=== PATIENT | female | born 1970 | race Caucasian/White ===

== ENCOUNTER 2020-12-18 07:30 | Outpatient (RCR) | payer BC, SELFPAY ==
[2020-12-14] MEDS: Normal Saline Flush 10 ML SYR IVP (07:46)
[2020-12-14 07:58] LABS: Abs Immature Grans 0.03 10^3/uL (0.0-0.06); Absolute Basophil Count 0.04 10^3/uL (0.0-0.2); Absolute Eosinophil Count 0.17 10^3/uL (0.0-0.7); Absolute Lymphocyte Count 1.49 10^3/uL (1.2-3.4); Absolute Monocyte Count 0.38 10^3/uL (0.1-0.8); Absolute Neutrophil Count 4.17 10^3/uL (1.2-6.7); Basophils % 0.6; Eosinophils % 2.7; HCT 38.1 % (36.0-46.0); HGB 12.5 g/dL (11.2-15.7); Immature Grans % 0.5; Lymphocytes % 23.7; MCH 30.3 pg (27.0-33.0); MCHC 32.8 % (32.0-36.0); MCV 92.5 fL (80-95); Monocytes % 6.1; Neutrophils % 66.4; Nucleated RBC 0 %; Platelet Count 346 10^3/uL (130-400); RBC 4.12 10^6/uL (3.93-5.22); RDW 14.2 % (11.7-14.6); RDW-SD 48.1 fL; WBC 6.28 10^3/uL (4.4-10.8)
[2020-12-14 08:07] LABS: ALT 26 U/L (14-59); AST 16 U/L (15-37); Albumin 3.3 g/dL (3.4-5.0); Alkaline Phosphatase 95 U/L (46-116); Anion Gap 10.9 mmol/L (3-11); BUN 8 mg/dL (7-18); Bilirubin, Total 0.3 mg/dL (0.2-1.0); CO2 24.1 mmol/L (21.0-32.0); CREATININE 0.7 mg/dL (0.55-1.02); Chloride 108 mmol/L (98-107); Glucose 121 mg/dL (74-106); Magnesium 1.1 mg/dL (1.8-2.4); Potassium 3.9 mmol/L (3.5-5.1); Sodium 143 mmol/L (136-145); Total Protein 7.4 g/dL (6.4-8.2)
[2020-12-14 17:51] LABS: CEA <2.0 ng/mL (See Note)
[2020-12-18] MEDS: Normal Saline Flush 10 ML SYR IVP (10:39)
[2020-12-18 10:55] LABS: Magnesium 1.1 mg/dL (1.8-2.4)
== END 2020-12-19 23:59 | disposition home or self-care (01) ==
LOC: INF 07:30
PROVIDERS: Visit Provider Internal Medicine Hematology & Oncology
DX: E83.42 Hypomagnesemia (principal); Z45.2 Encounter for adjustment and management of vascular access device; C18.9 Malignant neoplasm of colon, unspecified; C79.89 Secondary malignant neoplasm of other specified sites
CPT/HCPCS: 36591; 80053; 82378; 83735; 85025

== ENCOUNTER 2021-01-18 05:48 | Outpatient (RCR) | payer BC, SELFPAY ==
[2020-12-21] MEDS: Normal Saline Flush 10 ML SYR IVP (12:15)
[2020-12-25] MEDS: Normal Saline Flush 10 ML SYR IVP (14:19)
[2020-12-25 14:25] LABS: Abs Immature Grans 0.01 10^3/uL (0.0-0.06); Absolute Basophil Count 0.03 10^3/uL (0.0-0.2); Absolute Eosinophil Count 0.12 10^3/uL (0.0-0.7); Absolute Lymphocyte Count 2.08 10^3/uL (1.2-3.4); Absolute Monocyte Count 0.42 10^3/uL (0.1-0.8); Absolute Neutrophil Count 4.16 10^3/uL (1.2-6.7); Basophils % 0.4; Eosinophils % 1.8; HCT 37.1 % (36.0-46.0); HGB 12.2 g/dL (11.2-15.7); Immature Grans % 0.1; Lymphocytes % 30.5; MCH 30.6 pg (27.0-33.0); MCHC 32.9 % (32.0-36.0); MPV 9.6 fL (8.0-11.0); Monocytes % 6.2; Nucleated RBC 0 %; Platelet Count 258 10^3/uL (130-400); RBC 3.99 10^6/uL (3.93-5.22); RDW 14.2 % (11.7-14.6); RDW-SD 49.1 fL; WBC 6.82 10^3/uL (4.4-10.8)
[2020-12-25 14:38] LABS: ALT 30 U/L (14-59); AST 15 U/L (15-37); Albumin 3.5 g/dL (3.4-5.0); Alkaline Phosphatase 103 U/L (46-116); Anion Gap 12.6 mmol/L (3-11); BUN 12 mg/dL (7-18); Bilirubin, Total 0.3 mg/dL (0.2-1.0); CO2 23.4 mmol/L (21.0-32.0); CREATININE 0.8 mg/dL (0.55-1.02); Calcium 8.8 mg/dL (8.5-10.1); Chloride 107 mmol/L (98-107); Glucose 100 mg/dL (74-106); Potassium 4.5 mmol/L (3.5-5.1); Sodium 143 mmol/L (136-145); Total Protein 7.3 g/dL (6.4-8.2)
[2020-12-25 14:50] LABS: Magnesium 1.3 mg/dL (1.8-2.4)
[2020-12-28] MEDS: Normal Saline Flush 10 ML SYR IVP (11:11)
[2020-12-28 11:17] LABS: Abs Immature Grans 0.01 10^3/uL (0.0-0.06); Absolute Basophil Count 0.03 10^3/uL (0.0-0.2); Absolute Eosinophil Count 0.12 10^3/uL (0.0-0.7); Absolute Lymphocyte Count 1.82 10^3/uL (1.2-3.4); Absolute Monocyte Count 0.37 10^3/uL (0.1-0.8); Absolute Neutrophil Count 3.45 10^3/uL (1.2-6.7); Basophils % 0.5; Eosinophils % 2.1; HCT 37.5 % (36.0-46.0); HGB 12.2 g/dL (11.2-15.7); Immature Grans % 0.2; Lymphocytes % 31.4; MCH 30.3 pg (27.0-33.0); MCHC 32.5 % (32.0-36.0); MCV 93.3 fL (80-95); Monocytes % 6.4; Neutrophils % 59.4; Nucleated RBC 0 %; Platelet Count 259 10^3/uL (130-400); RBC 4.02 10^6/uL (3.93-5.22); RDW 14.1 % (11.7-14.6); RDW-SD 48.9 fL
[2020-12-28 11:32] LABS: ALT 29 U/L (14-59); AST 17 U/L (15-37); Albumin 3.3 g/dL (3.4-5.0); Alkaline Phosphatase 102 U/L (46-116); BUN 10 mg/dL (7-18); Bilirubin, Total 0.3 mg/dL (0.2-1.0); CREATININE 0.8 mg/dL (0.55-1.02); Calcium 8.6 mg/dL (8.5-10.1); Chloride 109 mmol/L (98-107); Glucose 103 mg/dL (74-106); Magnesium 1.1 mg/dL (1.8-2.4); Potassium 4.7 mmol/L (3.5-5.1); Sodium 143 mmol/L (136-145); Total Protein 7.2 g/dL (6.4-8.2)
[2020-12-28 22:36] LABS: CEA <2.0 ng/mL (See Note)
[2021-01-01] MEDS: Normal Saline Flush 10 ML SYR IVP (13:27)
[2021-01-01 13:41] LABS: Abs Immature Grans 0.02 10^3/uL (0.0-0.06); Absolute Basophil Count 0.04 10^3/uL (0.0-0.2); Absolute Eosinophil Count 0.11 10^3/uL (0.0-0.7); Absolute Lymphocyte Count 1.83 10^3/uL (1.2-3.4); Absolute Monocyte Count 0.37 10^3/uL (0.1-0.8); Absolute Neutrophil Count 3.53 10^3/uL (1.2-6.7); Basophils % 0.7; Eosinophils % 1.9; HGB 12.2 g/dL (11.2-15.7); Immature Grans % 0.3; MCH 30.8 pg (27.0-33.0); MCV 93.4 fL (80-95); MPV 10.6 fL (8.0-11.0); Monocytes % 6.3; Neutrophils % 59.8; Nucleated RBC 0 %; Platelet Count 270 10^3/uL (130-400); RBC 3.96 10^6/uL (3.93-5.22); RDW 14.2 % (11.7-14.6); RDW-SD 48.9 fL
[2021-01-01 13:58] LABS: ALT 28 U/L (14-59); AST 18 U/L (15-37); Albumin 3.2 g/dL (3.4-5.0); Alkaline Phosphatase 98 U/L (46-116); Anion Gap 10.2 mmol/L (3-11); BUN 9 mg/dL (7-18); Bilirubin, Total 0.4 mg/dL (0.2-1.0); CO2 23.8 mmol/L (21.0-32.0); CREATININE 0.8 mg/dL (0.55-1.02); Calcium 7.8 mg/dL (8.5-10.1); Chloride 109 mmol/L (98-107); Glucose 118 mg/dL (74-106); Potassium 4.4 mmol/L (3.5-5.1); Sodium 143 mmol/L (136-145); Total Protein 7.2 g/dL (6.4-8.2)
[2021-01-01 22:07] LABS: CEA <2.0 ng/mL (See Note)
[2021-01-04] MEDS: Normal Saline Flush 10 ML SYR IVP (13:28)
[2021-01-08] MEDS: Normal Saline Flush 10 ML SYR IVP (12:37)
[2021-01-08 12:46] LABS: Magnesium 0.9 mg/dL (1.8-2.4)
[2021-01-11] MEDS: Normal Saline Flush 10 ML SYR IVP (09:59)
[2021-01-11 10:11] LABS: Abs Immature Grans 0.02 10^3/uL (0.0-0.06); Absolute Basophil Count 0.05 10^3/uL (0.0-0.2); Absolute Eosinophil Count 0.16 10^3/uL (0.0-0.7); Absolute Lymphocyte Count 1.53 10^3/uL (1.2-3.4); Absolute Monocyte Count 0.37 10^3/uL (0.1-0.8); Absolute Neutrophil Count 3.82 10^3/uL (1.2-6.7); Basophils % 0.8; Eosinophils % 2.7; HCT 38.5 % (36.0-46.0); HGB 12.6 g/dL (11.2-15.7); Immature Grans % 0.3; Lymphocytes % 25.7; MCH 30.5 pg (27.0-33.0); MCHC 32.7 % (32.0-36.0); MCV 93.2 fL (80-95); MPV 10.2 fL (8.0-11.0); Monocytes % 6.2; Neutrophils % 64.3; Nucleated RBC 0 %; Platelet Count 298 10^3/uL (130-400); RBC 4.13 10^6/uL (3.93-5.22); RDW 14.3 % (11.7-14.6); RDW-SD 49.3 fL; WBC 5.95 10^3/uL (4.4-10.8)
[2021-01-11 10:33] LABS: ALT 28 U/L (14-59); AST 19 U/L (15-37); Albumin 3.6 g/dL (3.4-5.0); Alkaline Phosphatase 109 U/L (46-116); Anion Gap 8.3 mmol/L (3-11); BUN 10 mg/dL (7-18); Bilirubin, Total 0.4 mg/dL (0.2-1.0); CO2 25.7 mmol/L (21.0-32.0); CREATININE 0.8 mg/dL (0.55-1.02); Calcium 8.5 mg/dL (8.5-10.1); Chloride 108 mmol/L (98-107); Glucose 110 mg/dL (74-106); Magnesium 1.2 mg/dL (1.8-2.4); Potassium 4.8 mmol/L (3.5-5.1); Sodium 142 mmol/L (136-145); Total Protein 7.4 g/dL (6.4-8.2)
[2021-01-14 09:20] LABS: CEA <2.0 ng/mL (See Note)
[2021-01-15] MEDS: Normal Saline Flush 10 ML SYR IVP (12:59)
[2021-01-15 13:19] LABS: Magnesium 0.9 mg/dL (1.8-2.4)
[2021-01-18] MEDS: Normal Saline Flush 10 ML SYR IVP (13:40)
== END 2021-01-19 23:59 | disposition home or self-care (01) ==
LOC: INF 05:48
PROVIDERS: Visit Provider Internal Medicine Hematology & Oncology
DX: E83.42 Hypomagnesemia (principal); C18.9 Malignant neoplasm of colon, unspecified; Z45.2 Encounter for adjustment and management of vascular access device; C79.89 Secondary malignant neoplasm of other specified sites
CPT/HCPCS: 36591; 80053; 82378; 83735; 85025

== ENCOUNTER 2021-02-19 02:03 | Outpatient (RCR) | payer BC, SELFPAY ==
[2021-01-22] MEDS: Normal Saline Flush 10 ML SYR IVP (13:24)
[2021-01-22 13:48] LABS: Magnesium 1.5 mg/dL (1.8-2.4)
[2021-01-25] MEDS: Normal Saline Flush 10 ML SYR IVP (12:48)
[2021-01-25 12:59] LABS: Abs Immature Grans 0.01 10^3/uL (0.0-0.06); Absolute Basophil Count 0.03 10^3/uL (0.0-0.2); Absolute Eosinophil Count 0.12 10^3/uL (0.0-0.7); Absolute Lymphocyte Count 1.92 10^3/uL (1.2-3.4); Absolute Monocyte Count 0.34 10^3/uL (0.1-0.8); Absolute Neutrophil Count 4.14 10^3/uL (1.2-6.7); Basophils % 0.5; Eosinophils % 1.8; HCT 35.5 % (36.0-46.0); HGB 11.7 g/dL (11.2-15.7); Immature Grans % 0.2; Lymphocytes % 29.3; MCH 30.2 pg (27.0-33.0); MCV 91.7 fL (80-95); MPV 10.3 fL (8.0-11.0); Monocytes % 5.2; Nucleated RBC 0 %; Platelet Count 270 10^3/uL (130-400); RBC 3.87 10^6/uL (3.93-5.22); RDW 14.2 % (11.7-14.6); RDW-SD 48.1 fL; WBC 6.56 10^3/uL (4.4-10.8)
[2021-01-25 13:11] LABS: ALT 19 U/L (14-59); AST 20 U/L (15-37); Albumin 3.4 g/dL (3.4-5.0); Alkaline Phosphatase 99 U/L (46-116); Anion Gap 8.2 mmol/L (3-11); BUN 12 mg/dL (7-18); Bilirubin, Total 0.2 mg/dL (0.2-1.0); CO2 25.8 mmol/L (21.0-32.0); CREATININE 0.8 mg/dL (0.55-1.02); Calcium 8.5 mg/dL (8.5-10.1); Chloride 108 mmol/L (98-107); Glucose 117 mg/dL (74-106); Magnesium 1.1 mg/dL (1.8-2.4); Potassium 4.4 mmol/L (3.5-5.1); Sodium 142 mmol/L (136-145); Total Protein 7.3 g/dL (6.4-8.2)
[2021-01-29] MEDS: Normal Saline Flush 10 ML SYR IVP (13:41)
[2021-01-29 14:00] LABS: Abs Immature Grans 0.01 10^3/uL (0.0-0.06); Absolute Basophil Count 0.03 10^3/uL (0.0-0.2); Absolute Eosinophil Count 0.15 10^3/uL (0.0-0.7); Absolute Lymphocyte Count 2.15 10^3/uL (1.2-3.4); Absolute Monocyte Count 0.35 10^3/uL (0.1-0.8); Absolute Neutrophil Count 4.47 10^3/uL (1.2-6.7); Basophils % 0.4; Eosinophils % 2.1; HCT 36.3 % (36.0-46.0); HGB 11.9 g/dL (11.2-15.7); Immature Grans % 0.1; MCHC 32.8 % (32.0-36.0); MCV 91.4 fL (80-95); MPV 10.3 fL (8.0-11.0); Monocytes % 4.9; Neutrophils % 62.5; Nucleated RBC 0 %; Platelet Count 285 10^3/uL (130-400); RBC 3.97 10^6/uL (3.93-5.22); RDW 13.9 % (11.7-14.6); RDW-SD 47.1 fL; WBC 7.16 10^3/uL (4.4-10.8)
[2021-01-29 14:15] LABS: ALT 24 U/L (14-59); AST 15 U/L (15-37); Albumin 3.4 g/dL (3.4-5.0); Alkaline Phosphatase 99 U/L (46-116); Anion Gap 8.4 mmol/L (3-11); BUN 14 mg/dL (7-18); Bilirubin, Total 0.2 mg/dL (0.2-1.0); CO2 23.6 mmol/L (21.0-32.0); CREATININE 0.7 mg/dL (0.55-1.02); Calcium 8.1 mg/dL (8.5-10.1); Chloride 109 mmol/L (98-107); Glucose 108 mg/dL (74-106); Magnesium 1.1 mg/dL (1.8-2.4); Potassium 4.3 mmol/L (3.5-5.1); Sodium 141 mmol/L (136-145); Total Protein 7.3 g/dL (6.4-8.2)
[2021-01-29 22:01] LABS: CEA <2.0 ng/mL (See Note)
[2021-02-01] MEDS: Normal Saline Flush 10 ML SYR IVP (13:36)
[2021-02-01 14:00] LABS: Magnesium 1.3 mg/dL (1.8-2.4)
[2021-02-05] MEDS: Normal Saline Flush 10 ML SYR IVP (13:31)
[2021-02-05 13:59] LABS: Magnesium 1.4 mg/dL (1.8-2.4)
[2021-02-08] MEDS: Normal Saline Flush 10 ML SYR IVP (13:39)
[2021-02-08 14:09] LABS: Magnesium 1.4 mg/dL (1.8-2.4)
[2021-02-12] MEDS: Normal Saline Flush 10 ML SYR IVP (14:00)
[2021-02-12 14:16] LABS: Magnesium 1.3 mg/dL (1.8-2.4)
[2021-02-15] MEDS: Normal Saline Flush 10 ML SYR IVP (14:37)
[2021-02-15 14:56] LABS: Abs Immature Grans 0.01 10^3/uL (0.0-0.06); Absolute Basophil Count 0.03 10^3/uL (0.0-0.2); Absolute Eosinophil Count 0.15 10^3/uL (0.0-0.7); Absolute Lymphocyte Count 2.03 10^3/uL (1.2-3.4); Absolute Monocyte Count 0.43 10^3/uL (0.1-0.8); Absolute Neutrophil Count 2.82 10^3/uL (1.2-6.7); Basophils % 0.5; Eosinophils % 2.7; HCT 33.1 % (36.0-46.0); Immature Grans % 0.2; Lymphocytes % 37.1; MCH 30.8 pg (27.0-33.0); MCHC 33.2 % (32.0-36.0); MCV 92.7 fL (80-95); Monocytes % 7.9; Neutrophils % 51.6; Nucleated RBC 0 %; Platelet Count 248 10^3/uL (130-400); RBC 3.57 10^6/uL (3.93-5.22); RDW 15.7 % (11.7-14.6); RDW-SD 51.1 fL; WBC 5.47 10^3/uL (4.4-10.8)
[2021-02-15 15:05] LABS: Magnesium 1.4 mg/dL (1.8-2.4)
[2021-02-15 15:09] LABS: ALT 19 U/L (14-59); AST 15 U/L (15-37); Albumin 3.3 g/dL (3.4-5.0); Alkaline Phosphatase 107 U/L (46-116); Anion Gap 8.2 mmol/L (3-11); BUN 13 mg/dL (7-18); Bilirubin, Total 0.3 mg/dL (0.2-1.0); CO2 25.8 mmol/L (21.0-32.0); CREATININE 0.9 mg/dL (0.55-1.02); Calcium 8.3 mg/dL (8.5-10.1); Chloride 108 mmol/L (98-107); Glucose 104 mg/dL (74-106); Potassium 4.1 mmol/L (3.5-5.1); Sodium 142 mmol/L (136-145)
[2021-02-15 22:26] LABS: CEA 2.5 ng/mL (See Note)
[2021-02-19] MEDS: Normal Saline Flush 10 ML SYR IVP (13:36)
[2021-02-19 14:10] LABS: Magnesium 1.7 mg/dL (1.8-2.4)
== END 2021-02-19 23:59 | disposition home or self-care (01) ==
LOC: INF 02:03
PROVIDERS: Visit Provider Internal Medicine Hematology & Oncology
DX: C18.9 Malignant neoplasm of colon, unspecified (principal); Z45.2 Encounter for adjustment and management of vascular access device; E83.42 Hypomagnesemia
CPT/HCPCS: 36415; 36591; 80053; 96523; 82378; 83735; 85025

== ENCOUNTER 2021-03-19 02:45 | Outpatient (RCR) | payer BC, SELFPAY ==
[2021-02-22] MEDS: Normal Saline Flush 10 ML SYR IVP (13:36)
[2021-02-22 13:52] LABS: Magnesium 1.6 mg/dL (1.8-2.4)
[2021-03-01 14:36] LABS: Magnesium 1.8 mg/dL (1.8-2.4)
[2021-03-01] MEDS: Normal Saline Flush 10 ML SYR IVP (15:04)
[2021-03-08] MEDS: Normal Saline Flush 10 ML SYR IVP (13:32)
[2021-03-08 13:51] LABS: Abs Immature Grans 0.01 10^3/uL (0.0-0.06); Absolute Basophil Count 0.03 10^3/uL (0.0-0.2); Absolute Eosinophil Count 0.15 10^3/uL (0.0-0.7); Absolute Monocyte Count 0.54 10^3/uL (0.1-0.8); Absolute Neutrophil Count 3.27 10^3/uL (1.2-6.7); Basophils % 0.5; Eosinophils % 2.5; HCT 34.1 % (36.0-46.0); HGB 11.3 g/dL (11.2-15.7); Immature Grans % 0.2; Lymphocytes % 33.3; MCH 31.7 pg (27.0-33.0); MCHC 33.1 % (32.0-36.0); MCV 95.8 fL (80-95); MPV 9.9 fL (8.0-11.0); Neutrophils % 54.5; Nucleated RBC 0 %; Platelet Count 250 10^3/uL (130-400); RBC 3.56 10^6/uL (3.93-5.22); RDW 18.2 % (11.7-14.6); RDW-SD 62.7 fL
[2021-03-08 14:07] LABS: ALT 27 U/L (14-59); AST 23 U/L (15-37); Albumin 3.7 g/dL (3.4-5.0); Alkaline Phosphatase 123 U/L (46-116); Anion Gap 7.1 mmol/L (3-11); BUN 12 mg/dL (7-18); Bilirubin, Total 0.4 mg/dL (0.2-1.0); CO2 25.9 mmol/L (21.0-32.0); CREATININE 0.8 mg/dL (0.55-1.02); Calcium 8.4 mg/dL (8.5-10.1); Chloride 109 mmol/L (98-107); Glucose 92 mg/dL (74-106); Sodium 142 mmol/L (136-145); Total Protein 7.3 g/dL (6.4-8.2)
[2021-03-08 14:12] LABS: Magnesium 1.8 mg/dL (1.8-2.4)
[2021-03-08 22:46] LABS: CEA <2.0 ng/mL (See Note)
== END 2021-03-21 23:59 | disposition home or self-care (01) ==
LOC: INF 02:45
PROVIDERS: PCP Student in an Organized Health Care Education/Training Program; Visit Provider Internal Medicine Hematology & Oncology
DX: C18.9 Malignant neoplasm of colon, unspecified (principal); Z45.2 Encounter for adjustment and management of vascular access device; E83.42 Hypomagnesemia
CPT/HCPCS: 36591; 80053; 82378; 83735; 85025

== ENCOUNTER 2021-04-19 00:54 | Outpatient (RCR) | payer BC, SELFPAY ==
[2021-03-29] MEDS: Normal Saline Flush 10 ML SYR IVP (14:35)
[2021-03-29 14:48] LABS: Abs Immature Grans 0.02 10^3/uL (0.0-0.06); Absolute Basophil Count 0.03 10^3/uL (0.0-0.2); Absolute Monocyte Count 0.46 10^3/uL (0.1-0.8); Absolute Neutrophil Count 3.83 10^3/uL (1.2-6.7); Basophils % 0.5; Eosinophils % 3.2; HCT 32.8 % (36.0-46.0); HGB 10.8 g/dL (11.2-15.7); Immature Grans % 0.3; Lymphocytes % 27.2; MCH 32.6 pg (27.0-33.0); MCHC 32.9 % (32.0-36.0); MCV 99.1 fL (80-95); Monocytes % 7.4; Neutrophils % 61.4; Nucleated RBC 0 %; Platelet Count 262 10^3/uL (130-400); RBC 3.31 10^6/uL (3.93-5.22); RDW 20.3 % (11.7-14.6); RDW-SD 72.3 fL; WBC 6.24 10^3/uL (4.4-10.8)
[2021-03-29 15:02] LABS: ALT 19 U/L (14-59); AST 15 U/L (15-37); Albumin 3.5 g/dL (3.4-5.0); Alkaline Phosphatase 104 U/L (46-116); Anion Gap 4.8 mmol/L (3-11); BUN 13 mg/dL (7-18); Bilirubin, Total 0.5 mg/dL (0.2-1.0); CO2 30.2 mmol/L (21.0-32.0); CREATININE 0.9 mg/dL (0.55-1.02); Calcium 8.3 mg/dL (8.5-10.1); Chloride 109 mmol/L (98-107); Glucose 109 mg/dL (74-106); Magnesium 1.8 mg/dL (1.8-2.4); Potassium 3.6 mmol/L (3.5-5.1); Sodium 144 mmol/L (136-145)
[2021-03-29 15:29] LABS: Anisocytosis 1+; Diff Comment RBC Morph Reviewed; Polychromasia Present
[2021-03-29 22:23] LABS: CEA <2.0 ng/mL (See Note)
[2021-04-19 10:42] LABS: Abs Immature Grans 0.02 10^3/uL (0.0-0.06); Absolute Basophil Count 0.05 10^3/uL (0.0-0.2); Absolute Lymphocyte Count 2.02 10^3/uL (1.2-3.4); Absolute Monocyte Count 0.38 10^3/uL (0.1-0.8); Absolute Neutrophil Count 5.33 10^3/uL (1.2-6.7); Basophils % 0.6; Eosinophils % 1.3; HCT 36.8 % (36.0-46.0); HGB 12.2 g/dL (11.2-15.7); Immature Grans % 0.3; Lymphocytes % 25.6; MCH 33.8 pg (27.0-33.0); MCHC 33.2 % (32.0-36.0); MCV 101.9 fL (80-95); MPV 9.9 fL (8.0-11.0); Monocytes % 4.8; Neutrophils % 67.4; Nucleated RBC 0 %; Platelet Count 253 10^3/uL (130-400); RBC 3.61 10^6/uL (3.93-5.22); RDW 20.5 % (11.7-14.6)
[2021-04-19] MEDS: Normal Saline Flush 10 ML SYR IVP (10:47)
[2021-04-19 10:54] LABS: ALT 18 U/L (14-59); AST 15 U/L (15-37); Albumin 3.6 g/dL (3.4-5.0); Alkaline Phosphatase 110 U/L (46-116); Anion Gap 7.6 mmol/L (3-11); BUN 18 mg/dL (7-18); Bilirubin, Total 0.4 mg/dL (0.2-1.0); CO2 28.4 mmol/L (21.0-32.0); CREATININE 0.9 mg/dL (0.55-1.02); Chloride 107 mmol/L (98-107); Glucose 110 mg/dL (74-106); Magnesium 1.9 mg/dL (1.8-2.4); Potassium 3.9 mmol/L (3.5-5.1); Sodium 143 mmol/L (136-145); Total Protein 7.8 g/dL (6.4-8.2)
[2021-04-19 10:55] LABS: Anisocytosis 2+; Diff Comment RBC Morph Reviewed
[2021-04-19 22:20] LABS: CEA <0.5 ng/mL (See Note)
== END 2021-04-21 23:59 | disposition home or self-care (01) ==
LOC: INF 00:54
PROVIDERS: PCP Student in an Organized Health Care Education/Training Program; Visit Provider Internal Medicine Hematology & Oncology
DX: C18.9 Malignant neoplasm of colon, unspecified (principal); Z45.2 Encounter for adjustment and management of vascular access device; E83.42 Hypomagnesemia
CPT/HCPCS: 36415; 36591; 80053; 96523; 82378; 83735; 85025

== ENCOUNTER 2021-05-17 00:25 | Outpatient (CLI) | payer BC, SELFPAY ==
--- NOTE | 2021-05-17 | DI.CT_ITS ---
Exam(s) CT CHEST/ABD/PEL W EXAM: CT CHEST/ABD/PEL W CLINICAL HISTORY: COLON CA,LIVER,LUNG METS, ON CHEMO, RESTAGING EXAM. TECHNIQUE: Imaging Protocol: Axial computed tomography images with coronal and sagittal reformatted images were created and reviewed CONTRAST MATERIAL: Intravenous: Omnipaque 350 Contrast volume:100 ml Oral: yes / no COMPARISON: CT CT CHEST/ABD/PEL W from 01/03/2021 FINDINGS: CHEST: Tracheobronchial tree: Patent where visualized. Mediastinum and Seema: No dominant adenopathy or fluid collection. Pulmonary parenchyma: Slight interval increase in left upper lobe nodule measuring 7 x 8 millimeters. Interval decrease in left perihilar densities in the area of surgical clips. Interval decrease in size of lingular nodular infiltrate. Interval decrease in size of right middle lobe nodule. Stable area of apparent scarring near surgical clip in the right middle lobe. Stable size and appearance o f right lower lobe nodule. Pleura: No effusion or pneumothorax. Lymph nodes: Within normal limits. Aorta: Thoracic portion non-dilated. Heart: Not enlarged.. Bones: Unremarkable for age. No lytic or blastic lesions. Soft tissues: Port over left upper chest with tip in junction SVC right atrium. ABDOMEN: Liver: Normal density. Metallic densities. Stable liver lesions. No measurable mass. Gallbladder and biliary tract: A stable mild thickening of the wall of the gallbladder at the fundus. No radiodense calculus or dilation. Pancreas: Normal density, no abnormal calcifications or inflammatory process. Spleen: Normal. Kidneys: Normal size, contour and axis. No radiodense stones or obstructive uropathy. No masses seen. Adrenal glands: No masses seen. Aorta: Abdominal portion non-dilated. Lymph nodes: Within normal limits. Soft tissues: Unremarkable. PELVIS: Bladder: Symmetric distention, no gross wall thickening. Bowel: Arm rectosigmoid anastomosis appears unremarkable. No obstruction or bowel wall thickening. Peritoneal cavity: No ascites, collection or mesenteric inflammatory response. Bones: Stable area of amorphous sclerosis in the arm left ilium. No new abnormalities. Reproductive organs: Fallopian tube contraceptive implants. IMPRESSION: Overall interval improvement in pulmonary nodules at with the exception of left upper lobe nodule whi ch has increased in size.. No new abnormalities. Stable low-density liver lesions. Stable area of sclerosis in the left ilium. No new abnormalities. RADIATION DOSE DELIVERED: 2,214.51mGy.cm Total DLP DATA REPOSITORY: All CT scans at this facility are submitted to the National Radiology Data Registry (NRDR) Dose Index Registry (DIR) with the [employer] (ACR). RADIATION OPTIMIZATION: All CT scans at this facility use at least one of these dose optimization te chniques: automated exposure control; mA and/or kV adjustment per patient size (includes targeted exa ms where dose is matched to clinical indication); or iterative reconstruction.
[2021-05-17] MEDS: Omnipaque 350 MG/ML 50 ML BTL PO (13:02)
[2021-05-17] MEDS: Breeza Beverage 473 ML BTL PO (13:02)
[2021-05-17] MEDS: Omnipaque 350 MG/ML 100 ML BTL IJ (14:27)
[2021-05-17] MEDS: Normal Saline - Diluent 50 ML VIAL IV (14:28)
[2021-05-17] MEDS: Normal Saline Flush 10 ML SYR IVP (14:29)
== END 2021-05-17 00:45 ==
PROVIDERS: PCP Student in an Organized Health Care Education/Training Program; Visit Provider Internal Medicine Hematology & Oncology
DX: C18.9 Malignant neoplasm of colon, unspecified (principal); C78.7 Secondary malignant neoplasm of liver and intrahepatic bile duct
CPT/HCPCS: 74177; 71260; J3490; Q9967

== ENCOUNTER 2021-05-17 00:52 | Outpatient (RCR) | payer BC, SELFPAY ==
[2021-05-17 13:22] LABS: Abs Immature Grans 0.01 10^3/uL (0.0-0.06); Absolute Basophil Count 0.03 10^3/uL (0.0-0.2); Absolute Eosinophil Count 0.16 10^3/uL (0.0-0.7); Absolute Lymphocyte Count 1.72 10^3/uL (1.2-3.4); Absolute Monocyte Count 0.36 10^3/uL (0.1-0.8); Absolute Neutrophil Count 4.05 10^3/uL (1.2-6.7); Basophils % 0.5; Eosinophils % 2.5; HGB 12.5 g/dL (11.2-15.7); Immature Grans % 0.2; Lymphocytes % 27.2; MCH 34.1 pg (27.0-33.0); MCHC 32.9 % (32.0-36.0); MCV 103.5 fL (80-95); MPV 10.6 fL (8.0-11.0); Monocytes % 5.7; Neutrophils % 63.9; Nucleated RBC 0 %; Platelet Count 262 10^3/uL (130-400); RBC 3.67 10^6/uL (3.93-5.22); RDW 19.5 % (11.7-14.6); RDW-SD 74.3 fL; WBC 6.33 10^3/uL (4.4-10.8)
[2021-05-17 13:36] LABS: ALT 30 U/L (14-59); AST 22 U/L (15-37); Albumin 3.7 g/dL (3.4-5.0); Alkaline Phosphatase 110 U/L (46-116); Anion Gap 9.6 mmol/L (3-11); BUN 14 mg/dL (7-18); Bilirubin, Total 0.5 mg/dL (0.2-1.0); CO2 27.4 mmol/L (21.0-32.0); CREATININE 0.8 mg/dL (0.55-1.02); Calcium 9.1 mg/dL (8.5-10.1); Chloride 105 mmol/L (98-107); Glucose 105 mg/dL (74-106); Potassium 3.9 mmol/L (3.5-5.1); Sodium 142 mmol/L (136-145); Total Protein 8.1 g/dL (6.4-8.2)
[2021-05-17] MEDS: Normal Saline Flush 10 ML SYR IVP (13:50)
[2021-05-17 22:56] LABS: CEA 0.8 ng/mL (See Note)
== END 2021-05-21 23:59 | disposition home or self-care (01) ==
LOC: INF 00:52
PROVIDERS: PCP Student in an Organized Health Care Education/Training Program; Visit Provider Internal Medicine Hematology & Oncology
DX: C18.9 Malignant neoplasm of colon, unspecified (principal); Z45.2 Encounter for adjustment and management of vascular access device
CPT/HCPCS: 36415; 36591; 80053; 82378; 85025

== ENCOUNTER 2021-06-07 02:34 | Outpatient (RCR) | payer BC, SELFPAY ==
[2021-06-07] MEDS: Normal Saline Flush 10 ML SYR IVP (13:36)
[2021-06-07 13:48] LABS: Abs Immature Grans 0.02 10^3/uL (0.0-0.06); Absolute Basophil Count 0.06 10^3/uL (0.0-0.2); Absolute Eosinophil Count 0.14 10^3/uL (0.0-0.7); Absolute Lymphocyte Count 2.32 10^3/uL (1.2-3.4); Absolute Neutrophil Count 4.22 10^3/uL (1.2-6.7); Basophils % 0.8; Eosinophils % 1.9; HCT 37.4 % (36.0-46.0); HGB 12.3 g/dL (11.2-15.7); Immature Grans % 0.3; MCHC 32.9 % (32.0-36.0); MCV 103.3 fL (80-95); MPV 10.3 fL (8.0-11.0); Monocytes % 6.9; Neutrophils % 58.1; Nucleated RBC 0 %; Platelet Count 268 10^3/uL (130-400); RBC 3.62 10^6/uL (3.93-5.22); RDW 16.3 % (11.7-14.6); RDW-SD 63.1 fL; WBC 7.26 10^3/uL (4.4-10.8)
[2021-06-07 14:01] LABS: ALT 22 U/L (14-59); AST 16 U/L (15-37); Albumin 3.5 g/dL (3.4-5.0); Alkaline Phosphatase 104 U/L (46-116); Anion Gap 7.8 mmol/L (3-11); BUN 14 mg/dL (7-18); Bilirubin, Total 0.3 mg/dL (0.2-1.0); CO2 27.2 mmol/L (21.0-32.0); CREATININE 0.8 mg/dL (0.55-1.02); Calcium 8.7 mg/dL (8.5-10.1); Chloride 106 mmol/L (98-107); Glucose 89 mg/dL (74-106); Potassium 3.5 mmol/L (3.5-5.1); Sodium 141 mmol/L (136-145); Total Protein 7.8 g/dL (6.4-8.2)
== END 2021-06-21 23:59 | disposition home or self-care (01) ==
LOC: INF 02:34
PROVIDERS: PCP Student in an Organized Health Care Education/Training Program; Visit Provider Internal Medicine Hematology & Oncology
DX: C18.9 Malignant neoplasm of colon, unspecified (principal); Z45.2 Encounter for adjustment and management of vascular access device
CPT/HCPCS: 36591; 80053; 85025

== ENCOUNTER 2021-07-17 17:06 | Outpatient (REF) | payer BC, SELFPAY ==
[2021-07-17 18:30] LABS: Bilirubin Negative (Negative); Blood Moderate (Negative); Clarity Clear (Clear); Glucose Negative (Negative); Ketones Negative (Negative); Leukocyte Esterase Large (Negative); Nitrite Negative (Negative); Urobilinogen 0.2 EU/dL (Up TO 0.2); pH 6.5 (5-8)
[2021-07-17 18:40] LABS: Bacteria Moderate HPF (Negative); C & S Indicated? Yes; Casts Negative LPF (Negative); Crystals Negative HPF (Negative); Epithelial Cells Few HPF (Negative); Mucus Negative (Negative); WBC >50 HPF (0-5)
== END 2021-07-17 17:07 | disposition home or self-care (01) ==
LOC: LBN 17:06
PROVIDERS: PCP Student in an Organized Health Care Education/Training Program; Visit Provider Internal Medicine Hematology & Oncology
DX: C18.9 Malignant neoplasm of colon, unspecified (principal)
CPT/HCPCS: 87077; 81003; 81015; 87086; 87186

== ENCOUNTER 2021-07-19 03:42 | Outpatient (RCR) | payer BC, SELFPAY ==
[2021-06-28] MEDS: Normal Saline Flush 10 ML SYR IVP (13:47)
[2021-06-28 13:53] LABS: Abs Immature Grans 0.02 10^3/uL (0.0-0.06); Absolute Basophil Count 0.05 10^3/uL (0.0-0.2); Absolute Eosinophil Count 0.15 10^3/uL (0.0-0.7); Absolute Lymphocyte Count 2.07 10^3/uL (1.2-3.4); Absolute Monocyte Count 0.58 10^3/uL (0.1-0.8); Absolute Neutrophil Count 4.71 10^3/uL (1.2-6.7); Basophils % 0.7; HCT 35.9 % (36.0-46.0); Immature Grans % 0.3; Lymphocytes % 27.3; MCH 33.9 pg (27.0-33.0); MCHC 33.4 % (32.0-36.0); MCV 101.4 fL (80-95); MPV 10.2 fL (8.0-11.0); Monocytes % 7.7; Nucleated RBC 0 %; Platelet Count 234 10^3/uL (130-400); RBC 3.54 10^6/uL (3.93-5.22); RDW 16.4 % (11.7-14.6); WBC 7.58 10^3/uL (4.4-10.8)
[2021-06-28 14:10] LABS: ALT 19 U/L (14-59); AST 15 U/L (15-37); Albumin 3.5 g/dL (3.4-5.0); Alkaline Phosphatase 93 U/L (46-116); Anion Gap 9.3 mmol/L (3-11); BUN 13 mg/dL (7-18); Bilirubin, Total 0.4 mg/dL (0.2-1.0); CO2 26.7 mmol/L (21.0-32.0); CREATININE 0.8 mg/dL (0.55-1.02); Calcium 8.5 mg/dL (8.5-10.1); Chloride 103 mmol/L (98-107); Glucose 99 mg/dL (74-106); Potassium 3.5 mmol/L (3.5-5.1); Sodium 139 mmol/L (136-145); Total Protein 7.6 g/dL (6.4-8.2)
[2021-06-28 22:00] LABS: CEA 0.5 ng/mL (See Note)
[2021-07-19] MEDS: Normal Saline Flush 10 ML SYR IVP (12:44)
[2021-07-19 13:01] LABS: Abs Immature Grans 0.01 10^3/uL (0.0-0.06); Absolute Basophil Count 0.03 10^3/uL (0.0-0.2); Absolute Eosinophil Count 0.12 10^3/uL (0.0-0.7); Absolute Lymphocyte Count 1.83 10^3/uL (1.2-3.4); Absolute Monocyte Count 0.51 10^3/uL (0.1-0.8); Absolute Neutrophil Count 4.17 10^3/uL (1.2-6.7); Basophils % 0.4; Eosinophils % 1.8; HCT 36.1 % (36.0-46.0); HGB 11.9 g/dL (11.2-15.7); Immature Grans % 0.1; Lymphocytes % 27.4; MCH 33.3 pg (27.0-33.0); MCV 101.1 fL (80-95); MPV 10.4 fL (8.0-11.0); Monocytes % 7.6; Neutrophils % 62.7; Nucleated RBC 0 %; Platelet Count 242 10^3/uL (130-400); RBC 3.57 10^6/uL (3.93-5.22); RDW-SD 63.8 fL; WBC 6.67 10^3/uL (4.4-10.8)
[2021-07-19 13:18] LABS: ALT 32 U/L (14-59); AST 25 U/L (15-37); Albumin 3.3 g/dL (3.4-5.0); Alkaline Phosphatase 98 U/L (46-116); BUN 7 mg/dL (7-18); Bilirubin, Total 0.4 mg/dL (0.2-1.0); CREATININE 0.7 mg/dL (0.55-1.02); Calcium 8.7 mg/dL (8.5-10.1); Chloride 105 mmol/L (98-107); Glucose 99 mg/dL (74-106); Potassium 3.7 mmol/L (3.5-5.1); Sodium 141 mmol/L (136-145); Total Protein 7.6 g/dL (6.4-8.2)
[2021-07-19 23:04] LABS: CEA 0.5 ng/mL (See Note)
== END 2021-07-22 23:59 | disposition home or self-care (01) ==
LOC: INF 03:42
PROVIDERS: PCP Student in an Organized Health Care Education/Training Program; Visit Provider Internal Medicine Hematology & Oncology
DX: C18.9 Malignant neoplasm of colon, unspecified (principal); Z45.2 Encounter for adjustment and management of vascular access device
CPT/HCPCS: 36591; 80053; 82378; 85025

== ENCOUNTER 2021-08-09 00:52 | Outpatient (RCR) | payer BC, SELFPAY ==
[2021-08-09] MEDS: Normal Saline Flush 10 ML SYR IVP (14:51)
[2021-08-09 15:16] LABS: Abs Immature Grans 0.02 10^3/uL (0.0-0.06); Absolute Basophil Count 0.03 10^3/uL (0.0-0.2); Absolute Lymphocyte Count 1.58 10^3/uL (1.2-3.4); Absolute Monocyte Count 0.41 10^3/uL (0.1-0.8); Absolute Neutrophil Count 2.85 10^3/uL (1.2-6.7); Basophils % 0.6; HCT 38.4 % (36.0-46.0); HGB 12.5 g/dL (11.2-15.7); Immature Grans % 0.4; Lymphocytes % 31.7; MCH 33.2 pg (27.0-33.0); MCHC 32.6 % (32.0-36.0); MCV 101.9 fL (80-95); MPV 10.7 fL (8.0-11.0); Monocytes % 8.2; Neutrophils % 57.1; Nucleated RBC 0 %; Platelet Count 237 10^3/uL (130-400); RBC 3.77 10^6/uL (3.93-5.22); RDW 17.2 % (11.7-14.6); RDW-SD 64.1 fL; WBC 4.99 10^3/uL (4.4-10.8)
[2021-08-09 15:27] LABS: ALT 22 U/L (14-59); AST 22 U/L (15-37); Albumin 3.5 g/dL (3.4-5.0); Alkaline Phosphatase 90 U/L (46-116); Anion Gap 8.2 mmol/L (3-11); BUN 8 mg/dL (7-18); Bilirubin, Total 0.3 mg/dL (0.2-1.0); CO2 26.8 mmol/L (21.0-32.0); CREATININE 0.9 mg/dL (0.55-1.02); Calcium 8.4 mg/dL (8.5-10.1); Chloride 105 mmol/L (98-107); Glucose 100 mg/dL (74-106); Potassium 3.6 mmol/L (3.5-5.1); Sodium 140 mmol/L (136-145); Total Protein 7.6 g/dL (6.4-8.2)
[2021-08-09 23:06] LABS: CEA <0.5 ng/mL (See Note)
== END 2021-08-19 23:59 | disposition home or self-care (01) ==
LOC: INF 00:52
PROVIDERS: PCP Student in an Organized Health Care Education/Training Program; Visit Provider Internal Medicine Hematology & Oncology
DX: C18.9 Malignant neoplasm of colon, unspecified (principal); Z45.2 Encounter for adjustment and management of vascular access device
CPT/HCPCS: 36415; 36591; 80053; 82378; 85025

== ENCOUNTER 2021-08-30 03:21 | Outpatient (RCR) | payer BC, SELFPAY ==
[2021-08-30] MEDS: Normal Saline Flush 10 ML SYR IVP (14:45)
[2021-08-30 14:53] LABS: Abs Immature Grans 0.02 10^3/uL (0.0-0.06); Absolute Basophil Count 0.03 10^3/uL (0.0-0.2); Absolute Eosinophil Count 0.08 10^3/uL (0.0-0.7); Absolute Monocyte Count 0.51 10^3/uL (0.1-0.8); Absolute Neutrophil Count 4.11 10^3/uL (1.2-6.7); Basophils % 0.5; Eosinophils % 1.2; HCT 36.5 % (36.0-46.0); HGB 12.2 g/dL (11.2-15.7); Immature Grans % 0.3; Lymphocytes % 27.5; MCH 33.5 pg (27.0-33.0); MCHC 33.4 % (32.0-36.0); MCV 100.3 fL (80-95); MPV 10.4 fL (8.0-11.0); Monocytes % 7.8; Neutrophils % 62.7; Nucleated RBC 0 %; Platelet Count 244 10^3/uL (130-400); RBC 3.64 10^6/uL (3.93-5.22); RDW-SD 66.4 fL; WBC 6.55 10^3/uL (4.4-10.8)
[2021-08-30 15:06] LABS: ALT 25 U/L (14-59); AST 15 U/L (15-37); Albumin 3.9 g/dL (3.4-5.0); Alkaline Phosphatase 102 U/L (46-116); Anion Gap 8.9 mmol/L (3-11); BUN 6 mg/dL (7-18); Bilirubin, Total 0.5 mg/dL (0.2-1.0); CO2 27.1 mmol/L (21.0-32.0); CREATININE 0.8 mg/dL (0.55-1.02); Calcium 8.9 mg/dL (8.5-10.1); Chloride 105 mmol/L (98-107); Glucose 92 mg/dL (74-106); Potassium 3.4 mmol/L (3.5-5.1); Sodium 141 mmol/L (136-145); Total Protein 7.9 g/dL (6.4-8.2)
[2021-09-02 10:45] LABS: CEA 0.6 ng/mL (See Note)
== END 2021-09-19 23:59 | disposition home or self-care (01) ==
LOC: INF 03:21
PROVIDERS: PCP Student in an Organized Health Care Education/Training Program; Visit Provider Internal Medicine Hematology & Oncology
DX: C18.9 Malignant neoplasm of colon, unspecified (principal); Z45.2 Encounter for adjustment and management of vascular access device
CPT/HCPCS: 36591; 80053; 82378; 85025

== ENCOUNTER 2021-09-06 00:46 | Outpatient (CLI) | payer BC, SELFPAY ==
--- NOTE | 2021-09-06 | DI.CT_ITS ---
Exam(s) CT CHEST/ABD/PEL W EXAM: CT CHEST/ABD/PEL W CLINICAL HISTORY: COLON CA METASTASIZED,C18.9,C18.9,C78.7,ON TREATMENT TECHNIQUE: CT examination of the chest, abdomen, and pelvis was performed utilizing intravenous inf usion of 100 cc of Omnipaque 350 with biphasic hepatic imaging. Oral contrast was also administered. COMPARISON: CT CT CHEST/ABD/PEL W from 05/17/2021 FINDINGS: Note is made of a left Port-A-Cath the tip of which appears to lie in superior vena cava. Note is again made of multiple pulmonary nodules, as seen on prior CT of May 17, 2021. The nodu les all appear to have increased in size, the largest nodules are now a 13 millimeter in diameter rig ht lower lobe nodule and a 12 millimeter in diameter left upper lobe nodule. No pleural effusion. No pleural based mass. No mediastinal or hilar adenopathy. No axillary or supraclavicular adenopathy. Tracheobronchial antonio e appears intact. No evidence of pulmonary embolic disease. Unremarkable appearance of thoracic aorta and major branch vessels. The liver appears normal with no focal hepatic lesion identified. Incidental metallic radiodensity a gain noted in right hepatic lobe. Spleen is unremarkable in appearance. Pancreas appears intact. Adrenals appear normal. Kidneys are unremarkable in appearance with no renal mass, hydronephrosis, or nephrolithiasis. Abdominal aorta and major visceral branches appear intact. No focal bowel pathology. Prior sigmoid anastomosis noted. Appendix is normal. No evidence of dive rticulitis. No abdominal or pelvic adenopathy. No significant abdominal wall hernia. No focal bony lesion identified on scanning of the chest, abdomen, and pelvis. IMPRESSION: Interval increase in size of multiple bilateral intrapulmonary metastases. No other significant change. RADIATION DOSE DELIVERED: 2,079.14mGy.cm Total DLP 2,079.14mGy.cm Total DLP !Error CTDIvol RADIATION OPTIMIZATION: All CT scans at this facility use at least one of these dose optimization te chniques: automated exposure control; mA and/or kV adjustment per patient size (includes targeted exa ms where dose is matched to clinical indication); or iterative reconstruction.
[2021-09-06] MEDS: Omnipaque 350 MG/ML 100 ML BTL IJ (09:09)
== END 2021-09-06 01:06 ==
PROVIDERS: PCP Student in an Organized Health Care Education/Training Program; Visit Provider Nurse Practitioner Family
DX: C18.9 Malignant neoplasm of colon, unspecified (principal); C78.7 Secondary malignant neoplasm of liver and intrahepatic bile duct
CPT/HCPCS: 74177; 71260; J3490

== ENCOUNTER 2021-10-07 01:39 | Outpatient (CLI) | payer BC, SELFPAY ==
--- NOTE | 2021-10-07 08:30 | DI.MAMMO_ITS ---
Exam(s) MAMMO SCREENING EXAM: MAMMO SCREENING CLINICAL HISTORY: screening,Z12.39 TECHNIQUE: Bilateral full field digital CC and MLO mammographic images were obtained with 3D tomosyn thesis and utilizing computer aided detection (CAD). COMPARISON: Available for comparison. FINDINGS: Masses/Architectural Distortion: None seen. Microcalcifications: No suspicious pleomorphic-type are seen. Skin Thickening/Nipple Retraction: None. There is again seen an Psfyny-Q-Bkva catheter overlying the left chest wall. IMPRESSION: 1. No significant interval change with no specific features of malignancy noted. 2. Unless there is more urgent need, screening mammography is recommended, as per [employer] guidelines. BI-RADS Category 1 - Negative Breast Density - Category B - Scattered areas of fibroglandular density Breast density category C or D implies that the patient has dense breast tissue. Dense breast tissue is very common and is not abnormal but dense breast tissue can make it harder to find cancer on a ma mmogram. Also, dense breast tissue may increase their breast cancer risk. This information about the result of the mammogram report was provided to the patient to raise their awareness. Use this report when you speak with the patient about their risks for breast cancer, which includes their family hist ory. At that time, you may recommend for more screening tests (Ultrasound or MRI) as they might be us eful based on their risk. A negative radiographic report should not delay biopsy if a dominant or clinically suspicious mass is present. Up to ten percent of cancers are not identified on mammography. A negative report may reinforce clinical impression. Adenosis and dense breasts may obscure an underlying neoplasm. False positive reports average 6 to 10%. Patient will receive a letter notifying them of these results.
== END 2021-10-07 01:59 ==
PROVIDERS: PCP Student in an Organized Health Care Education/Training Program; Visit Provider Student in an Organized Health Care Education/Training Program
DX: Z12.31 Encounter for screening mammogram for malignant neoplasm of breast (principal); Z95.828 Presence of other vascular implants and grafts
CPT/HCPCS: 77063; 77067

== ENCOUNTER 2021-10-11 00:49 | Outpatient (RCR) | payer BC, SELFPAY ==
[2021-09-20 14:47] LABS: Abs Immature Grans 0.01 10^3/uL (0.0-0.06); Absolute Basophil Count 0.04 10^3/uL (0.0-0.2); Absolute Eosinophil Count 0.11 10^3/uL (0.0-0.7); Absolute Lymphocyte Count 1.85 10^3/uL (1.2-3.4); Absolute Monocyte Count 0.43 10^3/uL (0.1-0.8); Absolute Neutrophil Count 3.71 10^3/uL (1.2-6.7); Basophils % 0.7; Eosinophils % 1.8; HCT 37.3 % (36.0-46.0); HGB 12.5 g/dL (11.2-15.7); Immature Grans % 0.2; Lymphocytes % 30.1; MCH 34.3 pg (27.0-33.0); MCHC 33.5 % (32.0-36.0); MCV 102.5 fL (80-95); MPV 10.7 fL (8.0-11.0); Neutrophils % 60.2; Nucleated RBC 0 %; Platelet Count 242 10^3/uL (130-400); RBC 3.64 10^6/uL (3.93-5.22); RDW 18.7 % (11.7-14.6); RDW-SD 70.7 fL; WBC 6.15 10^3/uL (4.4-10.8)
[2021-09-20] MEDS: Normal Saline Flush 10 ML SYR IVP (14:47)
[2021-09-20 15:28] LABS: ALT 17 U/L (14-59); AST 17 U/L (15-37); Albumin 3.5 g/dL (3.4-5.0); Alkaline Phosphatase 80 U/L (46-116); Anion Gap 9.7 mmol/L (3-11); BUN 10 mg/dL (7-18); Bilirubin, Total 0.4 mg/dL (0.2-1.0); CO2 25.3 mmol/L (21.0-32.0); CREATININE 0.8 mg/dL (0.55-1.02); Calcium 8.5 mg/dL (8.5-10.1); Chloride 106 mmol/L (98-107); Glucose 95 mg/dL (74-106); Potassium 3.8 mmol/L (3.5-5.1); Sodium 141 mmol/L (136-145); Total Protein 7.6 g/dL (6.4-8.2)
[2021-09-20 22:32] LABS: CEA <0.5 ng/mL (See Note)
[2021-10-11] MEDS: Heparin 500 UNITS/5 ML SYRINGE IV (14:33)
[2021-10-11] MEDS: Normal Saline Flush 10 ML SYR IVP (14:33)
[2021-10-11 14:39] LABS: Abs Immature Grans 0.02 10^3/uL (0.0-0.06); Absolute Basophil Count 0.03 10^3/uL (0.0-0.2); Absolute Lymphocyte Count 1.47 10^3/uL (1.2-3.4); Absolute Monocyte Count 0.32 10^3/uL (0.1-0.8); Absolute Neutrophil Count 2.99 10^3/uL (1.2-6.7); Basophils % 0.6; HCT 39.2 % (36.0-46.0); HGB 13.3 g/dL (11.2-15.7); Immature Grans % 0.4; Lymphocytes % 29.8; MCH 34.7 pg (27.0-33.0); MCHC 33.9 % (32.0-36.0); MCV 102.3 fL (80-95); MPV 10.8 fL (8.0-11.0); Monocytes % 6.5; Neutrophils % 60.7; Platelet Count 248 10^3/uL (130-400); RBC 3.83 10^6/uL (3.93-5.22); RDW 18.6 % (11.7-14.6); RDW-SD 70.2 fL; WBC 4.93 10^3/uL (4.4-10.8)
[2021-10-11 14:59] LABS: ALT 26 U/L (14-59); AST 23 U/L (15-37); Albumin 3.7 g/dL (3.4-5.0); Alkaline Phosphatase 91 U/L (46-116); Anion Gap 7.6 mmol/L (3-11); BUN 11 mg/dL (7-18); Bilirubin, Total 0.5 mg/dL (0.2-1.0); CO2 24.4 mmol/L (21.0-32.0); CREATININE 0.8 mg/dL (0.55-1.02); Calcium 8.6 mg/dL (8.5-10.1); Chloride 106 mmol/L (98-107); Glucose 102 mg/dL (74-106); Potassium 3.4 mmol/L (3.5-5.1); Sodium 138 mmol/L (136-145); TSH (W/Ref FT4) 0.91 uIU/mL (0.36-3.74); Total Protein 7.8 g/dL (6.4-8.2)
[2021-10-11 21:41] LABS: CEA 0.6 ng/mL (See Note)
== END 2021-10-19 23:59 | disposition home or self-care (01) ==
LOC: INF 00:49
PROVIDERS: PCP Student in an Organized Health Care Education/Training Program; Visit Provider Internal Medicine Hematology & Oncology
DX: C18.9 Malignant neoplasm of colon, unspecified (principal); Z45.2 Encounter for adjustment and management of vascular access device
CPT/HCPCS: 36415; 80053; 96523; 82378; 84443; 85025

== ENCOUNTER 2021-10-25 01:47 | Outpatient (CLI) | payer BC, SELFPAY ==
--- NOTE | 2021-10-25 06:45 | DI.DEXA_ITS ---
Exam(s) XR DEXA BONE DENSITY W/WO DOLORES EXAM: XR DEXA BONE DENSITY W/WO DOLORES CLINICAL HISTORY: screening for osteoporososi,bone mets,anemia,mcfp drug therapy,z79.899 TECHNIQUE: Routine DEXA evaluation of the lumbar spine, hip, or forearm. COMPARISON: No exams were available for comparison FINDINGS: Performed on a Hologic unit. Lateral image: No compression fracture evident. Lumbar Spine total T-score: -0.3 Hip total T-score:0.6 Independent reading at the level of the femoral neck yields at T-score of 1.4. Forearm total T-score: 0.7 IMPRESSION: Bone mineral density measures in the normal range. Fracture risk is low. Note: Any spine fracture indicates 5x risk for subsequent spine fracture and 2x risk for subsequent h ip fracture. World Health Organization criteria for BMD interpretation classify patients: Normal...... T- Score at or above -1.0 Osteopenic... T- Score between -1.0 and -2.5 Osteoporosis... T-Score at or below -2.5
== END 2021-10-25 02:07 ==
PROVIDERS: PCP Student in an Organized Health Care Education/Training Program; Visit Provider Student in an Organized Health Care Education/Training Program
DX: C79.51 Secondary malignant neoplasm of bone (principal); D64.9 Anemia, unspecified; Z79.899 Other long term (current) drug therapy; Z13.820 Encounter for screening for osteoporosis; E83.51 Hypocalcemia
CPT/HCPCS: 77080

== ENCOUNTER 2021-11-01 01:20 | Outpatient (RCR) | payer BC, SELFPAY ==
[2021-11-01 15:00] LABS: Abs Immature Grans 0.02 10^3/uL (0.0-0.06); Absolute Basophil Count 0.04 10^3/uL (0.0-0.2); Absolute Eosinophil Count 0.13 10^3/uL (0.0-0.7); Absolute Lymphocyte Count 1.67 10^3/uL (1.2-3.4); Absolute Monocyte Count 0.43 10^3/uL (0.1-0.8); Basophils % 0.6; HCT 37.9 % (36.0-46.0); HGB 12.5 g/dL (11.2-15.7); Immature Grans % 0.3; Lymphocytes % 25.7; MCH 34.9 pg (27.0-33.0); MCV 106 fL (80-95); MPV 9.9 fL (8.0-11.0); Monocytes % 6.6; Neutrophils % 64.8; Platelet Count 249 10^3/uL (130-400); RBC 3.58 10^6/uL (3.93-5.22); RDW 18.9 % (11.7-14.6); RDW-SD 74.3 fL; WBC 6.49 10^3/uL (4.4-10.8)
[2021-11-01 15:18] LABS: ALT 21 U/L (14-59); AST 21 U/L (15-37); Albumin 3.5 g/dL (3.4-5.0); Alkaline Phosphatase 86 U/L (46-116); Anion Gap 9.4 mmol/L (3-11); BUN 13 mg/dL (7-18); Bilirubin, Total 0.3 mg/dL (0.2-1.0); CO2 25.6 mmol/L (21.0-32.0); CREATININE 0.7 mg/dL (0.55-1.02); Calcium 8.4 mg/dL (8.5-10.1); Chloride 106 mmol/L (98-107); Glucose 114 mg/dL (74-106); Potassium 3.7 mmol/L (3.5-5.1); Sodium 141 mmol/L (136-145); Total Protein 7.5 g/dL (6.4-8.2)
[2021-11-01] MEDS: Normal Saline Flush 10 ML SYR IVP (15:21)
[2021-11-01 22:17] LABS: CEA <0.5 ng/mL (See Note)
== END 2021-11-19 23:59 | disposition home or self-care (01) ==
LOC: INF 01:20
PROVIDERS: PCP Student in an Organized Health Care Education/Training Program; Visit Provider Internal Medicine Hematology & Oncology
DX: Z45.2 Encounter for adjustment and management of vascular access device (principal); C18.9 Malignant neoplasm of colon, unspecified
CPT/HCPCS: 36415; 36591; 80053; 82378; 85025

== ENCOUNTER 2021-12-13 01:04 | Outpatient (RCR) | payer BC, SELFPAY ==
[2021-11-22] MEDS: Normal Saline Flush 10 ML SYR IVP (14:40)
[2021-11-22 14:49] LABS: Abs Immature Grans 0.02 10^3/uL (0.0-0.06); Absolute Basophil Count 0.03 10^3/uL (0.0-0.2); Absolute Lymphocyte Count 1.66 10^3/uL (1.2-3.4); Absolute Monocyte Count 0.31 10^3/uL (0.1-0.8); Absolute Neutrophil Count 4.04 10^3/uL (1.2-6.7); Basophils % 0.5; Eosinophils % 1.6; HCT 37.2 % (36.0-46.0); HGB 12.6 g/dL (11.2-15.7); Immature Grans % 0.3; Lymphocytes % 26.9; MCH 34.8 pg (27.0-33.0); MCHC 33.9 % (32.0-36.0); MCV 103 fL (80-95); MPV 10.5 fL (8.0-11.0); Neutrophils % 65.7; Platelet Count 248 10^3/uL (130-400); RBC 3.62 10^6/uL (3.93-5.22); RDW 18.4 % (11.7-14.6); RDW-SD 70.1 fL; WBC 6.16 10^3/uL (4.4-10.8)
[2021-11-22 15:01] LABS: ALT 32 U/L (14-59); AST 29 U/L (15-37); Albumin 3.4 g/dL (3.4-5.0); Alkaline Phosphatase 97 U/L (46-116); Anion Gap 6.5 mmol/L (3-11); BUN 14 mg/dL (7-18); Bilirubin, Total 0.4 mg/dL (0.2-1.0); CO2 27.5 mmol/L (21.0-32.0); CREATININE 0.9 mg/dL (0.55-1.02); Chloride 104 mmol/L (98-107); Glucose 104 mg/dL (74-106); Potassium 4.2 mmol/L (3.5-5.1); Sodium 138 mmol/L (136-145); Total Protein 7.7 g/dL (6.4-8.2)
[2021-12-13 14:30] LABS: Abs Immature Grans 0.02 10^3/uL (0.0-0.06); Absolute Basophil Count 0.04 10^3/uL (0.0-0.2); Absolute Eosinophil Count 0.12 10^3/uL (0.0-0.7); Absolute Lymphocyte Count 2.09 10^3/uL (1.2-3.4); Absolute Monocyte Count 0.47 10^3/uL (0.1-0.8); Absolute Neutrophil Count 4.28 10^3/uL (1.2-6.7); Basophils % 0.6; Eosinophils % 1.7; HCT 36.2 % (36.0-46.0); HGB 12.3 g/dL (11.2-15.7); Immature Grans % 0.3; Lymphocytes % 29.8; MCH 34.7 pg (27.0-33.0); MCV 102 fL (80-95); MPV 10.4 fL (8.0-11.0); Monocytes % 6.7; Neutrophils % 60.9; Platelet Count 239 10^3/uL (130-400); RBC 3.54 10^6/uL (3.93-5.22); RDW 17.3 % (11.7-14.6); RDW-SD 66.1 fL; WBC 7.02 10^3/uL (4.4-10.8)
[2021-12-13 14:45] LABS: ALT 19 U/L (14-59); AST 18 U/L (15-37); Albumin 3.5 g/dL (3.4-5.0); Alkaline Phosphatase 86 U/L (46-116); Anion Gap 8.8 mmol/L (3-11); BUN 13 mg/dL (7-18); Bilirubin, Total 0.4 mg/dL (0.2-1.0); CO2 25.2 mmol/L (21.0-32.0); CREATININE 0.9 mg/dL (0.55-1.02); Calcium 8.5 mg/dL (8.5-10.1); Chloride 106 mmol/L (98-107); Glucose 104 mg/dL (74-106); Potassium 3.8 mmol/L (3.5-5.1); Sodium 140 mmol/L (136-145); Total Protein 7.7 g/dL (6.4-8.2)
[2021-12-13 22:12] LABS: CEA 0.7 ng/mL (See Note)
== END 2021-12-19 23:59 | disposition home or self-care (01) ==
LOC: INF 01:04
PROVIDERS: PCP Student in an Organized Health Care Education/Training Program; Visit Provider Internal Medicine Hematology & Oncology
DX: Z45.2 Encounter for adjustment and management of vascular access device (principal); C18.9 Malignant neoplasm of colon, unspecified
CPT/HCPCS: 36415; 36591; 80053; 82378; 85025

== ENCOUNTER 2021-12-20 12:06 | Outpatient (REF) | payer BC, SELFPAY ==
[2021-12-21 12:17] LABS: COVID-19 RT-PCR UVMMC Result Negative (Negative)
== END 2021-12-20 12:07 | disposition home or self-care (01) ==
LOC: LBN 12:06
PROVIDERS: PCP Student in an Organized Health Care Education/Training Program; Visit Provider Student in an Organized Health Care Education/Training Program
DX: Z20.822 Contact with and (suspected) exposure to COVID-19 (principal); Z01.812 Encounter for preprocedural laboratory examination; Z01.818 Encounter for other preprocedural examination
CPT/HCPCS: U0003

== ENCOUNTER 2022-01-03 01:03 | Outpatient (RCR) | payer BC, SELFPAY ==
[2022-01-03] MEDS: Normal Saline Flush 10 ML SYR IVP (14:43)
[2022-01-03 14:45] LABS: Abs Immature Grans 0.01 10^3/uL (0.0-0.06); Absolute Basophil Count 0.05 10^3/uL (0.0-0.2); Absolute Eosinophil Count 0.15 10^3/uL (0.0-0.7); Absolute Lymphocyte Count 2.07 10^3/uL (1.2-3.4); Absolute Monocyte Count 0.37 10^3/uL (0.1-0.8); Absolute Neutrophil Count 4.18 10^3/uL (1.2-6.7); Basophils % 0.7; Eosinophils % 2.2; HCT 36.2 % (36.0-46.0); HGB 12.1 g/dL (11.2-15.7); Immature Grans % 0.1; Lymphocytes % 30.3; MCH 34.5 pg (27.0-33.0); MCHC 33.4 % (32.0-36.0); MCV 103 fL (80-95); MPV 9.8 fL (8.0-11.0); Monocytes % 5.4; Neutrophils % 61.3; Platelet Count 246 10^3/uL (130-400); RBC 3.51 10^6/uL (3.93-5.22); RDW 16.9 % (11.7-14.6); WBC 6.83 10^3/uL (4.4-10.8)
[2022-01-03 14:59] LABS: ALT 22 U/L (14-59); AST 15 U/L (15-37); Albumin 3.3 g/dL (3.4-5.0); Alkaline Phosphatase 84 U/L (46-116); Anion Gap 9.3 mmol/L (3-11); BUN 15 mg/dL (7-18); Bilirubin, Total 0.3 mg/dL (0.2-1.0); CO2 25.7 mmol/L (21.0-32.0); CREATININE 0.8 mg/dL (0.55-1.02); Calcium 8.5 mg/dL (8.5-10.1); Chloride 106 mmol/L (98-107); Glucose 107 mg/dL (74-106); Potassium 3.5 mmol/L (3.5-5.1); Sodium 141 mmol/L (136-145); Total Protein 7.4 g/dL (6.4-8.2)
[2022-01-06 12:09] LABS: CEA 0.6 ng/mL (See Note)
== END 2022-01-19 23:59 | disposition home or self-care (01) ==
LOC: INF 01:03
PROVIDERS: PCP Student in an Organized Health Care Education/Training Program; Visit Provider Internal Medicine Hematology & Oncology
DX: Z45.2 Encounter for adjustment and management of vascular access device (principal); C18.9 Malignant neoplasm of colon, unspecified; C78.00 Secondary malignant neoplasm of unspecified lung
CPT/HCPCS: 36415; 80053; 96523; 82378; 85025

== ENCOUNTER → 2022-01-23 02:25 | Outpatient (CLI) | payer BC, SELFPAY ==
[2022-01-23] MEDS: Barium Sulfate 2% W/V-Creamy Vanilla Smoothie 450 ML BTL 900 ML PO (07:49)
[2022-01-23] MEDS: Omnipaque 350 MG/ML 100 ML BTL IJ (08:34)
--- NOTE | 2022-01-23 09:00 | DI.CT_ITS ---
Exam(s) CT CHEST/ABD/PEL W EXAM: CT CHEST/ABD/PEL W CLINICAL HISTORY: STAGE IV COLON CA, METS TO LUNG, RESTAGING, C18.9, C78.00. TECHNIQUE: Imaging Protocol: Axial computed tomography images with coronal and sagittal reformatted images were created and reviewed CONTRAST MATERIAL: Intravenous: Omnipaque 350 Contrast volume:100 ml Oral: yes / no COMPARISON: CT CT CHEST/ABD/PEL W from 09/06/2021 FINDINGS: CHEST: Tracheobronchial tree: Patent where visualized. Mediastinum and Seema: Metallic clips are noted near the left hilum as well as in the left lower lobe and right middle lobe. Stable adjacent areas of scarring. No dominant adenopathy or fluid collectio n. Pulmonary parenchyma: Marked interval increase in left upper lobe nodule now measuring 16 by 16 jay meters. Slight interval increase in size of right lower lobe nodule. Stable size of smaller right l ower lobe nodule. Stable size right middle lobe nodule. No consolidation. Pleura: No effusion or pneumothorax. Lymph nodes: Within normal limits. Aorta: Thoracic portion non-dilated. Heart: Within normal limits in size. Bones: Unremarkable for age. No lytic or blastic lesions. Port overlying left chest. ABDOMEN: Liver: Metallic densities again noted. Normal density. No measurable mass. Gallbladder and biliary tract: No radiodense calculus or dilation. Pancreas: Normal density, no abnormal calcifications or inflammatory process. Spleen: Normal. Kidneys: Normal size, contour and axis. No radiodense stones or obstructive uropathy. No masses seen. Adrenal glands: No masses seen. Aorta: Abdominal portion non-dilated. Lymph nodes: Within normal limits. Soft tissues: Unremarkable. PELVIS: Bladder: Symmetric distention, no gross wall thickening. Bowel: Rectal anastomosis is unremarkable. No new masses. No obstruction or bowel wall thickening. Peritoneal cavity: No ascites, collection or mesenteric inflammatory response. Bones: Stable appearance vague area of sclerosis in the left ilium. Reproductive organs: Contraceptive implants are again noted in the fallopian tubes. Uterus and ovari es unremarkable. IMPRESSION: Interval increase in size of left upper lobe nodule, 16 millimeters versus 13 mm on prior. Stable appearance of the liver. Unremarkable rectal anastomosis. RADIATION DOSE DELIVERED: 2,265.3mGy.cm Total DLP DATA REPOSITORY: All CT scans at this facility are submitted to the National Radiology Data Registry (NRDR) Dose Index Registry (DIR) with the [employer] (ACR). RADIATION OPTIMIZATION: All CT scans at this facility use at least one of these dose optimization te chniques: automated exposure control; mA and/or kV adjustment per patient size (includes targeted exa ms where dose is matched to clinical indication); or iterative reconstruction.
== END ==
PROVIDERS: PCP Student in an Organized Health Care Education/Training Program; Visit Provider Internal Medicine Hematology & Oncology
DX: C18.7 Malignant neoplasm of sigmoid colon (principal); C78.00 Secondary malignant neoplasm of unspecified lung
CPT/HCPCS: 74177; 71260; J3490

== ENCOUNTER 2022-02-14 00:48 | Outpatient (RCR) | payer BC, SELFPAY ==
[2022-01-24] MEDS: Normal Saline Flush 10 ML SYR IVP (11:52)
[2022-01-24 12:07] LABS: Abs Immature Grans 0.01 10^3/uL (0.0-0.06); Absolute Basophil Count 0.04 10^3/uL (0.0-0.2); Absolute Eosinophil Count 0.11 10^3/uL (0.0-0.7); Absolute Lymphocyte Count 1.81 10^3/uL (1.2-3.4); Absolute Monocyte Count 0.41 10^3/uL (0.1-0.8); Absolute Neutrophil Count 4.18 10^3/uL (1.2-6.7); Basophils % 0.6; Eosinophils % 1.7; HGB 12.6 g/dL (11.2-15.7); Immature Grans % 0.2; Lymphocytes % 27.6; MCH 35.1 pg (27.0-33.0); MCHC 34.1 % (32.0-36.0); MCV 103 fL (80-95); MPV 10.8 fL (8.0-11.0); Monocytes % 6.3; Neutrophils % 63.6; Platelet Count 202 10^3/uL (130-400); RBC 3.59 10^6/uL (3.93-5.22); RDW 16.8 % (11.7-14.6); RDW-SD 64.8 fL; WBC 6.56 10^3/uL (4.4-10.8)
[2022-01-24 12:22] LABS: ALT 24 U/L (14-59); AST 18 U/L (15-37); Albumin 3.4 g/dL (3.4-5.0); Alkaline Phosphatase 84 U/L (46-116); Anion Gap 5.8 mmol/L (3-11); BUN 12 mg/dL (7-18); Bilirubin, Total 0.3 mg/dL (0.2-1.0); CO2 28.2 mmol/L (21.0-32.0); CREATININE 0.8 mg/dL (0.55-1.02); Calcium 8.4 mg/dL (8.5-10.1); Chloride 103 mmol/L (98-107); Glucose 110 mg/dL (74-106); Potassium 3.8 mmol/L (3.5-5.1); Sodium 137 mmol/L (136-145); Total Protein 7.6 g/dL (6.4-8.2)
[2022-01-27 09:30] LABS: CEA 0.7 ng/mL (See Note)
[2022-02-14] MEDS: Normal Saline Flush 10 ML SYR IVP (11:13)
[2022-02-14 11:26] LABS: Abs Immature Grans 0.01 10^3/uL (0.0-0.06); Absolute Basophil Count 0.05 10^3/uL (0.0-0.2); Absolute Eosinophil Count 0.09 10^3/uL (0.0-0.7); Absolute Lymphocyte Count 1.89 10^3/uL (1.2-3.4); Absolute Monocyte Count 0.53 10^3/uL (0.1-0.8); Absolute Neutrophil Count 3.23 10^3/uL (1.2-6.7); Basophils % 0.9; Eosinophils % 1.6; HCT 35.6 % (36.0-46.0); HGB 12.2 g/dL (11.2-15.7); Immature Grans % 0.2; Lymphocytes % 32.6; MCH 34.8 pg (27.0-33.0); MCHC 34.3 % (32.0-36.0); MCV 101 fL (80-95); MPV 10.2 fL (8.0-11.0); Monocytes % 9.1; Neutrophils % 55.6; Platelet Count 232 10^3/uL (130-400); RBC 3.51 10^6/uL (3.93-5.22); RDW 16.8 % (11.7-14.6); RDW-SD 62.5 fL
[2022-02-14 11:44] LABS: ALT 37 U/L (14-59); AST 25 U/L (15-37); Albumin 3.3 g/dL (3.4-5.0); Alkaline Phosphatase 86 U/L (46-116); Anion Gap 9.8 mmol/L (3-11); BUN 12 mg/dL (7-18); Bilirubin, Total 0.4 mg/dL (0.2-1.0); CO2 26.2 mmol/L (21.0-32.0); CREATININE 0.8 mg/dL (0.55-1.02); Calcium 8.5 mg/dL (8.5-10.1); Chloride 108 mmol/L (98-107); Glucose 108 mg/dL (74-106); Potassium 3.9 mmol/L (3.5-5.1); Sodium 144 mmol/L (136-145); Total Protein 7.4 g/dL (6.4-8.2)
[2022-02-14 22:31] LABS: CEA 0.8 ng/mL (See Note)
== END 2022-02-19 23:59 | disposition home or self-care (01) ==
LOC: INF 00:48
PROVIDERS: PCP Student in an Organized Health Care Education/Training Program; Visit Provider Internal Medicine Hematology & Oncology
DX: Z45.2 Encounter for adjustment and management of vascular access device (principal); C18.9 Malignant neoplasm of colon, unspecified
CPT/HCPCS: 36415; 36591; 80053; 82378; 85025

== ENCOUNTER 2022-03-06 03:23 | Outpatient (RCR) | payer BC, SELFPAY ==
[2022-03-06] MEDS: Normal Saline Flush 10 ML SYR IVP (12:22)
[2022-03-06 12:35] LABS: Abs Immature Grans 0.02 10^3/uL (0.0-0.06); Absolute Basophil Count 0.03 10^3/uL (0.0-0.2); Absolute Eosinophil Count 0.09 10^3/uL (0.0-0.7); Absolute Lymphocyte Count 1.92 10^3/uL (1.2-3.4); Absolute Monocyte Count 0.48 10^3/uL (0.1-0.8); Absolute Neutrophil Count 2.69 10^3/uL (1.2-6.7); Basophils % 0.6; Eosinophils % 1.7; HCT 35.3 % (36.0-46.0); HGB 11.9 g/dL (11.2-15.7); Immature Grans % 0.4; Lymphocytes % 36.7; MCH 34.2 pg (27.0-33.0); MCHC 33.7 % (32.0-36.0); MCV 101 fL (80-95); MPV 10.2 fL (8.0-11.0); Monocytes % 9.2; Neutrophils % 51.4; Platelet Count 245 10^3/uL (130-400); RBC 3.48 10^6/uL (3.93-5.22); RDW 17.8 % (11.7-14.6); RDW-SD 66.4 fL; WBC 5.23 10^3/uL (4.4-10.8)
[2022-03-06 12:58] LABS: ALT 28 U/L (14-59); AST 25 U/L (15-37); Albumin 3.1 g/dL (3.4-5.0); Alkaline Phosphatase 102 U/L (46-116); Anion Gap 5.7 mmol/L (3-11); BUN 13 mg/dL (7-18); Bilirubin, Total 0.3 mg/dL (0.2-1.0); CO2 29.3 mmol/L (21.0-32.0); CREATININE 0.9 mg/dL (0.55-1.02); Calcium 8.7 mg/dL (8.5-10.1); Chloride 105 mmol/L (98-107); Estimated GFR 76.44 (mL/min/1.73m2); Glucose 105 mg/dL (74-106); Potassium 3.7 mmol/L (3.5-5.1); Sodium 140 mmol/L (136-145); Total Protein 7.6 g/dL (6.4-8.2)
[2022-03-07 09:34] LABS: CEA 0.8 ng/mL (See Note)
== END 2022-03-21 23:59 | disposition home or self-care (01) ==
LOC: INF 03:23
PROVIDERS: PCP Student in an Organized Health Care Education/Training Program; Visit Provider Internal Medicine Hematology & Oncology
DX: Z45.2 Encounter for adjustment and management of vascular access device (principal); C18.9 Malignant neoplasm of colon, unspecified
CPT/HCPCS: 36415; 80053; 96523; 82378; 85025

== ENCOUNTER 2022-03-07 18:39 | Emergency (ER) | payer BC, SELFPAY ==
--- NOTE | 2022-03-07 19:00 | RT.EKG_ITS ---
APPROVED REPORT Exam: Resting ECG Reason for Exam: vomiting Patient Location: E HR:97 bpm ECG Measurements Heart Rate 97 AXIS MD 157 P 52 QRSd 92 QRS 4 QT 355 T 55 QTc 451 Conclusion Sinus rhythm...normal P axis, V-rate 60- 99 Physician: intervals stable, no stemi
[2022-03-07 19:02] VITALS: BP 119/78; PULSE 97; RESP 18; TEMP 36.8; O2SAT 95
--- NOTE | 2022-03-07 19:13 | W.ED.GENAD ---
Discharge Plan Disposition Patient Disposition: HOME Condition: Good Discharge Details Clinical Impression: Adverse effect of chemotherapy, Vomiting, Acute hypokalemia, Transaminitis Primary Care Provider: Nanci Benoit ED Provider: Richard Rodgers Home Meds and New Rx's Prescriptions: New potassium chloride 20 mEq tablet extended release 20 meq PO DAILY Qty: 7 0RF No Action loratadine [Claritin] 10 mg tablet 10 mg PO DAILY omega-3 fatty acids [Fish Oil Concentrate] 1,000 mg capsule 1,000 mg PO DAILY spironolactone [Aldactone] 25 mg tablet 25 mg PO DAILY Hold Instructions: Changed by Provider Label Comments: unsure of dosing - used to increase low magnesium levels r/t chemo. sertraline 25 mg tablet 25 mg PO DAILY Qty: 90 3RF esomeprazole magnesium [Nexium] 40 mg capsule,delayed release(DR/EC) 40 mg PO DAILY Qty: 90 3RF Rx Instructions: as per Onc, continue until GERD/Gastritis re-eval capecitabine 150 mg tablet See Rx Instructions PO .COMPLEX Rx Instructions: 1500 mg in AM and 1000 mg in PM for 14 days, then 7 days off. Cycles repeated every 3 weeks PO; Take within 30 minutes after eating. Avastin 25 mg/mL solution 23 mg IV ONCE Qty: 4 0RF Rx Instructions: GIVEN BY [facility] prochlorperazine maleate [Compazine] 10 mg tablet 10 mg PO Q6H PRN naproxen sodium 220 mg tablet 220 mg PO BID PRN Label Comments: 11/22/[address] Iqbal's progress noted cetirizine [Zyrtec] 10 mg tablet 10 mg PO DAILY PRN Label Comments: 11/22/[address] Iqbal's progress note Discharge Instructions Instructions: Hypokalemia (ED), Chemo Induced Nausea and Vomiting (ED) Additional Instructions: At this time your symptoms do demonstrate a low potassium. Because of this we have sent a prescription of potassium to your pharmacy. Please take this as directed to help replete your potassium. Additionally your liver function tests are elevated which is likely secondary to the chemotherapy you took. However as a precaution, please return in the next 48 to 72 hours to have your liver function retested to make sure it is returning to normal. If you notice any worsening of your symptoms, or any new symptoms such as vomiting, diarrhea, fever, chills, shortness of breath, chest pain, numbness, weakness, or fainting , please return immediately to the emergency department for reevaluation. Please follow up with your primary care provider as soon as possible for reassessment and reevaluation. As always, it was a pleasure participating in your medical care today. Referrals: Nanci Benoit DO [Primary Care Provider] - Medical Decision Making This is a 51-year-old female with a past medical history of stage IV colon cancer, currently receiving chemotherapy specifically oxaliplatin, she had chemotherapy today, and was pretreated with famotidine, dexamethasone, Benadryl, and long-acting Zofran. After she received the medication she immediately had persistent and unremitting nausea and vomiting. She had occasional chills. She denies any abdominal pain. She denies any blood in her vomit. She denies any headache. She has not had this reaction yet with this chemotherapy agent. She was rehydrated, and monitored at the cancer center but her symptoms persisted and so she was brought to the ER for further treatment. Patient has no other complaints at this time except for the persistent nausea. No other modifying factors. Physical exam demonstrates a notably nauseous female, no guarding or rebound or abdominal process whatsoever. Notably dry mucous membranes. Symptoms are concerning for a chemotherapy reaction. We will get an EKG to check her QT, we will give Reglan, and rehydrate. If her QT is unremarkable we can add Zofran. Will monitor closely and reassess. 9:27 PM On reassessment patient is feeling much better. She is able to tolerate fluids p.o. She has had no more vomiting. Laboratory work-up demonstrates no white count, bandemia. Transaminases are elevated compared to normal, which is likely secondary to the oxaliplatin. She is not in fulminant hepatitis, but I do feel that these values should be closely followed. We will put in for an outpatient lab slip for recheck in the next 48 hours. Lipase is normal. Patient otherwise feels better and she states that she is at her baseline and would like to go home. Potassium is low at 3.1, magnesium normal. I do feel she would benefit from a few days of outpatient oral potassium. We will send this to her pharmacy. Otherwise patient is stable for discharge. Patient otherwise feels well and comfortable with the plan. I have extensively reviewed the treatment plan and discharge instructions with the patient and their family. I have addressed all patient concerns at this time. The patient and family was made aware of what symptoms to monitor for that would warrant a return to the emergency department. Discussed the plan with the patient and family, they demonstrate verbal understanding and agreement with our assessment and plan at this time. The documentation in this chart was dictated using [employer] dictation software. Please excuse any dictation errors. HPI General Date/Time Provider Initiated Documentation: 03/07/22 18:51. HPI Narrative: This is a 51-year-old female with a past medical history of stage IV colon cancer, currently receiving chemotherapy specifically oxaliplatin, she had chemotherapy today, and was pretreated with famotidine, dexamethasone, Benadryl, and long-acting Zofran. After she received the medication she immediately had persistent and unremitting nausea and vomiting. She had occasional chills. She denies any abdominal pain. She denies any blood in her vomit. She denies any headache. She has not had this reaction yet with this chemotherapy agent. She was rehydrated, and monitored at the cancer center but her symptoms persisted and so she was brought to the ER for further treatment. Patient has no other complaints at this time except for the persistent nausea. No other modifying factors. Related Data Home Medications Medication Instructions Recorded Confirmed loratadine 10 mg tablet (Claritin) 10 mg PO DAILY 02/28/21 09/08/21 omega-3 fatty acids 1,000 mg 1,000 mg PO DAILY 02/28/21 09/08/21 capsule (Fish Oil Concentrate) spironolactone 25 mg tablet 25 mg PO DAILY 02/28/21 02/28/21 (Aldactone) sertraline 25 mg tablet 25 mg PO DAILY anxiety #90 tabs 03/24/21 09/08/21 esomeprazole magnesium 40 mg 40 mg PO DAILY GERD #90 caps 09/03/21 capsule,delayed release (Nexium) capecitabine 150 mg tablet See Rx Instructions PO .COMPLEX 10/14/21 bevacizumab 25 mg/mL intravenous 23 mg (0.92 mL) IV ONCE #4 mL 10/19/21 solution (Avastin) cetirizine 10 mg tablet (Zyrtec) 10 mg PO DAILY PRN 11/28/21 naproxen sodium 220 mg tablet 220 mg PO BID PRN 11/28/21 prochlorperazine maleate 10 mg 10 mg PO Q6H PRN 11/28/21 tablet (Compazine) potassium chloride 20 mEq 20 meq PO DAILY #7 tabs 03/07/22 tablet,extended release Previous Rx's Medication Instructions Recorded sertraline 25 mg tablet 25 mg PO DAILY anxiety #90 tabs 03/24/21 esomeprazole magnesium 40 mg 40 mg PO DAILY GERD #90 caps 09/03/21 capsule,delayed release (Nexium) bevacizumab 25 mg/mL intravenous 23 mg (0.92 mL) IV ONCE #4 mL 10/19/21 solution (Avastin) potassium chloride 20 mEq 20 meq PO DAILY #7 tabs 03/07/22 tablet,extended release Allergies Allergy/AdvReac Type Severity Reaction Status Date / Time environmental Allergy Intermediate Uncoded 03/07/22 19:32 General Stated Complaint: Allergic PAIGE: 2 Review of Systems All systems reviewed & are unremarkable except as noted in HPI and below PFSH All Active Problems (Updated 03/07/22 @ 21:37 by Richard Rodgers DO) Adverse effect of chemotherapy (Acute) Vomiting (Acute) Acute hypokalemia (Acute) Transaminitis (Acute) Weight loss (Acute) Long-term current use of proton pump inhibitor therapy (Acute) Risk factor for osteopenia, DEXA [ ] Anemia (Chronic) Low RBC, low-normal HGB. 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 Mo in [employer], 02/28/21, D/C? Support system deficit (Acute) Newly moved from [place] (2019) Skin sensitivity (Acute) Hands/feet are sensitive and peel easily (2' cap swelling due to chemo) .. Using work-balm, udder cream. May need Rx, Derm. Malignant neoplasm of sigmoid colon (Chronic) [place] resection, 2011 ([place]), s/p Chemo x 2.5 yrs .... with Met (2014)(+Chemo) and again (2016)(+Rad/Chemo) .. Now with [facility] Onc, Dr. Iqbal. Cancer, metastatic to liver (Acute) s/p Rad, Chemo (2017) .. Original colon cancer, s/p resection (2012) Cancer, metastatic to lung (Chronic) Colon Cancer, s/p resection/chemo (2011) . Mets to LUNG (2014), s/p more chemo. 11/22/21 F/u Dr Iqbal - pt due for next cycle of capecitabine. Depression (Chronic) Hx Sertraline Other fatigue (Acute) Bone metastasis (Acute) Hypocalcemia (Acute) Hypomagnesemia (Acute) Hypokalemia (Acute) Medical History Bone spur 1993 - surgery [place], [place] Surgical History History of breast biopsy History of colon resection (07/2011) History of surgery of liver Family History Mother Colon cancer metastatic colorectal Diabetes Heart disease Brother Heart disease Father Stroke Cancer skin Heart disease Social History Smoking/Tobacco Use Status: Never Smoking risk assessment performed?: Yes Alcohol Intake: never Substance use type: does not use Adopted: No Caregiver/Support person: No Foster care: No Household members: family Housing: apartment Number of Children: 2 number of grandchildren: 1 Communication Needs: None Education Level: college Details: Bachelor's Degree Do you need help understanding health information?: Rarely 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 [employer] Pets and animals: No Sexually active: No Current gender identity: female What is your relationship status?: How often do you talk on the phone with friends or family?: three or more times per week How often do you get together with friends or relatives?: once per week Do you belong to any clubs or organized social groups?: yes Panel score (0-1 are the most socially isolated patients): 2 Farida/Muslim: Mormon Special farida needs: No Seatbelt use: always Drive intox or ride w/intox special client bus driver: No Do you feel safe at home: Yes Do you feel safe in your relationship?: Yes Exam Narrative Exam Narrative: 1.Const: Well-nourished, Well-developed, appearing stated age 2.Eyes: PERRL, no conjunctival injection, and symmetrical lids. 3.ENT: Atraumatic external nose and ears. Notably dry MM. Neck: Symmetric, trachea midline, No thyromegaly. 4.CVS: +S1/S2, No murmurs or gallops. Peripheral pulses 2+ and equal in all extremities. Brisk capillary refill in all extremities. 5.RESP: Unlabored respiratory effort. Clear to auscultation bilaterally. No wheezes rales or rhonchi 6.GI: Soft, Nontender/Nondistended, No hepatosplenomegaly. No guarding or rebound. 7.MSK: Normocephalic/Atraumatic, Extremities w/o deformity or ttp No cyanosis or clubbing, Normal movement of all extremities 8.Skin: Warm, Dry. No rashes or lesions. 9.Neuro: driver trainer II-XII grossly intact. Sensation grossly intact, no focal neurologic deficits. 10.Psych: (AAO) x3. Appropriate mood and affect Course Vital Signs Vital signs: Vital Signs Temperature 36.8 C 03/07/22 19:02 Pulse 97 H 03/07/22 19:02 Respiratory Rate 18 03/07/22 19:02 Blood Pressure 119/78 03/07/22 19:02 Pulse Oximetry 95 03/07/22 19:02 Temperature 36.8 C 03/07/22 19:02 Temperature Source Skin 03/07/22 19:02 Pulse 97 H 03/07/22 19:02 Respiratory Rate 18 03/07/22 19:02 Blood Pressure 119/78 03/07/22 19:02 Pulse Oximetry 95 03/07/22 19:02
[2022-03-07 19:46] LABS: Abs Immature Grans 0.03 10^3/uL (0.0-0.06); Absolute Basophil Count 0.02 10^3/uL (0.0-0.2); Absolute Lymphocyte Count 0.08 10^3/uL (1.2-3.4); Absolute Monocyte Count 0.04 10^3/uL (0.1-0.8); Basophils % 0.3; HCT 36.3 % (36.0-46.0); HGB 12.4 g/dL (11.2-15.7); Immature Grans % 0.4; Lymphocytes % 1.1; MCH 34.1 pg (27.0-33.0); MCHC 34.2 % (32.0-36.0); MCV 100 fL (80-95); MPV 10.2 fL (8.0-11.0); Monocytes % 0.6; Neutrophils % 97.6; Platelet Count 142 10^3/uL (130-400); RBC 3.64 10^6/uL (3.93-5.22); RDW 17.9 % (11.7-14.6); RDW-SD 65.4 fL; WBC 7.07 10^3/uL (4.4-10.8)
[2022-03-07 20:28] LABS: ALT 105 U/L (14-59); AST 183 U/L (15-37); Albumin 3.2 g/dL (3.4-5.0); Alkaline Phosphatase 183 U/L (46-116); Anion Gap 11.1 mmol/L (3-11); BUN 10 mg/dL (7-18); Bilirubin, Total 1.1 mg/dL (0.2-1.0); CO2 23.9 mmol/L (21.0-32.0); CREATININE 0.8 mg/dL (0.55-1.02); Calcium 8.4 mg/dL (8.5-10.1); Chloride 104 mmol/L (98-107); Estimated GFR 88.05 (mL/min/1.73m2); Glucose 135 mg/dL (74-106); Lipase 143 U/L (73-393); Potassium 3.1 mmol/L (3.5-5.1); Sodium 139 mmol/L (136-145); Total Protein 7.8 g/dL (6.4-8.2)
[2022-03-07] MEDS: Normal Saline 1,000 ML 1000 ML IV (21:00)
[2022-03-07] MEDS: Metoclopramide 10 MG/2 ML VIAL 20 MG IVP (21:20)
[2022-03-07] MEDS: Heparin 500 UNITS/5 ML SYRINGE (22:45)
[2022-03-07 22:46] VITALS: BP 124/81; PULSE 111; RESP 16; O2SAT 91
== END 2022-03-07 22:57 | disposition home or self-care (01) ==
PROVIDERS: Emergency Provider Student in an Organized Health Care Education/Training Program; PCP Student in an Organized Health Care Education/Training Program
DX: E87.6 Hypokalemia (principal); R74.01 Elevation of levels of liver transaminase levels; R11.2 Nausea with vomiting, unspecified; T45.1X5A Adverse effect of antineoplastic and immunosuppressive drugs, initial encounter; C18.9 Malignant neoplasm of colon, unspecified; F17.210 Nicotine dependence, cigarettes, uncomplicated; Z20.822 Contact with and (suspected) exposure to COVID-19
CPT/HCPCS: 80053; 83690; 93005; 96361; 96374; 99284; 85025; 93010; J2765

== ENCOUNTER 2022-03-10 16:31 | Outpatient (CLI) | payer BC, SELFPAY ==
[2022-03-10 17:13] LABS: Anion Gap 7.4 mmol/L (3-11); BUN 13 mg/dL (7-18); CO2 27.6 mmol/L (21.0-32.0); CREATININE 0.8 mg/dL (0.55-1.02); Calcium 9.3 mg/dL (8.5-10.1); Chloride 102 mmol/L (98-107); Estimated GFR 88.05 (mL/min/1.73m2); Glucose 98 mg/dL (74-106); Potassium 3.8 mmol/L (3.5-5.1); Sodium 137 mmol/L (136-145)
== END 2022-03-10 16:32 | disposition home or self-care (01) ==
LOC: LBO 16:34
PROVIDERS: PCP Student in an Organized Health Care Education/Training Program; Visit Provider Student in an Organized Health Care Education/Training Program
DX: E87.6 Hypokalemia (principal)
CPT/HCPCS: 36415; 80048

== ENCOUNTER 2022-03-27 02:14 | Outpatient (RCR) | payer BC, SELFPAY ==
[2022-03-27] MEDS: Normal Saline Flush 10 ML SYR IVP (10:38)
[2022-03-27 10:46] LABS: Abs Immature Grans 0.01 10^3/uL (0.0-0.06); Absolute Basophil Count 0.04 10^3/uL (0.0-0.2); Absolute Eosinophil Count 0.09 10^3/uL (0.0-0.7); Absolute Lymphocyte Count 2.24 10^3/uL (1.2-3.4); Absolute Monocyte Count 0.65 10^3/uL (0.1-0.8); Absolute Neutrophil Count 2.87 10^3/uL (1.2-6.7); Basophils % 0.7; Eosinophils % 1.5; HCT 35.7 % (36.0-46.0); HGB 12.1 g/dL (11.2-15.7); Immature Grans % 0.2; MCH 34.1 pg (27.0-33.0); MCHC 33.9 % (32.0-36.0); MCV 101 fL (80-95); Neutrophils % 48.6; Platelet Count 274 10^3/uL (130-400); RBC 3.55 10^6/uL (3.93-5.22); RDW 18.6 % (11.7-14.6)
[2022-03-27 11:00] LABS: ALT 26 U/L (14-59); AST 23 U/L (15-37); Albumin 3.3 g/dL (3.4-5.0); Alkaline Phosphatase 95 U/L (46-116); BUN 10 mg/dL (7-18); Bilirubin, Total 0.4 mg/dL (0.2-1.0); CREATININE 0.7 mg/dL (0.55-1.02); Calcium 9.4 mg/dL (8.5-10.1); Chloride 104 mmol/L (98-107); Estimated GFR 103.35 (mL/min/1.73m2); Glucose 97 mg/dL (74-106); Potassium 3.8 mmol/L (3.5-5.1); Sodium 140 mmol/L (136-145); Total Protein 7.8 g/dL (6.4-8.2)
[2022-03-27 22:33] LABS: CEA 1.1 ng/mL (See Note)
== END 2022-04-21 23:59 | disposition home or self-care (01) ==
LOC: INF 02:14
PROVIDERS: PCP Student in an Organized Health Care Education/Training Program; Visit Provider Internal Medicine Hematology & Oncology
DX: Z45.2 Encounter for adjustment and management of vascular access device (principal); C18.9 Malignant neoplasm of colon, unspecified
CPT/HCPCS: 36591; 80053; 82378; 85025

== ENCOUNTER 2022-05-16 00:55 | Outpatient (RCR) | payer BC, SELFPAY ==
[2022-04-24] MEDS: Normal Saline Flush 10 ML SYR IVP (12:16)
[2022-04-24 12:50] LABS: ALT 21 U/L (14-59); AST 26 U/L (15-37); Albumin 3.3 g/dL (3.4-5.0); Alkaline Phosphatase 102 U/L (46-116); Anion Gap 8.9 mmol/L (3-11); BUN 11 mg/dL (7-18); Bilirubin, Total 0.3 mg/dL (0.2-1.0); CO2 25.1 mmol/L (21.0-32.0); CREATININE 0.8 mg/dL (0.55-1.02); Calcium 8.3 mg/dL (8.5-10.1); Chloride 107 mmol/L (98-107); Estimated GFR 88.05 (mL/min/1.73m2); Glucose 116 mg/dL (74-106); Potassium 3.4 mmol/L (3.5-5.1); Sodium 141 mmol/L (136-145); Total Protein 7.5 g/dL (6.4-8.2)
[2022-04-24 12:56] LABS: HCT 34.5 % (36.0-46.0); HGB 11.4 g/dL (11.2-15.7); MCH 33.5 pg (27.0-33.0); MCV 102 fL (80-95); RDW 18.5 % (11.7-14.6); RDW-SD 69.6 fL; WBC 5.56 10^3/uL (4.4-10.8)
[2022-04-24 13:15] LABS: Absolute Eosinophil Count 0.28 10^3/uL (0.0-0.7); Absolute Lymphocyte Count 2.22 10^3/uL (1.2-3.4); Absolute Monocyte Count 0.44 10^3/uL (0.1-0.8); Absolute Neutrophil Count 2.61 10^3/uL (1.2-6.7); Atypical Lymphocytes % 5; Diff Comment Manual Differential; RBC Morphology Normal
[2022-04-25 22:09] LABS: CEA 1.2 ng/mL (See Note)
[2022-05-16] MEDS: Normal Saline Flush 10 ML SYR IVP (11:06)
[2022-05-16 11:18] LABS: Abs Immature Grans 0.02 10^3/uL (0.0-0.06); Absolute Basophil Count 0.02 10^3/uL (0.0-0.2); Absolute Eosinophil Count 0.11 10^3/uL (0.0-0.7); Absolute Lymphocyte Count 1.89 10^3/uL (1.2-3.4); Absolute Monocyte Count 0.52 10^3/uL (0.1-0.8); Absolute Neutrophil Count 3.37 10^3/uL (1.2-6.7); Basophils % 0.3; Eosinophils % 1.9; HCT 36.7 % (36.0-46.0); HGB 12.4 g/dL (11.2-15.7); Immature Grans % 0.3; Lymphocytes % 31.9; MCHC 33.8 % (32.0-36.0); MCV 101 fL (80-95); MPV 10.6 fL (8.0-11.0); Monocytes % 8.8; Neutrophils % 56.8; Platelet Count 234 10^3/uL (130-400); RBC 3.65 10^6/uL (3.93-5.22); RDW 19.1 % (11.7-14.6); RDW-SD 70.9 fL; WBC 5.93 10^3/uL (4.4-10.8)
[2022-05-16 11:46] LABS: ALT 46 U/L (14-59); AST 32 U/L (15-37); Albumin 3.3 g/dL (3.4-5.0); Alkaline Phosphatase 123 U/L (46-116); Anion Gap 7.3 mmol/L (3-11); BUN 13 mg/dL (7-18); Bilirubin, Total 0.4 mg/dL (0.2-1.0); CO2 27.7 mmol/L (21.0-32.0); CREATININE 0.8 mg/dL (0.55-1.02); Calcium 8.6 mg/dL (8.5-10.1); Chloride 104 mmol/L (98-107); Estimated GFR 88.05 (mL/min/1.73m2); Glucose 103 mg/dL (74-106); Potassium 3.6 mmol/L (3.5-5.1); Sodium 139 mmol/L (136-145); Total Protein 7.8 g/dL (6.4-8.2)
[2022-05-19 09:24] LABS: CEA 1.1 ng/mL (See Note)
== END 2022-05-21 23:59 | disposition home or self-care (01) ==
LOC: INF 00:55
PROVIDERS: PCP Student in an Organized Health Care Education/Training Program; Visit Provider Internal Medicine Hematology & Oncology
DX: C18.9 Malignant neoplasm of colon, unspecified (principal); Z45.2 Encounter for adjustment and management of vascular access device
CPT/HCPCS: 36591; 80053; 82378; 85025

== ENCOUNTER 2022-06-05 11:24 | Outpatient (RCR) | payer BC, SELFPAY ==
[2022-06-05] MEDS: Normal Saline Flush 10 ML SYR IVP (13:56)
[2022-06-05 14:05] LABS: Abs Immature Grans 0.01 10^3/uL (0.0-0.06); Absolute Basophil Count 0.03 10^3/uL (0.0-0.2); Absolute Lymphocyte Count 1.97 10^3/uL (1.2-3.4); Absolute Neutrophil Count 2.07 10^3/uL (1.2-6.7); Basophils % 0.6; Eosinophils % 2.1; HCT 34.7 % (36.0-46.0); HGB 11.6 g/dL (11.2-15.7); Immature Grans % 0.2; Lymphocytes % 42.1; MCH 33.8 pg (27.0-33.0); MCHC 33.4 % (32.0-36.0); MCV 101 fL (80-95); MPV 10.2 fL (8.0-11.0); Monocytes % 10.7; Neutrophils % 44.3; Platelet Count 214 10^3/uL (130-400); RBC 3.43 10^6/uL (3.93-5.22); RDW 19.7 % (11.7-14.6); RDW-SD 74.2 fL; WBC 4.68 10^3/uL (4.4-10.8)
[2022-06-05 14:19] LABS: ALT 63 U/L (14-59); AST 50 U/L (15-37); Albumin 3.3 g/dL (3.4-5.0); Alkaline Phosphatase 122 U/L (46-116); Anion Gap 6.9 mmol/L (3-11); BUN 10 mg/dL (7-18); Bilirubin, Total 0.4 mg/dL (0.2-1.0); CO2 26.1 mmol/L (21.0-32.0); CREATININE 0.7 mg/dL (0.55-1.02); Calcium 8.3 mg/dL (8.5-10.1); Chloride 105 mmol/L (98-107); Estimated GFR 103.35 (mL/min/1.73m2); Glucose 118 mg/dL (74-106); Sodium 138 mmol/L (136-145); Total Protein 7.3 g/dL (6.4-8.2)
[2022-06-05 22:49] LABS: CEA 0.9 ng/mL (See Note)
== END 2022-06-21 23:59 | disposition home or self-care (01) ==
LOC: INF 11:24
PROVIDERS: PCP Student in an Organized Health Care Education/Training Program; Visit Provider Internal Medicine Hematology & Oncology
DX: C18.9 Malignant neoplasm of colon, unspecified (principal); Z45.2 Encounter for adjustment and management of vascular access device
CPT/HCPCS: 36591; 80053; 82378; 85025

== ENCOUNTER 2022-07-11 00:32 | Outpatient (CLI) | payer BC, SELFPAY ==
--- NOTE | 2022-07-11 | DI.CT_ITS ---
Exam(s) CT CHEST/ABD/PEL W EXAM: CT CHEST/ABD/PEL W CLINICAL HISTORY: STAGE IV COLON CA, LIVER/LUNG METS, CHEMO, RESTAGING TECHNIQUE: Imaging Protocol: Axial computed tomography images with coronal and sagittal reformatted images were created and reviewed CONTRAST MATERIAL: Intravenous: Omnipaque 350 contrast volume:100 mL Oral: Yes COMPARISON: CT CT CHEST/ABD/PEL W from 03/26/2022 FINDINGS: CHEST: Tracheobronchial tree: Patent. Pulmonary parenchyma: The left upper lobe pulmonary nodule measures 1.9 x 1.2 cm compared with 1.7 x 0.9 cm. There are several other pulmonary nodules present. No focal consolidating infiltrates are se en. There is scarring in the lung bases. There is again seen scarring and surgical clips in the lef t hilum. Scarring and surgical clips are also seen in the right middle lobe. Visualized thyroid gland: Unremarkable. Mediastinum and Seema: No dominant adenopathy or fluid collection. The esophagus is unremarkable. Sma ll hiatal hernia. Pleura: No effusion or pneumothorax. Heart: The heart is not dilated. No coronary artery calcifications are seen. No pericardial effusion. Pulmonary arteries: Due to bolus timing the pulmonary arteries are not opacified well enough for eval uation of pulmonary emboli. Aorta: Thoracic aorta non-dilated. Lymph nodes: Within normal limits. Tubes, Catheters, and Lines: There is an Oekvye-Q-Uoxh catheter in place. Soft tissues: Unremarkable. Bones:Within normal limits for the patient's age. No aggressive osseous lesions are seen. ABDOMEN: Liver: There has been interval increase in size of the right hepatic right lobe hepatic mass which no w measures 2.4 x 2.2 cm. This compares to 1.4 x 1 cm. The lesion in the right lobe adjacent to the IVC measures 1.9 x 1.9 cm. This is also increased in size previously measuring 1 x 1 cm. Portal, Superior Mesenteric, and Splenic Veins: Unremarkable. Gallbladder and Biliary Tract: No radiodense calculus or dilation. Pancreas: Normal density, no abnormal calcifications or inflammatory process. Spleen: Normal. Adrenals: No masses seen. Kidneys: Normal size, contour and axis. No radiodense stones or obstructive uropathy. No masses seen. Abdominal Aorta: Abdominal portion non-dilated. Bowel: No obstruction or bowel wall thickening. Appendix is unremarkable. Peritoneal Cavity: No ascites, collection or mesenteric inflammatory response. No free air. Lymph Nodes: Within normal limits. Bones: Within normal limits for the patient's age. There are unchanged areas of sclerosis in both th e iliac bones. Soft Tissues: Unremarkable. PELVIS: Bladder: Symmetric distention, no gross wall thickening. Reproductive Organs: Unremarkable as visualized. Lymph Nodes: Within normal limits. Bones: Within normal limits. IMPRESSION: 1. Interval increase in size of the left upper lobe pulmonary metastasis. 2. Interval increase in size of hepatic metastases. RADIATION DOSE DELIVERED: 2,348.31mGy.cm Total DLP DATA REPOSITORY: All CT scans at this facility are submitted to the National Radiology Data Registry (NRDR) Dose Index Registry (DIR) with the [employer] (ACR). RADIATION OPTIMIZATION: All CT scans at this facility use at least one of these dose optimization te chniques: automated exposure control; mA and/or kV adjustment per patient size (includes targeted exa ms where dose is matched to clinical indication); or iterative reconstruction.
[2022-07-11] MEDS: Barium Sulfate 2% W/V-Berry Smoothie 450 ML BTL PO (13:49)
[2022-07-11] MEDS: Normal Saline - Diluent 50 ML VIAL IJ (15:52)
[2022-07-11] MEDS: Normal Saline Flush 10 ML SYR IVP (15:54)
== END 2022-07-11 00:52 ==
LOC: DI 00:32
PROVIDERS: PCP Student in an Organized Health Care Education/Training Program; Visit Provider Internal Medicine Hematology & Oncology
DX: C78.02 Secondary malignant neoplasm of left lung (principal); C78.7 Secondary malignant neoplasm of liver and intrahepatic bile duct; C18.9 Malignant neoplasm of colon, unspecified
CPT/HCPCS: 74177; 71260

== ENCOUNTER 2022-07-17 12:00 | Outpatient (RCR) | payer BC, SELFPAY ==
[2022-06-26] MEDS: Normal Saline Flush 10 ML SYR IVP (12:26)
[2022-06-26 12:35] LABS: Absolute Basophil Count 0.04 10^3/uL (0.0-0.2); Absolute Eosinophil Count 0.18 10^3/uL (0.0-0.7); Absolute Lymphocyte Count 1.67 10^3/uL (1.2-3.4); Absolute Monocyte Count 0.65 10^3/uL (0.1-0.8); Absolute Neutrophil Count 2.54 10^3/uL (1.2-6.7); Basophils % 0.8; Eosinophils % 3.5; HCT 36.7 % (36.0-46.0); HGB 12.2 g/dL (11.2-15.7); Lymphocytes % 32.9; MCH 33.4 pg (27.0-33.0); MCHC 33.2 % (32.0-36.0); MCV 101 fL (80-95); MPV 10.2 fL (8.0-11.0); Monocytes % 12.8; Platelet Count 209 10^3/uL (130-400); RBC 3.65 10^6/uL (3.93-5.22); RDW 19.9 % (11.7-14.6); WBC 5.08 10^3/uL (4.4-10.8)
[2022-06-26 12:48] LABS: ALT 76 U/L (14-59); AST 63 U/L (15-37); Albumin 3.4 g/dL (3.4-5.0); Alkaline Phosphatase 137 U/L (46-116); Anion Gap 7.5 mmol/L (3-11); BUN 10 mg/dL (7-18); Bilirubin, Total 0.4 mg/dL (0.2-1.0); CO2 27.5 mmol/L (21.0-32.0); CREATININE 0.8 mg/dL (0.55-1.02); Calcium 8.8 mg/dL (8.5-10.1); Chloride 105 mmol/L (98-107); Estimated GFR 88.05 (mL/min/1.73m2); Glucose 105 mg/dL (74-106); Potassium 3.8 mmol/L (3.5-5.1); Sodium 140 mmol/L (136-145); Total Protein 7.8 g/dL (6.4-8.2)
[2022-06-26 22:42] LABS: CEA 1.2 ng/mL (See Note)
[2022-07-17] MEDS: Normal Saline Flush 10 ML SYR IVP (12:17)
[2022-07-17 12:27] LABS: Absolute Basophil Count 0.03 10^3/uL (0.0-0.2); Absolute Eosinophil Count 0.08 10^3/uL (0.0-0.7); Absolute Lymphocyte Count 2.05 10^3/uL (1.2-3.4); Absolute Monocyte Count 0.49 10^3/uL (0.1-0.8); Absolute Neutrophil Count 2.51 10^3/uL (1.2-6.7); Basophils % 0.6; Eosinophils % 1.6; Lymphocytes % 39.7; MCH 33.2 pg (27.0-33.0); MCHC 33.3 % (32.0-36.0); MCV 100 fL (80-95); MPV 10.5 fL (8.0-11.0); Monocytes % 9.5; Neutrophils % 48.6; Platelet Count 214 10^3/uL (130-400); RBC 3.61 10^6/uL (3.93-5.22); RDW 20.3 % (11.7-14.6); RDW-SD 74.5 fL; WBC 5.16 10^3/uL (4.4-10.8)
[2022-07-17 12:51] LABS: ALT 35 U/L (14-59); AST 31 U/L (15-37); Albumin 3.4 g/dL (3.4-5.0); Alkaline Phosphatase 117 U/L (46-116); Anion Gap 8.6 mmol/L (3-11); BUN 11 mg/dL (7-18); Bilirubin, Total 0.4 mg/dL (0.2-1.0); CO2 26.4 mmol/L (21.0-32.0); CREATININE 0.8 mg/dL (0.55-1.02); Calcium 8.7 mg/dL (8.5-10.1); Chloride 107 mmol/L (98-107); Estimated GFR 88.05 (mL/min/1.73m2); Glucose 99 mg/dL (74-106); Potassium 3.6 mmol/L (3.5-5.1); Sodium 142 mmol/L (136-145); Total Protein 7.5 g/dL (6.4-8.2)
[2022-07-17 13:00] LABS: Anisocytosis 2+; Diff Comment RBC Morph Reviewed
[2022-07-17 22:31] LABS: CEA 1.6 ng/mL (See Note)
== END 2022-07-22 23:59 | disposition home or self-care (01) ==
LOC: INF 12:00
PROVIDERS: PCP Student in an Organized Health Care Education/Training Program; Visit Provider Internal Medicine Hematology & Oncology
DX: Z45.2 Encounter for adjustment and management of vascular access device (principal); C18.9 Malignant neoplasm of colon, unspecified
CPT/HCPCS: 36591; 80053; 82378; 85025

== ENCOUNTER 2022-08-15 09:30 | Outpatient (RCR) | payer BC, SELFPAY ==
[2022-07-31 13:08] LABS: Abs Immature Grans 0.02 10^3/uL (0.0-0.06); Absolute Basophil Count 0.05 10^3/uL (0.0-0.2); Absolute Eosinophil Count 0.16 10^3/uL (0.0-0.7); Absolute Monocyte Count 0.62 10^3/uL (0.1-0.8); Absolute Neutrophil Count 3.87 10^3/uL (1.2-6.7); Basophils % 0.8; Eosinophils % 2.4; HCT 38.6 % (36.0-46.0); HGB 12.8 g/dL (11.2-15.7); Immature Grans % 0.3; Lymphocytes % 28.7; MCH 32.7 pg (27.0-33.0); MCHC 33.2 % (32.0-36.0); MCV 99 fL (80-95); MPV 10.5 fL (8.0-11.0); Monocytes % 9.4; Neutrophils % 58.4; Platelet Count 200 10^3/uL (130-400); RBC 3.92 10^6/uL (3.93-5.22); RDW 19.2 % (11.7-14.6); RDW-SD 70.4 fL; WBC 6.62 10^3/uL (4.4-10.8)
[2022-07-31 13:40] LABS: ALT 35 U/L (14-59); AST 24 U/L (15-37); Albumin 3.6 g/dL (3.4-5.0); Alkaline Phosphatase 157 U/L (46-116); Anion Gap 7.4 mmol/L (3-11); BUN 11 mg/dL (7-18); Bilirubin, Total 0.5 mg/dL (0.2-1.0); CO2 29.6 mmol/L (21.0-32.0); CREATININE 0.8 mg/dL (0.55-1.02); Calcium 9.5 mg/dL (8.5-10.1); Chloride 104 mmol/L (98-107); Estimated GFR 88.05 (mL/min/1.73m2); Glucose 104 mg/dL (74-106); Potassium 3.6 mmol/L (3.5-5.1); Sodium 141 mmol/L (136-145); Total Protein 8.2 g/dL (6.4-8.2)
[2022-07-31 23:31] LABS: CEA 2.2 ng/mL (See Note)
[2022-08-15] MEDS: Normal Saline Flush 10 ML SYR IVP (13:19)
[2022-08-15 13:21] LABS: Abs Immature Grans 0.01 10^3/uL (0.0-0.06); Absolute Basophil Count 0.03 10^3/uL (0.0-0.2); Absolute Eosinophil Count 0.22 10^3/uL (0.0-0.7); Absolute Lymphocyte Count 1.51 10^3/uL (1.2-3.4); Absolute Monocyte Count 0.32 10^3/uL (0.1-0.8); Absolute Neutrophil Count 2.39 10^3/uL (1.2-6.7); Basophils % 0.7; Eosinophils % 4.9; HCT 35.7 % (36.0-46.0); HGB 11.8 g/dL (11.2-15.7); Immature Grans % 0.2; Lymphocytes % 33.7; MCH 32.2 pg (27.0-33.0); MCHC 33.1 % (32.0-36.0); MCV 97 fL (80-95); MPV 10.4 fL (8.0-11.0); Monocytes % 7.1; Neutrophils % 53.4; Platelet Count 178 10^3/uL (130-400); RBC 3.67 10^6/uL (3.93-5.22); RDW 18.9 % (11.7-14.6); WBC 4.48 10^3/uL (4.4-10.8)
[2022-08-15 13:33] LABS: ALT 29 U/L (14-59); AST 25 U/L (15-37); Albumin 3.4 g/dL (3.4-5.0); Alkaline Phosphatase 120 U/L (46-116); BUN 14 mg/dL (7-18); Bilirubin, Total 0.4 mg/dL (0.2-1.0); CREATININE 0.9 mg/dL (0.55-1.02); Calcium 8.8 mg/dL (8.5-10.1); Chloride 107 mmol/L (98-107); Estimated GFR 76.44 (mL/min/1.73m2); Glucose 110 mg/dL (74-106); Potassium 3.7 mmol/L (3.5-5.1); Sodium 141 mmol/L (136-145); Total Protein 7.6 g/dL (6.4-8.2)
[2022-08-18 10:36] LABS: CEA 1.5 ng/mL (See Note)
== END 2022-08-19 23:59 | disposition home or self-care (01) ==
LOC: INF 09:30
PROVIDERS: PCP Student in an Organized Health Care Education/Training Program; Visit Provider Internal Medicine Hematology & Oncology
DX: Z45.2 Encounter for adjustment and management of vascular access device (principal); C18.9 Malignant neoplasm of colon, unspecified
CPT/HCPCS: 36415; 80053; 96523; 82378; 85025

== ENCOUNTER 2022-09-12 13:30 | Outpatient (RCR) | payer BC, SELFPAY ==
[2022-08-29] MEDS: Normal Saline Flush 10 ML SYR IVP (13:55)
[2022-08-29 14:16] LABS: Abs Immature Grans 0.01 10^3/uL (0.0-0.06); Absolute Basophil Count 0.02 10^3/uL (0.0-0.2); Absolute Lymphocyte Count 1.52 10^3/uL (1.2-3.4); Absolute Monocyte Count 0.37 10^3/uL (0.1-0.8); Basophils % 0.4; Eosinophils % 2.1; HCT 34.3 % (36.0-46.0); HGB 11.3 g/dL (11.2-15.7); Immature Grans % 0.2; Lymphocytes % 32.2; MCHC 32.9 % (32.0-36.0); MCV 97 fL (80-95); MPV 9.9 fL (8.0-11.0); Monocytes % 7.8; Neutrophils % 57.3; Platelet Count 189 10^3/uL (130-400); RBC 3.53 10^6/uL (3.93-5.22); RDW 18.7 % (11.7-14.6); RDW-SD 66.8 fL; WBC 4.72 10^3/uL (4.4-10.8)
[2022-08-29 14:29] LABS: ALT 25 U/L (14-59); AST 20 U/L (15-37); Albumin 3.4 g/dL (3.4-5.0); Alkaline Phosphatase 126 U/L (46-116); Anion Gap 9.1 mmol/L (3-11); BUN 13 mg/dL (7-18); Bilirubin, Total 0.4 mg/dL (0.2-1.0); CO2 26.9 mmol/L (21.0-32.0); CREATININE 0.7 mg/dL (0.55-1.02); Calcium 8.6 mg/dL (8.5-10.1); Chloride 105 mmol/L (98-107); Estimated GFR 103.35 (mL/min/1.73m2); Glucose 98 mg/dL (74-106); Potassium 3.9 mmol/L (3.5-5.1); Sodium 141 mmol/L (136-145); Total Protein 7.7 g/dL (6.4-8.2)
[2022-08-29 22:42] LABS: CEA 1.4 ng/mL (See Note)
[2022-09-12] MEDS: Normal Saline Flush 10 ML SYR IVP (14:00)
[2022-09-12 14:18] LABS: Abs Immature Grans 0.02 10^3/uL (0.0-0.06); Absolute Basophil Count 0.02 10^3/uL (0.0-0.2); Absolute Eosinophil Count 0.05 10^3/uL (0.0-0.7); Absolute Lymphocyte Count 1.55 10^3/uL (1.2-3.4); Absolute Monocyte Count 0.27 10^3/uL (0.1-0.8); Absolute Neutrophil Count 2.25 10^3/uL (1.2-6.7); Basophils % 0.5; Eosinophils % 1.2; HCT 32.6 % (36.0-46.0); HGB 10.6 g/dL (11.2-15.7); Immature Grans % 0.5; Lymphocytes % 37.3; MCH 31.9 pg (27.0-33.0); MCHC 32.5 % (32.0-36.0); MCV 98 fL (80-95); MPV 10.3 fL (8.0-11.0); Monocytes % 6.5; Platelet Count 153 10^3/uL (130-400); RBC 3.32 10^6/uL (3.93-5.22); RDW 18.5 % (11.7-14.6); WBC 4.16 10^3/uL (4.4-10.8)
[2022-09-12 14:34] LABS: ALT 27 U/L (14-59); AST 21 U/L (15-37); Albumin 3.1 g/dL (3.4-5.0); Alkaline Phosphatase 106 U/L (46-116); Anion Gap 7.3 mmol/L (3-11); BUN 11 mg/dL (7-18); Bilirubin, Total 0.3 mg/dL (0.2-1.0); CO2 26.7 mmol/L (21.0-32.0); CREATININE 0.8 mg/dL (0.55-1.02); Calcium 8.1 mg/dL (8.5-10.1); Chloride 110 mmol/L (98-107); Estimated GFR 88.05 (mL/min/1.73m2); Glucose 110 mg/dL (74-106); Potassium 3.8 mmol/L (3.5-5.1); Sodium 144 mmol/L (136-145); Total Protein 7.1 g/dL (6.4-8.2)
[2022-09-12 23:08] LABS: CEA 4.6 ng/mL (See Note)
== END 2022-09-19 23:59 | disposition home or self-care (01) ==
LOC: INF 13:30
PROVIDERS: PCP Student in an Organized Health Care Education/Training Program; Visit Provider Internal Medicine Hematology & Oncology
DX: C18.9 Malignant neoplasm of colon, unspecified (principal); Z45.2 Encounter for adjustment and management of vascular access device
CPT/HCPCS: 36591; 80053; 82378; 85025

== ENCOUNTER 2022-10-10 01:07 | Outpatient (RCR) | payer BC, SELFPAY ==
[2022-09-26] MEDS: Normal Saline Flush 10 ML SYR IVP (13:58)
[2022-09-26 14:08] LABS: Abs Immature Grans 0.03 10^3/uL (0.0-0.06); Absolute Basophil Count 0.02 10^3/uL (0.0-0.2); Absolute Eosinophil Count 0.04 10^3/uL (0.0-0.7); Absolute Lymphocyte Count 1.53 10^3/uL (1.2-3.4); Absolute Monocyte Count 0.21 10^3/uL (0.1-0.8); Absolute Neutrophil Count 1.48 10^3/uL (1.2-6.7); Basophils % 0.6; Eosinophils % 1.2; HCT 33.6 % (36.0-46.0); HGB 11.1 g/dL (11.2-15.7); Immature Grans % 0.9; Lymphocytes % 46.2; MCV 97 fL (80-95); MPV 9.6 fL (8.0-11.0); Monocytes % 6.3; Neutrophils % 44.8; Platelet Count 160 10^3/uL (130-400); RBC 3.47 10^6/uL (3.93-5.22); RDW 18.4 % (11.7-14.6); RDW-SD 64.2 fL; WBC 3.31 10^3/uL (4.4-10.8)
[2022-09-26 14:23] LABS: ALT 26 U/L (14-59); AST 19 U/L (15-37); Albumin 3.4 g/dL (3.4-5.0); Alkaline Phosphatase 117 U/L (46-116); Anion Gap 8.2 mmol/L (3-11); BUN 10 mg/dL (7-18); Bilirubin, Total 0.3 mg/dL (0.2-1.0); CO2 26.8 mmol/L (21.0-32.0); CREATININE 0.9 mg/dL (0.55-1.02); Calcium 8.6 mg/dL (8.5-10.1); Chloride 106 mmol/L (98-107); Estimated GFR 76.44 (mL/min/1.73m2); Glucose 106 mg/dL (74-106); Potassium 3.7 mmol/L (3.5-5.1); Sodium 141 mmol/L (136-145); Total Protein 7.5 g/dL (6.4-8.2)
[2022-09-29 14:00] LABS: CEA 2.3 ng/mL (See Note)
== END 2022-10-19 23:59 | disposition home or self-care (01) ==
LOC: INF 01:07
PROVIDERS: PCP Student in an Organized Health Care Education/Training Program; Visit Provider Internal Medicine Hematology & Oncology
DX: C18.9 Malignant neoplasm of colon, unspecified (principal); Z45.2 Encounter for adjustment and management of vascular access device
CPT/HCPCS: 36415; 80053; 96523; 82378; 85025

== ENCOUNTER 2022-10-17 00:40 | Outpatient (CLI) | payer BC, SELFPAY ==
--- NOTE | 2022-10-17 | DI.CT_ITS ---
Exam(s) CT CHEST/ABD/PEL W EXAM: CT CHEST/ABD/PEL W CLINICAL HISTORY: COLON CA METASTASIZED TO LUNG,C18.9,C78.00,ON CHEMO, RESTAGING EXAM. TECHNIQUE: Imaging Protocol: Axial computed tomography images with coronal and sagittal reformatted images were created and reviewed CONTRAST MATERIAL: Intravenous: Omnipaque 350 Contrast volume:100 ml Oral: yes COMPARISON: CT CT CHEST/ABD/PEL W from 07/11/2022 FINDINGS: CHEST: Tracheobronchial tree: Patent where visualized. Pulmonary parenchyma: Mild interval increase in size of previously noted mass in the left upper lobe, now measuring 20 x 15 millimeters compared with 19 x 12 mm on the prior exam. Surgical clips at the left hilum. Stable adjacent density. Surgical clips right middle lobe. Stable areas of scarring. Stable nodular densities. Stable 15 millimeter area nodularity in the right lower lobe. Stable sma ller density periphery right lung base. Pleura: No effusion or pneumothorax. Lymph nodes: Within normal limits. Aorta: Thoracic portion non-dilated. Heart: Normal size. Effusion. Bones: Unremarkable for age. No lytic or blastic lesions.No compression fractures. Soft tissues: Port over left upper chest. ABDOMEN: Liver: Normal density. Stable size versus slight decrease in size of low-density lesion with metallic marker in the anterior left lobe. Interval increase in size of lesion seen inferomedially in the ri ght lobe measuring 2.1 cm in diameter compared to 1.9cm. Other smaller lesions are noted which are s lightly more conspicuous. Gallbladder and biliary tract: No radiodense calculus or dilation. Pancreas: Normal density, no abnormal calcifications or inflammatory process. Spleen: Normal. Kidneys: Normal size, contour and axis. No radiodense stones or obstructive uropathy. No suspicious m asses seen. Adrenal glands: No masses seen. Aorta: Abdominal portion non-dilated. Lymph nodes: Within normal limits. Soft tissues: Unremarkable. PELVIS: Bladder: Symmetric distention, no gross wall thickening. Bowel: Rectosigmoid anastomosis, unremarkable. No visible colonic mass or wall thickening. No obstr uction or bowel wall thickening. Peritoneal cavity: No ascites, collection or mesenteric inflammatory response. Bones: Unremarkable for age.. Reproductive organs: Within normal limits. IMPRESSION: Mild interval increase in size of left upper lobe mass. Additional nodules are stable. Mild interval increase in size of hepatic metastases. RADIATION DOSE DELIVERED: 2,187.39mGy.cm Total DLP DATA REPOSITORY: All CT scans at this facility are submitted to the National Radiology Data Registry (NRDR) Dose Index Registry (DIR) with the [employer] (ACR). RADIATION OPTIMIZATION: All CT scans at this facility use at least one of these dose optimization te chniques: automated exposure control; mA and/or kV adjustment per patient size (includes targeted exa ms where dose is matched to clinical indication); or iterative reconstruction.
[2022-10-17] MEDS: Barium Sulfate 2% W/V-Berry Smoothie 450 ML BTL PO ×2 (09:07→09:08)
[2022-10-17] MEDS: Barium Sulfate 2% W/V-Creamy Vanilla Smoothie 450 ML BTL PO (09:39)
[2022-10-17] MEDS: Omnipaque 350 MG/ML 500 ML BTL-Imaging package IJ (11:38)
[2022-10-17] MEDS: Normal Saline - Diluent 50 ML VIAL IJ (11:38)
[2022-10-17] MEDS: Normal Saline Flush 10 ML SYR IVP (11:39)
== END 2022-10-17 01:00 ==
LOC: DI 00:41
PROVIDERS: PCP Student in an Organized Health Care Education/Training Program; Visit Provider Internal Medicine Hematology & Oncology
DX: C18.9 Malignant neoplasm of colon, unspecified (principal); C78.00 Secondary malignant neoplasm of unspecified lung
CPT/HCPCS: 74177; 71260

== ENCOUNTER 2022-11-07 14:00 | Outpatient (RCR) | payer BC, SELFPAY ==
[2022-10-24] MEDS: Normal Saline Flush 10 ML SYR IVP (14:01)
[2022-10-24 14:19] LABS: Abs Immature Grans 0.01 10^3/uL (0.0-0.06); Absolute Basophil Count 0.05 10^3/uL (0.0-0.2); Absolute Eosinophil Count 0.11 10^3/uL (0.0-0.7); Absolute Lymphocyte Count 1.81 10^3/uL (1.2-3.4); Absolute Neutrophil Count 2.35 10^3/uL (1.2-6.7); Eosinophils % 2.3; HCT 34.2 % (36.0-46.0); Immature Grans % 0.2; Lymphocytes % 37.5; MCH 31.3 pg (27.0-33.0); MCHC 32.2 % (32.0-36.0); MCV 97 fL (80-95); Monocytes % 10.4; Neutrophils % 48.6; Platelet Count 198 10^3/uL (130-400); RBC 3.51 10^6/uL (3.93-5.22); RDW 19.6 % (11.7-14.6); RDW-SD 70.5 fL; WBC 4.83 10^3/uL (4.4-10.8)
[2022-10-24 14:34] LABS: ALT 29 U/L (14-59); AST 22 U/L (15-37); Albumin 3.2 g/dL (3.4-5.0); Alkaline Phosphatase 124 U/L (46-116); Anion Gap 6.1 mmol/L (3-11); BUN 14 mg/dL (7-18); Bilirubin, Total 0.2 mg/dL (0.2-1.0); CO2 28.9 mmol/L (21.0-32.0); CREATININE 0.8 mg/dL (0.55-1.02); Calcium 8.6 mg/dL (8.5-10.1); Chloride 106 mmol/L (98-107); Glucose 106 mg/dL (74-106); Potassium 4.2 mmol/L (3.5-5.1); Sodium 141 mmol/L (136-145); Total Protein 7.7 g/dL (6.4-8.2)
[2022-10-27 09:17] LABS: CEA 2.7 ng/mL (See Note)
[2022-11-07] MEDS: Normal Saline Flush 10 ML SYR IVP (14:06)
[2022-11-07 14:33] LABS: Abs Immature Grans 0.01 10^3/uL (0.0-0.06); Absolute Basophil Count 0.02 10^3/uL (0.0-0.2); Absolute Neutrophil Count 1.93 10^3/uL (1.2-6.7); Basophils % 0.5; Eosinophils % 2.7; HCT 33.8 % (36.0-46.0); Immature Grans % 0.3; Lymphocytes % 37.2; MCHC 32.5 % (32.0-36.0); MCV 95 fL (80-95); MPV 10.8 fL (8.0-11.0); Neutrophils % 51.3; Platelet Count 177 10^3/uL (130-400); RBC 3.55 10^6/uL (3.93-5.22); RDW 18.5 % (11.7-14.6); RDW-SD 64.3 fL; WBC 3.76 10^3/uL (4.4-10.8)
[2022-11-07 14:49] LABS: ALT 24 U/L (14-59); AST 24 U/L (15-37); Albumin 3.2 g/dL (3.4-5.0); Alkaline Phosphatase 103 U/L (46-116); Anion Gap 7.8 mmol/L (3-11); BUN 11 mg/dL (7-18); Bilirubin, Total 0.2 mg/dL (0.2-1.0); CO2 27.2 mmol/L (21.0-32.0); CREATININE 0.9 mg/dL (0.55-1.02); Calcium 8.5 mg/dL (8.5-10.1); Chloride 106 mmol/L (98-107); Estimated GFR 75.97 (mL/min/1.73m2); Glucose 100 mg/dL (74-106); Sodium 141 mmol/L (136-145); Total Protein 7.4 g/dL (6.4-8.2)
[2022-11-07 22:40] LABS: CEA 2.6 ng/mL (See Note)
== END 2022-11-19 23:59 | disposition home or self-care (01) ==
LOC: INF 14:00
PROVIDERS: PCP Student in an Organized Health Care Education/Training Program; Visit Provider Internal Medicine Hematology & Oncology
DX: C18.9 Malignant neoplasm of colon, unspecified (principal); Z45.2 Encounter for adjustment and management of vascular access device
CPT/HCPCS: 36415; 36591; 80053; 96523; 82378; 85025

== ENCOUNTER 2022-12-19 00:39 | Outpatient (RCR) | payer BC, SELFPAY ==
[2022-11-21] MEDS: Normal Saline Flush 10 ML SYR IVP (13:53)
[2022-11-21 14:17] LABS: Abs Immature Grans 0.02 10^3/uL (0.0-0.06); Absolute Basophil Count 0.02 10^3/uL (0.0-0.2); Absolute Eosinophil Count 0.08 10^3/uL (0.0-0.7); Absolute Lymphocyte Count 1.44 10^3/uL (1.2-3.4); Absolute Neutrophil Count 1.93 10^3/uL (1.2-6.7); Basophils % 0.5; Eosinophils % 2.1; HCT 35.3 % (36.0-46.0); HGB 11.8 g/dL (11.2-15.7); Immature Grans % 0.5; MCH 31.9 pg (27.0-33.0); MCHC 33.4 % (32.0-36.0); MCV 95 fL (80-95); MPV 10.4 fL (8.0-11.0); Monocytes % 7.9; Platelet Count 160 10^3/uL (130-400); RDW 18.3 % (11.7-14.6); RDW-SD 62.4 fL; WBC 3.79 10^3/uL (4.4-10.8)
[2022-11-21 14:33] LABS: ALT 25 U/L (14-59); AST 22 U/L (15-37); Albumin 3.5 g/dL (3.4-5.0); Alkaline Phosphatase 110 U/L (46-116); Anion Gap 7.8 mmol/L (3-11); BUN 11 mg/dL (7-18); Bilirubin, Total 0.4 mg/dL (0.2-1.0); CO2 27.2 mmol/L (21.0-32.0); Calcium 8.8 mg/dL (8.5-10.1); Chloride 105 mmol/L (98-107); Estimated GFR 66.95 (mL/min/1.73m2); Glucose 117 mg/dL (74-106); Potassium 3.7 mmol/L (3.5-5.1); Sodium 140 mmol/L (136-145); Total Protein 7.9 g/dL (6.4-8.2)
[2022-11-21 22:32] LABS: CEA 2.1 ng/mL (See Note)
[2022-12-05] MEDS: Normal Saline Flush 10 ML SYR IVP (13:52)
[2022-12-05 14:08] LABS: Abs Immature Grans 0.02 10^3/uL (0.0-0.06); Absolute Basophil Count 0.01 10^3/uL (0.0-0.2); Absolute Eosinophil Count 0.06 10^3/uL (0.0-0.7); Absolute Lymphocyte Count 1.18 10^3/uL (1.2-3.4); Absolute Monocyte Count 0.25 10^3/uL (0.1-0.8); Absolute Neutrophil Count 1.49 10^3/uL (1.2-6.7); Basophils % 0.3; HCT 32.4 % (36.0-46.0); HGB 10.6 g/dL (11.2-15.7); Immature Grans % 0.7; Lymphocytes % 39.2; MCH 31.3 pg (27.0-33.0); MCHC 32.7 % (32.0-36.0); MCV 96 fL (80-95); MPV 10.5 fL (8.0-11.0); Monocytes % 8.3; Neutrophils % 49.5; Platelet Count 147 10^3/uL (130-400); RBC 3.39 10^6/uL (3.93-5.22); RDW-SD 62.9 fL; WBC 3.01 10^3/uL (4.4-10.8)
[2022-12-05 14:13] LABS: Bilirubin Negative (Negative); Blood Negative (Negative); Clarity Clear (Clear); Glucose Negative (Negative); Ketones Negative (Negative); Leukocyte Esterase Negative (Negative); Nitrite Negative (Negative); Specific Gravity 1.015 (1.005-1.025); Urobilinogen 0.2 mg/dL (Up to 0.2); pH 6.5 (5-8)
[2022-12-05 14:19] LABS: Potassium 3.1 mmol/L (3.5-5.1)
[2022-12-05 14:28] LABS: ALT 33 U/L (14-59); AST 25 U/L (15-37); Albumin 3.2 g/dL (3.4-5.0); Alkaline Phosphatase 103 U/L (46-116); BUN 11 mg/dL (7-18); Bilirubin, Total 0.4 mg/dL (0.2-1.0); CREATININE 0.7 mg/dL (0.55-1.02); Calcium 8.2 mg/dL (8.5-10.1); Chloride 106 mmol/L (98-107); Estimated GFR 102.71 (mL/min/1.73m2); Glucose 105 mg/dL (74-106); Sodium 140 mmol/L (136-145); Total Protein 7.3 g/dL (6.4-8.2)
[2022-12-05 22:54] LABS: CEA 2.2 ng/mL (See Note)
[2022-12-19] MEDS: Normal Saline Flush 10 ML SYR IVP (13:46)
[2022-12-19 14:01] LABS: Abs Immature Grans 0.01 10^3/uL (0.0-0.06); Absolute Basophil Count 0.01 10^3/uL (0.0-0.2); Absolute Eosinophil Count 0.04 10^3/uL (0.0-0.7); Absolute Lymphocyte Count 1.21 10^3/uL (1.2-3.4); Absolute Monocyte Count 0.31 10^3/uL (0.1-0.8); Absolute Neutrophil Count 1.76 10^3/uL (1.2-6.7); Basophils % 0.3; Eosinophils % 1.2; HCT 34.9 % (36.0-46.0); HGB 11.4 g/dL (11.2-15.7); Immature Grans % 0.3; Lymphocytes % 36.2; MCH 31.1 pg (27.0-33.0); MCHC 32.7 % (32.0-36.0); MCV 95 fL (80-95); MPV 10.2 fL (8.0-11.0); Monocytes % 9.3; Neutrophils % 52.7; Platelet Count 160 10^3/uL (130-400); RBC 3.67 10^6/uL (3.93-5.22); RDW 18.1 % (11.7-14.6); WBC 3.34 10^3/uL (4.4-10.8)
[2022-12-19 14:03] LABS: Bilirubin Negative (Negative); Blood Negative (Negative); Clarity Clear (Clear); Glucose Negative (Negative); Ketones Negative (Negative); Leukocyte Esterase Negative (Negative); Nitrite Negative (Negative); Urobilinogen 0.2 mg/dL (Up to 0.2); pH 5.5 (5-8)
[2022-12-19 14:24] LABS: ALT 34 U/L (14-59); AST 29 U/L (15-37); Albumin 3.3 g/dL (3.4-5.0); Alkaline Phosphatase 117 U/L (46-116); Anion Gap 7.6 mmol/L (3-11); BUN 11 mg/dL (7-18); Bilirubin, Total 0.5 mg/dL (0.2-1.0); CO2 27.4 mmol/L (21.0-32.0); CREATININE 0.9 mg/dL (0.55-1.02); Calcium 8.3 mg/dL (8.5-10.1); Chloride 105 mmol/L (98-107); Estimated GFR 75.97 (mL/min/1.73m2); Glucose 109 mg/dL (74-106); Potassium 3.7 mmol/L (3.5-5.1); Sodium 140 mmol/L (136-145); Total Protein 7.6 g/dL (6.4-8.2)
== END 2022-12-19 23:59 | disposition home or self-care (01) ==
LOC: INF 00:39
PROVIDERS: Nurse Practitioner Family; PCP Student in an Organized Health Care Education/Training Program; Visit Provider Internal Medicine Hematology & Oncology
DX: Z45.2 Encounter for adjustment and management of vascular access device (principal); C18.9 Malignant neoplasm of colon, unspecified; Z79.899 Other long term (current) drug therapy
CPT/HCPCS: 36591; 80053; 81003; 82378; 85025

== ENCOUNTER 2022-12-25 02:34 | Outpatient (CLI) | payer BC, SELFPAY ==
[2022-12-25] MEDS: Barium Sulfate 2% W/V-Berry Smoothie 450 ML BTL PO (09:09)
[2022-12-25 10:01] LABS: ALT 30 U/L (14-59); AST 27 U/L (15-37); Albumin 3.5 g/dL (3.4-5.0); Alkaline Phosphatase 117 U/L (46-116); Anion Gap 9.3 mmol/L (3-11); BUN 10 mg/dL (7-18); Bilirubin, Direct 0.2 mg/dL (0.0-0.2); CO2 26.7 mmol/L (21.0-32.0); CREATININE 0.9 mg/dL (0.55-1.02); Calcium 8.6 mg/dL (8.5-10.1); Chloride 106 mmol/L (98-107); Estimated GFR 75.97 (mL/min/1.73m2); Glucose 104 mg/dL (74-106); Potassium 3.8 mmol/L (3.5-5.1); Sodium 142 mmol/L (136-145); Total Protein 7.9 g/dL (6.4-8.2)
[2022-12-25 10:37] LABS: Folate 18.6 ng/mL (8.6-20.0); Vitamin B12 642 pg/mL (193-986)
--- NOTE | 2022-12-25 11:00 | DI.CT_ITS ---
Exam(s) CT CHEST/ABD/PEL W EXAM: CT CHEST/ABD/PEL W CLINICAL HISTORY: STAGE IV COLON CA, C18.9, METS TO LIVER, C78.7, METS TO LUNG, C18.9, C78.00. TECHNIQUE: Imaging Protocol: Axial computed tomography images with coronal and sagittal reformatted images were created and reviewed CONTRAST MATERIAL: Intravenous: Omnipaque 350 Contrast volume:100 ml Oral: yes / COMPARISON: CT CT CHEST/ABD/PEL W from 10/17/2022 FINDINGS: CHEST: Tracheobronchial tree: Patent where visualized. Pulmonary parenchyma: Left lung: Stable size of left upper lobe mass measuring 2.0 x 1.5 cm. Stable ovoid area of masslike density in inferior left hilar region adjacent to a surgical clip. Additional surgical clips noted at medial left lower lobe. Stable linear area left basilar scarring. Right lung: Stable area of scarring near a surgical clip in the right middle lobe. Stable knee by no dular densities. Stable small nodule at the posterior right lower lobe. Pleura: No effusion or pneumothorax. Lymph nodes: Within normal limits. Aorta: Thoracic portion non-dilated. Heart: Normal size. No pericardial effusion. Bones: Unremarkable for age. No lytic or blastic lesions.No compression fractures. Soft tissues: Port over left upper chest wall. ABDOMEN: Liver: Normal density. Slight interval increase in size left lobe measuring 2.8 x 2.1 cm. Slight int erval increase in medial right lobe lesion measuring 2.0 x 2.3 cm. Other smaller metastases are not visibly changed. Gallbladder and biliary tract: Status post cholecystectomy. No radiodense calculus or dilation. Pancreas: Normal density, no abnormal calcifications or inflammatory process. Spleen: Normal. Kidneys: Normal size, contour and axis. No radiodense stones or obstructive uropathy. No suspicious m asses seen. Adrenal glands: No masses seen. Aorta: Abdominal portion non-dilated. Lymph nodes: Within normal limits. Soft tissues: Unremarkable. PELVIS: Bladder: Symmetric distention, no gross wall thickening. Bowel: Rectal anastomosis is unremarkable. No visible stricture. Moderate quantity of stool. No ob struction or bowel wall thickening. Peritoneal cavity: No ascites, collection or mesenteric inflammatory response. Bones: Unremarkable for age.. Reproductive organs: Within normal limits. IMPRESSION: Chest: Stable size of mass in left upper lobe. Stable additional pulmonary findings. No evidence of adenopathy. Abdomen pelvis: Mild interval increase in size of the larger liver metastases. No adenopathy. RADIATION DOSE DELIVERED: 2,295.98mGy.cm Total DLP DATA REPOSITORY: All CT scans at this facility are submitted to the National Radiology Data Registry (NRDR) Dose Index Registry (DIR) with the [employer] (ACR). RADIATION OPTIMIZATION: All CT scans at this facility use at least one of these dose optimization te chniques: automated exposure control; mA and/or kV adjustment per patient size (includes targeted exa ms where dose is matched to clinical indication); or iterative reconstruction.
[2022-12-25] MEDS: Omnipaque 350 MG/ML 500 ML BTL-Imaging package IJ (11:03)
[2022-12-25] MEDS: Normal Saline Flush 10 ML SYR IVP (11:03)
[2022-12-25] MEDS: Normal Saline - Diluent 50 ML VIAL IJ (11:03)
== END 2022-12-25 02:54 ==
LOC: DI 02:35
PROVIDERS: PCP Student in an Organized Health Care Education/Training Program; Visit Provider Internal Medicine Hematology & Oncology
DX: E87.6 Hypokalemia (principal); R74.01 Elevation of levels of liver transaminase levels; T45.1X5A Adverse effect of antineoplastic and immunosuppressive drugs, initial encounter; D64.9 Anemia, unspecified; K21.9 Gastro-esophageal reflux disease without esophagitis; R00.2 Palpitations; Z79.899 Other long term (current) drug therapy
CPT/HCPCS: 74177; 80048; 80076; 71260; 82607; 82746

== ENCOUNTER 2023-01-16 01:07 | Outpatient (RCR) | payer BC, SELFPAY ==
[2023-01-02 14:13] LABS: Abs Immature Grans 0.01 10^3/uL (0.0-0.06); Absolute Basophil Count 0.01 10^3/uL (0.0-0.2); Absolute Eosinophil Count 0.03 10^3/uL (0.0-0.7); Absolute Lymphocyte Count 1.23 10^3/uL (1.2-3.4); Absolute Monocyte Count 0.23 10^3/uL (0.1-0.8); Absolute Neutrophil Count 1.88 10^3/uL (1.2-6.7); Basophils % 0.3; Eosinophils % 0.9; HGB 10.6 g/dL (11.2-15.7); Immature Grans % 0.3; Lymphocytes % 36.3; MCH 31.6 pg (27.0-33.0); MCHC 33.1 % (32.0-36.0); MCV 96 fL (80-95); MPV 10.1 fL (8.0-11.0); Monocytes % 6.8; Neutrophils % 55.4; Platelet Count 138 10^3/uL (130-400); RBC 3.35 10^6/uL (3.93-5.22); RDW 17.7 % (11.7-14.6); RDW-SD 61.2 fL; WBC 3.39 10^3/uL (4.4-10.8)
[2023-01-02] MEDS: Normal Saline Flush 10 ML SYR IVP (14:23)
[2023-01-02 14:34] LABS: ALT 27 U/L (14-59); AST 23 U/L (15-37); Albumin 3.2 g/dL (3.4-5.0); Alkaline Phosphatase 110 U/L (46-116); Anion Gap 4.7 mmol/L (3-11); BUN 7 mg/dL (7-18); Bilirubin, Total 0.3 mg/dL (0.2-1.0); CO2 30.3 mmol/L (21.0-32.0); CREATININE 0.8 mg/dL (0.55-1.02); Calcium 8.2 mg/dL (8.5-10.1); Chloride 107 mmol/L (98-107); Glucose 114 mg/dL (74-106); Potassium 3.7 mmol/L (3.5-5.1); Sodium 142 mmol/L (136-145); Total Protein 7.2 g/dL (6.4-8.2)
[2023-01-02 14:38] LABS: Bilirubin Negative (Negative); Blood Negative (Negative); Clarity Clear (Clear); Glucose Negative (Negative); Ketones Negative (Negative); Leukocyte Esterase Negative (Negative); Nitrite Negative (Negative); Urobilinogen 0.2 mg/dL (Up to 0.2); pH 6.5 (5-8)
[2023-01-05 10:26] LABS: CEA 3.8 ng/mL (See Note)
[2023-01-16 14:02] LABS: Abs Immature Grans 0.01 10^3/uL (0.0-0.06); Absolute Basophil Count 0.01 10^3/uL (0.0-0.2); Absolute Eosinophil Count 0.02 10^3/uL (0.0-0.7); Absolute Lymphocyte Count 1.09 10^3/uL (1.2-3.4); Absolute Monocyte Count 0.24 10^3/uL (0.1-0.8); Absolute Neutrophil Count 1.48 10^3/uL (1.2-6.7); Basophils % 0.4; Bilirubin Negative (Negative); Blood Negative (Negative); Clarity Sl Cloudy (Clear); Eosinophils % 0.7; Glucose Negative (Negative); HCT 30.2 % (36.0-46.0); HGB 10.1 g/dL (11.2-15.7); Immature Grans % 0.4; Ketones Negative (Negative); Leukocyte Esterase Negative (Negative); Lymphocytes % 38.2; MCH 31.6 pg (27.0-33.0); MCHC 33.4 % (32.0-36.0); MCV 94 fL (80-95); Monocytes % 8.4; Neutrophils % 51.9; Nitrite Negative (Negative); RDW 18.1 % (11.7-14.6); RDW-SD 61.9 fL; Urobilinogen 0.2 mg/dL (Up to 0.2); WBC 2.85 10^3/uL (4.4-10.8); pH 6.5 (5-8)
[2023-01-16 14:18] LABS: ALT 24 U/L (14-59); AST 26 U/L (15-37); Albumin 3.4 g/dL (3.4-5.0); Alkaline Phosphatase 104 U/L (46-116); Anion Gap 11.3 mmol/L (3-11); BUN 8 mg/dL (7-18); Bilirubin, Total 0.4 mg/dL (0.2-1.0); CO2 24.7 mmol/L (21.0-32.0); CREATININE 0.9 mg/dL (0.55-1.02); Chloride 105 mmol/L (98-107); Estimated GFR 75.97 (mL/min/1.73m2); Glucose 141 mg/dL (74-106); Potassium 3.5 mmol/L (3.5-5.1); Sodium 141 mmol/L (136-145); Total Protein 7.4 g/dL (6.4-8.2)
[2023-01-16 14:20] LABS: Diff Comment Diff Reviewed; RBC Morphology Normal
[2023-01-16 22:03] LABS: CEA 3.2 ng/mL (See Note)
== END 2023-01-19 23:59 | disposition home or self-care (01) ==
LOC: INF 01:07
PROVIDERS: PCP Student in an Organized Health Care Education/Training Program; Visit Provider Internal Medicine Hematology & Oncology
DX: C18.9 Malignant neoplasm of colon, unspecified (principal); Z79.899 Other long term (current) drug therapy
CPT/HCPCS: 36415; 36591; 80053; 81003; 82378; 85025

== ENCOUNTER 2023-01-30 02:15 | Outpatient (RCR) | payer BC, SELFPAY ==
[2023-01-30 14:16] LABS: Abs Immature Grans 0.01 10^3/uL (0.0-0.06); Absolute Eosinophil Count 0.02 10^3/uL (0.0-0.7); Absolute Lymphocyte Count 1.09 10^3/uL (1.2-3.4); Absolute Monocyte Count 0.24 10^3/uL (0.1-0.8); Absolute Neutrophil Count 1.56 10^3/uL (1.2-6.7); Eosinophils % 0.7; HCT 31.7 % (36.0-46.0); HGB 10.4 g/dL (11.2-15.7); Immature Grans % 0.3; Lymphocytes % 37.3; MCH 31.5 pg (27.0-33.0); MCHC 32.8 % (32.0-36.0); MCV 96 fL (80-95); MPV 10.4 fL (8.0-11.0); Monocytes % 8.2; Neutrophils % 53.5; Platelet Count 152 10^3/uL (130-400); RDW 18.7 % (11.7-14.6); RDW-SD 66.9 fL; WBC 2.92 10^3/uL (4.4-10.8)
[2023-01-30 14:30] LABS: ALT 27 U/L (14-59); AST 24 U/L (15-37); Albumin 3.4 g/dL (3.4-5.0); Alkaline Phosphatase 112 U/L (46-116); BUN 14 mg/dL (7-18); Bilirubin, Total 0.3 mg/dL (0.2-1.0); CREATININE 0.9 mg/dL (0.55-1.02); Calcium 8.7 mg/dL (8.5-10.1); Chloride 107 mmol/L (98-107); Estimated GFR 75.97 (mL/min/1.73m2); Glucose 116 mg/dL (74-106); Potassium 3.5 mmol/L (3.5-5.1); Sodium 142 mmol/L (136-145); Total Protein 7.6 g/dL (6.4-8.2)
[2023-01-30 14:42] LABS: Bilirubin Negative (Negative); Blood Negative (Negative); Clarity Clear (Clear); Glucose Negative (Negative); Ketones Negative (Negative); Leukocyte Esterase Negative (Negative); Nitrite Negative (Negative); Urobilinogen 0.2 mg/dL (Up to 0.2)
== END 2023-02-19 23:59 | disposition home or self-care (01) ==
LOC: INF 02:15
PROVIDERS: PCP Student in an Organized Health Care Education/Training Program; Visit Provider Internal Medicine Hematology & Oncology
DX: C18.9 Malignant neoplasm of colon, unspecified (principal)
CPT/HCPCS: 36415; 80053; 81003; 82378; 85025

== ENCOUNTER 2023-03-13 01:37 | Outpatient (RCR) | payer BC, SELFPAY ==
[2023-02-27 14:30] LABS: Abs Immature Grans 0.04 10^3/uL (0.0-0.06); Absolute Basophil Count 0.02 10^3/uL (0.0-0.2); Absolute Eosinophil Count 0.03 10^3/uL (0.0-0.7); Absolute Lymphocyte Count 1.18 10^3/uL (1.2-3.4); Absolute Monocyte Count 0.63 10^3/uL (0.1-0.8); Absolute Neutrophil Count 6.31 10^3/uL (1.2-6.7); Basophils % 0.2; Eosinophils % 0.4; HCT 30.4 % (36.0-46.0); HGB 9.7 g/dL (11.2-15.7); Immature Grans % 0.5; Lymphocytes % 14.4; MCH 31.9 pg (27.0-33.0); MCHC 31.9 % (32.0-36.0); MCV 100 fL (80-95); MPV 10.5 fL (8.0-11.0); Monocytes % 7.7; Neutrophils % 76.8; Platelet Count 276 10^3/uL (130-400); RBC 3.04 10^6/uL (3.93-5.22); RDW 19.4 % (11.7-14.6); RDW-SD 70.6 fL; WBC 8.21 10^3/uL (4.4-10.8)
[2023-02-27 14:35] LABS: Bilirubin Negative (Negative); Blood Negative (Negative); Clarity Clear (Clear); Glucose Negative (Negative); Ketones Negative (Negative); Leukocyte Esterase Negative (Negative); Nitrite Negative (Negative); Specific Gravity 1.025 (1.005-1.025)
[2023-02-27 14:46] LABS: ALT 68 U/L (14-59); AST 53 U/L (15-37); Alkaline Phosphatase 228 U/L (46-116); Anion Gap 8.2 mmol/L (3-11); BUN 10 mg/dL (7-18); Bilirubin, Total 0.3 mg/dL (0.2-1.0); CO2 27.8 mmol/L (21.0-32.0); CREATININE 0.9 mg/dL (0.55-1.02); Calcium 8.9 mg/dL (8.5-10.1); Chloride 102 mmol/L (98-107); Estimated GFR 75.97 (mL/min/1.73m2); Glucose 97 mg/dL (74-106); Potassium 3.3 mmol/L (3.5-5.1); Sodium 138 mmol/L (136-145)
[2023-02-27 14:57] LABS: Bacteria Few HPF (Negative); C & S Indicated? No; Casts 0-2 Hyaline LPF (Negative); Crystals Negative HPF (Negative); Epithelial Cells Moderate HPF (Negative); Mucus Trace (Negative); RBC Negative HPF (0-2); WBC Negative HPF (0-5)
[2023-02-27 22:23] LABS: Lab Add On Test DONE
[2023-02-27 22:40] LABS: Magnesium 1.9 mg/dL (1.8-2.4)
[2023-02-27 23:00] LABS: CEA 1.6 ng/mL (See Note)
[2023-03-13] MEDS: Normal Saline Flush 10 ML SYR IVP (13:46)
[2023-03-13 14:11] LABS: Abs Immature Grans 0.02 10^3/uL (0.0-0.06); Absolute Basophil Count 0.03 10^3/uL (0.0-0.2); Absolute Eosinophil Count 0.08 10^3/uL (0.0-0.7); Absolute Lymphocyte Count 1.61 10^3/uL (1.2-3.4); Absolute Monocyte Count 0.51 10^3/uL (0.1-0.8); Absolute Neutrophil Count 4.38 10^3/uL (1.2-6.7); Basophils % 0.5; Eosinophils % 1.2; HCT 31.6 % (36.0-46.0); HGB 10.2 g/dL (11.2-15.7); Immature Grans % 0.3; Lymphocytes % 24.3; MCH 32.5 pg (27.0-33.0); MCHC 32.3 % (32.0-36.0); MCV 101 fL (80-95); MPV 10.3 fL (8.0-11.0); Monocytes % 7.7; Platelet Count 268 10^3/uL (130-400); RBC 3.14 10^6/uL (3.93-5.22); RDW 17.8 % (11.7-14.6); RDW-SD 66.9 fL; WBC 6.63 10^3/uL (4.4-10.8)
[2023-03-13 14:13] LABS: Bilirubin Negative (Negative); Blood Negative (Negative); Clarity Clear (Clear); Glucose Negative (Negative); Ketones Trace mg/dL (Negative); Leukocyte Esterase Trace (Negative); Nitrite Negative (Negative); Specific Gravity 1.025 (1.005-1.025)
[2023-03-13 14:22] LABS: Bacteria Rare HPF (Negative); C & S Indicated? No/Sq. Contamination; Casts Negative LPF (Negative); Crystals Negative HPF (Negative); Epithelial Cells Many HPF (Negative); Mucus Trace (Negative); RBC 0-2 HPF (0-2)
[2023-03-13 14:26] LABS: ALT 48 U/L (14-59); AST 48 U/L (15-37); Alkaline Phosphatase 192 U/L (46-116); Anion Gap 9.3 mmol/L (3-11); BUN 10 mg/dL (7-18); Bilirubin, Total 0.3 mg/dL (0.2-1.0); CO2 26.7 mmol/L (21.0-32.0); CREATININE 0.8 mg/dL (0.55-1.02); Calcium 9.1 mg/dL (8.5-10.1); Chloride 104 mmol/L (98-107); Glucose 106 mg/dL (74-106); Potassium 3.8 mmol/L (3.5-5.1); Sodium 140 mmol/L (136-145); Total Protein 8.1 g/dL (6.4-8.2)
[2023-03-13 23:08] LABS: CEA 1.5 ng/mL (See Note)
== END 2023-03-21 23:59 | disposition home or self-care (01) ==
LOC: INF 01:37
PROVIDERS: Nurse Practitioner Family; PCP Student in an Organized Health Care Education/Training Program; Visit Provider Internal Medicine Hematology & Oncology
DX: C18.9 Malignant neoplasm of colon, unspecified (principal); Z79.899 Other long term (current) drug therapy; Z45.2 Encounter for adjustment and management of vascular access device
CPT/HCPCS: 36415; 36591; 80053; 81003; 81015; 82378; 83735; 85025

== ENCOUNTER 2023-04-10 01:43 | Outpatient (RCR) | payer BC, SELFPAY ==
[2023-03-27] MEDS: Normal Saline Flush 10 ML SYR IVP (14:01)
[2023-03-27 14:08] LABS: Abs Immature Grans 0.02 10^3/uL (0.0-0.06); Absolute Basophil Count 0.02 10^3/uL (0.0-0.2); Absolute Lymphocyte Count 1.36 10^3/uL (1.2-3.4); Absolute Monocyte Count 0.34 10^3/uL (0.1-0.8); Absolute Neutrophil Count 2.92 10^3/uL (1.2-6.7); Basophils % 0.4; Eosinophils % 2.1; HCT 28.9 % (36.0-46.0); HGB 9.3 g/dL (11.2-15.7); Immature Grans % 0.4; Lymphocytes % 28.6; MCH 32.2 pg (27.0-33.0); MCHC 32.2 % (32.0-36.0); MCV 100 fL (80-95); MPV 10.1 fL (8.0-11.0); Monocytes % 7.1; Neutrophils % 61.4; Platelet Count 207 10^3/uL (130-400); RBC 2.89 10^6/uL (3.93-5.22); RDW 16.6 % (11.7-14.6); RDW-SD 61.7 fL; WBC 4.76 10^3/uL (4.4-10.8)
[2023-03-27 14:10] LABS: Bilirubin Negative (Negative); Blood Negative (Negative); Clarity Clear (Clear); Glucose Negative (Negative); Ketones Negative (Negative); Leukocyte Esterase Moderate (Negative); Nitrite Negative (Negative); Specific Gravity 1.025 (1.005-1.025)
[2023-03-27 14:23] LABS: Bacteria Moderate HPF (Negative); C & S Indicated? No/Sq. Contamination; Casts Negative LPF (Negative); Crystals Negative HPF (Negative); Epithelial Cells Many HPF (Negative); Mucus Trace (Negative); RBC 0-2 HPF (0-2)
[2023-03-27 14:35] LABS: ALT 53 U/L (14-59); AST 38 U/L (15-37); Albumin 2.9 g/dL (3.4-5.0); Alkaline Phosphatase 214 U/L (46-116); Anion Gap 8.9 mmol/L (3-11); BUN 11 mg/dL (7-18); Bilirubin, Total 0.3 mg/dL (0.2-1.0); CO2 27.1 mmol/L (21.0-32.0); CREATININE 0.9 mg/dL (0.55-1.02); Chloride 102 mmol/L (98-107); Estimated GFR 75.97 (mL/min/1.73m2); Glucose 120 mg/dL (74-106); Potassium 3.5 mmol/L (3.5-5.1); Sodium 138 mmol/L (136-145); Total Protein 7.7 g/dL (6.4-8.2)
[2023-03-27 23:14] LABS: CEA 1.7 ng/mL (See Note)
[2023-04-10 13:17] LABS: Abs Immature Grans 0.01 10^3/uL (0.0-0.06); Absolute Basophil Count 0.02 10^3/uL (0.0-0.2); Absolute Eosinophil Count 0.04 10^3/uL (0.0-0.7); Absolute Lymphocyte Count 1.19 10^3/uL (1.2-3.4); Absolute Monocyte Count 0.22 10^3/uL (0.1-0.8); Absolute Neutrophil Count 1.71 10^3/uL (1.2-6.7); Basophils % 0.6; Eosinophils % 1.3; HCT 29.4 % (36.0-46.0); HGB 9.5 g/dL (11.2-15.7); Immature Grans % 0.3; Lymphocytes % 37.3; MCHC 32.3 % (32.0-36.0); MCV 102 fL (80-95); MPV 10.4 fL (8.0-11.0); Monocytes % 6.9; Neutrophils % 53.6; Platelet Count 161 10^3/uL (130-400); RBC 2.88 10^6/uL (3.93-5.22); RDW 16.4 % (11.7-14.6); RDW-SD 60.7 fL; WBC 3.19 10^3/uL (4.4-10.8)
[2023-04-10 13:27] LABS: Bilirubin Negative (Negative); Blood Negative (Negative); Clarity Clear (Clear); Glucose Negative (Negative); Ketones Negative (Negative); Leukocyte Esterase Moderate (Negative); Nitrite Negative (Negative); Specific Gravity 1.025 (1.005-1.025); Urobilinogen 0.2 mg/dL (Up to 0.2)
[2023-04-10 13:38] LABS: ALT 37 U/L (14-59); AST 27 U/L (15-37); Alkaline Phosphatase 184 U/L (46-116); Anion Gap 6.9 mmol/L (3-11); BUN 11 mg/dL (7-18); Bilirubin, Total 0.3 mg/dL (0.2-1.0); CO2 27.1 mmol/L (21.0-32.0); CREATININE 0.9 mg/dL (0.55-1.02); Calcium 8.5 mg/dL (8.5-10.1); Chloride 106 mmol/L (98-107); Estimated GFR 75.97 (mL/min/1.73m2); Glucose 117 mg/dL (74-106); Potassium 3.7 mmol/L (3.5-5.1); Sodium 140 mmol/L (136-145); Total Protein 7.6 g/dL (6.4-8.2)
[2023-04-10 13:42] LABS: RBC 0-2 HPF (0-2); WBC 20-50 HPF (0-5)
[2023-04-10 13:43] LABS: Bacteria Few HPF (Negative); C & S Indicated? No/Sq. Contamination; Casts 0-2 Hyaline LPF (Negative); Crystals Negative HPF (Negative); Epithelial Cells Many HPF (Negative); Mucus Moderate (Negative)
[2023-04-10] MEDS: Normal Saline Flush 10 ML SYR IVP (14:11)
[2023-04-13 09:46] LABS: CEA 1.9 ng/mL (See Note)
== END 2023-04-21 23:59 | disposition home or self-care (01) ==
LOC: INF 01:43
PROVIDERS: PCP Student in an Organized Health Care Education/Training Program; Visit Provider Internal Medicine Hematology & Oncology
DX: C18.9 Malignant neoplasm of colon, unspecified (principal); Z79.899 Other long term (current) drug therapy; Z45.2 Encounter for adjustment and management of vascular access device
CPT/HCPCS: 36591; 80053; 81003; 81015; 82378; 85025

== ENCOUNTER 2023-05-08 01:47 | Outpatient (RCR) | payer BC, SELFPAY ==
[2023-04-24] MEDS: Normal Saline Flush 10 ML SYR IVP (13:11)
[2023-04-24 13:21] LABS: Abs Immature Grans 0.01 10^3/uL (0.0-0.06); Absolute Basophil Count 0.02 10^3/uL (0.0-0.2); Absolute Eosinophil Count 0.04 10^3/uL (0.0-0.7); Absolute Lymphocyte Count 1.39 10^3/uL (1.2-3.4); Absolute Monocyte Count 0.39 10^3/uL (0.1-0.8); Absolute Neutrophil Count 2.14 10^3/uL (1.2-6.7); Basophils % 0.5; HCT 30.3 % (36.0-46.0); HGB 9.8 g/dL (11.2-15.7); Immature Grans % 0.3; Lymphocytes % 34.8; MCH 32.7 pg (27.0-33.0); MCHC 32.3 % (32.0-36.0); MCV 101 fL (80-95); MPV 10.2 fL (8.0-11.0); Monocytes % 9.8; Neutrophils % 53.6; Platelet Count 173 10^3/uL (130-400); RDW 16.6 % (11.7-14.6); RDW-SD 60.5 fL; WBC 3.99 10^3/uL (4.4-10.8)
[2023-04-24 13:22] LABS: Bilirubin Negative (Negative); Blood Negative (Negative); Clarity Sl Cloudy (Clear); Glucose Negative (Negative); Ketones Negative (Negative); Leukocyte Esterase Large (Negative); Nitrite Negative (Negative); pH 6.5 (5-8)
[2023-04-24 13:29] LABS: Bacteria Few HPF (Negative); C & S Indicated? No/Sq. Contamination; Casts Negative LPF (Negative); Crystals Negative HPF (Negative); Epithelial Cells Many HPF (Negative); Mucus Negative (Negative); RBC Negative HPF (0-2); WBC 20-50 HPF (0-5)
[2023-04-24 13:35] LABS: ALT 36 U/L (14-59); AST 32 U/L (15-37); Alkaline Phosphatase 178 U/L (46-116); Anion Gap 8.7 mmol/L (3-11); BUN 8 mg/dL (7-18); Bilirubin, Total 0.2 mg/dL (0.2-1.0); CO2 26.3 mmol/L (21.0-32.0); CREATININE 0.8 mg/dL (0.55-1.02); Calcium 8.8 mg/dL (8.5-10.1); Chloride 105 mmol/L (98-107); Glucose 109 mg/dL (74-106); Potassium 3.7 mmol/L (3.5-5.1); Sodium 140 mmol/L (136-145); Total Protein 7.4 g/dL (6.4-8.2)
[2023-04-24 23:18] LABS: CEA 1.7 ng/mL (See Note)
[2023-05-08] MEDS: Normal Saline Flush 10 ML SYR IVP (13:40)
[2023-05-08 14:01] LABS: Abs Immature Grans 0.02 10^3/uL (0.0-0.06); Absolute Basophil Count 0.01 10^3/uL (0.0-0.2); Absolute Eosinophil Count 0.04 10^3/uL (0.0-0.7); Absolute Lymphocyte Count 1.22 10^3/uL (1.2-3.4); Absolute Monocyte Count 0.22 10^3/uL (0.1-0.8); Absolute Neutrophil Count 1.88 10^3/uL (1.2-6.7); Basophils % 0.3; Eosinophils % 1.2; HCT 29.8 % (36.0-46.0); HGB 9.8 g/dL (11.2-15.7); Immature Grans % 0.6; MCHC 32.9 % (32.0-36.0); MCV 100 fL (80-95); Monocytes % 6.5; Neutrophils % 55.4; Platelet Count 166 10^3/uL (130-400); RBC 2.97 10^6/uL (3.93-5.22); RDW 16.6 % (11.7-14.6); RDW-SD 60.2 fL; WBC 3.39 10^3/uL (4.4-10.8)
[2023-05-08 14:23] LABS: ALT 49 U/L (14-59); AST 34 U/L (15-37); Alkaline Phosphatase 182 U/L (46-116); Anion Gap 9.3 mmol/L (3-11); BUN 12 mg/dL (7-18); Bilirubin, Total 0.4 mg/dL (0.2-1.0); CO2 25.7 mmol/L (21.0-32.0); CREATININE 0.7 mg/dL (0.55-1.02); Calcium 8.9 mg/dL (8.5-10.1); Chloride 105 mmol/L (98-107); Estimated GFR 102.71 (mL/min/1.73m2); Glucose 119 mg/dL (74-106); Potassium 3.3 mmol/L (3.5-5.1); Sodium 140 mmol/L (136-145); Total Protein 7.6 g/dL (6.4-8.2)
[2023-05-08 22:24] LABS: CEA 1.5 ng/mL (See Note)
== END 2023-05-21 23:59 | disposition home or self-care (01) ==
LOC: INF 01:47
PROVIDERS: Nurse Practitioner Family; PCP Student in an Organized Health Care Education/Training Program; Visit Provider Internal Medicine Hematology & Oncology
DX: Z79.899 Other long term (current) drug therapy; C18.7 Malignant neoplasm of sigmoid colon; Z45.2 Encounter for adjustment and management of vascular access device
CPT/HCPCS: 36591; 80053; 81003; 81015; 82378; 85025

== ENCOUNTER 2023-06-05 00:58 | Outpatient (RCR) | payer BC, SELFPAY ==
[2023-05-22] MEDS: Normal Saline Flush 10 ML SYR IVP (13:31)
[2023-05-22 13:43] LABS: Bilirubin Negative (Negative); Blood Negative (Negative); Clarity Sl Cloudy (Clear); Glucose Negative (Negative); Ketones Negative (Negative); Leukocyte Esterase Moderate (Negative); Nitrite Negative (Negative); Specific Gravity 1.025 (1.005-1.025); pH 5.5 (5-8)
[2023-05-22 13:44] LABS: Abs Immature Grans 0.02 10^3/uL (0.0-0.06); Absolute Basophil Count 0.02 10^3/uL (0.0-0.2); Absolute Eosinophil Count 0.03 10^3/uL (0.0-0.7); Absolute Lymphocyte Count 1.09 10^3/uL (1.2-3.4); Absolute Monocyte Count 0.28 10^3/uL (0.1-0.8); Absolute Neutrophil Count 2.24 10^3/uL (1.2-6.7); Basophils % 0.5; Eosinophils % 0.8; HCT 30.2 % (36.0-46.0); HGB 9.8 g/dL (11.2-15.7); Immature Grans % 0.5; Lymphocytes % 29.6; MCH 32.7 pg (27.0-33.0); MCHC 32.5 % (32.0-36.0); MCV 101 fL (80-95); MPV 11.2 fL (8.0-11.0); Monocytes % 7.6; Platelet Count 159 10^3/uL (130-400); RDW 17.4 % (11.7-14.6); RDW-SD 62.9 fL; WBC 3.68 10^3/uL (4.4-10.8)
[2023-05-22 13:49] LABS: RBC 0-2 HPF (0-2); WBC 20-50 HPF (0-5)
[2023-05-22 13:50] LABS: Bacteria Moderate HPF (Negative); C & S Indicated? No/Sq. Contamination; Casts Negative LPF (Negative); Crystals Negative HPF (Negative); Epithelial Cells Many HPF (Negative); Mucus Trace (Negative)
[2023-05-22 13:57] LABS: ALT 47 U/L (14-59); AST 37 U/L (15-37); Albumin 3.1 g/dL (3.4-5.0); Alkaline Phosphatase 181 U/L (46-116); Anion Gap 9.7 mmol/L (3-11); BUN 16 mg/dL (7-18); Bilirubin, Total 0.4 mg/dL (0.2-1.0); CO2 25.3 mmol/L (21.0-32.0); CREATININE 0.7 mg/dL (0.55-1.02); Calcium 8.6 mg/dL (8.5-10.1); Chloride 105 mmol/L (98-107); Estimated GFR 102.71 (mL/min/1.73m2); Glucose 130 mg/dL (74-106); Potassium 3.8 mmol/L (3.5-5.1); Sodium 140 mmol/L (136-145); Total Protein 7.6 g/dL (6.4-8.2)
[2023-05-22 22:21] LABS: CEA 1.9 ng/mL (See Note)
[2023-06-05] MEDS: Normal Saline Flush 10 ML SYR IVP (13:51)
[2023-06-05 14:22] LABS: Abs Immature Grans 0.02 10^3/uL (0.0-0.06); Absolute Basophil Count 0.01 10^3/uL (0.0-0.2); Absolute Eosinophil Count 0.03 10^3/uL (0.0-0.7); Absolute Lymphocyte Count 1.04 10^3/uL (1.2-3.4); Absolute Monocyte Count 0.29 10^3/uL (0.1-0.8); Absolute Neutrophil Count 1.86 10^3/uL (1.2-6.7); Basophils % 0.3; Eosinophils % 0.9; HGB 9.6 g/dL (11.2-15.7); Immature Grans % 0.6; MCH 33.4 pg (27.0-33.0); MCHC 33.1 % (32.0-36.0); MCV 101 fL (80-95); MPV 10.1 fL (8.0-11.0); Monocytes % 8.9; Neutrophils % 57.3; Platelet Count 155 10^3/uL (130-400); RBC 2.87 10^6/uL (3.93-5.22); RDW 18.1 % (11.7-14.6); RDW-SD 65.1 fL; WBC 3.25 10^3/uL (4.4-10.8)
[2023-06-05 14:43] LABS: ALT 48 U/L (14-59); AST 36 U/L (15-37); Alkaline Phosphatase 197 U/L (46-116); BUN 11 mg/dL (7-18); Bilirubin, Total 0.4 mg/dL (0.2-1.0); CREATININE 0.8 mg/dL (0.55-1.02); Calcium 8.8 mg/dL (8.5-10.1); Chloride 105 mmol/L (98-107); Glucose 99 mg/dL (74-106); Potassium 3.6 mmol/L (3.5-5.1); Sodium 140 mmol/L (136-145); Total Protein 7.5 g/dL (6.4-8.2)
[2023-06-06 10:54] LABS: Bilirubin Negative (Negative); Blood Negative (Negative); Clarity Sl Cloudy (Clear); Glucose Negative (Negative); Ketones Negative (Negative); Leukocyte Esterase Small (Negative); Nitrite Negative (Negative)
[2023-06-06 10:55] LABS: Bacteria Few HPF (Negative); Epithelial Cells Many HPF (Negative); RBC 0-2 HPF (0-2)
[2023-06-06 10:56] LABS: C & S Indicated? No/Sq. Contamination; Casts Negative LPF (Negative); Crystals Negative HPF (Negative); Mucus Trace (Negative)
== END 2023-06-21 23:59 | disposition home or self-care (01) ==
LOC: INF 00:58
PROVIDERS: Nurse Practitioner Family; PCP Student in an Organized Health Care Education/Training Program; Visit Provider Internal Medicine Hematology & Oncology
DX: C18.9 Malignant neoplasm of colon, unspecified (principal); Z79.899 Other long term (current) drug therapy; Z45.2 Encounter for adjustment and management of vascular access device
CPT/HCPCS: 36591; 80053; 81003; 81015; 82378; 85025

== ENCOUNTER 2023-07-17 01:06 | Outpatient (RCR) | payer BC, SELFPAY ==
[2023-07-03] MEDS: Normal Saline Flush 10 ML SYR IVP (13:19)
[2023-07-03 13:59] LABS: Abs Immature Grans 0.03 10^3/uL (0.0-0.06); Absolute Basophil Count 0.02 10^3/uL (0.0-0.2); Absolute Eosinophil Count 0.06 10^3/uL (0.0-0.7); Absolute Lymphocyte Count 1.24 10^3/uL (1.2-3.4); Absolute Monocyte Count 0.53 10^3/uL (0.1-0.8); Absolute Neutrophil Count 2.74 10^3/uL (1.2-6.7); Basophils % 0.4; Eosinophils % 1.3; HCT 32.4 % (36.0-46.0); HGB 10.4 g/dL (11.2-15.7); Immature Grans % 0.6; Lymphocytes % 26.8; MCHC 32.1 % (32.0-36.0); MCV 103 fL (80-95); MPV 10.7 fL (8.0-11.0); Monocytes % 11.5; Neutrophils % 59.4; Platelet Count 169 10^3/uL (130-400); RBC 3.15 10^6/uL (3.93-5.22); RDW 18.1 % (11.7-14.6); RDW-SD 68.5 fL; WBC 4.62 10^3/uL (4.4-10.8)
[2023-07-03 14:01] LABS: Bilirubin Negative (Negative); Blood Negative (Negative); Clarity Clear (Clear); Glucose Negative (Negative); Ketones Negative (Negative); Leukocyte Esterase Moderate (Negative); Nitrite Negative (Negative); Urobilinogen 0.2 mg/dL (Up to 0.2)
[2023-07-03 14:11] LABS: ALT 59 U/L (14-59); AST 41 U/L (15-37); Albumin 2.9 g/dL (3.4-5.0); Alkaline Phosphatase 208 U/L (46-116); Anion Gap 7.9 mmol/L (3-11); BUN 10 mg/dL (7-18); Bilirubin, Total 0.4 mg/dL (0.2-1.0); CO2 28.1 mmol/L (21.0-32.0); CREATININE 0.9 mg/dL (0.55-1.02); Calcium 8.7 mg/dL (8.5-10.1); Chloride 105 mmol/L (98-107); Estimated GFR 75.97 (mL/min/1.73m2); Glucose 118 mg/dL (74-106); Potassium 3.7 mmol/L (3.5-5.1); Sodium 141 mmol/L (136-145); Total Protein 7.5 g/dL (6.4-8.2)
[2023-07-03 14:17] LABS: Bacteria Moderate HPF (Negative); C & S Indicated? No/Sq. Contamination; Casts Negative LPF (Negative); Crystals Negative HPF (Negative); Epithelial Cells Many HPF (Negative); Mucus Negative (Negative); RBC 0-2 HPF (0-2)
[2023-07-03 22:11] LABS: CEA 2.4 ng/mL (See Note)
[2023-07-17] MEDS: Normal Saline Flush 10 ML SYR IVP (13:31)
[2023-07-17 13:47] LABS: Abs Immature Grans 0.01 10^3/uL (0.0-0.06); Absolute Basophil Count 0.01 10^3/uL (0.0-0.2); Absolute Eosinophil Count 0.06 10^3/uL (0.0-0.7); Absolute Lymphocyte Count 0.93 10^3/uL (1.2-3.4); Absolute Monocyte Count 0.25 10^3/uL (0.1-0.8); Absolute Neutrophil Count 2.43 10^3/uL (1.2-6.7); Basophils % 0.3; Eosinophils % 1.6; HCT 32.4 % (36.0-46.0); HGB 10.6 g/dL (11.2-15.7); Immature Grans % 0.3; Lymphocytes % 25.2; MCH 33.3 pg (27.0-33.0); MCHC 32.7 % (32.0-36.0); MCV 102 fL (80-95); MPV 10.7 fL (8.0-11.0); Monocytes % 6.8; Neutrophils % 65.8; Platelet Count 154 10^3/uL (130-400); RBC 3.18 10^6/uL (3.93-5.22); RDW 17.4 % (11.7-14.6); RDW-SD 65.1 fL; WBC 3.69 10^3/uL (4.4-10.8)
[2023-07-17 13:48] LABS: Bilirubin Negative (Negative); Blood Negative (Negative); Clarity Clear (Clear); Glucose Negative (Negative); Ketones Negative (Negative); Leukocyte Esterase Trace (Negative); Nitrite Negative (Negative); Specific Gravity 1.025 (1.005-1.025); Urobilinogen 0.2 mg/dL (Up to 0.2); pH 5.5 (5-8)
[2023-07-17 13:54] LABS: Bacteria Few HPF (Negative); C & S Indicated? No; Casts Negative LPF (Negative); Crystals Negative HPF (Negative); Epithelial Cells Negative HPF (Negative); Mucus Trace (Negative); Other Cells Negative (Negative); RBC Negative HPF (0-2)
[2023-07-17 14:01] LABS: ALT 52 U/L (14-59); AST 40 U/L (15-37); Alkaline Phosphatase 222 U/L (46-116); Anion Gap 6.5 mmol/L (3-11); BUN 13 mg/dL (7-18); Bilirubin, Total 0.5 mg/dL (0.2-1.0); CO2 27.5 mmol/L (21.0-32.0); CREATININE 0.8 mg/dL (0.55-1.02); Calcium 8.5 mg/dL (8.5-10.1); Chloride 105 mmol/L (98-107); Glucose 116 mg/dL (74-106); Potassium 4.1 mmol/L (3.5-5.1); Sodium 139 mmol/L (136-145); Total Protein 7.9 g/dL (6.4-8.2)
== END 2023-07-22 23:59 | disposition home or self-care (01) ==
LOC: INF 01:06
PROVIDERS: Nurse Practitioner Family; PCP Student in an Organized Health Care Education/Training Program; Visit Provider Internal Medicine Hematology & Oncology
DX: C18.9 Malignant neoplasm of colon, unspecified (principal); Z79.899 Other long term (current) drug therapy; Z45.2 Encounter for adjustment and management of vascular access device
CPT/HCPCS: 36591; 80053; 81003; 81015; 82378; 85025

== ENCOUNTER 2023-08-14 00:55 | Outpatient (RCR) | payer BC, SELFPAY ==
[2023-07-31 13:39] LABS: Abs Immature Grans 0.01 10^3/uL (0.0-0.06); Absolute Basophil Count 0.01 10^3/uL (0.0-0.2); Absolute Eosinophil Count 0.03 10^3/uL (0.0-0.7); Absolute Monocyte Count 0.26 10^3/uL (0.1-0.8); Absolute Neutrophil Count 1.92 10^3/uL (1.2-6.7); Basophils % 0.3; Eosinophils % 0.9; HCT 30.2 % (36.0-46.0); HGB 9.8 g/dL (11.2-15.7); Immature Grans % 0.3; MCH 32.8 pg (27.0-33.0); MCHC 32.5 % (32.0-36.0); MCV 101 fL (80-95); MPV 10.6 fL (8.0-11.0); Neutrophils % 59.5; Platelet Count 130 10^3/uL (130-400); RBC 2.99 10^6/uL (3.93-5.22); RDW 16.9 % (11.7-14.6); RDW-SD 61.2 fL; WBC 3.23 10^3/uL (4.4-10.8)
[2023-07-31 13:42] LABS: Bilirubin Negative (Negative); Blood Negative (Negative); Clarity Clear (Clear); Glucose Negative (Negative); Ketones Negative (Negative); Leukocyte Esterase Moderate (Negative); Nitrite Negative (Negative); Specific Gravity 1.025 (1.005-1.025); Urobilinogen 0.2 mg/dL (Up to 0.2)
[2023-07-31] MEDS: Normal Saline Flush 10 ML SYR IVP (13:53)
[2023-07-31 14:05] LABS: ALT 39 U/L (14-59); AST 29 U/L (15-37); Alkaline Phosphatase 198 U/L (46-116); Anion Gap 10.2 mmol/L (3-11); BUN 14 mg/dL (7-18); Bilirubin, Total 0.4 mg/dL (0.2-1.0); CO2 26.8 mmol/L (21.0-32.0); CREATININE 0.8 mg/dL (0.55-1.02); Calcium 8.8 mg/dL (8.5-10.1); Chloride 105 mmol/L (98-107); Glucose 119 mg/dL (74-106); Potassium 3.9 mmol/L (3.5-5.1); Sodium 142 mmol/L (136-145); Total Protein 7.6 g/dL (6.4-8.2)
[2023-07-31 14:08] LABS: Bacteria Few HPF (Negative); C & S Indicated? No/Sq. Contamination; Casts 0-2 Hyaline LPF (Negative); Epithelial Cells Moderate HPF (Negative)
[2023-08-14 13:10] LABS: Abs Immature Grans 0.01 10^3/uL (0.0-0.06); Absolute Basophil Count 0.01 10^3/uL (0.0-0.2); Absolute Eosinophil Count 0.02 10^3/uL (0.0-0.7); Absolute Lymphocyte Count 0.93 10^3/uL (1.2-3.4); Absolute Monocyte Count 0.23 10^3/uL (0.1-0.8); Absolute Neutrophil Count 1.86 10^3/uL (1.2-6.7); Basophils % 0.3; Eosinophils % 0.7; HCT 30.1 % (36.0-46.0); HGB 9.9 g/dL (11.2-15.7); Immature Grans % 0.3; Lymphocytes % 30.4; MCH 33.3 pg (27.0-33.0); MCHC 32.9 % (32.0-36.0); MCV 101 fL (80-95); MPV 10.2 fL (8.0-11.0); Monocytes % 7.5; Neutrophils % 60.8; Nucleated RBC 0.7 % (0.0-0.3); Platelet Count 123 10^3/uL (130-400); RBC 2.97 10^6/uL (3.93-5.22); RDW 17.1 % (11.7-14.6); RDW-SD 63.5 fL; WBC 3.06 10^3/uL (4.4-10.8)
[2023-08-14 13:12] LABS: Bilirubin Negative (Negative); Blood Negative (Negative); Clarity Clear (Clear); Glucose Negative (Negative); Ketones Trace mg/dL (Negative); Leukocyte Esterase Small (Negative); Nitrite Negative (Negative); Specific Gravity >= 1.030 (1.005-1.025); Urobilinogen 0.2 mg/dL (Up to 0.2); pH 5.5 (5-8)
[2023-08-14] MEDS: Normal Saline Flush 10 ML SYR IVP (13:20)
[2023-08-14 13:29] LABS: ALT 43 U/L (14-59); AST 24 U/L (15-37); Alkaline Phosphatase 201 U/L (46-116); Anion Gap 10.2 mmol/L (3-11); BUN 18 mg/dL (7-18); Bilirubin, Total 0.4 mg/dL (0.2-1.0); CO2 26.8 mmol/L (21.0-32.0); CREATININE 0.8 mg/dL (0.55-1.02); Calcium 8.6 mg/dL (8.5-10.1); Chloride 105 mmol/L (98-107); Glucose 116 mg/dL (74-106); Sodium 142 mmol/L (136-145); Total Protein 7.6 g/dL (6.4-8.2)
[2023-08-14 13:33] LABS: Epithelial Cells Many HPF (Negative)
[2023-08-14 13:34] LABS: Bacteria Moderate HPF (Negative); C & S Indicated? No/Sq. Contamination; Mucus Moderate (Negative)
[2023-08-14 22:03] LABS: CEA 2.3 ng/mL (See Note)
== END 2023-08-20 23:59 | disposition home or self-care (01) ==
LOC: INF 00:55
PROVIDERS: Nurse Practitioner Family; PCP Student in an Organized Health Care Education/Training Program; Visit Provider Internal Medicine Hematology & Oncology
DX: C18.9 Malignant neoplasm of colon, unspecified (principal); Z79.899 Other long term (current) drug therapy; Z45.2 Encounter for adjustment and management of vascular access device
CPT/HCPCS: 36591; 80053; 81003; 81015; 82378; 85025

== ENCOUNTER 2023-09-11 01:00 | Outpatient (RCR) | payer BC, SELFPAY ==
[2023-08-28] MEDS: Normal Saline Flush 10 ML SYR IVP (13:15)
[2023-08-28 14:14] LABS: Abs Immature Grans 0.08 10^3/uL (0.0-0.06); Absolute Basophil Count 0.01 10^3/uL (0.0-0.2); Absolute Eosinophil Count 0.02 10^3/uL (0.0-0.7); Absolute Lymphocyte Count 0.88 10^3/uL (1.2-3.4); Absolute Monocyte Count 0.26 10^3/uL (0.1-0.8); Basophils % 0.4; Bilirubin Negative (Negative); Blood Negative (Negative); Clarity Sl Cloudy (Clear); Eosinophils % 0.7; Glucose Negative (Negative); HCT 28.3 % (36.0-46.0); HGB 9.2 g/dL (11.2-15.7); Immature Grans % 2.8; Ketones Negative (Negative); Leukocyte Esterase Moderate (Negative); Lymphocytes % 30.9; MCH 33.1 pg (27.0-33.0); MCHC 32.5 % (32.0-36.0); MCV 102 fL (80-95); MPV 10.5 fL (8.0-11.0); Monocytes % 9.1; Neutrophils % 56.1; Nitrite Negative (Negative); Platelet Count 103 10^3/uL (130-400); RBC 2.78 10^6/uL (3.93-5.22); RDW 17.7 % (11.7-14.6); RDW-SD 66.3 fL; Specific Gravity 1.025 (1.005-1.025); WBC 2.85 10^3/uL (4.4-10.8)
[2023-08-28 14:20] LABS: Bacteria Moderate HPF (Negative); C & S Indicated? No/Sq. Contamination; Casts Negative LPF (Negative); Crystals Negative HPF (Negative); Epithelial Cells Moderate HPF (Negative); Mucus Negative (Negative); RBC Negative HPF (0-2)
[2023-08-28 14:28] LABS: ALT 56 U/L (14-59); AST 42 U/L (15-37); Albumin 2.9 g/dL (3.4-5.0); Alkaline Phosphatase 201 U/L (46-116); Anion Gap 9.3 mmol/L (3-11); BUN 9 mg/dL (7-18); Bilirubin, Total 0.4 mg/dL (0.2-1.0); CO2 26.7 mmol/L (21.0-32.0); CREATININE 0.8 mg/dL (0.55-1.02); Calcium 8.3 mg/dL (8.5-10.1); Chloride 107 mmol/L (98-107); Glucose 107 mg/dL (74-106); Potassium 3.8 mmol/L (3.5-5.1); Sodium 143 mmol/L (136-145); Total Protein 7.2 g/dL (6.4-8.2)
[2023-08-28 22:51] LABS: CEA 2.7 ng/mL (See Note)
[2023-09-11] MEDS: Normal Saline Flush 10 ML SYR IVP (13:50)
[2023-09-11 14:20] LABS: HCT 27.5 % (36.0-46.0); HGB 8.8 g/dL (11.2-15.7); MCH 33.2 pg (27.0-33.0); MCV 104 fL (80-95); MPV 10.8 fL (8.0-11.0); RBC 2.65 10^6/uL (3.93-5.22); RDW 18.1 % (11.7-14.6); RDW-SD 68.5 fL; WBC 2.49 10^3/uL (4.4-10.8)
[2023-09-11 14:22] LABS: Bilirubin Negative (Negative); Blood Negative (Negative); Clarity Clear (Clear); Glucose Negative (Negative); Ketones Negative (Negative); Leukocyte Esterase Trace (Negative); Nitrite Negative (Negative); Urobilinogen 0.2 mg/dL (Up to 0.2)
[2023-09-11 14:29] LABS: Bacteria Negative HPF (Negative); C & S Indicated? No/Sq. Contamination; Casts Negative LPF (Negative); Crystals Negative HPF (Negative); Epithelial Cells Moderate HPF (Negative); Mucus Negative (Negative); RBC Negative HPF (0-2); WBC 0-2 HPF (0-5)
[2023-09-11 14:33] LABS: ALT 35 U/L (14-59); AST 26 U/L (15-37); Albumin 2.9 g/dL (3.4-5.0); Alkaline Phosphatase 188 U/L (46-116); Anion Gap 7.5 mmol/L (3-11); BUN 11 mg/dL (7-18); Bilirubin, Total 0.4 mg/dL (0.2-1.0); CO2 27.5 mmol/L (21.0-32.0); CREATININE 0.8 mg/dL (0.55-1.02); Calcium 8.2 mg/dL (8.5-10.1); Chloride 108 mmol/L (98-107); Glucose 115 mg/dL (74-106); Potassium 3.9 mmol/L (3.5-5.1); Sodium 143 mmol/L (136-145); Total Protein 7.2 g/dL (6.4-8.2)
[2023-09-11 14:45] LABS: Absolute Lymphocyte Count 1.25 10^3/uL (1.2-3.4); Absolute Monocyte Count 0.07 10^3/uL (0.1-0.8); Absolute Neutrophil Count 1.17 10^3/uL (1.2-6.7); Atypical Lymphocytes % 2; Diff Comment Manual Differential; Platelet Count 98 10^3/uL (130-400); RBC Morphology Normal
== END 2023-09-20 23:59 | disposition home or self-care (01) ==
LOC: INF 01:00
PROVIDERS: Nurse Practitioner Family; PCP Student in an Organized Health Care Education/Training Program; Visit Provider Internal Medicine Hematology & Oncology
DX: C18.9 Malignant neoplasm of colon, unspecified (principal); Z79.899 Other long term (current) drug therapy; Z45.2 Encounter for adjustment and management of vascular access device
CPT/HCPCS: 36591; 80053; 81003; 81015; 82378; 85025

== ENCOUNTER 2023-10-16 00:43 | Outpatient (RCR) | payer BC, SELFPAY ==
[2023-09-25] MEDS: Normal Saline Flush 10 ML SYR IVP (13:26)
[2023-09-25 13:52] LABS: Abs Immature Grans 0.02 10^3/uL (0.0-0.06); Absolute Basophil Count 0.01 10^3/uL (0.0-0.2); Absolute Eosinophil Count 0.01 10^3/uL (0.0-0.7); Absolute Lymphocyte Count 0.91 10^3/uL (1.2-3.4); Absolute Monocyte Count 0.21 10^3/uL (0.1-0.8); Basophils % 0.4; Eosinophils % 0.4; HCT 26.4 % (36.0-46.0); HGB 8.7 g/dL (11.2-15.7); Immature Grans % 0.8; MCH 33.7 pg (27.0-33.0); MCV 102 fL (80-95); Monocytes % 8.5; Neutrophils % 52.9; RBC 2.58 10^6/uL (3.93-5.22); RDW 18.7 % (11.7-14.6); WBC 2.46 10^3/uL (4.4-10.8)
[2023-09-25 13:53] LABS: Bilirubin Small (Negative); Blood Negative (Negative); Clarity Sl Cloudy (Clear); Glucose Negative (Negative); Ketones Trace mg/dL (Negative); Leukocyte Esterase Moderate (Negative); Nitrite Negative (Negative); Specific Gravity 1.025 (1.005-1.025)
[2023-09-25 13:59] LABS: Epithelial Cells Many HPF (Negative)
[2023-09-25 14:00] LABS: Bacteria Few HPF (Negative); C & S Indicated? No/Sq. Contamination; Casts Negative LPF (Negative); Crystals Few Amorphous HPF (Negative); Mucus Trace (Negative)
[2023-09-25 14:02] LABS: Anisocytosis 1+; Diff Comment PLT Morph Reviewed; Macrocytosis 1+; Platelet Count 88 10^3/uL (130-400)
[2023-09-25 14:03] LABS: Polychromasia Present
[2023-09-25 14:06] LABS: ALT 41 U/L (14-59); AST 29 U/L (15-37); Albumin 2.9 g/dL (3.4-5.0); Alkaline Phosphatase 187 U/L (46-116); Anion Gap 10.1 mmol/L (3-11); BUN 15 mg/dL (7-18); Bilirubin, Total 0.4 mg/dL (0.2-1.0); CO2 25.9 mmol/L (21.0-32.0); CREATININE 0.8 mg/dL (0.55-1.02); Calcium 8.5 mg/dL (8.5-10.1); Chloride 106 mmol/L (98-107); Glucose 118 mg/dL (74-106); Potassium 3.7 mmol/L (3.5-5.1); Sodium 142 mmol/L (136-145); Total Protein 7.4 g/dL (6.4-8.2)
[2023-09-25 22:50] LABS: CEA 2.8 ng/mL (See Note)
[2023-10-16] MEDS: Normal Saline Flush 10 ML SYR IVP (08:47)
[2023-10-16 08:50] LABS: Absolute Monocyte Count 0.25 10^3/uL (0.1-0.8); HCT 28.7 % (36.0-46.0); HGB 9.3 g/dL (11.2-15.7); MCH 34.6 pg (27.0-33.0); MCHC 32.4 % (32.0-36.0); MPV 10.7 fL (8.0-11.0); Platelet Count 106 10^3/uL (130-400); RBC 2.69 10^6/uL (3.93-5.22); RDW 20.8 % (11.7-14.6); RDW-SD 82.3 fL
[2023-10-16 08:51] LABS: Bilirubin Negative (Negative); Blood Negative (Negative); Clarity Clear (Clear); Glucose Negative (Negative); Ketones Negative (Negative); Leukocyte Esterase Trace (Negative); Nitrite Negative (Negative); Specific Gravity 1.015 (1.005-1.025)
[2023-10-16 08:57] LABS: Bacteria Few HPF (Negative); C & S Indicated? No/Sq. Contamination; Casts Negative LPF (Negative); Crystals Negative HPF (Negative); Epithelial Cells Moderate HPF (Negative); Mucus Negative (Negative); RBC Negative HPF (0-2); WBC 0-2 HPF (0-5)
[2023-10-16 09:03] LABS: MCV 107 fL (80-95)
[2023-10-16 09:04] LABS: Absolute Lymphocyte Count 0.49 10^3/uL (1.2-3.4); Anisocytosis 2+; Atypical Lymphocytes % 3; Diff Comment Manual Differential; Macrocytosis 2+
[2023-10-16 09:08] LABS: ALT 37 U/L (14-59); AST 29 U/L (15-37); Albumin 2.8 g/dL (3.4-5.0); Alkaline Phosphatase 168 U/L (46-116); Anion Gap 8.6 mmol/L (3-11); BUN 12 mg/dL (7-18); Bilirubin, Total 0.5 mg/dL (0.2-1.0); CO2 25.4 mmol/L (21.0-32.0); CREATININE 0.9 mg/dL (0.55-1.02); Calcium 8.2 mg/dL (8.5-10.1); Chloride 107 mmol/L (98-107); Estimated GFR 75.97 (mL/min/1.73m2); Glucose 173 mg/dL (74-106); Potassium 3.7 mmol/L (3.5-5.1); Sodium 141 mmol/L (136-145)
[2023-10-16 09:09] LABS: WBC 1.54 10^3/uL (4.4-10.8)
[2023-10-16 09:23] LABS: Calculated LDL 119 mg/dL (<100); Cholesterol 184 mg/dL (<200); HDL Cholesterol 51 mg/dL (40-60); Triglyceride 73 mg/dL (<150)
[2023-10-16 20:03] LABS: CEA 3.2 ng/mL (See Note)
[2023-10-17 12:33] LABS: Lab Add On Test DONE
[2023-10-17 12:59] LABS: Hemoglobin A1C 5.4 % (<5.7)
== END 2023-10-20 23:59 | disposition home or self-care (01) ==
LOC: INF 00:43
PROVIDERS: Nurse Practitioner Family; PCP Student in an Organized Health Care Education/Training Program; Visit Provider Internal Medicine Hematology & Oncology
DX: C18.9 Malignant neoplasm of colon, unspecified (principal); Z79.899 Other long term (current) drug therapy
CPT/HCPCS: 36591; 80053; 80061; 82306; 81003; 81015; 82378; 83036; 85025

== ENCOUNTER 2023-11-13 02:20 | Outpatient (RCR) | payer BC, SELFPAY ==
[2023-10-30] MEDS: Normal Saline Flush 10 ML SYR IVP (13:45)
[2023-10-30 14:06] LABS: Abs Immature Grans 0.04 10^3/uL (0.0-0.06); Absolute Basophil Count 0.02 10^3/uL (0.0-0.2); Absolute Eosinophil Count 0.02 10^3/uL (0.0-0.7); Absolute Lymphocyte Count 0.95 10^3/uL (1.2-3.4); Absolute Monocyte Count 0.44 10^3/uL (0.1-0.8); Absolute Neutrophil Count 2.88 10^3/uL (1.2-6.7); Basophils % 0.5 %; Eosinophils % 0.5 %; HCT 31.6 % (36.0-46.0); HGB 10.1 g/dL (11.2-15.7); Immature Grans % 0.9 %; Lymphocytes % 21.8 %; MCH 34.7 pg (27.0-33.0); MCV 109 fL (80-95); MPV 10.5 fL (8.0-11.0); Monocytes % 10.1 %; Neutrophils % 66.2 %; Platelet Count 141 10^3/uL (130-400); RBC 2.91 10^6/uL (3.93-5.22); RDW 19.1 % (11.7-14.6); RDW-SD 77.3 fL; WBC 4.35 10^3/uL (4.4-10.8)
[2023-10-30 14:09] LABS: Bilirubin Negative (Negative); Blood Negative (Negative); Clarity Clear (Clear); Glucose Negative (Negative); Ketones Negative (Negative); Leukocyte Esterase Trace (Negative); Nitrite Negative (Negative)
[2023-10-30 14:15] LABS: Bacteria Rare HPF (Negative); C & S Indicated? No; Casts Negative LPF (Negative); Crystals Negative HPF (Negative); Epithelial Cells Rare HPF (Negative); Mucus Trace (Negative); RBC 0-2 HPF (0-2)
[2023-10-30 14:24] LABS: ALT 47 U/L (14-59); AST 41 U/L (15-37); Albumin 2.9 g/dL (3.4-5.0); Alkaline Phosphatase 189 U/L (46-116); Anion Gap 6.7 mmol/L (3-11); BUN 10 mg/dL (7-18); Bilirubin, Total 0.4 mg/dL (0.2-1.0); CO2 27.3 mmol/L (21.0-32.0); CREATININE 0.8 mg/dL (0.55-1.02); Calcium 8.4 mg/dL (8.5-10.1); Chloride 107 mmol/L (98-107); Estimated GFR 86.96 (mL/min/1.73m2); Glucose 114 mg/dL (74-106); Sodium 141 mmol/L (136-145); Total Protein 7.5 g/dL (6.4-8.2)
[2023-10-30 22:56] LABS: CEA 3.5 ng/mL (See Note)
[2023-11-13] MEDS: Normal Saline Flush 10 ML SYR IVP (13:44)
[2023-11-13 13:55] LABS: Abs Immature Grans 0.02 10^3/uL (0.0-0.06); Absolute Basophil Count 0.02 10^3/uL (0.0-0.2); Absolute Eosinophil Count 0.07 10^3/uL (0.0-0.7); Absolute Lymphocyte Count 0.89 10^3/uL (1.2-3.4); Absolute Monocyte Count 0.22 10^3/uL (0.1-0.8); Absolute Neutrophil Count 2.06 10^3/uL (1.2-6.7); Basophils % 0.6 %; Eosinophils % 2.1 %; HCT 30.3 % (36.0-46.0); HGB 9.8 g/dL (11.2-15.7); Immature Grans % 0.6 %; Lymphocytes % 27.1 %; MCHC 32.3 % (32.0-36.0); MPV 10.8 fL (8.0-11.0); Monocytes % 6.7 %; Neutrophils % 62.9 %; Platelet Count 110 10^3/uL (130-400); RBC 2.88 10^6/uL (3.93-5.22); RDW 17.3 % (11.7-14.6); RDW-SD 67.5 fL; WBC 3.28 10^3/uL (4.4-10.8)
[2023-11-13 14:02] LABS: Bilirubin Negative (Negative); Blood Negative (Negative); Clarity Clear (Clear); Glucose Negative (Negative); Ketones Negative (Negative); Leukocyte Esterase Trace (Negative); Nitrite Negative (Negative); Urobilinogen 0.2 mg/dL (Up to 0.2)
[2023-11-13 14:10] LABS: Bacteria Rare HPF (Negative); C & S Indicated? No; Casts Negative LPF (Negative); Crystals Negative HPF (Negative); Epithelial Cells Few HPF (Negative); Mucus Negative (Negative); RBC Negative HPF (0-2); WBC 0-2 HPF (0-5)
[2023-11-13 14:17] LABS: ALT 34 U/L (14-59); AST 32 U/L (15-37); Albumin 2.9 g/dL (3.4-5.0); Alkaline Phosphatase 184 U/L (46-116); Anion Gap 3.8 mmol/L (3-11); BUN 11 mg/dL (7-18); Bilirubin, Total 0.5 mg/dL (0.2-1.0); CO2 26.2 mmol/L (21.0-32.0); CREATININE 0.8 mg/dL (0.55-1.02); Calcium 8.4 mg/dL (8.5-10.1); Chloride 107 mmol/L (98-107); Estimated GFR 86.96 (mL/min/1.73m2); Glucose 129 mg/dL (74-106); Potassium 3.8 mmol/L (3.5-5.1); Sodium 137 mmol/L (136-145); Total Protein 7.3 g/dL (6.4-8.2)
[2023-11-13 14:18] LABS: Diff Comment Agrees w/ Instrument; MCV 105 fL (80-95); Macrocytosis 2+
[2023-11-13 22:41] LABS: CEA 3.3 ng/mL (See Note)
== END 2023-11-20 23:59 | disposition home or self-care (01) ==
LOC: INF 02:20
PROVIDERS: Nurse Practitioner Family; PCP Student in an Organized Health Care Education/Training Program; Visit Provider Internal Medicine Hematology & Oncology
DX: C18.9 Malignant neoplasm of colon, unspecified (principal); Z79.899 Other long term (current) drug therapy; Z45.2 Encounter for adjustment and management of vascular access device
CPT/HCPCS: 36591; 80053; 81003; 81015; 82378; 85025

== ENCOUNTER 2023-12-16 01:18 | Outpatient (RCR) | payer BC, SELFPAY ==
[2023-11-27] MEDS: Normal Saline Flush 10 ML SYR IVP (14:00)
[2023-11-27 14:27] LABS: Bilirubin Negative (Negative); Blood Negative (Negative); Clarity Clear (Clear); Glucose Negative (Negative); Ketones Negative (Negative); Leukocyte Esterase Moderate (Negative); Nitrite Negative (Negative); Specific Gravity 1.015 (1.005-1.025)
[2023-11-27 14:30] LABS: Abs Immature Grans 0.01 10^3/uL (0.0-0.06); HGB 9.7 g/dL (11.2-15.7); MCH 34.3 pg (27.0-33.0); MCHC 32.3 % (32.0-36.0); MCV 106 fL (80-95); MPV 11.7 fL (8.0-11.0); RBC 2.83 10^6/uL (3.93-5.22); RDW 17.2 % (11.7-14.6); RDW-SD 66.9 fL; WBC 2.63 10^3/uL (4.4-10.8)
[2023-11-27 14:39] LABS: Bacteria Moderate HPF (Negative); Casts Negative LPF (Negative); Crystals Negative HPF (Negative); Epithelial Cells Few HPF (Negative); Mucus Heavy (Negative); RBC Negative HPF (0-2)
[2023-11-27 14:40] LABS: C & S Indicated? Yes
[2023-11-27 14:42] LABS: ALT 42 U/L (14-59); AST 31 U/L (15-37); Albumin 2.9 g/dL (3.4-5.0); Alkaline Phosphatase 174 U/L (46-116); Anion Gap 6.5 mmol/L (3-11); BUN 11 mg/dL (7-18); Bilirubin, Total 0.5 mg/dL (0.2-1.0); CO2 28.5 mmol/L (21.0-32.0); Calcium 8.5 mg/dL (8.5-10.1); Chloride 108 mmol/L (98-107); Estimated GFR 66.53 (mL/min/1.73m2); Glucose 120 mg/dL (74-106); Potassium 4.1 mmol/L (3.5-5.1); Sodium 143 mmol/L (136-145); Total Protein 7.1 g/dL (6.4-8.2)
[2023-11-27 14:47] LABS: Diff Comment Manual Differential; Platelet Count 86 10^3/uL (130-400)
[2023-11-27 14:48] LABS: Absolute Basophil Count 0.03 10^3/uL (0.0-0.2); Absolute Eosinophil Count 0.05 10^3/uL (0.0-0.7); Absolute Lymphocyte Count 0.76 10^3/uL (1.2-3.4); Absolute Monocyte Count 0.08 10^3/uL (0.1-0.8); Absolute Neutrophil Count 1.71 10^3/uL (1.2-6.7); Atypical Lymphocytes % 2 %; Basophilic Stippling Present; Hypochromasia 1+
[2023-11-27 14:49] LABS: Macrocytosis 1+; Polychromasia Present
[2023-11-27 22:47] LABS: CEA 3.5 ng/mL (See Note)
[2023-12-11] MEDS: Normal Saline Flush 10 ML SYR IVP (14:24)
[2023-12-11 14:39] LABS: Abs Immature Grans 0.02 10^3/uL (0.0-0.06); HCT 33.5 % (36.0-46.0); HGB 10.8 g/dL (11.2-15.7); MCH 34.4 pg (27.0-33.0); MCHC 32.2 % (32.0-36.0); MCV 107 fL (80-95); MPV 10.1 fL (8.0-11.0); Platelet Count 102 10^3/uL (130-400); RBC 3.14 10^6/uL (3.93-5.22); RDW 16.8 % (11.7-14.6); RDW-SD 66.5 fL; WBC 3.79 10^3/uL (4.4-10.8)
[2023-12-11 14:50] LABS: Bilirubin Negative (Negative); Blood Negative (Negative); Clarity Clear (Clear); Glucose Negative (Negative); Ketones Negative (Negative); Leukocyte Esterase Trace (Negative); Nitrite Negative (Negative); Urobilinogen 0.2 mg/dL (Up to 0.2)
[2023-12-11 14:51] LABS: Absolute Lymphocyte Count 0.87 10^3/uL (1.2-3.4)
[2023-12-11 14:52] LABS: Absolute Eosinophil Count 0.08 10^3/uL (0.0-0.7); Absolute Monocyte Count 0.34 10^3/uL (0.1-0.8); Diff Comment Manual Differential; Macrocytosis 1+
[2023-12-11 14:53] LABS: ALT 40 U/L (14-59); AST 35 U/L (15-37); Albumin 2.9 g/dL (3.4-5.0); Alkaline Phosphatase 202 U/L (46-116); Anion Gap 8.6 mmol/L (3-11); BUN 14 mg/dL (7-18); CO2 27.4 mmol/L (21.0-32.0); CREATININE 0.9 mg/dL (0.55-1.02); Calcium 8.8 mg/dL (8.5-10.1); Chloride 105 mmol/L (98-107); Glucose 116 mg/dL (74-106); Sodium 141 mmol/L (136-145); Total Protein 7.5 g/dL (6.4-8.2)
[2023-12-11 14:56] LABS: Bacteria Rare HPF (Negative); C & S Indicated? No; Casts Negative LPF (Negative); Crystals Negative HPF (Negative); Epithelial Cells Rare HPF (Negative); Mucus Negative (Negative); RBC Negative HPF (0-2)
[2023-12-14 10:50] LABS: CEA 4.4 ng/mL (See Note)
== END 2023-12-20 23:59 | disposition home or self-care (01) ==
LOC: INF 01:18
PROVIDERS: Nurse Practitioner Family; PCP Student in an Organized Health Care Education/Training Program; Visit Provider Internal Medicine Hematology & Oncology
DX: Z45.2 Encounter for adjustment and management of vascular access device (principal); C18.9 Malignant neoplasm of colon, unspecified
CPT/HCPCS: 36591; 80053; 81003; 81015; 82378; 85025; 87086

== ENCOUNTER 2024-01-08 00:46 | Outpatient (RCR) | payer BC, SELFPAY ==
[2023-12-25] MEDS: Normal Saline Flush 10 ML SYR IVP (13:30)
[2023-12-25 13:43] LABS: Abs Immature Grans 0.02 10^3/uL (0.0-0.06); Bilirubin Negative (Negative); Blood Negative (Negative); Clarity Sl Cloudy (Clear); Glucose Negative (Negative); HCT 32.9 % (36.0-46.0); HGB 10.7 g/dL (11.2-15.7); Ketones Negative (Negative); Leukocyte Esterase Small (Negative); MCHC 32.5 % (32.0-36.0); MCV 104 fL (80-95); MPV 10.6 fL (8.0-11.0); Nitrite Negative (Negative); Platelet Count 109 10^3/uL (130-400); RBC 3.15 10^6/uL (3.93-5.22); RDW 16.7 % (11.7-14.6); RDW-SD 63.3 fL; Specific Gravity 1.025 (1.005-1.025); WBC 2.73 10^3/uL (4.4-10.8)
[2023-12-25 13:56] LABS: Bacteria Few HPF (Negative); C & S Indicated? Yes; Casts Negative LPF (Negative); Crystals Negative HPF (Negative); Epithelial Cells Few HPF (Negative); Mucus Negative (Negative); RBC 0-2 HPF (0-2)
[2023-12-25 13:58] LABS: ALT 57 U/L (14-59); AST 54 U/L (15-37); Albumin 2.9 g/dL (3.4-5.0); Alkaline Phosphatase 223 U/L (46-116); Anion Gap 7.7 mmol/L (3-11); BUN 11 mg/dL (7-18); Bilirubin, Total 0.64 mg/dL (0.2-1.0); CO2 25.3 mmol/L (21.0-32.0); CREATININE 0.8 mg/dL (0.55-1.02); Calcium 7.6 mg/dL (8.5-10.1); Chloride 108 mmol/L (98-107); Estimated GFR 86.96 (mL/min/1.73m2); Glucose 121 mg/dL (74-106); Potassium 3.7 mmol/L (3.5-5.1); Sodium 141 mmol/L (136-145); Total Protein 7.5 g/dL (6.4-8.2)
[2023-12-25 14:04] LABS: Absolute Eosinophil Count 0.05 10^3/uL (0.0-0.7); Absolute Lymphocyte Count 0.55 10^3/uL (1.2-3.4); Absolute Monocyte Count 0.14 10^3/uL (0.1-0.8); Absolute Neutrophil Count 1.99 10^3/uL (1.2-6.7)
[2023-12-25 14:05] LABS: Diff Comment Manual Differential; Macrocytosis 1+; Polychromasia Present
[2023-12-25 23:15] LABS: CEA 4.6 ng/mL (See Note)
[2024-01-08] MEDS: Normal Saline Flush 10 ML SYR IVP (13:17)
[2024-01-08 13:28] LABS: Bilirubin Negative (Negative); Blood Negative (Negative); Clarity Clear (Clear); Glucose Negative (Negative); Ketones Negative (Negative); Leukocyte Esterase Trace (Negative); Nitrite Negative (Negative); Specific Gravity 1.015 (1.005-1.025); Urobilinogen 0.2 mg/dL (Up to 0.2); pH 5.5 (5-8)
[2024-01-08 13:29] LABS: Abs Immature Grans 0.02 10^3/uL (0.0-0.06); HCT 29.8 % (36.0-46.0); HGB 9.8 g/dL (11.2-15.7); MCH 33.8 pg (27.0-33.0); MCHC 32.9 % (32.0-36.0); MCV 103 fL (80-95); Platelet Count 83 10^3/uL (130-400); RDW 16.9 % (11.7-14.6); RDW-SD 63.1 fL; WBC 2.33 10^3/uL (4.4-10.8)
[2024-01-08 13:37] LABS: Bacteria Negative HPF (Negative); C & S Indicated? No; Casts Negative LPF (Negative); Crystals Negative HPF (Negative); Epithelial Cells Few HPF (Negative); Mucus Negative (Negative); RBC 0-2 HPF (0-2)
[2024-01-08 13:42] LABS: ALT 33 U/L (14-59); AST 28 U/L (15-37); Albumin 2.9 g/dL (3.4-5.0); Alkaline Phosphatase 185 U/L (46-116); Anion Gap 8.4 mmol/L (3-11); BUN 14 mg/dL (7-18); Bilirubin, Total 0.55 mg/dL (0.2-1.0); CO2 25.6 mmol/L (21.0-32.0); Calcium 8.1 mg/dL (8.5-10.1); Chloride 106 mmol/L (98-107); Estimated GFR 66.53 (mL/min/1.73m2); Glucose 101 mg/dL (74-106); Potassium 4.3 mmol/L (3.5-5.1); Sodium 140 mmol/L (136-145); Total Protein 7.3 g/dL (6.4-8.2)
[2024-01-08 13:43] LABS: Absolute Eosinophil Count 0.05 10^3/uL (0.0-0.7); Absolute Lymphocyte Count 0.79 10^3/uL (1.2-3.4); Absolute Monocyte Count 0.12 10^3/uL (0.1-0.8); Absolute Neutrophil Count 1.37 10^3/uL (1.2-6.7); Atypical Lymphocytes % 2 %; Diff Comment Manual Differential
[2024-01-08 13:44] LABS: MPV 10.3 fL (8.0-11.0); RBC Morphology Normal
[2024-01-08 22:46] LABS: CEA 4.3 ng/mL (See Note)
== END 2024-01-20 23:59 | disposition home or self-care (01) ==
LOC: INF 00:46
PROVIDERS: Nurse Practitioner Family; PCP Student in an Organized Health Care Education/Training Program; Visit Provider Internal Medicine Hematology & Oncology
DX: C18.9 Malignant neoplasm of colon, unspecified (principal); Z79.899 Other long term (current) drug therapy; Z45.2 Encounter for adjustment and management of vascular access device
CPT/HCPCS: 36591; 80053; 81003; 81015; 82378; 85025; 87086

== ENCOUNTER 2024-02-11 09:59 | Outpatient (CLI) | payer BC, SELFPAY ==
--- NOTE | 2024-02-11 14:35 | DI.RAD_ITS ---
Exam(s) XR CHEST 2V PA LATERAL EXAM: XR CHEST 2V PA LATERAL CLINICAL HISTORY: r/o pneumonia, cough, chest congestion, R05.9, R09.89 TECHNIQUE: 2D digital imaging was performed. Two views. COMPARISON: CT CT CHEST/ABD/PEL W from 01/01/2024 FINDINGS: Port over upper left chest HEART: Normal size. Aorta: Not dilated. PULMONARY VASCULATURE: Normal. MEDIASTINUM: Unremarkable. LUNGS: Bilateral surgical clips. Mild areas of scarring. No focal infiltrate. No mass is visible. PLEURAL SPACE: No pleural effusion or pneumothorax. BONE:Unremarkable for age. SOFT TISSUES: Unremarkable. IMPRESSION: No acute abnormality. DATA REPOSITORY: RADIATION DOSE DELIVERED:
== END 2024-02-11 10:19 ==
LOC: DI 10:00
PROVIDERS: PCP Student in an Organized Health Care Education/Training Program; Visit Provider Student in an Organized Health Care Education/Training Program
DX: R05.9 Cough, unspecified (principal); R09.89 Other specified symptoms and signs involving the circulatory and respiratory systems
CPT/HCPCS: 71046

== ENCOUNTER 2024-02-19 01:04 | Outpatient (RCR) | payer BC, SELFPAY ==
[2024-01-22 14:46] LABS: Abs Immature Grans 0.01 10^3/uL (0.0-0.06); HCT 30.2 % (36.0-46.0); HGB 9.6 g/dL (11.2-15.7); MCH 33.3 pg (27.0-33.0); MCHC 31.8 % (32.0-36.0); MCV 105 fL (80-95); MPV 11.6 fL (8.0-11.0); RBC 2.88 10^6/uL (3.93-5.22); RDW 18.2 % (11.7-14.6); WBC 2.62 10^3/uL (4.4-10.8)
[2024-01-22 15:00] LABS: ALT 46 U/L (14-59); AST 38 U/L (15-37); Alkaline Phosphatase 223 U/L (46-116); Anion Gap 7.2 mmol/L (3-11); BUN 12 mg/dL (7-18); Bilirubin, Total 0.58 mg/dL (0.2-1.0); CO2 27.8 mmol/L (21.0-32.0); Calcium 8.3 mg/dL (8.5-10.1); Chloride 106 mmol/L (98-107); Estimated GFR 66.53 (mL/min/1.73m2); Glucose 99 mg/dL (74-106); Potassium 3.9 mmol/L (3.5-5.1); Sodium 141 mmol/L (136-145); Total Protein 7.6 g/dL (6.4-8.2)
[2024-01-22 15:06] LABS: Absolute Basophil Count 0.03 10^3/uL (0.0-0.2); Absolute Eosinophil Count 0.03 10^3/uL (0.0-0.7); Absolute Lymphocyte Count 0.71 10^3/uL (1.2-3.4); Absolute Monocyte Count 0.16 10^3/uL (0.1-0.8); Atypical Lymphocytes % 1 %; Diff Comment Manual Differential
[2024-01-22 15:07] LABS: Macrocytosis 1+; Platelet Count 84 10^3/uL (130-400)
[2024-01-22 23:32] LABS: CEA 5.3 ng/mL (See Note)
[2024-02-19] MEDS: Normal Saline Flush 10 ML SYR IVP (14:22)
[2024-02-19 14:47] LABS: Abs Immature Grans 0.08 10^3/uL (0.0-0.06); Absolute Basophil Count 0.03 10^3/uL (0.0-0.2); Absolute Eosinophil Count 0.04 10^3/uL (0.0-0.7); Absolute Lymphocyte Count 0.96 10^3/uL (1.2-3.4); Absolute Monocyte Count 0.84 10^3/uL (0.1-0.8); Basophils % 0.4 %; Eosinophils % 0.5 %; HCT 31.7 % (36.0-46.0); HGB 10.3 g/dL (11.2-15.7); Lymphocytes % 12.5 %; MCH 34.4 pg (27.0-33.0); MCHC 32.5 % (32.0-36.0); MPV 10.8 fL (8.0-11.0); Neutrophils % 74.6 %; Platelet Count 149 10^3/uL (130-400); RBC 2.99 10^6/uL (3.93-5.22); RDW 19.4 % (11.7-14.6); RDW-SD 75.6 fL; WBC 7.65 10^3/uL (4.4-10.8)
[2024-02-19 14:49] LABS: MCV 106 fL (80-95)
[2024-02-19 15:10] LABS: ALT 250 U/L (14-59); AST 203 U/L (15-37); Albumin 2.9 g/dL (3.4-5.0); Alkaline Phosphatase 239 U/L (46-116); Anion Gap 7.7 mmol/L (3-11); BUN 10 mg/dL (7-18); Bilirubin, Total 1.28 mg/dL (0.2-1.0); CO2 27.3 mmol/L (21.0-32.0); Calcium 8.8 mg/dL (8.5-10.1); Chloride 102 mmol/L (98-107); Estimated GFR 66.53 (mL/min/1.73m2); Glucose 126 mg/dL (74-106); Potassium 3.7 mmol/L (3.5-5.1); Sodium 137 mmol/L (136-145); Total Protein 7.8 g/dL (6.4-8.2)
[2024-02-19 22:36] LABS: CEA 5.8 ng/mL (See Note)
== END 2024-02-20 23:59 | disposition home or self-care (01) ==
LOC: INF 01:04
PROVIDERS: Nurse Practitioner Family; PCP Student in an Organized Health Care Education/Training Program; Visit Provider Internal Medicine Hematology & Oncology
DX: C18.9 Malignant neoplasm of colon, unspecified (principal); C78.00 Secondary malignant neoplasm of unspecified lung; C78.7 Secondary malignant neoplasm of liver and intrahepatic bile duct
CPT/HCPCS: 36415; 36591; 80053; 82378; 85025

== ENCOUNTER 2024-03-04 01:01 | Outpatient (RCR) | payer BC, SELFPAY ==
[2024-02-26 14:35] LABS: ALT 73 U/L (14-59); AST 57 U/L (15-37); Albumin 2.6 g/dL (3.4-5.0); Alkaline Phosphatase 264 U/L (46-116); Anion Gap 7.7 mmol/L (3-11); BUN 10 mg/dL (7-18); Bilirubin, Total 0.53 mg/dL (0.2-1.0); CO2 24.3 mmol/L (21.0-32.0); CREATININE 0.9 mg/dL (0.55-1.02); Calcium 8.9 mg/dL (8.5-10.1); Chloride 103 mmol/L (98-107); Glucose 87 mg/dL (74-106); Potassium 4.1 mmol/L (3.5-5.1); Sodium 135 mmol/L (136-145); Total Protein 7.5 g/dL (6.4-8.2)
[2024-03-04] MEDS: Normal Saline Flush 10 ML SYR IVP (13:56)
[2024-03-04 14:08] LABS: Abs Immature Grans 0.02 10^3/uL (0.0-0.06); Absolute Basophil Count 0.03 10^3/uL (0.0-0.2); Absolute Lymphocyte Count 0.96 10^3/uL (1.2-3.4); Absolute Monocyte Count 0.49 10^3/uL (0.1-0.8); Absolute Neutrophil Count 4.13 10^3/uL (1.2-6.7); Basophils % 0.5 %; Eosinophils % 1.7 %; HCT 30.2 % (36.0-46.0); HGB 9.6 g/dL (11.2-15.7); Immature Grans % 0.3 %; Lymphocytes % 16.8 %; MCH 33.9 pg (27.0-33.0); MCHC 31.8 % (32.0-36.0); MCV 107 fL (80-95); Monocytes % 8.6 %; Neutrophils % 72.1 %; Platelet Count 200 10^3/uL (130-400); RBC 2.83 10^6/uL (3.93-5.22); RDW 17.3 % (11.7-14.6); RDW-SD 68.4 fL; WBC 5.73 10^3/uL (4.4-10.8)
[2024-03-04 14:11] LABS: Bilirubin Negative (Negative); Blood Negative (Negative); Clarity Sl Cloudy (Clear); Glucose Negative (Negative); Ketones Negative (Negative); Leukocyte Esterase Trace (Negative); Nitrite Negative (Negative); Urobilinogen 0.2 mg/dL (Up to 0.2); pH 5.5 (5-8)
[2024-03-04 14:27] LABS: ALT 37 U/L (14-59); AST 35 U/L (15-37); Albumin 2.7 g/dL (3.4-5.0); Alkaline Phosphatase 246 U/L (46-116); Anion Gap 4.8 mmol/L (3-11); BUN 10 mg/dL (7-18); Bilirubin, Total 0.43 mg/dL (0.2-1.0); CO2 28.2 mmol/L (21.0-32.0); CREATININE 0.9 mg/dL (0.55-1.02); Calcium 9.2 mg/dL (8.5-10.1); Chloride 105 mmol/L (98-107); Glucose 107 mg/dL (74-106); Potassium 3.8 mmol/L (3.5-5.1); Sodium 138 mmol/L (136-145); Total Protein 7.4 g/dL (6.4-8.2)
[2024-03-04 14:32] LABS: Bacteria Few HPF (Negative); C & S Indicated? No; Crystals Negative HPF (Negative); Epithelial Cells Moderate HPF (Negative); Mucus Trace (Negative); RBC 0-2 HPF (0-2); WBC 0-2 HPF (0-5)
[2024-03-04 14:48] LABS: Diff Comment RBC Morph Reviewed; Macrocytosis 2+; Polychromasia Present
[2024-03-07 09:04] LABS: CEA 3.7 ng/mL (See Note)
== END 2024-03-21 23:59 | disposition home or self-care (01) ==
LOC: INF 01:01
PROVIDERS: PCP Student in an Organized Health Care Education/Training Program; Visit Provider Internal Medicine Hematology & Oncology
DX: C18.9 Malignant neoplasm of colon, unspecified (principal); C78.00 Secondary malignant neoplasm of unspecified lung; C78.7 Secondary malignant neoplasm of liver and intrahepatic bile duct
CPT/HCPCS: 36415; 36591; 80053; 81003; 81015; 82378; 85025

== ENCOUNTER 2024-03-08 08:52 | Emergency (ER) | payer BC, SELFPAY ==
[2024-03-08] VITALS (14 sets, daily range): BP systolic 59–146; BP diastolic 32–119; PULSE 68–105; RESP 14–24; TEMP 36.5; O2SAT 96–100
--- NOTE | 2024-03-08 09:00 | RT.EKG_ITS ---
APPROVED REPORT Exam: Resting ECG Reason for Exam: stroke sx Patient Location: E HR:84 bpm ECG Measurements Heart Rate 84 AXIS NM 152 P 26 QRSd 83 QRS -8 QT 361 T 24 QTc 427 Conclusion Sinus rhythm, rate 84 No ectopy or interval abnormalities No STEMI
--- NOTE | 2024-03-08 09:00 | DI.CT_ITS ---
Exam(s) CT BRAIN NECK CTA EXAM: CT BRAIN NECK CTA CLINICAL HISTORY: R. facial droop. TECHNIQUE: Imaging Protocol: Axial CT angiography was performed with multi-slice acquisition and mu lti-planar and/or 3D reconstructions. CONTRAST MATERIAL: Intravenous: Omnipaque 350 Contrast volume:structured data in ml COMPARISON: No exams were available for comparison FINDINGS: CTA Neck W: Aortic arch anatomy: The aortic arch anatomy is conventional and there is no significant stenosis at the origin of the great vessels off of the aortic arch. No intimal flap evident. Anterior circulation: Both common carotid arteries ascend with normal luminal diameters. At the level the carotid bulbs and proximal internal carotid arteries there is minimal plaque without hemodynamically significant stenosis evident. Both internal carotid arteries are patent in the upper neck and skull base-carotid canals. Posterior circulation: Both vertebral arteries originate in conventional fashion off of the subclavian arteries and there is no obvious stenosis at the origin of the vertebral arteries. Both vertebral arteries exhibit normal luminal diameters within the foramen transversarium. Both vertebral arteries contribute to the formation of the basilar artery at the skull base. CTA Brain W: Anterior circulation: Both internal carotid arteries are patent in the skull base-carotid canals as well as within the cave rnous sinuses. The supraclinoid aspects of the ICAs are patent. Both A1 segments are patent as are the anterior cer ebral arteries and there is no evidence of aneurysm at the level of the anterior communicating artery . Both middle cerebral arteries are patent with no evidence of significant stenosis nor intraluminal th rombus. There also no aneurysms of these vessels. Posterior circulation: The basilar artery ascends in the midline. Distally it gives off patent bilateral superior cerebella r arteries. Above this level the basilar artery terminates as patent left posterior cerebral artery. The right p osterior cerebral artery is fed by posterior communicating artery on the right side of the [place]of- [place]. There is no evidence of aneurysm at the tip of the basilar artery nor elsewhere in the cflljs-ah-Abbv is. CT BRAIN: There is prominent area of intra-axial hemorrhage in the right frontal lobe measuring 3 cm AP 3 cm wi de by 1.5 cm craniocaudal and there is surrounding edema and sulcal effacement. No shift of midline structures. There is no blood within the nondilated ventricular system. There is no shift of midlin e structures foot. No subarachnoid blood. OTHER: LOWERMOST IMAGES REVEAL CONCERNING NODULAR INFILTRATES IN THE LEFT LUNG UPPER LOBE. IMPRESSION: 1. Patent carotid arteries in the neck. No hemodynamically significant stenosis. 2. Patent vertebral arteries. 3. Patent intracranial arteries. 4. Large right frontal lobe hemorrhage measuring 3 x 3 x 1.5 cm with surrounding edema and sulcal eff acement but no shift of midline structures at this time nor blood within the nondilated ventricular s ystem. 5. No aneurysms evident and no obvious vascular malformation. 6. There are concerning nodular infiltrates including a spiculated lesion in the partially visualized upper lobe of the left lung concerning for malignancy. Therefore the right frontal lobe brain hemor rhage may be related to metastatic disease. Discussed with ER physician 03/08/2024 10:05 a.m. RADIATION DOSE DELIVERED: 2,272.89mGy.cm Total DLP DATA REPOSITORY: All CT scans at this facility are submitted to the National Radiology Data Registry (NRDR) Dose Index Registry (DIR) with the [employer] (ACR). RADIATION OPTIMIZATION: All CT scans at this facility use at least one of these dose optimization te chniques: automated exposure control; mA and/or kV adjustment per patient size (includes targeted exa ms where dose is matched to clinical indication); or iterative reconstruction.
[2024-03-08] MEDS: Omnipaque 350 MG/ML 100 ML BTL IJ (09:17)
[2024-03-08] MEDS: Normal Saline - Diluent 50 ML VIAL IJ (09:19)
--- NOTE | 2024-03-08 09:20 | ED.GENADUL_ITS ---
Discharge Plan Disposition Patient Disposition: Transfer-Acute Inpatient Care Specific Acute Inpt Facility: [facility] Condition: Fair Discharge Details Chief Complaint: FacialProb Clinical Impression: Intraparenchymal hematoma of brain, Cancer, metastatic to lung, Malignant neoplasm of sigmoid colon, GERD (gastroesophageal reflux disease), Anemia, Bone metastasis Primary Care Provider: Nanci Benoit ED Provider: Shayy Falcon Home Meds and New Rx's Prescriptions: No Action biotin 10 mg tablet 10 mg PO DAILY esomeprazole magnesium [Nexium] 40 mg capsule,delayed release(DR/EC) 40 mg PO DAILY Qty: 90 3RF Rx Instructions: as per Onc, continue until GERD/Gastritis re-eval albuterol sulfate 90 mcg/actuation HFA aerosol inhaler 2 puff inhalation Q6H PRN (Reason: shortness of breath or wheezing) Qty: 8.5 3RF ipratropium bromide 21 mcg (0.03 %) spray,non-aerosol 2 spray intranasal BID-TID PRN (Reason: allergy symptoms) Qty: 30 3RF Rx Instructions: administer into each nostril prochlorperazine maleate [Compazine] 10 mg tablet 10 mg PO Q6H PRN naproxen sodium 220 mg tablet 220 mg PO BID PRN Patient Comments: 11/22/[address] Iqbal's progress noted cetirizine [Zyrtec] 10 mg tablet 10 mg PO DAILY PRN Patient Comments: 11/22/[address] Iqbal's progress note Lonsurf 20-8.19 mg tablet 1 tab PO .COMPLEX Rx Instructions: 09/26/22:[facility] [place]: take 3 tablets (60mg) with 1 other triflurodine- tipiracil. rx for 75mg total by mouth 2 times daily. Take orally for 5 days every 2 wks. trifluridine-tipiracil 15-6.14 mg tablet 1 tab PO .COMPLEX Rx Instructions: 09/26/22- [facility] [place] progress note: take 1 tab (15mg) with 1 other trifluridine-tipiracil rx for 75mg total by mouth 2 times daily. Take orally for 5 days every 2 weeks. vitamin B complex Tablet 1 tab PO DAILY cyanocobalamin (vitamin B-12) 1,000 mcg/mL solution 1,000 mcg IM QMONTH melatonin 5 mg tablet 5 mg PO HS PRN cholecalciferol (vitamin D3) 25 mcg (1,000 unit) capsule 25 mcg PO DAILY guaifenesin 600 mg tablet extended release 12hr 600 mg PO Q12H PRN (Reason: congestion) Qty: 60 1RF Rx Instructions: trial to thin out mucus fluticasone propionate 50 mcg/actuation spray,suspension 2 spray intranasal DAILY Qty: 16 0RF Rx Instructions: administer into each nostril Avastin 25 mg/mL solution 23 mg IV Q2W Rx Instructions: GIVEN BY [facility] [place] potassium chloride 20 mEq tablet extended release 20 meq PO DAILY Qty: 7 0RF HPI General Mode of arrival: ambulatory . Date/Time Provider Initiated Documentation: 03/08/24 09:08 . Limitations to Documentation: no limitations . Information obtained by: patient and old records reviewed . HPI Narrative: HPI: This is a 53-year-old female patient with a past medical history significant for metastatic colon cancer with known pulmonary involvement and bone involvement, as well as anemia, osteoarthritis, presenting for evaluation of facial droop. The patient reports that over the weekend she thought that her speech felt a little bit different and more difficult, and then yesterday in the afternoon she noted that the right side of her face was drooping. She reports that she has not noted any other changes, and specifically denies vision changes, headache, weakness, numbness, or difficulty ambulating. The patient reports that she takes an oral chemotherapeutic agent, has been taking it this week. She has not noted fevers or chills, has otherwise been in her normal state of health. The patient reports that she went camping 6 weeks ago but has not noted any tick bites, has not noted any rashes or skin changes. Has never had a stroke, denies blood thinner use. Exam: Gen: Awake and alert, in no apparent distress HEENT: Non-icteric sclera, pupils equal and reactive, EOMs full. Neck: Supple and without meningismus Lungs: No apparent respiratory distress, normal respiratory effort. CV: Appears well perfused, strong distal pulses Abdomen: Non-distended MSK: Moves 4 extremities without apparent limitation in ROM Skin: Visualized skin without rashes, cyanosis. Neuro: Cranial nerves II through XII intact and symmetrical bilaterally with the exception of some mild right-sided facial droop of the perioral muscles, no forehead involvement is appreciated. 5 out of 5 strength x 4 extremities, no pronator drift, accurate targeting with [id number] testing and a steady gait. Psych: Appropriate for situation. MDM: This is a 53-year-old female patient presenting for evaluation of facial droop. My differential includes but is not limited to CVA, TIA, certainly considered intra cranial hemorrhage, vascular dissection or aneurysm. Considered dural venous sinus thrombosis as well as intracranial metastases with mass effect. Considered Del Castillo's palsy and peripheral facial nerve palsies. Metabolic and electrolyte derangements, tickborne illness considered. The patient does not have a vesicular rash overlying to suggest herpes zoster. The patient's last known well was approximately 20 hours ago, and she is out of the window for tPA administration, her NIH score is 1 and I have a lower concern for large vessel occlusion that would be amenable to thrombectomy. We will bring her immediately to CT to obtain a CTA head and neck, will obtain an EKG and laboratory studies to include CBC, CMP, troponin, PT/INR, and tick panel. ED Course: I independently interpreted the patient's CT imaging, and discussed the findings with the radiologist, which notes a right frontal lobe hemorrhage, 3 x 3 x 1.5 cm, with surrounding edema but no midline shift, concerning for metastatic disease in this patient with an otherwise normal CTA with no evidence of aneurysm or vascular disease. I reviewed the patient's laboratory studies, she has no leukopenia or leukocytosis, stable anemia, no thrombocytopenia. Chemistry panel without electrolyte abnormalities, evidence of kidney dysfunction, does have an elevation in her alkaline phosphatase to 236 which is consistent with her history of bony metastases. Troponin is less than 4, no further rechecks required based on our high-sensitivity troponin pathway. I reviewed the patient's EKG, which shows a sinus rhythm with no evidence of ischemia, interval abnormality, or ectopy. Given the findings of intraparenchymal hemorrhage, placed the head of the bed at greater than 30 degrees, and reached out to [facility] [place] to discuss next steps. Unfortunately, [facility] was not able to accept the patient, but we were able to find the patient in ED to ED transfer at [facility] which does have neurosurgery capabilities. They recommended Keppra which was provided to the patient intravenously, and she will be transported by EMS to their facility. While under my care the patient remained hemodynamically appropriate, had no decompensation of her neuro examination, and no evidence hemodynamically for herniation. She left her facility without incident. Shayy Falcon MD Related Data Home Medications ?Medication ?Instructions ?Recorded ?Confirmed cetirizine 10 mg tablet (Zyrtec) 10 mg PO DAILY PRN 11/28/21 03/08/24 naproxen sodium 220 mg tablet 220 mg PO BID PRN 11/28/21 03/08/24 prochlorperazine maleate 10 mg 10 mg PO Q6H PRN 11/28/21 03/08/24 tablet (Compazine) potassium chloride 20 mEq 20 meq PO DAILY #7 tabs 03/07/22 03/08/24 tablet,extended release trifluridine 15 mg-tipiracil 6.14 1 tab PO .COMPLEX 09/30/22 03/08/24 mg tablet trifluridine 20 mg-tipiracil 8.19 1 tab PO .COMPLEX 09/30/22 03/08/24 mg tablet (Lonsurf) cholecalciferol (vitamin D3) 25 25 mcg PO DAILY 09/01/23 03/08/24 mcg (1,000 unit) capsule cyanocobalamin (vitamin B-12) 1,000 mcg IM QMONTH 09/01/23 03/08/24 1,000 mcg/mL injection solution melatonin 5 mg tablet 5 mg PO HS PRN 09/01/23 03/08/24 vitamin B complex 1 tab PO DAILY 09/01/23 03/08/24 biotin 10 mg tablet 10 mg PO DAILY 10/15/23 03/08/24 esomeprazole magnesium 40 mg 40 mg PO DAILY GERD #90 caps 10/15/23 10/15/23 capsule,delayed release (Nexium) albuterol sulfate 90 mcg/actuation 2 puff inhalation Q6H PRN 02/03/24 03/08/24 aerosol inhaler shortness of breath or wheezing #8.5 grams ipratropium bromide 21 mcg (0.03 2 spray intranasal BID-TID PRN 02/03/24 03/08/24 %) nasal spray allergy symptoms #30 mL fluticasone propionate 50 2 spray intranasal DAILY #16 grams 03/07/24 03/08/24 mcg/actuation nasal spray,suspension guaifenesin 600 mg tablet, 600 mg PO Q12H PRN congestion #60 03/07/24 03/08/24 extended release 12 hr tabs bevacizumab 25 mg/mL intravenous 23 mg IV Q2W 03/08/24 03/08/24 solution (Avastin) Previous Rx's ?Medication ?Instructions ?Recorded potassium chloride 20 mEq 20 meq PO DAILY #7 tabs 03/07/22 tablet,extended release esomeprazole magnesium 40 mg 40 mg PO DAILY GERD #90 caps 10/15/23 capsule,delayed release (Nexium) albuterol sulfate 90 mcg/actuation 2 puff inhalation Q6H PRN 02/03/24 aerosol inhaler shortness of breath or wheezing #8.5 grams ipratropium bromide 21 mcg (0.03 2 spray intranasal BID-TID PRN 02/03/24 %) nasal spray allergy symptoms #30 mL fluticasone propionate 50 2 spray intranasal DAILY #16 grams 03/07/24 mcg/actuation nasal spray,suspension guaifenesin 600 mg tablet, 600 mg PO Q12H PRN congestion #60 03/07/24 extended release 12 hr tabs Allergies Allergy/AdvReac Type Severity Reaction Status Date / Time environmental Allergy Intermediate itchy, Uncoded 03/08/24 10:28 watery eyes General Stated Complaint: FacialProb PAIGE: 3 Course Vital Signs Vital signs: Vital Signs Temperature 36.5 C 03/08/24 08:57 Pulse 105 H 03/08/24 08:57 Respiratory Rate 18 03/08/24 08:57 Blood Pressure 142/83 H 03/08/24 08:57 Pulse Oximetry 96 03/08/24 08:57 Temperature 36.5 C 03/08/24 08:57 Temperature Source Temporal Artery Scan 03/08/24 08:57 Pulse 105 H 03/08/24 08:57 Respiratory Rate 18 03/08/24 08:57 Blood Pressure 142/83 H 03/08/24 08:57 Pulse Oximetry 96 03/08/24 08:57 Oxygen Delivery Method Room Air 03/08/24 08:57 Oxygen Flow Rate 0 03/08/24 08:57 Medical Decision Making Quality:SDOH Health Related Social Needs: No Data to Display Critical Care Time Critical Care Time Critical Care Time: Yes Total Critical Care Time: 45 Attestation: Upon my evaluation, this patient had a high probability of imminent or life- threatening deterioration due to hemorrhagic stroke, which required my direct attention, intervention, and personal management. I have personally provided 45 minutes of critical care time exclusive of time spent on separately billable procedures. Time includes review of laboratory data, radiology results, discussion with consultants, and monitoring for potential decompensation. Interventions were performed as documented above. Shayy Falcon MD [facility] All Active Problems (Updated 03/08/24 @ 13:07 by Shayy Falcon MD) Intraparenchymal hematoma of brain (Acute) Weight loss (Acute) Long-term current use of proton pump inhibitor therapy (Acute) Risk factor for osteopenia, DEXA [ ] Anemia (Chronic) Low RBC, low-normal HGB. High MCV Heart palpitations (Acute) GERD (gastroesophageal reflux disease) (Chronic) Shoulder pain (Acute) Neck pain (Acute) Osteoarthritis of right knee (Acute) acute on chronic pain, Hx ruptures bakers cyst Skin sensitivity (Acute) Hands/feet are sensitive and peel easily (2' cap swelling due to chemo) .. Using work-balm, udder cream. May need Rx, Derm. Malignant neoplasm of sigmoid colon (Chronic) [place]), s/p Chemo x 2.5 yrs .... with Met (2014)(+Chemo) and again (2016)(+Rad/Chemo) .. Now with [facility] [place]c, Dr. Iqbal. 09/2020opulmonary nodule RLL, restaged CT 03/26/22 08/29/22 [facility] Hem/Onc visit - Lonsurf/avastin therapy 10/30/23 F/u w Dr Iqbal Cancer, metastatic to liver (Acute) s/p Rad, Chemo (2016) .. Original colon cancer, s/p resection (2011) Cancer, metastatic to lung (Chronic) Colon Cancer, s/p resection/chemo (2011) . Mets to LUNG (2014), s/p more chemo. 11/22/21 F/u Dr Iqbal - pt due for next cycle of capecitabine. Other fatigue (Acute) Bone metastasis (Acute) Hypocalcemia (Acute) Hypomagnesemia (Acute) Hypokalemia (Acute) Medical History (Updated 03/08/24 @ 13:07 by Shayy Falcon MD) Support system deficit Good group of friends, 09/2023.. 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 [facility] in [facility], 02/28/21 Bone spur 1993 - surgery [place], [place] Surgical History History of colon resection (07/2011) History of surgery of liver History of breast biopsy Family History Mother Colon cancer metastatic colorectal Diabetes Heart disease Brother Heart disease Father Stroke Cancer skin Heart disease Social History Smoking/Tobacco Use Status: Never Smoking risk assessment performed?: Yes Alcohol Intake: never Substance use type: does not use Adopted: No Caregiver/Support person: No Foster care: No Household members: family Housing: apartment Number of Children: 2 number of grandchildren: 1 Communication Needs: None Education Level: college Details: Bachelor's Degree Do you need help understanding health information?: Rarely 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
[2024-03-08 09:27] LABS: Abs Immature Grans 0.03 10^3/uL (0.0-0.06); Absolute Basophil Count 0.03 10^3/uL (0.0-0.2); Absolute Eosinophil Count 0.08 10^3/uL (0.0-0.7); Absolute Lymphocyte Count 0.78 10^3/uL (1.2-3.4); Absolute Monocyte Count 0.45 10^3/uL (0.1-0.8); Absolute Neutrophil Count 4.58 10^3/uL (1.2-6.7); Basophils % 0.5 %; Eosinophils % 1.3 %; HCT 33.4 % (36.0-46.0); HGB 10.7 g/dL (11.2-15.7); Immature Grans % 0.5 %; Lymphocytes % 13.1 %; MCH 34.1 pg (27.0-33.0); MCV 106 fL (80-95); MPV 9.6 fL (8.0-11.0); Monocytes % 7.6 %; Platelet Count 195 10^3/uL (130-400); RBC 3.14 10^6/uL (3.93-5.22); RDW 16.8 % (11.7-14.6); RDW-SD 65.5 fL; WBC 5.95 10^3/uL (4.4-10.8)
[2024-03-08 09:39] LABS: Prothrombin Time 10.3 sec (9.1-11.1)
[2024-03-08 09:40] LABS: Diff Comment RBC Morph Reviewed; Macrocytosis 2+; Polychromasia Present
[2024-03-08 09:56] LABS: ALT 32 U/L (14-59); AST 37 U/L (15-37); Albumin 2.8 g/dL (3.4-5.0); Alkaline Phosphatase 236 U/L (46-116); Anion Gap 9.1 mmol/L (3-11); BUN 12 mg/dL (7-18); Bilirubin, Total 0.61 mg/dL (0.2-1.0); CO2 26.9 mmol/L (21.0-32.0); CREATININE 0.9 mg/dL (0.55-1.02); Calcium 9.2 mg/dL (8.5-10.1); Chloride 104 mmol/L (98-107); Glucose 100 mg/dL (74-106); Magnesium 1.8 mg/dL (1.8-2.4); Potassium 3.5 mmol/L (3.5-5.1); Sodium 140 mmol/L (136-145); Total Protein 7.6 g/dL (6.4-8.2)
[2024-03-08 09:57] LABS: Troponin I < 4 ng/L (<or=51)
[2024-03-08] MEDS: levETIRAcetam 1,000 MG in Normal Saline 100 ML 400 MG IVPB (12:36)
[2024-03-09 10:44] LABS: Lyme Ab w Rflx to Lyme Confirm Negative (Negative)
[2024-03-10 23:42] LABS: Anaplasma phagocytophilum Negative (Negative); B. miyamotoi PCR Negative (Negative); Babesia divergens/MO-1 Negative (Negative); Babesia duncani Negative (Negative); Babesia microti Negative (Negative); Ehrlichia chaffeensis Negative (Negative); Ehrlichia ewingii/canis Negative (Negative); Ehrlichia muris eauclairensis Negative (Negative)
== END 2024-03-08 13:25 | disposition short-term general hospital (02) ==
PROVIDERS: Emergency Provider Emergency Medicine; PCP Student in an Organized Health Care Education/Training Program
DX: R29.810 Facial weakness (principal); I69.114 Frontal lobe and executive function deficit following nontraumatic intracerebral hemorrhage; C18.7 Malignant neoplasm of sigmoid colon; C78.00 Secondary malignant neoplasm of unspecified lung; C79.51 Secondary malignant neoplasm of bone
CPT/HCPCS: 36415; 70496; 70498; 80053; 87798; 93005; 96365; 99291; 83735; 84484; 85025; 85610; 86618; 93010; J1953; J3490

== ENCOUNTER 2024-04-25 01:49 | Outpatient (CLI) | payer BC, SELFPAY ==
[2024-04-25] MEDS: Barium Sulfate 2% W/V-Berry Smoothie 450 ML BTL PO ×2 (10:37→10:38)
[2024-04-25 11:02] LABS: Abs Immature Grans 0.05 10^3/uL (0.0-0.06); Absolute Basophil Count 0.04 10^3/uL (0.0-0.2); Absolute Eosinophil Count 0.05 10^3/uL (0.0-0.7); Absolute Monocyte Count 0.52 10^3/uL (0.1-0.8); Absolute Neutrophil Count 5.67 10^3/uL (1.2-6.7); Basophils % 0.5 %; Eosinophils % 0.7 %; HCT 36.2 % (36.0-46.0); HGB 11.5 g/dL (11.2-15.7); Immature Grans % 0.7 %; Lymphocytes % 14.8 %; MCH 32.7 pg (27.0-33.0); MCHC 31.8 % (32.0-36.0); MCV 103 fL (80-95); MPV 9.4 fL (8.0-11.0); Neutrophils % 76.3 %; Platelet Count 241 10^3/uL (130-400); RBC 3.52 10^6/uL (3.93-5.22); RDW 15.4 % (11.7-14.6); WBC 7.43 10^3/uL (4.4-10.8)
[2024-04-25 11:23] LABS: ALT 36 U/L (14-59); AST 41 U/L (15-37); Albumin 2.8 g/dL (3.4-5.0); Alkaline Phosphatase 303 U/L (46-116); Anion Gap 12.1 mmol/L (3-11); BUN 9 mg/dL (7-18); Bilirubin, Total 0.56 mg/dL (0.2-1.0); CO2 26.9 mmol/L (21.0-32.0); Calcium 9.6 mg/dL (8.5-10.1); Chloride 106 mmol/L (98-107); Estimated GFR 66.53 (mL/min/1.73m2); Glucose 114 mg/dL (74-106); Potassium 3.9 mmol/L (3.5-5.1); Sodium 145 mmol/L (136-145); Total Protein 8.1 g/dL (6.4-8.2)
[2024-04-25] MEDS: Omnipaque 350 MG/ML 100 ML BTL IJ (13:05)
[2024-04-25] MEDS: Normal Saline - Diluent 50 ML VIAL IJ (13:06)
--- NOTE | 2024-04-25 13:25 | DI.CT_ITS ---
Exam(s) CT CHEST/ABD/PEL W EXAM: CT CHEST/ABD/PEL W CLINICAL HISTORY: Stage IV colon CA, mets to lung, C18.9, C78.00; mets to liver, C78.7 TECHNIQUE: Imaging Protocol: Axial computed tomography images with coronal and sagittal reformatted images were created and reviewed. Computer aided detection (CAD) was utilized. CONTRAST MATERIAL: Intravenous: Omnipaque 350 contrast volume:100 mL Oral: Yes COMPARISON: CT CT CHEST/ABD/PEL W from 06/03/[address] CHEST/ABD/PEL W from 08/18/[address] CHEST/ABD/PEL W from 01/01/2024 FINDINGS: CHEST: Tracheobronchial tree: Patent where visualized. No evidence of bronchiectasis. Pulmonary parenchyma: There has been interval progression of the pulmonary metastatic disease since . Increase in size and development of new pulmonary metastases is present. For example, the mass in the right middle lobe measures 2.6 x 1.5 cm (series 10, image 76) compared to 1.7 x 1.1 cm. There is a new left apical infiltrate which may represent postobstructive atelectasis or pneumonia. Visualized thyroid gland: Unremarkable. Mediastinum and Seema: There is mediastinal and left hilar adenopathy. The left hilar adenopathy has progressed. The esophagus is unremarkable. Pleura: There is thickening of the superior aspect of the right major fissure. No pneumothorax or pl eural effusion. Heart: The heart is not dilated. No coronary artery calcifications are seen. No pericardial effusion. Pulmonary arteries: Due to the timing of the bolus, peripheral pulmonary artery opacification is subo ptimal for evaluation of pulmonary emboli. No large central pulmonary embolus is appreciated. Aorta: Thoracic aorta non-dilated. No evidence of dissection. Lymph nodes: No axillary adenopathy. Tubes, Catheters, and Lines: There is a left chest port in place. Soft tissues: Unremarkable. Bones:Within normal limits for the patient's age. ABDOMEN: Liver: Normal density. Increase in size of multiple hepatic metastases. There is a mass in the dome of the right lobe of the liver measuring 1.7 x 1.5 cm. Previously this measured 0.6 x 0.3 cm. (Seri es 22, image 15). This increase in size is seen with multiple hepatic metastases.. Portal, Superior Mesenteric, and Splenic Veins: Unremarkable. Gallbladder and Biliary Tract: The gallbladder is contracted. No biliary ductal dilatation. Pancreas: Normal density, no abnormal calcifications or inflammatory process. Spleen: Normal. Adrenals: No masses seen. Kidneys: Normal size, contour and axis. Patchy areas of decreased attenuation of the kidneys, right g reater than left. This is best appreciated in the superior and inferior poles of the right kidney. No nephrolithiasis or hydronephrosis is seen. No masses seen. Abdominal Aorta: Abdominal portion non-dilated. Bowel: No obstruction or bowel wall thickening. Anastomotic clips are seen in the rectosigmoid colon. There is no evidence of appendicitis. The stomach is incompletely distended limiting evaluation. Peritoneal Cavity: No ascites, collection or mesenteric inflammatory response. No free air. Lymph Nodes: Within normal limits. Bones: Within normal limits for the patient's age. The bones appear stable with area of sclerosis se en in the left iliac bone. Soft Tissues: There is a fat containing umbilical hernia. PELVIS: Bladder: Symmetric distention, no gross wall thickening. Reproductive Organs: Unremarkable as visualized. Lymph Nodes: Within normal limits. Bones: Within normal limits. IMPRESSION: 1. Worsening of the pulmonary metastatic disease since 01/01/2024. 2. Progressive hepatic metastatic disease since 01/01/2024. 3. Patchy enhancement of the kidneys, right greater than left. This can be seen with pyelonephritis or vascular etiology. No discrete mass is seen. No evidence of nephrolithiasis or hydronephrosis. Please correlate clinically. RADIATION DOSE DELIVERED: 818.04mGy.cm Total DLP DATA REPOSITORY: All CT scans at this facility are submitted to the National Radiology Data Registry (NRDR) Dose Index Registry (DIR) with the [employer] [place] [employer] (ACR). RADIATION OPTIMIZATION: All CT scans at this facility use at least one of these dose optimization te chniques: automated exposure control; mA and/or kV adjustment per patient size (includes targeted exa ms where dose is matched to clinical indication); or iterative reconstruction.
[2024-04-25 19:00] LABS: CEA 6.8 ng/mL (See Note)
== END 2024-04-25 02:09 ==
LOC: DI 01:49
PROVIDERS: PCP Student in an Organized Health Care Education/Training Program; Visit Provider Internal Medicine Hematology & Oncology
DX: C18.9 Malignant neoplasm of colon, unspecified (principal); C78.01 Secondary malignant neoplasm of right lung; C78.7 Secondary malignant neoplasm of liver and intrahepatic bile duct
CPT/HCPCS: 74177; 80053; 71260; 82378; 85025; J3490

== ENCOUNTER 2024-04-29 09:59 | Emergency (ER) | payer BC, SELFPAY ==
[2024-04-29 10:05] VITALS: BP 153/105; PULSE 110; RESP 16; TEMP 36.6; O2SAT 98
--- NOTE | 2024-04-29 10:11 | ED.GENADUL_ITS ---
Discharge Plan Disposition Patient Disposition: Home Discharge Details Clinical Impression: Secondary malignant neoplasm of brain, Facial droop Primary Care Provider: Nanci Benoit ED Provider: Aline Portillo Home Meds and New Rx's Prescriptions: New dexamethasone 4 mg tablet 4 mg PO BID Qty: 5 0RF Continued esomeprazole magnesium [Nexium] 40 mg capsule,delayed release(DR/EC) 40 mg PO DAILY Qty: 90 3RF Rx Instructions: as per Onc, continue until GERD/Gastritis re-eval albuterol sulfate 90 mcg/actuation HFA aerosol inhaler 2 puff inhalation Q6H PRN (Reason: shortness of breath or wheezing) Qty: 8.5 3RF ipratropium bromide 21 mcg (0.03 %) spray,non-aerosol 2 spray intranasal BID-TID PRN (Reason: allergy symptoms) Qty: 30 3RF Rx Instructions: administer into each nostril prochlorperazine maleate [Compazine] 10 mg tablet 10 mg PO Q6H PRN cetirizine [Zyrtec] 10 mg tablet 10 mg PO DAILY PRN Patient Comments: 11/22/[address] Iqbal's progress note melatonin 5 mg tablet 5 mg PO HS PRN guaifenesin 600 mg tablet extended release 12hr 600 mg PO Q12H PRN (Reason: congestion) Qty: 60 1RF Rx Instructions: trial to thin out mucus fluticasone propionate 50 mcg/actuation spray,suspension 2 spray intranasal DAILY Qty: 16 0RF Rx Instructions: administer into each nostril acetaminophen 650 mg/20.3 mL solution 650 mg PO Q6H PRN ondansetron 4 mg tablet,disintegrating 4 mg PO Q8H oxycodone 5 mg tablet 5 mg PO Q4H PRN propranolol 10 mg tablet 10 mg PO TID Qty: 30 1RF Rx Instructions: Trial for anticipatory anxiety: (1) in am and (1) pre-meeting [up to 3/day] diazepam [Valium] 2 mg tablet 2 mg PO BID PRN (Reason: anxiety; anticipatory anxiety (work or procedures)) Qty: 20 1RF Rx Instructions: Trial for anxiety or panic episode (do not drive or consume alcohol) potassium chloride 20 mEq tablet extended release 20 meq PO DAILY Qty: 7 0RF Discharge Instructions Additional Instructions: Please follow-up as scheduled with oncology today. Your MRI was unchanged from 2 days ago. It is recommended that you use dexamethasone, 4 mg twice a day. Speak with your oncology team about continuing this medication. Return to emergency care if you develop new concerning neurological symptoms, vomiting, weakness, headaches, vision changes, or if you are very worried and need to be rechecked again immediately. HPI General Date/Time Provider Initiated Documentation: 04/29/24 10:01 . HPI Narrative: Myesha is a 53-year-old female with history of stage IIIb colon cancer diagnosed in 2011 with metastatic lesions to lung, liver, and metastatic lesion to the inferior right frontal lobe that was recently surgically resected at [facility]. She presents to the emergency department today for evaluation of left-sided facial droop. She reports that she noticed this 2 or 3 days ago, slight tightness on the left side of her mouth with feeling like she has to think harder in order to talk. She says this is similar to symptoms she had at time of diagnosis. Symptoms have been unchanged since onset. She denies associated headaches, vision changes, dizziness, jaw discomfort or tightness, congestion, sore throat, change in baseline allergic cough, chest pain, difficulty breathing, extremity weakness or paresthesias, change in gait, change in bowel or bladder function, saddle anesthesia/paresthesias. She has had extensive follow-up with neurosurgery. She was advised to come to the emergency department today for further evaluation when she spoke to her neurosurgeons office. Physical exam remarkable for drooping at left side of mouth that is most notable with smiling. Cranial nerves II through XII intact as tested. PERRL, EOMs intact. Easy work of breathing, lung sounds clear bilaterally. Normal heart sounds. Normal finger finger, finger-nose, rapid altering movements, romberg, gait, [id number]-[id number], [id number]. 5/5 muscle strength to upper and lower extremities. Sensation grossly intact. History and presentation concerning for acute intracranial process such as extension of lesion or hemorrhage, especially as patient is 4 weeks postop. MRI of brain ordered to further evaluate; this was remarkable for 3 x 3 x 2.5 cm parietal mass with 3-4 mm midline shift. Discussed case with Dr Carcamo, neurosurgery. He reports this is unchanged from previous MRI performed 2 days, recommend consult with oncology to determine appropriateness of steroids. I also spoke with Dr. De Luna, oncology. She recommends 10 mg of IV dexamethasone prior to DC, then 4 mg BID until appt with oncology on Thursday. Discussed plan of care with patient, who is agreeable. Will discharge home for close follow-up with oncology, she has new appointment on Thursday. Reviewed discharge instructions with patient, including red flags indicating need for return to emergency care. Related Data Home Medications ?Medication ?Instructions ?Recorded ?Confirmed cetirizine 10 mg tablet (Zyrtec) 10 mg PO DAILY PRN 11/28/21 04/29/24 prochlorperazine maleate 10 mg 10 mg PO Q6H PRN 11/28/21 04/29/24 tablet (Compazine) potassium chloride 20 mEq 20 meq PO DAILY #7 tabs 03/07/22 04/29/24 tablet,extended release melatonin 5 mg tablet 5 mg PO HS PRN 09/01/23 04/29/24 esomeprazole magnesium 40 mg 40 mg PO DAILY GERD #90 caps 10/15/23 04/29/24 capsule,delayed release (Nexium) albuterol sulfate 90 mcg/actuation 2 puff inhalation Q6H PRN 02/03/24 04/29/24 aerosol inhaler shortness of breath or wheezing #8.5 grams ipratropium bromide 21 mcg (0.03 2 spray intranasal BID-TID PRN 02/03/24 04/29/24 %) nasal spray allergy symptoms #30 mL fluticasone propionate 50 2 spray intranasal DAILY #16 grams 03/07/24 04/29/24 mcg/actuation nasal spray,suspension guaifenesin 600 mg tablet, 600 mg PO Q12H PRN congestion #60 03/07/24 04/29/24 extended release 12 hr tabs acetaminophen 650 mg/20.3 mL oral 650 mg PO Q6H PRN 03/29/24 04/29/24 solution ondansetron 4 mg disintegrating 4 mg PO Q8H 03/29/24 04/29/24 tablet oxycodone 5 mg tablet 5 mg PO Q4H PRN 03/29/24 04/29/24 diazepam 2 mg tablet (Valium) 2 mg PO BID PRN anxiety; 04/13/24 04/29/24 anticipatory anxiety (work or procedures) #20 tabs propranolol 10 mg tablet 10 mg PO TID anticipatory anxiety; 04/13/24 04/29/24 elevated pulse #30 tabs dexamethasone 4 mg tablet 4 mg PO BID #5 tabs 04/29/24 Previous Rx's ?Medication ?Instructions ?Recorded potassium chloride 20 mEq 20 meq PO DAILY #7 tabs 03/07/22 tablet,extended release esomeprazole magnesium 40 mg 40 mg PO DAILY GERD #90 caps 10/15/23 capsule,delayed release (Nexium) albuterol sulfate 90 mcg/actuation 2 puff inhalation Q6H PRN 02/03/24 aerosol inhaler shortness of breath or wheezing #8.5 grams ipratropium bromide 21 mcg (0.03 2 spray intranasal BID-TID PRN 02/03/24 %) nasal spray allergy symptoms #30 mL fluticasone propionate 50 2 spray intranasal DAILY #16 grams 03/07/24 mcg/actuation nasal spray,suspension guaifenesin 600 mg tablet, 600 mg PO Q12H PRN congestion #60 03/07/24 extended release 12 hr tabs diazepam 2 mg tablet (Valium) 2 mg PO BID PRN anxiety; 04/13/24 anticipatory anxiety (work or procedures) #20 tabs propranolol 10 mg tablet 10 mg PO TID anticipatory anxiety; 04/13/24 elevated pulse #30 tabs dexamethasone 4 mg tablet 4 mg PO BID #5 tabs 04/29/24 Allergies Allergy/AdvReac Type Severity Reaction Status Date / Time environmental Allergy Intermediate itchy, Uncoded 04/29/24 10:09 watery eyes General Stated Complaint: CVA/TIA PAIGE: 3 Review of Systems Narrative: see HPI Exam Const General: cooperative, healthy appearing, comfortable, no acute distress, well developed and well groomed Nutritional Appearance: average body habitus Orientation: alert and oriented x3 HENMT Head: normal to inspection and normocephalic Ears: hearing grossly normal bilaterally General nose exam: external nose normal Face and sinus: no ecchymosis Mouth: oral mucosae normal Throat: posterior oropharynx normal Eyes Eyelids: eyelids normal Pupils: PERRL EOM: EOM intact bilaterally Resp Effort & Inspection: normal respiratory effort and able to speak in complete sentences Auscultation: clear to auscultation bilaterally Cardio Rate: regular rate Rhythm: regular rhythm Neuro General: patient alert, patient oriented x3, gait normal, tone normal and moves all extremities Cranial Nerves: PERRL, EOM intact bilaterally, no nystagmus, facial strength normal, able to rotate head bilaterally and other (droop to L side of mouth noted with smiling/talking) Cognition: normal cognition Speech: speech normal Gait: normal gait Motor: muscle tone normal throughout and strength 5/5 throughout Sensory Exam: no sensory deficits noted Coordination: stitel-nu-prma test normal, kkft-it-jifg test normal, Romberg test normal, tandem gait normal, Does not sway with eyes open and rapid alternating movement UE normal Course Vital Signs Vital signs: Vital Signs Temperature 36.6 C 04/29/24 10:05 Pulse 110 H 04/29/24 10:05 Respiratory Rate 16 04/29/24 10:05 Blood Pressure 153/105 H 04/29/24 10:05 Pulse Oximetry 98 04/29/24 10:05 Temperature 36.6 C 04/29/24 10:05 Pulse 110 H 04/29/24 10:05 Respiratory Rate 16 04/29/24 10:05 Respiratory Effort Normal 04/29/24 10:08 Blood Pressure 153/105 H 04/29/24 10:05 Pulse Oximetry 98 04/29/24 10:05 Pain Level 0 04/29/24 10:05 Medical Decision Making Quality:SDOH Health Related Social Needs: No Data to Display PFSH All Active Problems (Updated 04/29/24 @ 15:03 by Aline Eric) Facial droop (Acute) Secondary malignant neoplasm of brain (Acute ~03/15/24) [facility] 04/20/24 F/u with Neurosurgery Weight loss (Acute) Long-term current use of proton pump inhibitor therapy (Acute) Risk factor for osteopenia, DEXA [ ] Anemia (Chronic) Low RBC, low-normal HGB. High MCV Heart palpitations (Acute) GERD (gastroesophageal reflux disease) (Chronic) Shoulder pain (Acute) Neck pain (Acute) Osteoarthritis of right knee (Acute) acute on chronic pain, Hx ruptures bakers cyst Skin sensitivity (Acute) Hands/feet are sensitive and peel easily (2' cap swelling due to chemo) .. Using work-balm, udder cream. May need Rx, Derm. Malignant neoplasm of sigmoid colon (Chronic) Colon resection, 2011 ([facility]), s/p Chemo x 2.5 yrs .... with Met (2014)(+Chemo) and again (2016)(+Rad/Chemo) .. Now with [facility] Onc, Dr. Iqbal. 09/2020opulmonary nodule RLL, restaged CT 03/26/22 08/29/22 [facility] Hem/Onc visit - Lonsurf/avastin therapy 10/30/23 F/u w Dr Iqbal Cancer, metastatic to liver (Acute) s/p Rad, Chemo (2016) .. Original colon cancer, s/p resection (2011) Cancer, metastatic to lung (Chronic) Colon Cancer, s/p resection/chemo (2011) . Mets to LUNG (2014), s/p more chemo. 11/22/21 F/u Dr Iqbal - pt due for next cycle of capecitabine. Other fatigue (Acute) Bone metastasis (Acute) Hypocalcemia (Acute) Hypomagnesemia (Acute) Hypokalemia (Acute) Medical History (Updated 04/29/24 @ 15:03 by Aline Eric) Support system deficit Good group of friends, 09/2023.. 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 Mo in [facility], 02/28/21 Bone spur 1993 - surgery [place], [place] Surgical History (Updated 04/06/24 @ 18:10 by Nanci Benoit DO) S/P craniotomy At [facility] on 03/24/[address] Aaron Palacios History of colon resection (07/2011) History of surgery of liver History of breast biopsy Family History Mother Colon cancer metastatic colorectal Diabetes Heart disease Brother Heart disease Father Stroke Cancer skin Heart disease Social History Smoking/Tobacco Use Status: Never Smoking risk assessment performed?: Yes Alcohol Intake: never Substance use type: does not use Adopted: No Caregiver/Support person: No Foster care: No Household members: family Housing: apartment Number of Children: 2 number of grandchildren: 1 Communication Needs: None Education Level: college Details: Bachelor's Degree Do you need help understanding health information?: Rarely 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
--- NOTE | 2024-04-29 10:32 | DI.MRI_ITS ---
Exam(s) MR BRAIN WO/W EXAM: MR BRAIN WO/W CLINICAL HISTORY: facial droop, history of metastatic tumor to brain TECHNIQUE: Multiplanar multisequence MRI of the brain was performed. CONTRAST MATERIAL: IV Contrast: 20 mL of Dotarem contrast administered. COMPARISON: CT CT BRAIN NECK CTA from 03/08/2024 FINDINGS: VENTRICLES AND EXTRA AXIAL SPACES: Normal in size and morphology for the patient's age. HEMORRHAGE: None. CEREBRAL PARENCHYMA: No focus of restricted diffusion to suggest acute infarct. No space-occupying le christopher identified. MIDLINE SHIFT: There is a 3-4 mm right to left midline shift. BRAINSTEM/CEREBELLUM: Normal. CALVARIUM: There are findings of a prior right parietal craniotomy. ENHANCEMENT: There is a heterogeneously enhancing mass in the right parietal lobe measuring 3.0 cm tr ansverse by 3.0 cm AP x 2.5 cm craniocaudad. Primary versus metastatic disease is suspected. There is associated vasogenic edema. This causes a 3-4 mm right to left midline shift. There is effacemen t of the surrounding sulci. No other enhancing lesions are present. The lesion shows evidence of pr ior hemorrhage. VISUALIZED PARANASAL SINUSES/MASTOIDS: Clear. PORT LIONS OF RO[place]: Normal flow void. PITUITARY GLAND: Unremarkable. OTHER FINDINGS: IMPRESSION: 1. 3.0 x 3.0 x 2.5 cm heterogeneously enhancing right parietal mass consistent with a neoplasm. Prim crystal versus metastatic disease. There is associated edema causing a 3-4 mm right to left midline shif t. 2. No evidence of an acute infarct. DATA REPOSITORY:
[2024-04-29 10:48] VITALS: BP 138/99; PULSE 96; RESP 18; O2SAT 98
[2024-04-29] MEDS: Normal Saline Flush 10 ML SYR IVP (11:53)
[2024-04-29] MEDS: Gadoterate meglumine 20 ML SYRINGE IVP (11:54)
[2024-04-29] MEDS: Dexamethasone 10 MG/ML VIAL IVP (15:12)
[2024-04-29 15:16] VITALS: BP 152/98; PULSE 95; O2SAT 97
[2024-04-29] MEDS: Heparin 500 UNITS/5 ML SYRINGE (15:39)
[2024-04-29 15:40] VITALS: BP 156/91; PULSE 103; RESP 18; O2SAT 97
== END 2024-04-29 15:42 | disposition home or self-care (01) ==
PROVIDERS: Emergency Provider Nurse Practitioner Family; PCP Student in an Organized Health Care Education/Training Program
DX: R29.810 Facial weakness (principal); C18.9 Malignant neoplasm of colon, unspecified; C78.00 Secondary malignant neoplasm of unspecified lung; C78.7 Secondary malignant neoplasm of liver and intrahepatic bile duct; C79.31 Secondary malignant neoplasm of brain
CPT/HCPCS: 70553; 96374; 96375; 99285; J1100; J1642

== ENCOUNTER 2024-05-11 02:09 | Outpatient (RCR) | payer BC, SELFPAY ==
[2024-05-11] MEDS: Normal Saline Flush 10 ML SYR IVP (07:00)
[2024-05-11 07:16] LABS: Absolute Lymphocyte Count 0.98 10^3/uL (1.2-3.4); Basophils % 0.4 %; Eosinophils % 0.1 %; HCT 37.6 % (36.0-46.0); Immature Grans % 2.8 %; Lymphocytes % 6.9 %; MCH 32.1 pg (27.0-33.0); MCHC 31.9 % (32.0-36.0); MCV 101 fL (80-95); MPV 9.6 fL (8.0-11.0); Monocytes % 4.2 %; Neutrophils % 85.6 %; Platelet Count 193 10^3/uL (130-400); RBC 3.74 10^6/uL (3.93-5.22); RDW 15.5 % (11.7-14.6); RDW-SD 57.9 fL; WBC 14.17 10^3/uL (4.4-10.8)
[2024-05-11 07:18] LABS: Absolute Basophil Count 0.06 10^3/uL (0.0-0.2); Absolute Eosinophil Count 0.01 10^3/uL (0.0-0.7); Absolute Neutrophil Count 12.13 10^3/uL (1.2-6.7)
[2024-05-11 07:31] LABS: ALT 49 U/L (14-59); AST 34 U/L (15-37); Albumin 2.8 g/dL (3.4-5.0); Alkaline Phosphatase 204 U/L (46-116); Anion Gap 8.4 mmol/L (3-11); BUN 22 mg/dL (7-18); Bilirubin, Total 0.44 mg/dL (0.2-1.0); CO2 26.6 mmol/L (21.0-32.0); Calcium 8.8 mg/dL (8.5-10.1); Chloride 105 mmol/L (98-107); Estimated GFR 66.53 (mL/min/1.73m2); Glucose 138 mg/dL (74-106); Magnesium 1.9 mg/dL (1.8-2.4); Potassium 4.2 mmol/L (3.5-5.1); Sodium 140 mmol/L (136-145); Total Protein 7.2 g/dL (6.4-8.2)
== END 2024-05-21 23:59 | disposition home or self-care (01) ==
LOC: INF 02:09
PROVIDERS: PCP Student in an Organized Health Care Education/Training Program; Visit Provider Internal Medicine Hematology & Oncology
DX: C18.9 Malignant neoplasm of colon, unspecified (principal); Z45.2 Encounter for adjustment and management of vascular access device
CPT/HCPCS: 36591; 80053; 82378; 83735; 85025

== ENCOUNTER 2024-06-20 02:13 | Outpatient (RCR) | payer BC, SELFPAY ==
[2024-05-25 07:48] LABS: Abs Immature Grans 0.02 10^3/uL (0.0-0.06); Absolute Basophil Count 0.03 10^3/uL (0.0-0.2); Absolute Eosinophil Count 0.26 10^3/uL (0.0-0.7); Absolute Lymphocyte Count 0.73 10^3/uL (1.2-3.4); Absolute Monocyte Count 0.25 10^3/uL (0.1-0.8); Absolute Neutrophil Count 2.91 10^3/uL (1.2-6.7); Basophils % 0.7 %; Eosinophils % 6.2 %; HCT 34.9 % (36.0-46.0); HGB 10.8 g/dL (11.2-15.7); Immature Grans % 0.5 %; Lymphocytes % 17.4 %; MCHC 30.9 % (32.0-36.0); MCV 100 fL (80-95); MPV 10.2 fL (8.0-11.0); Neutrophils % 69.2 %; Platelet Count 188 10^3/uL (130-400); RBC 3.48 10^6/uL (3.93-5.22); RDW 15.7 % (11.7-14.6); RDW-SD 57.4 fL
[2024-05-25] MEDS: Heparin 500 UNITS/5 ML SYRINGE (07:55)
[2024-05-25] MEDS: Normal Saline Flush 10 ML SYR IVP (07:57)
[2024-05-25 08:07] LABS: ALT 40 U/L (14-59); AST 29 U/L (15-37); Albumin 2.8 g/dL (3.4-5.0); Alkaline Phosphatase 236 U/L (46-116); Anion Gap 10.6 mmol/L (3-11); BUN 10 mg/dL (7-18); Bilirubin, Total 0.46 mg/dL (0.2-1.0); CO2 25.4 mmol/L (21.0-32.0); CREATININE 0.9 mg/dL (0.55-1.02); Calcium 8.6 mg/dL (8.5-10.1); Chloride 108 mmol/L (98-107); Glucose 126 mg/dL (74-106); Potassium 3.9 mmol/L (3.5-5.1); Sodium 144 mmol/L (136-145); Total Protein 7.2 g/dL (6.4-8.2)
[2024-05-25 19:05] LABS: CEA 10.5 ng/mL (See Note)
[2024-05-26 13:57] LABS: Magnesium 1.7 mg/dL (1.8-2.4)
[2024-06-08] MEDS: Normal Saline Flush 10 ML SYR IVP (07:16)
[2024-06-08 08:09] LABS: Abs Immature Grans 0.03 10^3/uL (0.0-0.06); Absolute Basophil Count 0.04 10^3/uL (0.0-0.2); Absolute Eosinophil Count 0.22 10^3/uL (0.0-0.7); Absolute Lymphocyte Count 0.95 10^3/uL (1.2-3.4); Absolute Monocyte Count 0.56 10^3/uL (0.1-0.8); Absolute Neutrophil Count 3.59 10^3/uL (1.2-6.7); Basophils % 0.7 %; Eosinophils % 4.1 %; HCT 33.7 % (36.0-46.0); HGB 10.9 g/dL (11.2-15.7); Immature Grans % 0.6 %; Lymphocytes % 17.6 %; MCH 31.1 pg (27.0-33.0); MCHC 32.3 % (32.0-36.0); MCV 96 fL (80-95); MPV 10.3 fL (8.0-11.0); Monocytes % 10.4 %; Neutrophils % 66.6 %; Platelet Count 270 10^3/uL (130-400); RBC 3.51 10^6/uL (3.93-5.22); RDW 16.5 % (11.7-14.6); RDW-SD 57.3 fL; WBC 5.39 10^3/uL (4.4-10.8)
[2024-06-08 08:25] LABS: ALT 21 U/L (14-59); AST 20 U/L (15-37); Albumin 2.7 g/dL (3.4-5.0); Alkaline Phosphatase 206 U/L (46-116); Anion Gap 10.8 mmol/L (3-11); BUN 9 mg/dL (7-18); Bilirubin, Total 0.53 mg/dL (0.2-1.0); CO2 25.2 mmol/L (21.0-32.0); CREATININE 0.9 mg/dL (0.55-1.02); Calcium 9.1 mg/dL (8.5-10.1); Chloride 108 mmol/L (98-107); Glucose 102 mg/dL (74-106); Magnesium 1.3 mg/dL (1.8-2.4); Potassium 3.5 mmol/L (3.5-5.1); Sodium 144 mmol/L (136-145); Total Protein 6.9 g/dL (6.4-8.2)
[2024-06-08 19:49] LABS: CEA 7.9 ng/mL (See Note)
== END 2024-06-21 23:59 | disposition home or self-care (01) ==
LOC: INF 02:13
PROVIDERS: PCP Student in an Organized Health Care Education/Training Program; Visit Provider Internal Medicine Hematology & Oncology
DX: C18.9 Malignant neoplasm of colon, unspecified (principal); Z79.899 Other long term (current) drug therapy; Z45.2 Encounter for adjustment and management of vascular access device; C78.00 Secondary malignant neoplasm of unspecified lung; C78.7 Secondary malignant neoplasm of liver and intrahepatic bile duct
CPT/HCPCS: 36415; 36591; 80053; 96523; 82378; 83735; 85025; J1642

== ENCOUNTER 2024-07-20 07:00 | Outpatient (RCR) | payer BC, SELFPAY ==
[2024-06-23] MEDS: Normal Saline Flush 10 ML SYR IVP (07:37)
[2024-06-23 07:53] LABS: Abs Immature Grans 0.02 10^3/uL (0.0-0.06); Absolute Basophil Count 0.04 10^3/uL (0.0-0.2); Absolute Eosinophil Count 0.27 10^3/uL (0.0-0.7); Absolute Lymphocyte Count 1.11 10^3/uL (1.2-3.4); Absolute Monocyte Count 0.46 10^3/uL (0.1-0.8); Absolute Neutrophil Count 3.94 10^3/uL (1.2-6.7); Basophils % 0.7 %; Eosinophils % 4.6 %; HGB 11.4 g/dL (11.2-15.7); Immature Grans % 0.3 %; MCH 30.6 pg (27.0-33.0); MCHC 31.7 % (32.0-36.0); MCV 97 fL (80-95); Monocytes % 7.9 %; Neutrophils % 67.5 %; RBC 3.72 10^6/uL (3.93-5.22); RDW 16.7 % (11.7-14.6); RDW-SD 58.7 fL; WBC 5.84 10^3/uL (4.4-10.8)
[2024-06-23 08:16] LABS: ALT 21 U/L (14-59); AST 24 U/L (15-37); Albumin 2.6 g/dL (3.4-5.0); Alkaline Phosphatase 209 U/L (46-116); Anion Gap 11.6 mmol/L (3-11); BUN 9 mg/dL (7-18); Bilirubin, Total 0.44 mg/dL (0.2-1.0); CO2 22.4 mmol/L (21.0-32.0); CREATININE 0.9 mg/dL (0.55-1.02); Calcium 8.6 mg/dL (8.5-10.1); Chloride 109 mmol/L (98-107); Glucose 93 mg/dL (74-106); Potassium 3.5 mmol/L (3.5-5.1); Sodium 143 mmol/L (136-145); Total Protein 6.8 g/dL (6.4-8.2)
[2024-06-23 18:31] LABS: CEA 7.3 ng/mL (See Note)
[2024-06-29 07:48] LABS: Magnesium 1.5 mg/dL (1.8-2.4)
[2024-07-06] MEDS: Normal Saline Flush 10 ML SYR IVP (07:13)
[2024-07-06 08:06] LABS: Abs Immature Grans 0.03 10^3/uL (0.0-0.06); Absolute Basophil Count 0.04 10^3/uL (0.0-0.2); Absolute Eosinophil Count 0.25 10^3/uL (0.0-0.7); Absolute Lymphocyte Count 1.11 10^3/uL (1.2-3.4); Absolute Monocyte Count 0.46 10^3/uL (0.1-0.8); Absolute Neutrophil Count 3.84 10^3/uL (1.2-6.7); Basophils % 0.7 %; Eosinophils % 4.4 %; HCT 35.8 % (36.0-46.0); HGB 11.3 g/dL (11.2-15.7); Immature Grans % 0.5 %; Lymphocytes % 19.4 %; MCH 30.8 pg (27.0-33.0); MCHC 31.6 % (32.0-36.0); MCV 98 fL (80-95); MPV 10.7 fL (8.0-11.0); Platelet Count 288 10^3/uL (130-400); RBC 3.67 10^6/uL (3.93-5.22); RDW 17.2 % (11.7-14.6); RDW-SD 61.1 fL; WBC 5.73 10^3/uL (4.4-10.8)
[2024-07-06 08:23] LABS: ALT 24 U/L (14-59); AST 23 U/L (15-37); Albumin 2.8 g/dL (3.4-5.0); Alkaline Phosphatase 210 U/L (46-116); Anion Gap 9.6 mmol/L (3-11); BUN 8 mg/dL (7-18); Bilirubin, Total 0.46 mg/dL (0.2-1.0); CO2 25.4 mmol/L (21.0-32.0); CREATININE 0.9 mg/dL (0.55-1.02); Calcium 8.6 mg/dL (8.5-10.1); Chloride 109 mmol/L (98-107); Glucose 94 mg/dL (74-106); Magnesium 1.2 mg/dL (1.8-2.4); Potassium 3.8 mmol/L (3.5-5.1); Sodium 144 mmol/L (136-145)
[2024-07-06 18:14] LABS: CEA 6.9 ng/mL (See Note)
[2024-07-20 07:35] LABS: Abs Immature Grans 0.01 10^3/uL (0.0-0.06); Absolute Basophil Count 0.03 10^3/uL (0.0-0.2); Absolute Eosinophil Count 0.14 10^3/uL (0.0-0.7); Absolute Lymphocyte Count 0.74 10^3/uL (1.2-3.4); Absolute Monocyte Count 0.36 10^3/uL (0.1-0.8); Absolute Neutrophil Count 3.27 10^3/uL (1.2-6.7); Basophils % 0.7 %; Eosinophils % 3.1 %; HCT 34.9 % (36.0-46.0); HGB 10.8 g/dL (11.2-15.7); Immature Grans % 0.2 %; Lymphocytes % 16.3 %; MCH 30.7 pg (27.0-33.0); MCHC 30.9 % (32.0-36.0); MCV 99 fL (80-95); MPV 10.3 fL (8.0-11.0); Monocytes % 7.9 %; Neutrophils % 71.8 %; Platelet Count 234 10^3/uL (130-400); RBC 3.52 10^6/uL (3.93-5.22); RDW 17.5 % (11.7-14.6); RDW-SD 63.5 fL; WBC 4.55 10^3/uL (4.4-10.8)
[2024-07-20 08:05] LABS: ALT 29 U/L (14-59); AST 22 U/L (15-37); Alkaline Phosphatase 187 U/L (46-116); Anion Gap 10.2 mmol/L (3-11); BUN 6 mg/dL (7-18); Bilirubin, Total 0.43 mg/dL (0.2-1.0); CO2 24.8 mmol/L (21.0-32.0); CREATININE 0.8 mg/dL (0.55-1.02); Calcium 8.6 mg/dL (8.5-10.1); Chloride 108 mmol/L (98-107); Estimated GFR 86.96 (mL/min/1.73m2); Glucose 98 mg/dL (74-106); Magnesium 1.1 mg/dL (1.8-2.4); Potassium 3.7 mmol/L (3.5-5.1); Sodium 143 mmol/L (136-145); Total Protein 6.9 g/dL (6.4-8.2)
== END 2024-07-22 23:59 | disposition home or self-care (01) ==
LOC: INF 07:00
PROVIDERS: PCP Student in an Organized Health Care Education/Training Program; Visit Provider Internal Medicine Hematology & Oncology
DX: C18.9 Malignant neoplasm of colon, unspecified (principal); Z79.899 Other long term (current) drug therapy; C78.7 Secondary malignant neoplasm of liver and intrahepatic bile duct; C78.00 Secondary malignant neoplasm of unspecified lung
CPT/HCPCS: 36415; 36591; 80053; 82378; 83735; 85025

== ENCOUNTER 2024-08-17 02:52 | Outpatient (CLI) | payer BC, SELFPAY ==
--- NOTE | 2024-08-17 06:15 | DI.MAMMO_ITS ---
Exam(s) MAMMO SCREENING EXAM: MAMMO SCREENING CLINICAL HISTORY: screening,z12.39 TECHNIQUE: Mammograms were interpreted according to the usual protocol including computer analysis w [employer] CAD system, tomosynthesis and C-view imaging. COMPARISON: 2016 through 2021 FINDINGS: The breasts are composed of scattered fibroglandular densities, Breast Density category B. No suspicious masses or suspicious microcalcifications are seen. No skin thickening or abnormal axillary lymph nodes are seen. Port is again noted over the left pect oral muscle. There has been no significant change from prior exams. IMPRESSION: BI-RADS Category 1, Negative mammogram Yearly screening mammography is recommended. Breast Density - Category B, scattered fibroglandular densities. A negative radiographic report should not delay biopsy if a dominant or clinically suspicious mass is present. Up to ten percent of cancers are not identified on mammography. A negative report may reinforce clinical impression. Adenosis and dense breasts may obscure an underlying neoplasm. False positive reports average 6 to 10%. Patient will receive a letter notifying them of these results.
== END 2024-08-17 03:12 ==
LOC: DI 02:52
PROVIDERS: PCP Student in an Organized Health Care Education/Training Program; Visit Provider Student in an Organized Health Care Education/Training Program
DX: Z12.31 Encounter for screening mammogram for malignant neoplasm of breast (principal); R92.323 Mammographic fibroglandular density, bilateral breasts
CPT/HCPCS: 77063; 77067

== ENCOUNTER 2024-08-17 08:00 | Outpatient (RCR) | payer BC, SELFPAY ==
[2024-08-03 07:30] LABS: Abs Immature Grans 0.03 10^3/uL (0.0-0.06); Absolute Basophil Count 0.03 10^3/uL (0.0-0.2); Absolute Eosinophil Count 0.13 10^3/uL (0.0-0.7); Absolute Lymphocyte Count 0.87 10^3/uL (1.2-3.4); Absolute Neutrophil Count 3.98 10^3/uL (1.2-6.7); Basophils % 0.6 %; Eosinophils % 2.4 %; HCT 36.2 % (36.0-46.0); HGB 11.4 g/dL (11.2-15.7); Immature Grans % 0.6 %; MCH 30.8 pg (27.0-33.0); MCHC 31.5 % (32.0-36.0); MCV 98 fL (80-95); MPV 10.1 fL (8.0-11.0); Monocytes % 7.4 %; Platelet Count 247 10^3/uL (130-400); RDW 17.2 % (11.7-14.6); RDW-SD 61.9 fL; WBC 5.44 10^3/uL (4.4-10.8)
[2024-08-03 07:48] LABS: ALT 26 U/L (14-59); AST 19 U/L (15-37); Alkaline Phosphatase 212 U/L (46-116); Anion Gap 6.8 mmol/L (3-11); BUN 12 mg/dL (7-18); Bilirubin, Total 0.37 mg/dL (0.2-1.0); CO2 27.2 mmol/L (21.0-32.0); CREATININE 0.8 mg/dL (0.55-1.02); Calcium 8.8 mg/dL (8.5-10.1); Chloride 108 mmol/L (98-107); Estimated GFR 86.96 (mL/min/1.73m2); Glucose 73 mg/dL (74-106); Magnesium 1.1 mg/dL (1.8-2.4); Sodium 142 mmol/L (136-145); Total Protein 7.1 g/dL (6.4-8.2)
[2024-08-03 17:48] LABS: CEA 7.1 ng/mL (See Note)
[2024-08-17 08:13] LABS: Abs Immature Grans 0.02 10^3/uL (0.0-0.06); Absolute Basophil Count 0.05 10^3/uL (0.0-0.2); Absolute Eosinophil Count 0.11 10^3/uL (0.0-0.7); Absolute Lymphocyte Count 0.87 10^3/uL (1.2-3.4); Absolute Monocyte Count 0.46 10^3/uL (0.1-0.8); Absolute Neutrophil Count 3.33 10^3/uL (1.2-6.7); Eosinophils % 2.3 %; HCT 35.6 % (36.0-46.0); HGB 11.4 g/dL (11.2-15.7); Immature Grans % 0.4 %; MCH 30.6 pg (27.0-33.0); MCV 95 fL (80-95); MPV 10.6 fL (8.0-11.0); Monocytes % 9.5 %; Neutrophils % 68.8 %; Platelet Count 263 10^3/uL (130-400); RBC 3.73 10^6/uL (3.93-5.22); RDW 16.8 % (11.7-14.6); RDW-SD 58.7 fL; WBC 4.84 10^3/uL (4.4-10.8)
[2024-08-17 08:38] LABS: ALT 30 U/L (14-59); AST 28 U/L (15-37); Albumin 3.2 g/dL (3.4-5.0); Alkaline Phosphatase 255 U/L (46-116); BUN 7 mg/dL (7-18); Bilirubin, Total 0.29 mg/dL (0.2-1.0); CREATININE 0.8 mg/dL (0.55-1.02); Calcium 8.7 mg/dL (8.5-10.1); Chloride 108 mmol/L (98-107); Estimated GFR 86.96 (mL/min/1.73m2); Glucose 116 mg/dL (74-106); Magnesium 1.3 mg/dL (1.8-2.4); Sodium 143 mmol/L (136-145); Total Protein 7.4 g/dL (6.4-8.2)
[2024-08-17 19:59] LABS: CEA 8.7 ng/mL (See Note)
== END 2024-08-19 23:59 | disposition home or self-care (01) ==
LOC: INF 08:00
PROVIDERS: PCP Student in an Organized Health Care Education/Training Program; Visit Provider Internal Medicine Hematology & Oncology
DX: C18.9 Malignant neoplasm of colon, unspecified (principal); C78.00 Secondary malignant neoplasm of unspecified lung; C78.7 Secondary malignant neoplasm of liver and intrahepatic bile duct; Z79.899 Other long term (current) drug therapy
CPT/HCPCS: 36415; 80053; 82378; 83735; 85025

== ENCOUNTER 2024-09-14 07:00 | Outpatient (RCR) | payer BC, SELFPAY ==
[2024-08-31 07:27] LABS: Abs Immature Grans 0.02 10^3/uL (0.0-0.06); Absolute Basophil Count 0.03 10^3/uL (0.0-0.2); Absolute Eosinophil Count 0.14 10^3/uL (0.0-0.7); Absolute Lymphocyte Count 0.74 10^3/uL (1.2-3.4); Absolute Monocyte Count 0.37 10^3/uL (0.1-0.8); Absolute Neutrophil Count 3.73 10^3/uL (1.2-6.7); Basophils % 0.6 %; Eosinophils % 2.8 %; HGB 11.3 g/dL (11.2-15.7); Immature Grans % 0.4 %; Lymphocytes % 14.7 %; MCH 30.7 pg (27.0-33.0); MCHC 32.3 % (32.0-36.0); MCV 95 fL (80-95); MPV 10.4 fL (8.0-11.0); Monocytes % 7.4 %; Neutrophils % 74.1 %; Platelet Count 255 10^3/uL (130-400); RBC 3.68 10^6/uL (3.93-5.22); RDW 16.6 % (11.7-14.6); RDW-SD 58.1 fL; WBC 5.03 10^3/uL (4.4-10.8)
[2024-08-31 07:42] LABS: ALT 27 U/L (14-59); AST 23 U/L (15-37); Albumin 3.1 g/dL (3.4-5.0); Alkaline Phosphatase 235 U/L (46-116); Anion Gap 11.5 mmol/L (3-11); BUN 9 mg/dL (7-18); Bilirubin, Total 0.4 mg/dL (0.2-1.0); CO2 24.5 mmol/L (21.0-32.0); Calcium 8.8 mg/dL (8.5-10.1); Chloride 110 mmol/L (98-107); Estimated GFR 66.53 (mL/min/1.73m2); Glucose 89 mg/dL (74-106); Magnesium 1.6 mg/dL (1.8-2.4); Potassium 3.8 mmol/L (3.5-5.1); Sodium 146 mmol/L (136-145); Total Protein 7.3 g/dL (6.4-8.2)
[2024-08-31 23:02] LABS: CEA 8.2 ng/mL (See Note)
[2024-09-14] MEDS: Normal Saline Flush 10 ML SYR IVP (07:08)
[2024-09-14 07:17] LABS: Abs Immature Grans 0.03 10^3/uL (0.0-0.06); Absolute Basophil Count 0.03 10^3/uL (0.0-0.2); Absolute Eosinophil Count 0.14 10^3/uL (0.0-0.7); Absolute Lymphocyte Count 0.84 10^3/uL (1.2-3.4); Absolute Monocyte Count 0.44 10^3/uL (0.1-0.8); Absolute Neutrophil Count 3.92 10^3/uL (1.2-6.7); Basophils % 0.6 %; Eosinophils % 2.6 %; HCT 35.3 % (36.0-46.0); HGB 11.1 g/dL (11.2-15.7); Immature Grans % 0.6 %; Lymphocytes % 15.6 %; MCH 30.7 pg (27.0-33.0); MCHC 31.4 % (32.0-36.0); MCV 98 fL (80-95); MPV 10.5 fL (8.0-11.0); Monocytes % 8.1 %; Neutrophils % 72.5 %; Platelet Count 241 10^3/uL (130-400); RBC 3.61 10^6/uL (3.93-5.22); RDW 16.6 % (11.7-14.6)
[2024-09-14 07:33] LABS: ALT 28 U/L (14-59); AST 23 U/L (15-37); Alkaline Phosphatase 236 U/L (46-116); Anion Gap 13.1 mmol/L (3-11); BUN 9 mg/dL (7-18); Bilirubin, Total 0.4 mg/dL (0.2-1.0); CO2 21.9 mmol/L (21.0-32.0); CREATININE 0.9 mg/dL (0.55-1.02); Calcium 8.7 mg/dL (8.5-10.1); Chloride 110 mmol/L (98-107); Glucose 108 mg/dL (74-106); Magnesium 1.3 mg/dL (1.8-2.4); Potassium 4.2 mmol/L (3.5-5.1); Sodium 145 mmol/L (136-145); Total Protein 7.1 g/dL (6.4-8.2)
[2024-09-14 18:20] LABS: CEA 10.9 ng/mL (See Note)
== END 2024-09-19 23:59 | disposition home or self-care (01) ==
LOC: INF 07:00
PROVIDERS: PCP Student in an Organized Health Care Education/Training Program; Visit Provider Internal Medicine Hematology & Oncology
DX: C18.9 Malignant neoplasm of colon, unspecified (principal); C78.00 Secondary malignant neoplasm of unspecified lung; Z79.899 Other long term (current) drug therapy; C78.7 Secondary malignant neoplasm of liver and intrahepatic bile duct; C79.31 Secondary malignant neoplasm of brain
CPT/HCPCS: 36415; 36591; 80053; 82378; 83735; 85025

== ENCOUNTER 2024-10-06 10:19 | Outpatient (CLI) | payer BC, SELFPAY ==
[2024-10-06 16:08] LABS: HCT 31.8 % (36.0-46.0); HGB 10.2 g/dL (11.2-15.7); Immature Grans % 1.4 %; MCHC 32.1 % (32.0-36.0); MCV 97 fL (80-95); MPV 9.9 fL (8.0-11.0); Platelet Count 157 10^3/uL (130-400); RBC 3.29 10^6/uL (3.93-5.22); RDW 16.2 % (11.7-14.6); RDW-SD 58.2 fL; WBC 3.63 10^3/uL (4.4-10.8)
[2024-10-06 16:25] LABS: Absolute Lymphocyte Count 1.82 10^3/uL (1.2-3.4); Absolute Neutrophil Count 1.56 10^3/uL (1.2-6.7); Atypical Lymphocytes % 2 %; Bands % 1 %; Diff Comment Manual Differential; RBC Morphology Normal
[2024-10-06 16:26] LABS: Absolute Eosinophil Count 0.04 10^3/uL (0.0-0.7); Absolute Monocyte Count 0.22 10^3/uL (0.1-0.8)
[2024-10-06 16:30] LABS: ALT 28 U/L (14-59); AST 21 U/L (15-37); Albumin 3.2 g/dL (3.4-5.0); Alkaline Phosphatase 238 U/L (46-116); Anion Gap 10.2 mmol/L (3-11); BUN 9 mg/dL (7-18); Bilirubin, Total 0.3 mg/dL (0.2-1.0); CO2 26.8 mmol/L (21.0-32.0); CREATININE 0.8 mg/dL (0.55-1.02); Calcium 8.4 mg/dL (8.5-10.1); Chloride 105 mmol/L (98-107); Estimated GFR 86.96 (mL/min/1.73m2); Glucose 100 mg/dL (74-106); Magnesium 0.9 mg/dL (1.8-2.4); Sodium 142 mmol/L (136-145); Total Protein 7.1 g/dL (6.4-8.2)
[2024-10-07 18:00] LABS: CEA 11.6 ng/mL (See Note)
== END 2024-10-06 10:20 | disposition home or self-care (01) ==
LOC: LBO 02-16 10:19
PROVIDERS: PCP Nurse Practitioner Family; Visit Provider Internal Medicine Hematology & Oncology
DX: C18.9 Malignant neoplasm of colon, unspecified (principal)
CPT/HCPCS: 36415; 80053; 82378; 83735; 85025

== ENCOUNTER 2024-10-11 21:30 | Emergency (ER) | payer BC, SELFPAY ==
[2024-10-11] VITALS (14 sets, daily range): BP systolic 93–135; BP diastolic 38–72; PULSE 90–159; RESP 19–28; TEMP 36.9; O2SAT 95–99
--- NOTE | 2024-10-11 22:00 | RT.EKG_ITS ---
APPROVED REPORT Exam: Resting ECG Reason for Exam: TIA/CVA/ tachycardia Patient Location: E HR:95 bpm ECG Measurements Heart Rate 95 AXIS AL 155 P 13 QRSd 80 QRS 21 QT 360 T 35 QTc 451 Conclusion Sinus rhythm...normal P axis, V-rate 60- 99 Low voltage, precordial leads...precordial leads <1.0mV
--- NOTE | 2024-10-11 22:15 | DI.CT_ITS ---
Exam(s) CT BRAIN NECK CTA EXAM: CT BRAIN NECK CTA CLINICAL HISTORY: TIA symptoms, known h/o brain tumor. TECHNIQUE: Imaging Protocol: Axial CT angiography was performed with multi-slice acquisition and mu lti-planar and/or 3D reconstructions. CONTRAST MATERIAL: Intravenous: Omnipaque 350 contrast volume:70 mL COMPARISON: CT CT BRAIN NECK CTA from 03/08/2024 FINDINGS: CT Head W/O and W: Ventricles and Extra axial spaces: Normal in size and morphology for the patient's age. Hemorrhage: None. Cerebral parenchyma: There is an area of encephalomalacia involving the right parietal lobe. There i s a dural based lesion along the right convexity measuring 1.9 cm AP x 1.1 cm transverse by 1.8 cm cr aniocaudad. It is adjacent to the area of encephalomalacia in the right parietal lobe. No other int racranial lesions are seen. Midline shift: None. Brainstem/Cerebellum: Normal. Calvarium: Since the prior examination the patient has had a prior right parietal craniotomy. Visualized Paranasal sinuses/Mastoids: Clear. Soft Tissues: Unremarkable. Enhancement: Aside for the right parietal lesion, no other intracranial enhancing lesions are seen. CTA Neck W: Common Carotid: Right: No dissection, occlusion or significant stenosis. Left: No dissection, occlusion or significant stenosis. External Carotid: Right: No occlusion or significant stenosis. Left: No occlusion or significant stenosis. Internal Carotid: Right: No dissection, occlusion or significant stenosis. Left: No dissection, occlusion or significant stenosis. Vertebral Artery: Right: No dissection, occlusion or significant stenosis. Left: No dissection, occlusion or significant stenosis. Lung Apices: There is again seen the area of consolidation in the left upper lobe. This is unchanged compared to the prior examination from 10/10/2024. The lung apices are otherwise clear. There is ag ain seen adenopathy in the superior mediastinum. Bones: Within normal limits for the patient's age. Soft Tissues: The patient has a left sided port. Thyroid gland: Unremarkable. CTA Brain W: Internal Carotid Arteries: No evidence of an aneurysm, occlusion or significant stenosis. Anterior Cerebral Arteries: Right: No aneurysm, occlusion or significant stenosis. Left: No aneurysm, occlusion or significant stenosis. Middle Cerebral Arteries: Right: No aneurysm, occlusion or significant stenosis. Left: No aneurysm, occlusion or significant stenosis. Posterior Cerebral Arteries: The right posterior artery arises from the right communicating artery wh ich is a normal variant. Right: No aneurysm, occlusion or significant stenosis. Left: No aneurysm, occlusion or significant stenosis. Vertebral Arteries: Right: No aneurysm, occlusion or significant stenosis. Left: No aneurysm, occlusion or significant stenosis. Basilar Artery: No aneurysm, occlusion or significant stenosis. IMPRESSION: 1. No large vessel occlusion or significant stenosis on the CT angiography of the head. 2. 1.9 x 1.1 x 1.8 cm dural-based right hyperdense mass. This is consistent with intracranial neopla sm. Metastasis or meningioma should be considered. 3. Area of encephalomalacia involving the right parietal lobe. 4. Prior right parietal craniotomy. 5. No occlusion or significant stenosis on the CT angiography of the neck. 6. Superior mediastinal adenopathy. There is an area of consolidation in the left lung apex. This w as noted on the CT scan from 10/10/2024 and had showed progression since the prior examination on 2024. 7. The preliminary [facility] report was reviewed. RADIATION DOSE DELIVERED: 2,150.38mGy.cm Total DLP DATA REPOSITORY: All CT scans at this facility are submitted to the National Radiology Data Registry (NRDR) Dose Index Registry (DIR) with the [employer] (ACR). RADIATION OPTIMIZATION: All CT scans at this facility use at least one of these dose optimization te chniques: automated exposure control; mA and/or kV adjustment per patient size (includes targeted exa ms where dose is matched to clinical indication); or iterative reconstruction.
[2024-10-11 22:32] LABS: Abs Immature Grans 0.02 10^3/uL (0.0-0.06); Absolute Basophil Count 0.04 10^3/uL (0.0-0.2); Absolute Eosinophil Count 0.08 10^3/uL (0.0-0.7); Absolute Lymphocyte Count 1.16 10^3/uL (1.2-3.4); Absolute Monocyte Count 0.49 10^3/uL (0.1-0.8); Absolute Neutrophil Count 3.45 10^3/uL (1.2-6.7); Basophils % 0.8 %; Eosinophils % 1.5 %; HCT 32.3 % (36.0-46.0); HGB 10.3 g/dL (11.2-15.7); Immature Grans % 0.4 %; Lymphocytes % 22.1 %; MCH 30.8 pg (27.0-33.0); MCHC 31.9 % (32.0-36.0); MCV 97 fL (80-95); MPV 10.4 fL (8.0-11.0); Monocytes % 9.4 %; Neutrophils % 65.8 %; Platelet Count 215 10^3/uL (130-400); RBC 3.34 10^6/uL (3.93-5.22); RDW 16.7 % (11.7-14.6); RDW-SD 58.6 fL; WBC 5.24 10^3/uL (4.4-10.8)
[2024-10-11 22:44] LABS: PTT Activated 26.3 sec (20.6-30.2); Prothrombin Time 10.4 sec (9.1-11.1)
[2024-10-11 22:52] LABS: ALT 26 U/L (14-59); AST 22 U/L (15-37); Alkaline Phosphatase 225 U/L (46-116); Anion Gap 8.7 mmol/L (3-11); BUN 9 mg/dL (7-18); Bilirubin, Total 0.3 mg/dL (0.2-1.0); CO2 24.3 mmol/L (21.0-32.0); CREATININE 0.8 mg/dL (0.55-1.02); Calcium 7.8 mg/dL (8.5-10.1); Chloride 110 mmol/L (98-107); Estimated GFR 86.96 (mL/min/1.73m2); Glucose 110 mg/dL (74-106); Magnesium 0.9 mg/dL (1.8-2.4); Potassium 3.9 mmol/L (3.5-5.1); Sodium 143 mmol/L (136-145); Total Protein 6.7 g/dL (6.4-8.2)
[2024-10-11 22:55] LABS: Troponin I < 4 ng/L (<or=51)
[2024-10-11] MEDS: Normal Saline - Diluent 50 ML VIAL IJ (23:01)
[2024-10-11] MEDS: Omnipaque 350 MG/ML 100 ML BTL IJ (23:02)
[2024-10-11 23:25] LABS: Bilirubin Negative (Negative); Blood Trace-intact (Negative); Clarity Clear (Clear); Glucose Negative (Negative); Ketones Negative (Negative); Leukocyte Esterase Moderate (Negative); Nitrite Negative (Negative); Specific Gravity 1.015 (1.005-1.025); Urobilinogen 0.2 mg/dL (Up to 0.2)
[2024-10-11 23:34] LABS: Bacteria Rare HPF (Negative); Casts Negative LPF (Negative); Crystals Many Calcium Oxalate HPF (Negative); Epithelial Cells Moderate HPF (Negative); Mucus Negative (Negative); Other Cells Rare Transitional (Negative); RBC 0-2 HPF (0-2)
[2024-10-11 23:35] LABS: C & S Indicated? No/Sq. Contamination
--- NOTE | 2024-10-11 23:50 | DI.VRAD_ITS ---
Addendum created by Andrzej Pierce MD on 10/11/2024 11:50:33 PM EDT: THIS REPORT CONTAINS FINDINGS THAT MAY BE CRITICAL TO PATIENT CARE. The findings were verbally communicated via telephone conference with PAMELA ESPINO at 11:50 PM EDT on 10/11/2024. The findings were acknowledged and understood. Initial report created on 10/11/2024 11:50:12 PM EDT: PROCEDURE INFORMATION: Exam: CTA Head Without And With Contrast, Arteriography Exam date and time: 10/11/2024 10:59 PM Age: 53 years old Clinical indication: Stroke-like symptoms; Speech disturbance; Additional info: TIA symptoms, known h/o brain tumor TECHNIQUE: Imaging protocol: Computed tomographic angiography of the head without and with contrast. Exam focused on the arteries. 3D rendering (Not supervised by radiologist): MIP and/or 3D reconstructed images were created by the technologist. Contrast material: OMNI 350; Contrast volume: 70 ml; Contrast route: INTRAVENOUS (IV); Other technique: STROKE PROTOCOL was implemented. COMPARISON: CT BRAIN NECK CTA 03/08/2024 9:25 AM FINDINGS: ANTERIOR CIRCULATION: Right internal carotid artery: Intracranial segment is patent with no significant stenosis or occlusion. No aneurysm. Right middle cerebral artery: No occlusion or significant stenosis. No aneurysm. Right anterior cerebral artery: No occlusion or significant stenosis. No aneurysm. Left internal carotid artery: Intracranial segment is patent with no significant stenosis. No aneurysm. Left middle cerebral artery: No occlusion or significant stenosis. No aneurysm. Left anterior cerebral artery: No occlusion or significant stenosis. No aneurysm. POSTERIOR CIRCULATION: Right vertebral artery: No occlusion or significant stenosis. No aneurysm. Left vertebral artery: No occlusion or significant stenosis. No aneurysm. Basilar artery: No occlusion or significant stenosis. No aneurysm. Right posterior cerebral artery: origin of the right posterior cerebral artery is a common developmental variant and there is no occlusion or significant stenosis. No aneurysm. Left posterior cerebral artery: No occlusion or significant stenosis. No aneurysm. HEAD: Brain: A 19 mm hyperdense durally-based lesion seen overlying the right frontoparietal convexity subjacent to the right-sided craniotomy flap is concerning for possible brain metastasis (see image 39, series 5). Focal encephalomalacia is seen within the brain parenchyma anterior and superior to this hyperdense lesion with no other intracranial lesions detected. No acute transcortical infarction is detected. Cerebral ventricles: No midline shift or hydrocephalus. Bones: Right parietal craniotomy flap is evident with no acute fractures detected. Paranasal sinuses: Focal opacification is noted involving a few posterior right ethmoid air cells. Mastoid air cells: Mastoid air cells are clear throughout. Soft tissues: Unremarkable. IMPRESSION: 1. No large vessel stenosis or occlusion detected involving the major branches of the anterior or posterior intracranial circulation. 2. A 19 mm hyperdense durally-based lesion seen overlying the right frontoparietal convexity subjacent to the right-sided craniotomy flap is concerning for possible brain metastasis (see image 39, series 5). Focal encephalomalacia is seen within the brain parenchyma anterior and superior to this hyperdense lesion with no other intracranial lesions detected. No acute transcortical infarction is detected. ASSESSMENT: ASPECTS ([place] Stroke Program Early CT Score) is 10. PROCEDURE INFORMATION: Exam: CTA Neck Without And With Contrast Exam date and time: 10/11/2024 10:59 PM Age: 53 years old Clinical indication: Stroke-like symptoms; Speech disturbance; Additional info: TIA symptoms, known h/o brain tumor TECHNIQUE: Imaging protocol: Computed tomographic angiography of the neck without and with contrast. Exam focused on the cervical segments of the vasculature. 3D rendering (Not supervised by radiologist): MIP and/or 3D reconstructed images were created by the technologist. Contrast material: OMNI 350; Contrast volume: 70 ml; Contrast route: INTRAVENOUS (IV); COMPARISON: CT BRAIN NECK CTA 03/08/2024 9:25 AM FINDINGS: Right common carotid artery: No stenosis. No dissection or occlusion. Right internal carotid artery: No stenosis of the extracranial segment. No dissection or occlusion. Right external carotid artery: No occlusion or stenosis of the origin. Left common carotid artery: No stenosis. No dissection or occlusion. Left internal carotid artery: No stenosis of the extracranial segment. No dissection or occlusion. Left external carotid artery: No occlusion or stenosis of the origin. Right vertebral artery: No stenosis. No dissection or occlusion. Left vertebral artery: No stenosis. No dissection or occlusion. Soft tissues: Normal. No significant soft tissue swelling. Bones/joints: No acute fracture. Lungs: A noncalcified pleurally based mass with spiculated margins along the posterior apex of the left upper lobe is concerning for malignancy and shows evidence of left hilar/mediastinal invasion with associated mediastinal adenopathy concerning for metastatic disease. IMPRESSION: 1. No evidence of 50% or greater stenosis involving the cervical segments of the right or left internal carotid arteries by NASCET criteria. 2. A noncalcified pleurally based mass with spiculated margins along the posterior apex of the left upper lobe is concerning for malignancy and shows evidence of left hilar/mediastinal invasion with associated mediastinal adenopathy concerning for metastatic disease. REFERENCES: NASCET CRITERIA. The degree of stenosis in the cervical segment of the internal carotid artery is based on NASCET criteria. Normal is no stenosis. Mild is less than 50% stenosis. Moderate is 50-69% stenosis. Severe is 70% to 99% stenosis. Total occlusion is no detectable patent lumen. Dictated and Authenticated by: Andrzej Pierce MD. Orderin Monroe Monet MD
[2024-10-11 23:51] LABS: Troponin I < 4 ng/L (<or=51)
[2024-10-12] VITALS (9 sets, daily range): BP systolic 112; BP diastolic 67–76; PULSE 85–103; RESP 16–28; TEMP 36.8; O2SAT 98–100
--- NOTE | 2024-10-12 00:06 | W.ED.GENAD ---
Discharge Plan Disposition Patient Disposition: Transfer-Acute Inpatient Care Specific Acute Inpt Facility: [facility] Condition: Stable Discharge Details Chief Complaint: CVA/TIA Clinical Impression: Secondary malignant neoplasm of brain, Brain TIA Primary Care Provider: Penny Browning ED Provider: Chiki Childress Home Meds and New Rx's Prescriptions: No Action esomeprazole magnesium [Nexium] 40 mg capsule,delayed release(DR/EC) 40 mg PO DAILY Qty: 90 3RF Rx Instructions: as per Onc, continue until GERD/Gastritis re-eval budesonide-formoterol 160-4.5 mcg/actuation HFA aerosol inhaler 2 puff inhalation BID Qty: 10.2 3RF albuterol sulfate 90 mcg/actuation HFA aerosol inhaler 2 puff inhalation Q6H PRN (Reason: shortness of breath or wheezing) Qty: 8.5 3RF prochlorperazine maleate [Compazine] 10 mg tablet 10 mg PO Q6H PRN cetirizine [Zyrtec] 10 mg tablet 10 mg PO DAILY PRN Patient Comments: 11/22/[address] Iqbal's progress note melatonin 5 mg tablet 5 mg PO HS PRN fluticasone propionate 50 mcg/actuation spray,suspension 2 spray intranasal DAILY Qty: 16 0RF Rx Instructions: administer into each nostril acetaminophen 650 mg/20.3 mL solution 650 mg PO Q6H PRN oxycodone 5 mg tablet 5 mg PO Q4H PRN propranolol 10 mg tablet 10 mg PO TID Qty: 30 1RF Rx Instructions: Trial for anticipatory anxiety: (1) in am and (1) pre-meeting [up to 3/day] diazepam [Valium] 2 mg tablet 2 mg PO BID PRN (Reason: anxiety; anticipatory anxiety (work or procedures)) Qty: 20 1RF Rx Instructions: Trial for anxiety or panic episode (do not drive or consume alcohol) magnesium oxide [MagOx] 400 mg (241.3 mg magnesium) tablet 800 mg PO BID [place] Inst[place] [facility] [place].[facility] Eliquis 5 mg tablet 5 mg PO BID potassium chloride 20 mEq tablet extended release 20 meq PO DAILY Qty: 7 0RF HPI General Date/Time Provider Initiated Documentation: 10/11/24 21:45. HPI Narrative: The patient is a 53-year-old female, with a past medical history significant for a primary colon cancer with metastatic disease to the lung and brain, who presents to the emergency department this evening complaining of neurologic symptoms which began around 9:10 PM yesterday evening. The patient reports that she had slow cognitive processing and some delay in her speech, she also felt like she had some right sided facial weakness. Most of those symptoms have improved, per the patient and her daughter. The patient was concerned because the symptoms were similar to a prior stroke in which she was admitted and treated. The patient had been seen earlier today in her primary care doctor's office for diagnosis of a pulmonary embolism and was started on [place] Lovenox at that time, which also concerned her that this could be some form of hemorrhagic stroke. Related Data Home Medications ?Medication ?Instructions ?Recorded ?Confirmed cetirizine 10 mg tablet (Zyrtec) 10 mg PO DAILY PRN 11/28/21 10/11/24 prochlorperazine maleate 10 mg 10 mg PO Q6H PRN 11/28/21 10/11/24 tablet (Compazine) potassium chloride 20 mEq 20 meq PO DAILY #7 tabs 03/07/22 10/11/24 tablet,extended release melatonin 5 mg tablet 5 mg PO HS PRN 09/01/23 10/11/24 esomeprazole magnesium 40 mg 40 mg PO DAILY GERD #90 caps 10/15/23 10/11/24 capsule,delayed release (Nexium) albuterol sulfate 90 mcg/actuation 2 puff inhalation Q6H PRN 02/03/24 10/11/24 aerosol inhaler shortness of breath or wheezing #8.5 grams fluticasone propionate 50 2 spray intranasal DAILY #16 grams 03/07/24 10/11/24 mcg/actuation nasal spray,suspension acetaminophen 650 mg/20.3 mL oral 650 mg PO Q6H PRN 03/29/24 10/11/24 solution oxycodone 5 mg tablet 5 mg PO Q4H PRN 03/29/24 10/11/24 diazepam 2 mg tablet (Valium) 2 mg PO BID PRN anxiety; 04/13/24 10/11/24 anticipatory anxiety (work or procedures) #20 tabs propranolol 10 mg tablet 10 mg PO TID anticipatory anxiety; 04/13/24 10/11/24 elevated pulse #30 tabs budesonide-formoterol HFA 160 2 puff inhalation BID #10.2 grams 06/09/24 10/11/24 mcg-4.5 mcg/actuation aerosol inhaler magnesium oxide 400 mg (241.3 mg 800 mg PO BID 08/19/24 10/11/24 magnesium) tablet (MagOx) apixaban 5 mg tablet (Eliquis) 5 mg PO BID 10/11/24 10/11/24 Previous Rx's ?Medication ?Instructions ?Recorded potassium chloride 20 mEq 20 meq PO DAILY #7 tabs 03/07/22 tablet,extended release esomeprazole magnesium 40 mg 40 mg PO DAILY GERD #90 caps 10/15/23 capsule,delayed release (Nexium) albuterol sulfate 90 mcg/actuation 2 puff inhalation Q6H PRN 02/03/24 aerosol inhaler shortness of breath or wheezing #8.5 grams fluticasone propionate 50 2 spray intranasal DAILY #16 grams 03/07/24 mcg/actuation nasal spray,suspension diazepam 2 mg tablet (Valium) 2 mg PO BID PRN anxiety; 04/13/24 anticipatory anxiety (work or procedures) #20 tabs propranolol 10 mg tablet 10 mg PO TID anticipatory anxiety; 04/13/24 elevated pulse #30 tabs budesonide-formoterol HFA 160 2 puff inhalation BID #10.2 grams 06/09/24 mcg-4.5 mcg/actuation aerosol inhaler Allergies Allergy/AdvReac Type Severity Reaction Status Date / Time environmental Allergy Intermediate itchy, Uncoded 10/11/24 22:53 watery eyes General Stated Complaint: CVA/TIA PAIGE: 2 Exam Const General: cooperative and no acute distress Eyes General: appearance normal, both eyes and all related structures Alignment and Position: alignment normal Pupils: PERRL EOM: EOM intact bilaterally Resp Effort & Inspection: normal respiratory effort Auscultation: clear to auscultation bilaterally Cardio Rate: regular rate Rhythm: regular rhythm Heart Sounds: S1 normal and S2 normal GI Inspection: normal to inspection Palpation: soft Auscultation: normal bowel sounds Skin General skin exam: no rashes or lesions noted, elasticity normal and turgor normal Neuro General: patient alert, patient awake, patient oriented x3, moves all extremities, normal light touch, pain and propioception, no focal motor deficits and CN's II-XI intact bilaterally Cranial Nerves: EOM intact bilaterally and no nystagmus Cognition: normal cognition Speech: speech normal Gait: normal gait Course Vital Signs Vital signs: Vital Signs Temperature 36.9 C 10/11/24 21:38 Pulse 96 H 10/11/24 21:38 Respiratory Rate 28 H 10/11/24 21:38 Blood Pressure 135/72 10/11/24 21:38 Pulse Oximetry 95 10/11/24 21:38 Temperature 36.9 C 10/11/24 21:38 Pulse 99 H 10/11/24 22:50 Pulse 95 H 10/11/24 23:50 Respiratory Rate 24 10/11/24 23:50 Respiratory Effort Normal 10/11/24 22:39 Respiratory Depth Normal 10/11/24 22:39 Respiratory Pattern Normal 10/11/24 22:39 Blood Pressure 94/38 L 10/11/24 22:45 Blood Pressure Mean 56 10/11/24 22:45 Pulse Oximetry 99 10/11/24 22:50 Oxygen Delivery Method Room Air 10/11/24 21:38 Oxygen Flow Rate 0 10/11/24 21:38 Pain Level 0 10/11/24 21:38 Lab/Test Results Lab/Test Results: Laboratory Tests Range/Units 10/11/24 10/11/24 10/11/24 22:27 23:19 23:27 WBC (4.4-10.8) 10^3/uL 5.24 RBC (3.93-5.22) 10^6/uL 3.34 L Hgb (11.2-15.7) g/dL 10.3 L Hct (36.0-46.0) % 32.3 L MCV (80-95) fL 97 H MCH (27.0-33.0) pg 30.8 MCHC (32.0-36.0) % 31.9 L RDW (11.7-14.6) % 16.7 H Plt Count (130-400) 10^3/uL 215 MPV (8.0-11.0) fL 10.4 Immature Gran % % 0.4 Neutrophils % % 65.8 Lymphocytes % % 22.1 Monocytes % % 9.4 Eosinophils % % 1.5 Basophils % % 0.8 Nucleated RBC % (0.0-0.3) % 0.0 Absolute Neutrophils (1.2-6.7) 10^3/uL 3.45 Absolute Lymphocytes (1.2-3.4) 10^3/uL 1.16 L Absolute Monocytes (0.1-0.8) 10^3/uL 0.49 Absolute Eosinophils (0.0-0.7) 10^3/uL 0.08 Absolute Basophils (0.0-0.2) 10^3/uL 0.04 PT (9.1-11.1) sec 10.4 INR (0.9-1.1) 1.0 APTT (20.6-30.2) sec 26.3 Sodium (136-145) mmol/L 143 Potassium (3.5-5.1) mmol/L 3.9 Chloride (98-107) mmol/L 110 H Carbon Dioxide (21.0-32.0) mmol/L 24.3 Anion Gap (3-11) mmol/L 8.7 BUN (7-18) mg/dL 9 Creatinine (0.55-1.02) mg/dL 0.8 Est GFR (CKD-EPI 2020) (mL/min/1.73m2) 86.96 Glucose (74-106) mg/dL 110 H Calcium (8.5-10.1) mg/dL 7.8 L Magnesium (1.8-2.4) mg/dL 0.9 L Total Bilirubin (0.2-1.0) mg/dL 0.3 AST (15-37) U/L 22 ALT (14-59) U/L 26 Alkaline Phosphatase (46-116) U/L 225 H Troponin I (<or=51) ng/L < 4 < 4 Total Protein (6.4-8.2) g/dL 6.7 Albumin (3.4-5.0) g/dL 3.0 L Urine Color (Yellow) Yellow Urine Clarity (Clear) Clear Urine pH (5-8) 7.0 Ur Specific [place] (1.005-1.025) 1.015 Urine Protein (Neg-Trace) mg/dL Trace Urine Ketones (Negative) mg/dL Negative Urine Blood (Negative) Trace-intact H Urine Nitrite (Negative) Negative Urine Bilirubin (Negative) Negative Urine Urobilinogen (Up to 0.2) mg/dL 0.2 Ur Leukocyte Esterase (Negative) Moderate H Urine RBC (0-2) HPF 0-2 Urine WBC (0-5) HPF 10-20 H Ur Epithelial Cells (Negative) HPF Moderate Urine Crystals (Negative) HPF Many Calcium Oxalate Urine Bacteria (Negative) HPF Rare Urine Casts (Negative) LPF Negative Urine Mucus (Negative) Negative Urine Other (Negative) Rare Transitional Ur Culture Indicated? No/Sq. Contamination Urine Glucose (Negative) mg/dL Negative Medical Decision Making The patient was seen and examined. Initially her NIH stroke scale was 0 for me. The patient was sent for a stroke protocol CT with CTA of the head and neck. The patient was found to have a 19 mm mass in the right frontal cortex just below the prior craniotomy flap which appears to be new since an MRI in July. The patient was also found to have a spiculated lung mass in the left upper lung field with some invasion of the mediastinum and mediastinal apathy. The patient was evaluated by Dr. Sanchez from teleneurology who felt that the patient could potentially have a TIA or stroke, but was also concerned that this could have represented an atypical seizure. He recommended that we hold the Lovenox for now, obtain an MRI with and without contrast soon as possible, and obtain an EEG. He felt that there continued to be a mild right sided facial droop and gave the patient an NIH stroke scale of 1. I discussed the case with Dr. Rodrigues from the neurosurgery service at [facility], who agreed to accept the patient as an ED to ED transfer for ongoing neurologic evaluation, facilitation of more rapid MRI, and EEG for the patient. He did ask that the patient be given a gram of Keppra prior to transport. I will arrange ALS transport between our facilities. Quality:SDOH Health Related Social Needs: No Data to Display PFSH All Active Problems (Updated 10/12/24 @ 01:07 by Chiki Childress MD) Brain TIA (Acute) Chronic cough (Acute) Secondary malignant neoplasm of brain (Acute ~03/15/24) [facility] [place] Weight loss (Acute) Long-term current use of proton pump inhibitor therapy (Acute) Risk factor for osteopenia, DEXA [ ] Anemia (Chronic) Low RBC, low-normal HGB. High MCV Heart palpitations (Acute) GERD (gastroesophageal reflux disease) (Chronic) Shoulder pain (Acute) Neck pain (Acute) Osteoarthritis of right knee (Acute) acute on chronic pain, Hx ruptures bakers cyst Skin sensitivity (Acute) Hands/feet are sensitive and peel easily (2' cap swelling due to chemo) .. Using work-balm, udder cream. May need Rx, Derm. Malignant neoplasm of sigmoid colon (Chronic) [place]), s/p Chemo x 2.5 yrs .... with Met (2014)(+Chemo) and again (2016)(+Rad/Chemo) .. Now with [facility] [place]. Iqbal. 09/2020opulmonary nodule RLL, restaged CT 03/26/22 08/29/22 [facility] Hem/Onc visit - Lonsurf/avastin therapy 10/30/23 F/u w Dr Iqbal 08/30/24 F/U [facility] Hem/Onc Cancer, metastatic to liver (Acute) s/p Rad, Chemo (2016) .. Original colon cancer, s/p resection (2011) Cancer, metastatic to lung (Chronic) Colon Cancer, s/p resection/chemo (2011) . Mets to LUNG (2014), s/p more chemo. 11/22/21 F/u Dr Iqbal - pt due for next cycle of capecitabine. Other fatigue (Acute) Bone metastasis (Acute) Hypocalcemia (Acute) Hypomagnesemia (Acute) Hypokalemia (Acute) Medical History (Updated 10/12/24 @ 01:07 by Chiki Childress MD) Support system deficit Good group of friends, 09/2023.. Newly moved from [place] (2019) Depression Pt stopped: Hx Sertraline Caregiver stress Mo in [facility]. 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 Mo in [facility], 02/28/21 Bone spur 1993 - surgery [place], [place] Surgical History (Updated 04/06/24 @ 18:10 by Nanci Benoit DO) S/[place]ani[place] [facility] [place]/[address] Aaron Palacios History of colon resection (07/2011) History of surgery of liver History of breast biopsy Family History Mother Colon cancer metastatic colorectal Diabetes Heart disease Brother Heart disease Father Stroke Cancer skin Heart disease Social History Smoking/Tobacco Use Status: Never Smoking risk assessment performed?: Yes Alcohol Intake: never Substance use type: does not use Adopted: No Caregiver/Support person: No Foster care: No Household members: family Housing: apartment Number of Children: 2 number of grandchildren: 1 Communication Needs: None Education Level: college Details: Bachelor's Degree Do you need help understanding health information?: Rarely 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
[2024-10-12] MEDS: levETIRAcetam 1,000 MG in Normal Saline 100 ML 400 MG IVPB (00:51)
--- NOTE | 2024-10-12 04:13 | NUR.NOTE ---
Pt transferred with this RN via [facility] to [facility]. Transport was uneventful vitals remained stable and patient was free of pain and any neurological symptoms. ER charge nurse Will took report upon arrival.
== END 2024-10-12 01:50 | disposition short-term general hospital (02) ==
PROVIDERS: Emergency Provider Emergency Medicine Emergency Medical Services; PCP Nurse Practitioner Family
DX: C79.31 Secondary malignant neoplasm of brain (principal); G45.9 Transient cerebral ischemic attack, unspecified
CPT/HCPCS: 99285 ×2; 36415; 70496; 70498; 80053; 93005; 96365; 81003; 81015; 83735; 84484; 85025; 85610; 85730; 93010; J1953; J3490

== ENCOUNTER 2024-10-12 03:03 | Outpatient (RCR) | payer BC, SELFPAY ==
[2024-09-28] MEDS: Normal Saline Flush 10 ML SYR IVP (07:00)
[2024-09-28 07:13] LABS: Abs Immature Grans 0.03 10^3/uL (0.0-0.06); Absolute Basophil Count 0.04 10^3/uL (0.0-0.2); Absolute Eosinophil Count 0.11 10^3/uL (0.0-0.7); Absolute Lymphocyte Count 0.91 10^3/uL (1.2-3.4); Basophils % 0.8 %; Eosinophils % 2.2 %; HCT 33.9 % (36.0-46.0); HGB 10.9 g/dL (11.2-15.7); Immature Grans % 0.6 %; Lymphocytes % 17.9 %; MCH 31.1 pg (27.0-33.0); MCHC 32.2 % (32.0-36.0); MCV 97 fL (80-95); MPV 10.6 fL (8.0-11.0); Monocytes % 7.9 %; Neutrophils % 70.6 %; Platelet Count 240 10^3/uL (130-400); RDW 16.4 % (11.7-14.6); RDW-SD 58.4 fL; WBC 5.09 10^3/uL (4.4-10.8)
[2024-09-28 07:26] LABS: ALT 25 U/L (14-59); AST 22 U/L (15-37); Albumin 2.9 g/dL (3.4-5.0); Alkaline Phosphatase 243 U/L (46-116); Anion Gap 13.1 mmol/L (3-11); BUN 11 mg/dL (7-18); Bilirubin, Total 0.3 mg/dL (0.2-1.0); CO2 22.9 mmol/L (21.0-32.0); CREATININE 0.8 mg/dL (0.55-1.02); Calcium 8.3 mg/dL (8.5-10.1); Chloride 108 mmol/L (98-107); Estimated GFR 86.96 (mL/min/1.73m2); Glucose 124 mg/dL (74-106); Magnesium 0.9 mg/dL (1.8-2.4); Potassium 3.8 mmol/L (3.5-5.1); Sodium 144 mmol/L (136-145); Total Protein 6.8 g/dL (6.4-8.2)
[2024-09-28 18:33] LABS: CEA 11.9 ng/mL (See Note)
== END 2024-10-19 23:59 | disposition home or self-care (01) ==
LOC: INF 03:03
PROVIDERS: PCP Nurse Practitioner Family; Visit Provider Internal Medicine Hematology & Oncology
DX: C18.9 Malignant neoplasm of colon, unspecified (principal); C78.00 Secondary malignant neoplasm of unspecified lung; C78.7 Secondary malignant neoplasm of liver and intrahepatic bile duct; Z79.899 Other long term (current) drug therapy; Z45.2 Encounter for adjustment and management of vascular access device
CPT/HCPCS: 36591; 80053; 82378; 83735; 85025

== ENCOUNTER 2024-11-09 02:22 | Outpatient (RCR) | payer BC, SELFPAY ==
[2024-11-09 07:44] LABS: Abs Immature Grans 0.03 10^3/uL (0.0-0.06); Absolute Basophil Count 0.03 10^3/uL (0.0-0.2); Absolute Eosinophil Count 0.29 10^3/uL (0.0-0.7); Absolute Lymphocyte Count 0.67 10^3/uL (1.2-3.4); Absolute Monocyte Count 0.41 10^3/uL (0.1-0.8); Absolute Neutrophil Count 7.76 10^3/uL (1.2-6.7); Basophils % 0.3 %; Eosinophils % 3.2 %; HCT 33.3 % (36.0-46.0); HGB 10.8 g/dL (11.2-15.7); Immature Grans % 0.3 %; Lymphocytes % 7.3 %; MCH 31.3 pg (27.0-33.0); MCHC 32.4 % (32.0-36.0); MCV 97 fL (80-95); MPV 10.4 fL (8.0-11.0); Monocytes % 4.5 %; Neutrophils % 84.4 %; Platelet Count 247 10^3/uL (130-400); RBC 3.45 10^6/uL (3.93-5.22); RDW 17.1 % (11.7-14.6); RDW-SD 60.1 fL; WBC 9.19 10^3/uL (4.4-10.8)
[2024-11-09 08:02] LABS: ALT 54 U/L (14-59); AST 38 U/L (15-37); Albumin 2.8 g/dL (3.4-5.0); Alkaline Phosphatase 310 U/L (46-116); Anion Gap 9.4 mmol/L (3-11); BUN 11 mg/dL (7-18); CO2 23.6 mmol/L (21.0-32.0); CREATININE 0.9 mg/dL (0.55-1.02); Calcium 9.1 mg/dL (8.5-10.1); Chloride 104 mmol/L (98-107); Estimated GFR 75.03 (mL/min/1.73m2); Glucose 130 mg/dL (74-106); Magnesium 1.6 mg/dL (1.8-2.4); Sodium 137 mmol/L (136-145); Total Protein 7.4 g/dL (6.4-8.2)
[2024-11-09 19:40] LABS: CEA 17.2 ng/mL (See Note)
== END 2024-11-19 23:59 | disposition home or self-care (01) ==
LOC: INF 02:22
PROVIDERS: PCP Nurse Practitioner Family; Visit Provider Internal Medicine Hematology & Oncology
DX: C18.9 Malignant neoplasm of colon, unspecified (principal); C78.7 Secondary malignant neoplasm of liver and intrahepatic bile duct
CPT/HCPCS: 36415; 80053; 82378; 83735; 85025

== ENCOUNTER 2024-12-07 02:41 | Outpatient (RCR) | payer BC, SELFPAY ==
[2024-11-23 07:33] LABS: Abs Immature Grans 0.01 10^3/uL (0.0-0.06); Absolute Basophil Count 0.03 10^3/uL (0.0-0.2); Absolute Eosinophil Count 0.12 10^3/uL (0.0-0.7); Absolute Lymphocyte Count 0.84 10^3/uL (1.2-3.4); Absolute Monocyte Count 0.33 10^3/uL (0.1-0.8); Absolute Neutrophil Count 3.39 10^3/uL (1.2-6.7); Basophils % 0.6 %; Eosinophils % 2.5 %; HCT 33.8 % (36.0-46.0); Immature Grans % 0.2 %; Lymphocytes % 17.8 %; MCH 30.7 pg (27.0-33.0); MCHC 32.5 % (32.0-36.0); MCV 94 fL (80-95); MPV 10.2 fL (8.0-11.0); Neutrophils % 71.9 %; Platelet Count 305 10^3/uL (130-400); RBC 3.58 10^6/uL (3.93-5.22); RDW-SD 52.7 fL; WBC 4.72 10^3/uL (4.4-10.8)
[2024-11-23 08:00] LABS: ALT 33 U/L (14-59); AST 28 U/L (15-37); Albumin 3.1 g/dL (3.4-5.0); Alkaline Phosphatase 307 U/L (46-116); BUN 11 mg/dL (7-18); Bilirubin, Total 0.3 mg/dL (0.2-1.0); CREATININE 0.8 mg/dL (0.55-1.02); Calcium 8.9 mg/dL (8.5-10.1); Chloride 106 mmol/L (98-107); Estimated GFR 86.42 (mL/min/1.73m2); Glucose 110 mg/dL (74-106); Magnesium 1.7 mg/dL (1.8-2.4); Potassium 3.7 mmol/L (3.5-5.1); Sodium 142 mmol/L (136-145); Total Protein 7.6 g/dL (6.4-8.2)
[2024-12-07 07:30] LABS: Abs Immature Grans 0.02 10^3/uL (0.0-0.06); Absolute Basophil Count 0.03 10^3/uL (0.0-0.2); Absolute Eosinophil Count 0.11 10^3/uL (0.0-0.7); Absolute Lymphocyte Count 1.07 10^3/uL (1.2-3.4); Absolute Monocyte Count 0.37 10^3/uL (0.1-0.8); Absolute Neutrophil Count 2.83 10^3/uL (1.2-6.7); Basophils % 0.7 %; Eosinophils % 2.5 %; HCT 34.5 % (36.0-46.0); HGB 11.2 g/dL (11.2-15.7); Immature Grans % 0.5 %; Lymphocytes % 24.2 %; MCH 30.8 pg (27.0-33.0); MCHC 32.5 % (32.0-36.0); MCV 95 fL (80-95); MPV 10.3 fL (8.0-11.0); Monocytes % 8.4 %; Neutrophils % 63.7 %; Platelet Count 310 10^3/uL (130-400); RBC 3.64 10^6/uL (3.93-5.22); RDW 15.4 % (11.7-14.6); RDW-SD 53.7 fL; WBC 4.43 10^3/uL (4.4-10.8)
[2024-12-07 07:45] LABS: ALT 44 U/L (14-59); AST 39 U/L (15-37); Albumin 3.3 g/dL (3.4-5.0); Alkaline Phosphatase 265 U/L (46-116); Anion Gap 11.2 mmol/L (3-11); BUN 7 mg/dL (7-18); Bilirubin, Total 0.4 mg/dL (0.2-1.0); CO2 26.8 mmol/L (21.0-32.0); CREATININE 0.7 mg/dL (0.55-1.02); Chloride 106 mmol/L (98-107); Estimated GFR 101.44 (mL/min/1.73m2); Glucose 117 mg/dL (74-106); Magnesium 2.1 mg/dL (1.8-2.4); Sodium 144 mmol/L (136-145); Total Protein 7.6 g/dL (6.4-8.2)
== END 2024-12-19 23:59 | disposition home or self-care (01) ==
LOC: INF 02:41
PROVIDERS: PCP Nurse Practitioner Family; Visit Provider Internal Medicine Hematology & Oncology
DX: C18.9 Malignant neoplasm of colon, unspecified (principal); C78.00 Secondary malignant neoplasm of unspecified lung; C78.7 Secondary malignant neoplasm of liver and intrahepatic bile duct; Z79.899 Other long term (current) drug therapy
CPT/HCPCS: 36415; 80053; 82378; 83735; 85025

== ENCOUNTER 2024-12-11 20:18 | Emergency (ER) | payer BC, SELFPAY ==
[2024-12-11] VITALS (18 sets, daily range): BP systolic 110–117; BP diastolic 72–86; PULSE 78–115; RESP 12–28; TEMP 36.8; O2SAT 95–99
--- NOTE | 2024-12-11 20:15 | RT.EKG_ITS ---
APPROVED REPORT Exam: Resting ECG Reason for Exam: TIA Patient Location: E HR:106 bpm ECG Measurements Heart Rate 106 AXIS AK 100 P 0 QRSd 77 QRS -28 QT 312 T -72 QTc 414 Conclusion Sinus tachycardia...rate> 99 Inferior infarct, old...Q >35mS, II III aVF Anteroseptal infarct, age indeterminate...Q >35mS, T neg, V1-V2 Sinus tachycardia, inferior Q wave. When compared to prior 10/11/24 HR has increasd. WD
--- NOTE | 2024-12-11 20:30 | DI.CT_ITS ---
Exam(s) CT HEAD - STROKE PROTOCOL EXAM: CT HEAD - STROKE PROTOCOL CLINICAL HISTORY: speech difficulty, facial droop. TECHNIQUE: Imaging Protocol: Axial computed tomography images with coronal and sagittal reformatted images were created and reviewed COMPARISON: CT CT BRAIN NECK CTA from 10/11/2024 FINDINGS: Ventricles and Extra axial spaces: Normal in size and morphology for the patient's age. Hemorrhage: None. Cerebral parenchyma: No evidence of acute infarct or mass. Previously noted enhancing lesion in the right frontal parietal region has been resected. There is a small area of adjacent encephalomalacia. Midline shift: None. Brainstem/Cerebellum: Normal. Calvarium: Right frontal parietal parietal craniotomy defect. There is a new craniotomy defect inferior to the original craniotomy. Visualized Paranasal sinuses:Clear. Mastoids: Clear. Soft Tissues: Unremarkable. ORBITS: Unremarkable. PITUITARY: Not enlarged. IMPRESSION: Resection of previously noted right frontal parietal dural-based mass. No acute intracranial process. RADIATION DOSE DELIVERED: 859.3mGy.cm Total DLP DATA REPOSITORY: All CT scans at this facility are submitted to the National Radiology Data Registry (NRDR) Dose Index Registry (DIR) with the [employer] (ACR). RADIATION OPTIMIZATION: All CT scans at this facility use at least one of these dose optimization techniques: automated exposure control; mA and/or kV adjustment per patient size (includes targeted exams where dose is matched to clinical indication); or iterative reconstruction.
[2024-12-11 21:00] LABS: Abs Immature Grans 0.01 10^3/uL (0.0-0.06); Absolute Basophil Count 0.01 10^3/uL (0.0-0.2); Absolute Eosinophil Count 0.06 10^3/uL (0.0-0.7); Absolute Lymphocyte Count 0.98 10^3/uL (1.2-3.4); Absolute Monocyte Count 0.15 10^3/uL (0.1-0.8); Absolute Neutrophil Count 4.08 10^3/uL (1.2-6.7); Basophils % 0.2 %; Eosinophils % 1.1 %; HCT 34.5 % (36.0-46.0); Immature Grans % 0.2 %; Lymphocytes % 18.5 %; MCH 29.9 pg (27.0-33.0); MCHC 31.9 % (32.0-36.0); MCV 94 fL (80-95); Monocytes % 2.8 %; Neutrophils % 77.2 %; Platelet Count 314 10^3/uL (130-400); RBC 3.68 10^6/uL (3.93-5.22); RDW 15.3 % (11.7-14.6); RDW-SD 53.1 fL; WBC 5.29 10^3/uL (4.4-10.8)
--- NOTE | 2024-12-11 21:13 | DI.VRAD_ITS ---
PROCEDURE INFORMATION: Exam: CT Head Without Contrast Exam date and time: 12/11/2024 8:55 PM Age: 54 years old Clinical indication: Other: Speech difficulty, facial droop TECHNIQUE: Imaging protocol: Computed tomography of the head without contrast. COMPARISON: CT BRAIN NECK CTA 10/11/2024 10:59 PM FINDINGS: Brain: Mild encephalomalacia in the right parietal lobe No hemorrhage. Unremarkable white matter. No mass effect. Cerebral ventricles: No ventriculomegaly. Paranasal sinuses: Minimal mucosal thickening posterior right ethmoid air cells. No fluid levels. Mastoid air cells: Visualized mastoid air cells are well aerated. Bones: Right-sided craniotomies are grossly stable. No acute fracture. Soft tissues: Unremarkable. IMPRESSION: No acute intracranial abnormality. Previously visualized hemorrhage in the right temporoparietal junction , not visualized on the current study Postsurgical changes, grossly stable Dictated and Authenticated by: Michael Marrufo MD. Orderin Juliet Johnson MD
--- NOTE | 2024-12-11 21:17 | W.ED.GENAD ---
Discharge Plan Disposition Patient Disposition: Home Condition: Stable Discharge Details Clinical Impression: TIA on medication Primary Care Provider: Penny Browning ED Provider: Lucero Galeana Home Meds and New Rx's Prescriptions: Continued budesonide-formoterol 160-4.5 mcg/actuation HFA aerosol inhaler 2 puff inhalation BID Qty: 10.2 3RF rlpognhrrr-yfndqrcnhropb-biqg 50-325-40 mg tablet 1 tab PO Q4H PRN polyethylene glycol 3350 [Miralax] 17 gram powder in packet 17 g PO DAILY PRN sennosides-docusate sodium [Senna with Docusate Sodium] 8.6-50 mg tablet 2 tab-cap PO BID PRN Rx Instructions: Constipation albuterol sulfate 90 mcg/actuation HFA aerosol inhaler 2 puff inhalation Q6H PRN (Reason: shortness of breath or wheezing) Qty: 8.5 3RF prochlorperazine maleate [Compazine] 10 mg tablet 10 mg PO Q6H PRN cetirizine [Zyrtec] 10 mg tablet 10 mg PO DAILY PRN Patient Comments: 11/22/[address] Iqbal's progress note melatonin 5 mg tablet 5 mg PO HS PRN fluticasone propionate 50 mcg/actuation spray,suspension 2 spray intranasal DAILY Qty: 16 0RF Rx Instructions: administer into each nostril acetaminophen 650 mg/20.3 mL solution 650 mg PO Q6H PRN propranolol 10 mg tablet 10 mg PO TID Qty: 30 1RF Rx Instructions: Trial for anticipatory anxiety: (1) in am and (1) pre-meeting [up to 3/day] diazepam [Valium] 2 mg tablet 2 mg PO BID PRN (Reason: anxiety; anticipatory anxiety (work or procedures)) Qty: 20 1RF Rx Instructions: Trial for anxiety or panic episode (do not drive or consume alcohol) magnesium oxide [MagOx] 400 mg (241.3 mg magnesium) tablet 800 mg PO BID Rx Instructions: [facility] note from 08/19/24.HE esomeprazole magnesium 40 mg capsule,delayed release(DR/EC) See Rx Instructions .ROUTE .COMPLEX Qty: 90 3RF Dose Instruction: TAKE ONE CAPSULE BY MOUTH EVERY DAY Rx Instructions: TAKE ONE CAPSULE BY MOUTH EVERY DAY Eliquis 5 mg tablet 5 mg PO BID potassium chloride 20 mEq tablet extended release 20 meq PO DAILY Qty: 7 0RF Discharge Instructions Instructions: Lowering the risk of having a stroke, Transient Ischemic Attack ED Additional Instructions: At this time CT is within normal limits also your labs show no evidence of heart attack or any other significant abnormalities. Please continue taking your normal medications. If you have any more episodes of any neurosymptoms please return to the emergency department and we will admit you for observation. You may also follow-up with your neurologist or your PCP within the next few days which is recommended as well. Follow up with primary care provider in 3-5 days. Return to ED sooner if any worsening or concerns. Thank you for allowing us to care for you today. Referrals: Penny Browning APRN [Primary Care Provider, [facility]] - 3 days HPI General Mode of arrival: ambulatory. Date/Time Provider Initiated Documentation: 12/11/24 20:40. Limitations to Documentation: no limitations. Information obtained by: patient, RN notes reviewed and old records reviewed. HPI Narrative: 54-year-old female presents to the ER with a chief complaint of jaw tightness, garbled speech and facial droop which occurred approximately 20 minutes prior to patient's arrival. Patient symptoms resolved before she arrived to the emergency department. She does have a history of colon cancer with mets to the lung, liver and brain with a brain mass which was surgically removed in March and also another cranial surgery on October 20. She reports tingling in 3 of her fingers on her left hand these have all resolved. Denies any weakness on one side of her body or the other. Patient was seen in CT VS stroke protocol on my evaluation she is alert and oriented no pronator drift, no facial droop which she is ANO x 4. Related Data Home Medications ?Medication ?Instructions ?Recorded ?Confirmed cetirizine 10 mg tablet (Zyrtec) 10 mg PO DAILY PRN 11/28/21 12/11/24 prochlorperazine maleate 10 mg 10 mg PO Q6H PRN 11/28/21 12/11/24 tablet (Compazine) potassium chloride 20 mEq 20 meq PO DAILY #7 tabs 03/07/22 12/11/24 tablet,extended release melatonin 5 mg tablet 5 mg PO HS PRN 09/01/23 12/11/24 albuterol sulfate 90 mcg/actuation 2 puff inhalation Q6H PRN 02/03/24 12/11/24 aerosol inhaler shortness of breath or wheezing #8.5 grams fluticasone propionate 50 2 spray intranasal DAILY #16 grams 03/07/24 12/11/24 mcg/actuation nasal spray,suspension acetaminophen 650 mg/20.3 mL oral 650 mg PO Q6H PRN 03/29/24 12/11/24 solution diazepam 2 mg tablet (Valium) 2 mg PO BID PRN anxiety; 04/13/24 12/11/24 anticipatory anxiety (work or procedures) #20 tabs propranolol 10 mg tablet 10 mg PO TID anticipatory anxiety; 04/13/24 12/11/24 elevated pulse #30 tabs budesonide-formoterol HFA 160 2 puff inhalation BID #10.2 grams 06/09/24 12/11/24 mcg-4.5 mcg/actuation aerosol inhaler magnesium oxide 400 mg (241.3 mg 800 mg PO BID 08/19/24 12/11/24 magnesium) tablet (MagOx) apixaban 5 mg tablet (Eliquis) 5 mg PO BID 10/11/24 12/11/24 sdjwekmfxf-hcqpnkfzhgulu-zfauysxu 1 tab PO Q4H PRN 10/24/24 12/11/24 50 mg-325 mg-40 mg tablet polyethylene glycol 3350 17 gram 17 g PO DAILY PRN 10/24/24 12/11/24 oral powder packet (Miralax) sennosides 8.6 mg-docusate sodium 2 tab-cap PO BID PRN 10/24/24 12/11/24 50 mg tablet (Senna with Docusate Sodium) esomeprazole magnesium 40 mg See Rx Instructions .Route 12/07/24 12/11/24 capsule,delayed release .COMPLEX #90 caps Previous Rx's ?Medication ?Instructions ?Recorded potassium chloride 20 mEq 20 meq PO DAILY #7 tabs 03/07/22 tablet,extended release albuterol sulfate 90 mcg/actuation 2 puff inhalation Q6H PRN 02/03/24 aerosol inhaler shortness of breath or wheezing #8.5 grams fluticasone propionate 50 2 spray intranasal DAILY #16 grams 03/07/24 mcg/actuation nasal spray,suspension diazepam 2 mg tablet (Valium) 2 mg PO BID PRN anxiety; 10/23/24 anticipatory anxiety (work or procedures) #20 tabs propranolol 10 mg tablet 10 mg PO TID anticipatory anxiety; 04/13/24 elevated pulse #30 tabs budesonide-formoterol HFA 160 2 puff inhalation BID #10.2 grams 06/09/24 mcg-4.5 mcg/actuation aerosol inhaler esomeprazole magnesium 40 mg See Rx Instructions .Route 12/07/24 capsule,delayed release .COMPLEX #90 caps Allergies Allergy/AdvReac Type Severity Reaction Status Date / Time environmental Allergy Intermediate itchy, Uncoded 12/11/24 20:26 watery eyes General Stated Complaint: CVA/TIA PAIGE: 3 Review of Systems All systems reviewed & are unremarkable except as noted in HPI and below Exam Narrative Exam Narrative: Constitutional: Alert and oriented x3. Appears stated age. Normal body habitus. Head: Normocephalic, does have healing surgical scar to the right temporal region, no redness swelling or drainage. Eyes: Pupils PERRL, Red reflex noted, EOM's intact. Eyelids symmetrical without lesions, discharge, or swelling. ENT: Bilateral TM's WNL, External ear normal to inspection, no mastoid TTP, swelling, or erythema, Nasal turbinates WNL, no nasal discharge. Normal dentition, Posterior pharynx WNL, no exudate. Chest: RRR, Normal S1, S2, distal pulses intact. Resp: Lungs clear to auscultation bilaterally, no wheezes, rales, or rhonchi. Abdomen: Soft, non-distended, Normoactive bowel sounds all 4 quads. Musculoskeletal: Normal gait, Moves all 4 extremities without difficulty. Skin: No suspicious rashes or lesions. Capillary refill less than 2 sec. Neurologic: Cranial nerves II-XII intact. Alert and oriented x 3. Motor: No deficits noted. Sensory: Intact bilaterally all 4 extremities. Hematologic/Lymphatic: No ecchymosis, no lymphadenopathy. Course Vital Signs Vital signs: Vital Signs Temperature 36.8 C 12/11/24 20:20 Pulse 115 H 12/11/24 20:20 Respiratory Rate 18 12/11/24 20:20 Blood Pressure 115/72 12/11/24 20:20 Pulse Oximetry 95 12/11/24 20:20 Temperature 36.8 C 12/11/24 20:20 Temperature Source Oral 12/11/24 20:20 Pulse 97 H 12/11/24 20:46 Pulse 95 H 12/11/24 20:50 Respiratory Rate 28 H 12/11/24 20:50 Respiratory Effort Normal, Non-Labored 12/11/24 20:38 Respiratory Depth Normal 12/11/24 20:38 Blood Pressure 117/86 12/11/24 20:46 Blood Pressure Mean 96 12/11/24 20:46 Pulse Oximetry 98 12/11/24 20:40 Oxygen Delivery Method Room Air 12/11/24 20:20 Oxygen Flow Rate 0 12/11/24 20:20 Lab/Test Results Lab/Test Results: Laboratory Tests Range/Units 12/11/24 20:50 WBC (4.4-10.8) 10^3/uL 5.29 RBC (3.93-5.22) 10^6/uL 3.68 L Hgb (11.2-15.7) g/dL 11.0 L Hct (36.0-46.0) % 34.5 L MCV (80-95) fL 94 MCH (27.0-33.0) pg 29.9 MCHC (32.0-36.0) % 31.9 L RDW (11.7-14.6) % 15.3 H Plt Count (130-400) 10^3/uL 314 MPV (8.0-11.0) fL 10.0 Immature Gran % % 0.2 Neutrophils % % 77.2 Lymphocytes % % 18.5 Monocytes % % 2.8 Eosinophils % % 1.1 Basophils % % 0.2 Nucleated RBC % (0.0-0.3) % 0.0 Absolute Neutrophils (1.2-6.7) 10^3/uL 4.08 Absolute Lymphocytes (1.2-3.4) 10^3/uL 0.98 L Absolute Monocytes (0.1-0.8) 10^3/uL 0.15 Absolute Eosinophils (0.0-0.7) 10^3/uL 0.06 Absolute Basophils (0.0-0.2) 10^3/uL 0.01 Medical Decision Making 54-year-old female presents to the ER with a chief complaint of jaw tightness, garbled speech and facial droop which occurred approximately 20 minutes prior to patient's arrival. Patient symptoms resolved before she arrived to the emergency department. She does have a history of colon cancer with mets to the lung, liver and brain with a brain mass which was surgically removed in March and also another cranial surgery on October 20. She reports tingling in 3 of her fingers on her left hand these have all resolved. Denies any weakness on one side of her body or the other. Patient was seen in CT VS stroke protocol on my evaluation she is alert and oriented no pronator drift, no facial droop which she is ANO x 4. Stroke workup ordered by my colleague Dr. Hairston, CBC shows no leukocytosis hemoglobin 11.0 medic at 34.5, head CT shows no acute intracranial abnormality the previously visualized hemorrhage in the right temporal parietal junction is not visualized on the current study. Postsurgical changes are stable per the [facility] report. Troponins are pending at this time CMP and urinalysis. [facility] reports no acute abnormality on the head CT. No evidence for urinalysis. Labs are largely at baseline and unremarkable for any explain pathology. On patient reevaluation she reports she feels fine no further neurosymptoms. She also notes that she was doing some cleaning and increased activity and just had chemotherapy on Thursday. This could contribute to her symptoms. Patient to be discharged with strict return instructions and instructions to return if any more episodes occur. She is comfortable with this plan and in agreement with the plan. This text was generated using [employer] system, please disregard any oddities of phrase or misspellings. Medical Records Medical records reviewed: Yes I reviewed the patient's medical records. Imaging Data Radiologic Study: Imaging: CT Scan Radiologist's impression: COMPARISON: CT BRAIN NECK CTA 10/11/2024 10:59 PM FINDINGS: Brain: Mild encephalomalacia in the right parietal lobe No hemorrhage. Unremarkable white matter. No mass effect. Cerebral ventricles: No ventriculomegaly. Paranasal sinuses: Minimal mucosal thickening posterior right ethmoid air cells. No fluid levels. Mastoid air cells: Visualized mastoid air cells are well aerated. Bones: Right-sided craniotomies are grossly stable. No acute fracture. Soft tissues: Unremarkable. IMPRESSION: No acute intracranial abnormality. Previously visualized hemorrhage in the right temporoparietal junction , not visualized on the current study Postsurgical changes, grossly stable Thank you for allowing us to participate in the care of your patient. Lab Data Lab results reviewed: Yes I reviewed the patient's lab results. Labs: Laboratory Tests Range/Units 12/11/24 12/11/24 12/11/24 20:50 21:48 23:41 WBC (4.4-10.8) 10^3/uL 5.29 RBC (3.93-5.22) 10^6/uL 3.68 L Hgb (11.2-15.7) g/dL 11.0 L Hct (36.0-46.0) % 34.5 L MCV (80-95) fL 94 MCH (27.0-33.0) pg 29.9 MCHC (32.0-36.0) % 31.9 L RDW (11.7-14.6) % 15.3 H Plt Count (130-400) 10^3/uL 314 MPV (8.0-11.0) fL 10.0 Immature Gran % % 0.2 Neutrophils % % 77.2 Lymphocytes % % 18.5 Monocytes % % 2.8 Eosinophils % % 1.1 Basophils % % 0.2 Nucleated RBC % (0.0-0.3) % 0.0 Absolute Neutrophils (1.2-6.7) 10^3/uL 4.08 Absolute Lymphocytes (1.2-3.4) 10^3/uL 0.98 L Absolute Monocytes (0.1-0.8) 10^3/uL 0.15 Absolute Eosinophils (0.0-0.7) 10^3/uL 0.06 Absolute Basophils (0.0-0.2) 10^3/uL 0.01 Sodium (136-145) mmol/L 142 Potassium (3.5-5.1) mmol/L 3.9 Chloride (98-107) mmol/L 107 Carbon Dioxide (21.0-32.0) mmol/L 25.6 Anion Gap (3-11) mmol/L 9.4 BUN (7-18) mg/dL 17 Creatinine (0.55-1.02) mg/dL 0.8 Est GFR (CKD-EPI 2020) (mL/min/1.73m2) 86.42 Glucose (74-106) mg/dL 112 H Calcium (8.5-10.1) mg/dL 8.6 Magnesium (1.8-2.4) mg/dL 1.7 L Total Bilirubin (0.2-1.0) mg/dL 0.7 AST (15-37) U/L 35 ALT (14-59) U/L 50 Alkaline Phosphatase (46-116) U/L 256 H Troponin I (<or=51) ng/L 7 7 Cancelled Total Protein (6.4-8.2) g/dL 7.1 Albumin (3.4-5.0) g/dL 3.2 L PFSH All Active Problems (Updated 12/11/24 @ 23:01 by Lucero Galeana, BRITNEY) TIA on medication (Acute) S/P craniotomy (Acute) At [facility] [place] 03/24/[address] Aaron Palacios and again R frontaltemporal craniotomy for tumor resection with Gamma tile placement on 10/20/[address] Aaron Palacios at [facility] Chronic cough (Acute) Secondary malignant neoplasm of brain (Acute ~03/15/24) [facility] 04/20/24 F/u with Neurosurgery Weight loss (Acute) Long-term current use of proton pump inhibitor therapy (Acute) Risk factor for osteopenia, DEXA [ ] Anemia (Chronic) Low RBC, low-normal HGB. High MCV Heart palpitations (Acute) GERD (gastroesophageal reflux disease) (Chronic) Shoulder pain (Acute) Neck pain (Acute) Osteoarthritis of right knee (Acute) acute on chronic pain, Hx ruptures bakers cyst Skin sensitivity (Acute) Hands/feet are sensitive and peel easily (2' cap swelling due to chemo) .. Using work-balm, udder cream. May need Rx, Derm. Malignant neoplasm of sigmoid colon (Chronic) [place], [place]), s/p Chemo x 2.5 yrs .... with Met (2014)(+Chemo) and again (2016)(+Rad/Chemo) .. Now with [facility] Onc, Dr. Iqbal. 09/2020opulmonary nodule RLL, restaged CT 03/26/22 08/29/22 [facility] Hem/Onc visit - Lonsurf/avastin therapy 10/30/23 F/u w Dr Iqbal 08/30/24 F/U [facility] Hem/Onc Cancer, metastatic to liver (Acute) s/p Rad, Chemo (2016) .. Original colon cancer, s/p resection (2011) Cancer, metastatic to lung (Chronic) Colon Cancer, s/p resection/chemo (2011) . Mets to LUNG (2014), s/p more chemo. 11/22/21 F/u Dr Iqbal - pt due for next cycle of capecitabine. Other fatigue (Acute) Bone metastasis (Acute) Hypocalcemia (Acute) Hypomagnesemia (Acute) Hypokalemia (Acute) Medical History Support system deficit Good group of friends, 09/2023.. 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 Mo in [facility], 02/28/21 Bone spur 1993 - [place] Surgical History H/O brain surgery (~10/20/24) Right frontotemporal craniotomy for tumor resection with Gamma Tile placement History of colon resection (07/2011) History of surgery of liver History of breast biopsy Family History Mother Colon cancer metastatic colorectal Diabetes Heart disease Brother Heart disease Father Stroke Cancer skin Heart disease Social History Smoking/Tobacco Use Status: Never Smoking risk assessment performed?: Yes Alcohol Intake: never Substance use type: does not use Adopted: No Caregiver/Support person: No Foster care: No Household members: family Housing: apartment Number of Children: 2 number of grandchildren: 1 Communication Needs: None Education Level: college Details: Bachelor's Degree Do you need help understanding health information?: Rarely 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
[2024-12-11 21:18] LABS: ALT 50 U/L (14-59); AST 35 U/L (15-37); Albumin 3.2 g/dL (3.4-5.0); Alkaline Phosphatase 256 U/L (46-116); Anion Gap 9.4 mmol/L (3-11); BUN 17 mg/dL (7-18); Bilirubin, Total 0.7 mg/dL (0.2-1.0); CO2 25.6 mmol/L (21.0-32.0); CREATININE 0.8 mg/dL (0.55-1.02); Calcium 8.6 mg/dL (8.5-10.1); Chloride 107 mmol/L (98-107); Estimated GFR 86.42 (mL/min/1.73m2); Glucose 112 mg/dL (74-106); Magnesium 1.7 mg/dL (1.8-2.4); Potassium 3.9 mmol/L (3.5-5.1); Sodium 142 mmol/L (136-145); Total Protein 7.1 g/dL (6.4-8.2); Troponin I 7 ng/L (<or=51)
[2024-12-11 22:13] LABS: Troponin I 7 ng/L (<or=51)
[2024-12-11 23:02] LABS: Bilirubin Negative (Negative); Blood Negative (Negative); Clarity Clear (Clear); Glucose Negative (Negative); Ketones Negative (Negative); Leukocyte Esterase Negative (Negative); Nitrite Negative (Negative); Specific Gravity <= 1.005 (1.005-1.025); Urobilinogen 0.2 mg/dL (Up to 0.2); pH 5.5 (5-8)
== END 2024-12-11 23:18 | disposition home or self-care (01) ==
PROVIDERS: Emergency Medicine Emergency Medical Services; Emergency Provider Registered Nurse Emergency; PCP Nurse Practitioner Family
DX: R47.9 Unspecified speech disturbances (principal); R29.810 Facial weakness; R00.0 Tachycardia, unspecified; C18.9 Malignant neoplasm of colon, unspecified; C78.00 Secondary malignant neoplasm of unspecified lung; C78.7 Secondary malignant neoplasm of liver and intrahepatic bile duct; C79.31 Secondary malignant neoplasm of brain; Z92.21 Personal history of antineoplastic chemotherapy; Z79.01 Long term (current) use of anticoagulants
CPT/HCPCS: 36415; 80053; 93005; 99285; 70450; 81003; 83735; 84484; 85025; 93010; 99284

== ENCOUNTER 2025-01-04 08:33 | Outpatient (REF) | payer BC, SELFPAY ==
[2025-01-06 12:16] LABS: Chlamydia Result Negative (Negative); GC Result Negative (Negative)
== END 2025-01-04 08:34 | disposition home or self-care (01) ==
LOC: LBN 08:33
PROVIDERS: PCP Nurse Practitioner Family; Visit Provider Nurse Practitioner Family
DX: Z11.3 Encounter for screening for infections with a predominantly sexual mode of transmission (principal); N76.0 Acute vaginitis; C18.9 Malignant neoplasm of colon, unspecified; Z79.899 Other long term (current) drug therapy; C78.00 Secondary malignant neoplasm of unspecified lung; C78.7 Secondary malignant neoplasm of liver and intrahepatic bile duct
CPT/HCPCS: 87491; 87591; 87480; 87510; 87660

== ENCOUNTER 2025-01-18 03:21 | Outpatient (RCR) | payer BC, SELFPAY ==
[2024-12-21 08:15] LABS: Abs Immature Grans 0.02 10^3/uL (0.0-0.06); HCT 34.5 % (36.0-46.0); HGB 11.2 g/dL (11.2-15.7); Immature Grans % 0.4 %; MCH 30.1 pg (27.0-33.0); MCHC 32.5 % (32.0-36.0); MCV 93 fL (80-95); MPV 11.0 fL (8.0-11.0); Platelet Count 322 10^3/uL (130-400); RBC 3.72 10^6/uL (3.93-5.22); RDW 15.7 % (11.7-14.6); RDW-SD 52.8 fL; WBC 4.54 10^3/uL (4.4-10.8)
[2024-12-21 09:04] LABS: ALT 42 U/L (14-59); AST 32 U/L (15-37); Albumin 3.3 g/dL (3.4-5.0); Alkaline Phosphatase 299 U/L (46-116); Anion Gap 9.9 mmol/L (3-11); BUN 8 mg/dL (7-18); Bilirubin, Total 0.5 mg/dL (0.2-1.0); CO2 25.1 mmol/L (21.0-32.0); Calcium 8.7 mg/dL (8.5-10.1); Chloride 106 mmol/L (98-107); Estimated GFR 105.28 (mL/min/1.73m2); Glucose 109 mg/dL (74-106); Magnesium 1.7 mg/dL (1.8-2.4); Potassium 3.8 mmol/L (3.5-5.1); Sodium 141 mmol/L (136-145); Total Protein 7.4 g/dL (6.4-8.2)
[2024-12-21 18:59] LABS: CEA 18.2 ng/mL (See Note)
[2025-01-04 07:43] LABS: Abs Immature Grans 0.03 10^3/uL (0.0-0.06); HCT 34.7 % (36.0-46.0); HGB 11.2 g/dL (11.2-15.7); Immature Grans % 0.7 %; MCH 29.9 pg (27.0-33.0); MCHC 32.3 % (32.0-36.0); MCV 93 fL (80-95); MPV 10.6 fL (8.0-11.0); Platelet Count 316 10^3/uL (130-400); RBC 3.75 10^6/uL (3.93-5.22); RDW 16.0 % (11.7-14.6); RDW-SD 53.5 fL; WBC 4.57 10^3/uL (4.4-10.8)
[2025-01-04 08:10] LABS: ALT 39 U/L (14-59); AST 32 U/L (15-37); Albumin 3.1 g/dL (3.4-5.0); Alkaline Phosphatase 327 U/L (46-116); Anion Gap 12.0 mmol/L (3-11); BUN 10 mg/dL (7-18); Bilirubin, Total 0.4 mg/dL (0.2-1.0); CO2 24.0 mmol/L (21.0-32.0); Calcium 9.1 mg/dL (8.5-10.1); Chloride 105 mmol/L (98-107); Estimated GFR 75.03 (mL/min/1.73m2); Glucose 124 mg/dL (74-106); Magnesium 1.6 mg/dL (1.8-2.4); Potassium 3.8 mmol/L (3.5-5.1); Sodium 141 mmol/L (136-145); Total Protein 7.2 g/dL (6.4-8.2)
[2025-01-04 18:30] LABS: CEA 22.3 ng/mL (See Note)
== END 2025-01-19 23:59 | disposition home or self-care (01) ==
LOC: INF 03:21
PROVIDERS: PCP Nurse Practitioner Family; Visit Provider Internal Medicine Hematology & Oncology
DX: C18.9 Malignant neoplasm of colon, unspecified (principal); Z79.899 Other long term (current) drug therapy; C78.7 Secondary malignant neoplasm of liver and intrahepatic bile duct; C78.00 Secondary malignant neoplasm of unspecified lung
CPT/HCPCS: 36415; 80053; 82378; 83735; 85025

== ENCOUNTER 2025-02-15 01:54 | Outpatient (RCR) | payer BC, SELFPAY ==
[2025-01-20 07:58] LABS: Abs Immature Grans 0.02 10^3/uL (0.0-0.06); HCT 34.0 % (36.0-46.0); HGB 10.7 g/dL (11.2-15.7); Immature Grans % 0.5 %; MCH 29.2 pg (27.0-33.0); MCHC 31.5 % (32.0-36.0); MCV 93 fL (80-95); MPV 11.0 fL (8.0-11.0); Platelet Count 319 10^3/uL (130-400); RBC 3.67 10^6/uL (3.93-5.22); RDW 16.9 % (11.7-14.6); RDW-SD 56.5 fL; WBC 4.35 10^3/uL (4.4-10.8)
[2025-01-20 08:07] LABS: ALT 46 U/L (14-59); AST 43 U/L (15-37); Albumin 3.1 g/dL (3.4-5.0); Alkaline Phosphatase 347 U/L (46-116); Anion Gap 7.2 mmol/L (3-11); BUN 10 mg/dL (7-18); Bilirubin, Total 0.5 mg/dL (0.2-1.0); CO2 28.8 mmol/L (21.0-32.0); Calcium 8.7 mg/dL (8.5-10.1); Chloride 106 mmol/L (98-107); Estimated GFR 101.44 (mL/min/1.73m2); Glucose 112 mg/dL (74-106); Magnesium 1.8 mg/dL (1.8-2.4); Potassium 4.1 mmol/L (3.5-5.1); Sodium 142 mmol/L (136-145); Total Protein 7.3 g/dL (6.4-8.2)
[2025-01-20 08:09] LABS: Calculated LDL 148 mg/dL (<100); Cholesterol 215 mg/dL (<200); HDL Cholesterol 48 mg/dL (>or=50); Triglyceride 96 mg/dL (<150)
[2025-01-20 18:22] LABS: CEA 30.3 ng/mL (See Note)
[2025-01-20 18:54] LABS: Hepatitis C Ab w Rflx HCV PCR Negative (Negative)
[2025-01-20 19:00] LABS: HIV-1/2 Ag & Ab Screen Negative (Negative)
[2025-01-23 10:29] LABS: Syphilis Serology (RPR) Negative (Negative)
[2025-02-01 07:45] LABS: Abs Immature Grans 0.01 10^3/uL (0.0-0.06); HCT 33.5 % (36.0-46.0); HGB 10.7 g/dL (11.2-15.7); Immature Grans % 0.2 %; MCH 29.4 pg (27.0-33.0); MCHC 31.9 % (32.0-36.0); MCV 92 fL (80-95); MPV 11.1 fL (8.0-11.0); Platelet Count 302 10^3/uL (130-400); RBC 3.64 10^6/uL (3.93-5.22); RDW 17.2 % (11.7-14.6); RDW-SD 58.4 fL; WBC 4.47 10^3/uL (4.4-10.8)
[2025-02-01 08:07] LABS: ALT 36 U/L (14-59); AST 30 U/L (15-37); Albumin 3.1 g/dL (3.4-5.0); Alkaline Phosphatase 324 U/L (46-116); Anion Gap 7.4 mmol/L (3-11); BUN 8 mg/dL (7-18); Bilirubin, Total 0.6 mg/dL (0.2-1.0); CO2 26.6 mmol/L (21.0-32.0); Calcium 8.8 mg/dL (8.5-10.1); Chloride 107 mmol/L (98-107); Estimated GFR 86.42 (mL/min/1.73m2); Glucose 97 mg/dL (74-106); Magnesium 1.8 mg/dL (1.8-2.4); Potassium 3.9 mmol/L (3.5-5.1); Sodium 141 mmol/L (136-145); Total Protein 7.1 g/dL (6.4-8.2)
[2025-02-01 18:10] LABS: CEA 33.8 ng/mL (See Note)
[2025-02-15 07:50] LABS: Abs Immature Grans 0.02 10^3/uL (0.0-0.06); HCT 33.7 % (36.0-46.0); HGB 10.4 g/dL (11.2-15.7); Immature Grans % 0.5 %; MCH 28.6 pg (27.0-33.0); MCHC 30.9 % (32.0-36.0); MCV 93 fL (80-95); MPV 11.1 fL (8.0-11.0); Platelet Count 319 10^3/uL (130-400); RBC 3.64 10^6/uL (3.93-5.22); RDW 17.9 % (11.7-14.6); RDW-SD 60.9 fL; WBC 4.29 10^3/uL (4.4-10.8)
[2025-02-15 08:11] LABS: ALT 38 U/L (14-59); AST 33 U/L (15-37); Albumin 3.2 g/dL (3.4-5.0); Alkaline Phosphatase 340 U/L (46-116); Anion Gap 7.8 mmol/L (3-11); BUN 7 mg/dL (7-18); Bilirubin, Total 0.5 mg/dL (0.2-1.0); CO2 27.2 mmol/L (21.0-32.0); Calcium 9.0 mg/dL (8.5-10.1); Chloride 107 mmol/L (98-107); Estimated GFR 86.42 (mL/min/1.73m2); Glucose 103 mg/dL (74-106); Magnesium 1.4 mg/dL (1.8-2.4); Potassium 4.3 mmol/L (3.5-5.1); Sodium 142 mmol/L (136-145); Total Protein 7.3 g/dL (6.4-8.2)
[2025-02-15 18:34] LABS: CEA 32.2 ng/mL (See Note)
== END 2025-02-19 23:59 | disposition home or self-care (01) ==
LOC: INF 01:54
PROVIDERS: PCP Nurse Practitioner Family; Visit Provider Internal Medicine Hematology & Oncology
DX: C18.9 Malignant neoplasm of colon, unspecified (principal); Z79.899 Other long term (current) drug therapy
CPT/HCPCS: 36415; 80053; 80061; 86803; 87340; 87389; 82378; 83735; 85025; 86592

== ENCOUNTER 2025-02-21 15:41 | Emergency (ER) | payer BC, SELFPAY ==
[2025-02-21] VITALS (48 sets, daily range): BP systolic 66–130; BP diastolic 37–109; PULSE 73–103; RESP 15–26; TEMP 37.3; O2SAT 95–100
--- NOTE | 2025-02-21 16:00 | RT.EKG_ITS ---
APPROVED REPORT Exam: Resting ECG Reason for Exam: Aphasia Patient Location: E HR:75 bpm ECG Measurements Heart Rate 75 AXIS FL 156 P 8 QRSd 85 QRS -3 QT 376 T 34 QTc 420 Conclusion Sinus rhythm...normal P axis, V-rate 60- 99
--- NOTE | 2025-02-21 16:00 | DI.CT_ITS ---
Exam(s) CT HEAD - STROKE PROTOCOL EXAM: CT HEAD - STROKE PROTOCOL CLINICAL HISTORY: TIA type symptoms, hx of brain tumor. TECHNIQUE: Imaging Protocol: Axial computed tomography images with coronal and sagittal reformatted images were created and reviewed COMPARISON: CT CT BRAIN NECK CTA from 03/08/[address] BRAIN NECK CTA from 10/11/[address] HEAD - STROKE PROTOCOL from 12/11/2024 FINDINGS: Ventricles and Extra axial spaces: Normal in size and morphology for the patient's age. Hemorrhage: There is a new 1.0 x 1.6 cm area of hyperdensity along the right convexity adjacent to the temporal lobe and temporal bone. (Series 7, image 33. It lies inferior to the craniotomy defect. The findings suspicious for area of acute hemorrhage. There is mild surrounding low attenuation in the adjacent temporal lobe. This area was not present on the examination from 12/11/2024. Cerebral parenchyma: There is again seen an area of encephalomalacia involving the right parietal lobe. Midline shift: None. Brainstem/Cerebellum: Normal. Calvarium: There again seen findings of a right parietal craniotomy. Visualized Paranasal sinuses/Mastoids: Clear. Soft Tissues: Unremarkable. IMPRESSION: 1. New area of hyperdensity in the right middle cranial fossa. It is along the right convexity adjacent to the right temporal lobe. It lies inferior to the craniotomy defect. This area was not present on the examination from 12/11/2024. The findings are suspicious for hemorrhage. There is decreased attenuation in the adjacent temporal lobe in the findings are suspicious for intraparenchymal hemorrhage. Focal epidural hemorrhage should also be considered. A hemorrhagic metastasis cannot be entirely excluded. RADIATION DOSE DELIVERED: 822.55mGy.cm Total DLP DATA REPOSITORY: All CT scans at this facility are submitted to the National Radiology Data Registry (NRDR) Dose Index Registry (DIR) with the [employer] (ACR). RADIATION OPTIMIZATION: All CT scans at this facility use at least one of these dose optimization techniques: automated exposure control; mA and/or kV adjustment per patient size (includes targeted exams where dose is matched to clinical indication); or iterative reconstruction.
--- NOTE | 2025-02-21 16:29 | W.ED.GENAD ---
Discharge Plan Disposition Patient Disposition: Home Condition: Stable Discharge Details Clinical Impression: Intracranial hemorrhage, Secondary malignant neoplasm of brain Primary Care Provider: Penny Browning ED Provider: Lucero Galeana Home Meds and New Rx's Prescriptions: New levetiracetam 500 mg tablet 500 mg PO BID 7 Days Qty: 14 0RF Rx Instructions: Please take 1 tablet by mouth twice daily for the next 7 days Held Eliquis 5 mg tablet 5 mg PO BID Hold Instructions: Resume on 03/14/25. Until Re-started by Neuro-surgery No Action [id number] 50-325-40 mg tablet 1 tab PO Q4H PRN albuterol sulfate 90 mcg/actuation HFA aerosol inhaler 2 puff inhalation Q6H PRN (Reason: shortness of breath or wheezing) Qty: 8.5 3RF benzonatate 200 mg capsule PO Patient Comments: TAKE ONE CAPSULE BY MOUTH THREE TIMES A DAY NEEDED FOR COUGH nystatin 100,000 unit/gram powder 1 applic topical BID Qty: 30 3RF fluticasone propionate 50 mcg/actuation spray,suspension 2 spray intranasal DAILY PRN Rx Instructions: administer into each nostril prochlorperazine maleate [Compazine] 10 mg tablet 10 mg PO Q6H PRN melatonin 5 mg tablet 5 mg PO HS PRN acetaminophen 650 mg/20.3 mL solution 650 mg PO Q6H PRN propranolol 10 mg tablet 10 mg PO TID Qty: 30 1RF Rx Instructions: Trial for anticipatory anxiety: (1) in am and (1) pre-meeting [up to 3/day] diazepam [Valium] 2 mg tablet 2 mg PO BID PRN (Reason: anxiety; anticipatory anxiety (work or procedures)) Qty: 20 1RF Rx Instructions: Trial for anxiety or panic episode (do not drive or consume alcohol) magnesium oxide [MagOx] 400 mg (241.3 mg magnesium) tablet 800 mg PO BID Rx Instructions: [facility] note from 08/19/24.HE esomeprazole magnesium 40 mg capsule,delayed release(DR/EC) See Rx Instructions .ROUTE .COMPLEX Qty: 90 3RF Dose Instruction: TAKE ONE CAPSULE BY MOUTH EVERY DAY Rx Instructions: TAKE ONE CAPSULE BY MOUTH EVERY DAY cetirizine [Zyrtec] 10 mg tablet 10 mg PO DAILY Patient Comments: 11/22/[address] Iqbal's progress note budesonide-formoterol [Symbicort] 160-4.5 mcg/actuation HFA aerosol inhaler See Rx Instructions .ROUTE .COMPLEX Qty: 10.2 3RF Dose Instruction: INHALE 2 PUFFS BY MOUTH TWO TIMES A DAY Rx Instructions: INHALE 2 PUFFS BY MOUTH TWO TIMES A DAY potassium chloride 20 mEq tablet extended release 20 meq PO DAILY Qty: 7 0RF Discharge Instructions Instructions: Brain metastases, Subdural Hematoma (DC) Additional Instructions: At this time the head CT shows an area of bleed along the right temporal lobe since your previous CT in November. The repeat CT shows no change. I did speak with Dr. Wright with the neurosurgery team at [facility], his recommendations are : Do NOT take the Eliquis until your neurosurgery appointment in 2 weeks, please start the Keppra 500 mg twice a day for 1 week which you were given first dose here in the department. Please take the rest of your medications as previously prescribed. Please return to the ER here or [facility] for any worsening symptoms, worsening headache, dizziness, confusion, weakness or concerns. Thank you for allowing us to care for you today. Referrals: [facility] [place] [Outside] - 2 weeks Penny Browning APRN [Primary Care Provider, Family Practice] - Return if symptoms worsen Discharge Data Discharge Date/Time-TO BE ENTERED AT DEPARTURE: 02/21/25 23:35 HPI General Mode of arrival: ambulatory. Date/Time Provider Initiated Documentation: 02/21/25 15:55. Limitations to Documentation: no limitations. Information obtained by: patient, family, RN notes reviewed and old records reviewed. HPI Narrative: 54 year old female presents to ER with TIA type episode which began at 1440 lasting approx 15 min. Reports aphasia, left side facial numbness, left side facial weakness,and tingling to the dorsum of her left hand and 3rd and 4th fingers, symptoms have all resolved upon arrival. Denies any nausea vomiting diarrhea, fever or chills chest pain shortness of breath or any other associated symptoms. No reported recent falls or trauma. Has had a hx of malignant neoplasm of colon with mets to the liver and brain, history of brain tumor with craniotomy and tumor removal in March 23, 2024 and 2024. She is currently on Eliquis 5 mg twice daily she did not take her medication this morning. Related Data Home Medications ?Medication ?Instructions ?Recorded ?Confirmed prochlorperazine maleate 10 mg 10 mg PO Q6H PRN 11/28/21 02/21/25 tablet (Compazine) potassium chloride 20 mEq 20 meq PO DAILY #7 tabs 03/07/22 02/21/25 tablet,extended release melatonin 5 mg tablet 5 mg PO HS PRN 09/01/23 02/21/25 albuterol sulfate 90 mcg/actuation 2 puff inhalation Q6H PRN 02/03/24 02/21/25 aerosol inhaler shortness of breath or wheezing #8.5 grams acetaminophen 650 mg/20.3 mL oral 650 mg PO Q6H PRN 03/29/24 02/21/25 solution diazepam 2 mg tablet (Valium) 2 mg PO BID PRN anxiety; 04/13/24 02/21/25 anticipatory anxiety (work or procedures) #20 tabs propranolol 10 mg tablet 10 mg PO TID anticipatory anxiety; 04/13/24 02/21/25 elevated pulse #30 tabs magnesium oxide 400 mg (241.3 mg 800 mg PO BID 08/19/24 02/21/25 magnesium) tablet (MagOx) apixaban 5 mg tablet (Eliquis) 5 mg PO BID 10/11/24 02/21/25 Held on 02/21/25. Instructions: Resume on 03/14/25. Until Re-started by Neuro-surgery [id number]-[id number] 1 tab PO Q4H PRN 10/24/24 02/21/25 50 mg-325 mg-40 mg tablet esomeprazole magnesium 40 mg See Rx Instructions .Route 12/07/24 02/21/25 capsule,delayed release .COMPLEX #90 caps benzonatate 200 mg capsule mg PO 01/04/25 01/04/25 cetirizine 10 mg tablet (Zyrtec) 10 mg PO DAILY 01/04/25 02/21/25 fluticasone propionate 50 2 spray intranasal DAILY PRN 01/04/25 02/21/25 mcg/actuation nasal spray,suspension nystatin 100,000 unit/gram topical 1 applic topical BID rash #30 grams 01/04/25 02/21/25 powder budesonide-formoterol HFA 160 See Rx Instructions .Route 02/02/25 02/21/25 mcg-4.5 mcg/actuation aerosol .COMPLEX #10.2 grams inhaler (Symbicort) levetiracetam 500 mg tablet 500 mg PO BID Intracranial bleed 7 02/21/25 days #14 tabs Previous Rx's ?Medication ?Instructions ?Recorded potassium chloride 20 mEq 20 meq PO DAILY #7 tabs 03/07/22 tablet,extended release albuterol sulfate 90 mcg/actuation 2 puff inhalation Q6H PRN 02/03/24 aerosol inhaler shortness of breath or wheezing #8.5 grams diazepam 2 mg tablet (Valium) 2 mg PO BID PRN anxiety; 04/13/24 anticipatory anxiety (work or procedures) #20 tabs propranolol 10 mg tablet 10 mg PO TID anticipatory anxiety; 04/13/24 elevated pulse #30 tabs esomeprazole magnesium 40 mg See Rx Instructions .Route 12/07/24 capsule,delayed release .COMPLEX #90 caps nystatin 100,000 unit/gram topical 1 applic topical BID rash #30 grams 01/04/25 powder budesonide-formoterol HFA 160 See Rx Instructions .Route 02/02/25 mcg-4.5 mcg/actuation aerosol .COMPLEX #10.2 grams inhaler (Symbicort) levetiracetam 500 mg tablet 500 mg PO BID Intracranial bleed 7 02/21/25 days #14 tabs Allergies Allergy/AdvReac Type Severity Reaction Status Date / Time No Known Allergies Allergy Verified 02/21/25 15:48 General Stated Complaint: CVA/TIA PAIGE: 2 Review of Systems All systems reviewed & are unremarkable except as noted in HPI and below Constitutional Constitutional: Reports as per HPI Musculoskeletal Musculoskeletal: Reports numbness Neurologic Neurologic: Reports as per HPI, Reports abnormal speech, Denies confusion, Reports localized weakness, Reports numbness and Reports sensory deficit Psychiatric Psychiatric: Denies confusion Exam Narrative Exam Narrative: Constitutional: Alert and oriented x3. Appears stated age. Normal body habitus. Head: Normocephalic, does have previous surgical scar noted to her right temporal scalp, no surrounding erythema or swelling. Eyes: Pupils PERRL, Red reflex noted, EOM's intact. Eyelids symmetrical without lesions, discharge, or swelling. ENT: Bilateral TM's WNL, External ear normal to inspection, no mastoid TTP, swelling, or erythema, Nasal turbinates WNL, no nasal discharge. Normal dentition, Posterior pharynx WNL, no exudate. Chest: RRR, Normal S1, S2, distal pulses intact. Resp: Lungs clear to auscultation bilaterally, no wheezes, rales, or rhonchi. Abdomen: Soft, non-distended, Normoactive bowel sounds all 4 quads. Musculoskeletal: Unable to assess gait, moves all 4 extremities without difficulty. Skin: No suspicious rashes or lesions. Capillary refill less than 2 sec. Neurologic: Cranial nerves II-XII intact. Alert and oriented x 3. Motor: No deficits noted. Sensory: Intact bilaterally all 4 extremities. No nystagmus, no pronator drift, intact lower plantarflexion, and extension. Day Care Aide equal upper extremities bilaterally. No leg drop lower extremities bilaterally. Hematologic/Lymphatic: No ecchymosis, no lymphadenopathy. Course Vital Signs Vital signs: Vital Signs Temperature 37.3 C 02/21/25 15:44 Pulse 103 H 02/21/25 15:44 Respiratory Rate 16 02/21/25 15:44 Blood Pressure 125/79 02/21/25 15:44 Pulse Oximetry 98 02/21/25 15:44 Temperature 37.3 C 02/21/25 15:44 Pulse 103 H 02/21/25 15:44 Respiratory Rate 16 02/21/25 15:44 Blood Pressure 125/79 02/21/25 15:44 Pulse Oximetry 98 02/21/25 15:44 Oxygen Delivery Method Room Air 02/21/25 15:44 Oxygen Flow Rate 0 02/21/25 15:44 Medical Decision Making 54 year old female presents to ER with TIA type episode which began at 1440 lasting approx 15 min. Reports aphasia, left side facial numbness, left side facial weakness,and tingling to the dorsum of her left hand and 3rd and 4th fingers, symptoms have all resolved upon arrival. Denies any nausea vomiting diarrhea, fever or chills chest pain shortness of breath or any other associated symptoms. No reported recent falls or trauma. Has had a hx of malignant neoplasm of colon with mets to the liver and brain, history of brain tumor with craniotomy and tumor removal in March 23, 2024 and 2024. She is currently on Eliquis 5 mg twice daily she did not take her medication this morning. CT head without contrast shows a new 1.0 x 1.6 cm area of hyperdensity along the right laxity adjacent to the temporal lobe and parietal bone. Series 733 inferior craniotomy defect. Suspicious for acute hemorrhage. Requested that images be pushed to [facility] will consult with [facility] [place]. On patient reevaluation she has some tiredness, ANO x 4 alert and oriented no focal motor neurodeficits noted no change in her mental status. I did discuss the results of her head CT with her and plan of care to consult with [facility] she verbalized understanding. Patient to a room with cardiac monitoring, head of bed at 30 degrees. 1753: Call made to [facility] regarding transfer request/ Neuro Consult for intracranial hemmorhage. 1847: Spoke with Dr Nolan Lang with neurosurgery at [facility] regarding patient case in details and recommends Kcent[facility] for Eliquis reversal, a repeat CT in 6 hours and observation for any deterioration or change in mental status, he also recommends Keppra 500 mg p.o. twice daily x 1 week and systolic blood pressure keep less than 140. Will discuss plan of care with patient and family. Discussed clear liquids with patient and family verbalized understanding. 2230: Patient has had neurochecks every 2 hours, neuro changes no reports of recurrence of symptoms. 2231: Repeat CT ordered. Repeat CT shows no interval change. 2247: [facility] [place] contacted. 2258: Spoke with Dr. Lang, regarding repeat CT, he verbalized understanding okay to discharge patient and follow-up with holding the Eliquis for 2 weeks until follow-up appointment and Keppra 500 milligram twice daily times x 1 week. Patient was ambulatory from the department with her family, remained neurologically intact, no return of symptoms, no focal neurodeficits. Patient remained in hemodynamically stable throughout the remainder of her stay. Instructed to hold the Eliquis and taking the Keppra if she verbalized understanding. This text was generated using [employer] system, please disregard any oddities of phrase or misspellings. Medical Records Medical records reviewed: Yes I reviewed the patient's medical records. Imaging Data Radiologic Study: Imaging: CT Scan Radiologist's impression: COMPARISON: CT CT BRAIN NECK CTA from 03/08/[address] BRAIN NECK CTA from 10/11/[address] HEAD - STROKE PROTOCOL from 12/11/2024 FINDINGS: Ventricles and Extra axial spaces: Normal in size and morphology for the patient's age. Hemorrhage: There is a new 1.0 x 1.6 cm area of hyperdensity along the right convexity adjacent to the temporal lobe and temporal bone. (Series 7, image 33. It lies inferior to the craniotomy defect. The findings suspicious for area of acute hemorrhage. There is mild surrounding low attenuation in the adjacent temporal lobe. This area was not present on the examination from 12/11/2024. Cerebral parenchyma: There is again seen an area of encephalomalacia involving the right parietal lobe. Midline shift: None. Brainstem/Cerebellum: Normal. Calvarium: There again seen findings of a right parietal craniotomy. Visualized Paranasal sinuses/Mastoids: Clear. Soft Tissues: Unremarkable. IMPRESSION: 1. New area of hyperdensity in the right middle cranial fossa. It is along the right convexity adjacent to the right temporal lobe. It lies inferior to the craniotomy defect. This area was not present on the examination from 12/11/2024. The findings are suspicious for hemorrhage. There is decreased attenuation in the adjacent temporal lobe in the findings are suspicious for intraparenchymal hemorrhage. Focal epidural hemorrhage should also be considered. A hemorrhagic metastasis cannot be entirely excluded. Radiologic Study #2: Imaging: CT Scan Radiologist's impression: Repeat [address] Head wo [facility] report FINDINGS: Brain: Focal cortical hyperdensity seen overlying focal deep and subcortical hypodensity along the anterolateral right temporal lobe is similar in appearance and no new sites of intracranial hemorrhage are detected. Cerebral sulci again show bilateral symmetry throughout the remainder of both cerebral hemispheres with no other supratentorial mass or mass effect detected. Brainstem and cerebellum are unremarkable. Cerebral ventricles: Ventricular and cisternal spaces are stable in size and configuration and there is no midline shift or hydrocephalus seen. Paranasal sinuses: Posterior right ethmoidal opacity identified with other paranasal sinuses grossly clear throughout. Mastoid air cells: Grossly clear bilaterally. Bones: Right temporoparietal craniotomy defects are again evident. Soft tissues: Unremarkable. IMPRESSION: Focal cortical hyperdensity seen overlying focal deep and subcortical hypodensity along the anterolateral right temporal lobe is similar in appearance and no new sites of intracranial hemorrhage are detected Lab Data Lab results reviewed: Yes I reviewed the patient's lab results. Labs: Laboratory Tests Range/Units 02/21/25 02/21/25 16:24 19:04 WBC (4.4-10.8) 10^3/uL 6.01 RBC (3.93-5.22) 10^6/uL 3.73 L Hgb (11.2-15.7) g/dL 10.9 L Hct (36.0-46.0) % 34.0 L MCV (80-95) fL 91 MCH (27.0-33.0) pg 29.2 MCHC (32.0-36.0) % 32.1 RDW (11.7-14.6) % 17.8 H Plt Count (130-400) 10^3/uL 258 MPV (8.0-11.0) fL 10.2 Immature Gran % % 0.3 Neutrophils % % 79.5 Lymphocytes % % 16.1 Monocytes % % 2.0 Eosinophils % % 1.8 Basophils % % 0.3 Nucleated RBC % (0.0-0.3) % 0.0 Absolute Neutrophils (1.2-6.7) 10^3/uL 4.77 Absolute Lymphocytes (1.2-3.4) 10^3/uL 0.97 L Absolute Monocytes (0.1-0.8) 10^3/uL 0.12 Absolute Eosinophils (0.0-0.7) 10^3/uL 0.11 Absolute Basophils (0.0-0.2) 10^3/uL 0.02 PT (9.1-11.1) sec 10.3 INR (0.9-1.1) 1.0 APTT (20.6-30.2) sec 26.2 Sodium (136-145) mmol/L 136 Potassium (3.5-5.1) mmol/L 3.7 Chloride (98-107) mmol/L 101 Carbon Dioxide (21.0-32.0) mmol/L 27.6 Anion Gap (3-11) mmol/L 7.4 BUN (7-18) mg/dL 12 Creatinine (0.55-1.02) mg/dL 0.7 Est GFR (CKD-EPI 2020) (mL/min/1.73m2) 101.44 Glucose (74-106) mg/dL 104 Calcium (8.5-10.1) mg/dL 9.0 Magnesium (1.8-2.4) mg/dL 1.6 L Total Bilirubin (0.2-1.0) mg/dL 0.8 AST (15-37) U/L 48 H ALT (14-59) U/L 54 Alkaline Phosphatase (46-116) U/L 386 H Troponin I (<or=51) ng/L 4 Cancelled Total Protein (6.4-8.2) g/dL 7.7 Albumin (3.4-5.0) g/dL 3.4 Critical Care Time Critical Care Time Critical Care Time: Yes Total Critical Care Time: 35 Attestation: I spent greater than 35 minutes addressing this patient's acute life threatening illness. This time was spent engaged in actions directly related to the patient's care. Failure to initiate these interventions would have likely resulted in clinically significant or life threatening deterioration in the patients condition. PFSH All Active Problems (Updated 02/21/25 @ 23:04 by Lucero Galeana NP) Intracranial hemorrhage (Acute) Hemorrhoids (Acute) Vaginitis (Acute) Encounter to establish care with new provider (Acute) Environmental allergies (Acute) Screening examination for STI (Acute) Preventative health care (Acute) S/P craniotomy (Acute) [place] [facility] [place] 03/[place] Aaron Palacios and again R frontaltemporal craniotomy for tumor resection with Gamma tile placement on 10/20/[address] Aaron Palacios at [facility] Chronic cough (Acute) Secondary malignant neoplasm of brain (Acute ~03/15/24) [facility] [place]/20/[place] F/u with Neurosurgery Weight loss (Acute) Long-term current use of proton pump inhibitor therapy (Acute) Risk factor for osteopenia, DEXA [ ] Anemia (Chronic) Low RBC, low-normal HGB. High MCV Heart palpitations (Acute) GERD (gastroesophageal reflux disease) (Chronic) Shoulder pain (Acute) Neck pain (Acute) Osteoarthritis of right knee (Acute) acute on chronic pain, Hx ruptures bakers cyst Skin sensitivity (Acute) Hands/feet are sensitive and peel easily (2' cap swelling due to chemo) .. Using work-balm, udder cream. May need Rx, Derm. Malignant neoplasm of sigmoid colon (Chronic) Colon resection, 2011 ([place]), s/p Chemo x 2.5 yrs .... with Met (2014)(+Chemo) and again (2016)(+Rad/Chemo) .. Now with [facility] [place], Dr. Iqbal. 09/2020opulmonary nodule RLL, restaged CT 03/26/22 08/29/22 [facility] Hem/Onc visit - Lonsurf/avastin therapy 10/30/23 F/u w Dr Iqbal 08/30/24 F/U [facility] Hem/Onc Cancer, metastatic to liver (Acute) s/p Rad, Chemo (2016) .. Original colon cancer, s/p resection (2011) Cancer, metastatic to lung (Chronic) Colon Cancer, s/p resection/chemo (2011) . Mets to LUNG (2014), s/p more chemo. 11/22/21 F/u Dr Iqbal - pt due for next cycle of capecitabine. Other fatigue (Acute) Bone metastasis (Acute) Hypocalcemia (Acute) Hypomagnesemia (Acute) Hypokalemia (Acute) Medical History Support system deficit Good group of friends, 09/2023.. Newly moved from [place] (2019) Depression Pt stopped: Hx Sertraline Caregiver stress Mo in [facility]. 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 Mo in [facility], 02/28/21 Bone spur 1993 - surgery [place] Surgical History H/O brain surgery (~10/20/24) Right frontotemporal craniotomy for tumor resection with Gamma Tile placement History of colon resection (07/2011) History of surgery of liver History of breast biopsy Family History Mother Colon cancer metastatic colorectal Diabetes Heart disease Brother Heart disease Father Stroke Cancer skin Heart disease Social History Smoking/Tobacco Use Status: Never Smoking risk assessment performed?: Yes Alcohol Intake: never Substance use type: does not use Adopted: No Caregiver/Support person: No Foster care: No Household members: family Housing: apartment Number of Children: 2 number of grandchildren: 1 Communication Needs: None Education Level: college Details: Bachelor's Degree Do you need help understanding health information?: Rarely 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
[2025-02-21 16:32] LABS: Abs Immature Grans 0.02 10^3/uL (0.0-0.06); HCT 34.0 % (36.0-46.0); HGB 10.9 g/dL (11.2-15.7); Immature Grans % 0.3 %; MCH 29.2 pg (27.0-33.0); MCHC 32.1 % (32.0-36.0); MCV 91 fL (80-95); MPV 10.2 fL (8.0-11.0); Platelet Count 258 10^3/uL (130-400); RBC 3.73 10^6/uL (3.93-5.22); RDW 17.8 % (11.7-14.6); RDW-SD 60.2 fL; WBC 6.01 10^3/uL (4.4-10.8)
[2025-02-21 16:47] LABS: INR 1.0 (0.9-1.1); PTT Activated 26.2 sec (20.6-30.2); Prothrombin Time 10.3 sec (9.1-11.1)
[2025-02-21 16:54] LABS: ALT 54 U/L (14-59); AST 48 U/L (15-37); Albumin 3.4 g/dL (3.4-5.0); Alkaline Phosphatase 386 U/L (46-116); Anion Gap 7.4 mmol/L (3-11); BUN 12 mg/dL (7-18); Bilirubin, Total 0.8 mg/dL (0.2-1.0); CO2 27.6 mmol/L (21.0-32.0); Calcium 9.0 mg/dL (8.5-10.1); Chloride 101 mmol/L (98-107); Estimated GFR 101.44 (mL/min/1.73m2); Glucose 104 mg/dL (74-106); Magnesium 1.6 mg/dL (1.8-2.4); Potassium 3.7 mmol/L (3.5-5.1); Sodium 136 mmol/L (136-145); Total Protein 7.7 g/dL (6.4-8.2); Troponin I 4 ng/L (<or=51)
[2025-02-21 20:31] LABS: Troponin I 5 ng/L (<or=51)
[2025-02-21] MEDS: levETIRAcetam 500 MG TAB (20:35)
--- NOTE | 2025-02-21 22:00 | DI.CT_ITS ---
Exam(s) CT HEAD - STROKE PROTOCOL EXAM: CT HEAD - STROKE PROTOCOL CLINICAL HISTORY: Eval Right temporal Hemorrhage/ Repeat. TECHNIQUE: Imaging Protocol: Axial computed tomography images with coronal and sagittal reformatted images were created and reviewed COMPARISON: CT CT BRAIN NECK CTA from 10/11/[address] HEAD - STROKE PROTOCOL from 12/11/[address] HEAD - STROKE PROTOCOL from 02/21/2025 FINDINGS: Ventricles and Extra axial spaces: Normal in size and morphology for the patient's age. Hemorrhage: Please see below under cerebral parenchyma. Cerebral parenchyma: There is a stable area of encephalomalacia involving the right parietal lobe. There is a stable hyperdense area in the right temporal lobe. It measures 1.6 x 1.0 cm. There is associated hypodensity in the adjacent temporal lobe. This area is unchanged compared to the examination from earlier in the day. Midline shift: None. Brainstem/Cerebellum: Normal. Calvarium: Stable postsurgical change of a right temporoparietal craniotomy. Visualized Paranasal sinuses/Mastoids: Clear. Soft Tissues: Unremarkable. IMPRESSION: 1. No change in appearance of the hyperdensity in the right temporal lobe. This may represent an intraparenchymal hemorrhage or hemorrhagic metastasis. 2. Stable postsurgical changes of a right temporoparietal craniotomy. 3. Stable area of right parietal encephalomalacia. 4. The preliminary [facility] report was reviewed. RADIATION DOSE DELIVERED: 888.08mGy.cm Total DLP DATA REPOSITORY: All CT scans at this facility are submitted to the National Radiology Data Registry (NRDR) Dose Index Registry (DIR) with the [employer] (ACR). RADIATION OPTIMIZATION: All CT scans at this facility use at least one of these dose optimization techniques: automated exposure control; mA and/or kV adjustment per patient size (includes targeted exams where dose is matched to clinical indication); or iterative reconstruction.
--- NOTE | 2025-02-21 22:39 | DI.VRAD_ITS ---
PROCEDURE INFORMATION: Exam: CT Head Without Contrast Exam date and time: 02/21/2025 10:21 PM Age: 54 years old Clinical indication: Condition or disease; Other: Eval right temporal hemorrhage/ repeat TECHNIQUE: Imaging protocol: Computed tomography of the head without contrast. COMPARISON: CT HEAD - STROKE PROTOCOL 02/21/2025 4:51 PM FINDINGS: Brain: Focal cortical hyperdensity seen overlying focal deep and subcortical hypodensity along the anterolateral right temporal lobe is similar in appearance and no new sites of intracranial hemorrhage are detected. Cerebral sulci again show bilateral symmetry throughout the remainder of both cerebral hemispheres with no other supratentorial mass or mass effect detected. Brainstem and cerebellum are unremarkable. Cerebral ventricles: Ventricular and cisternal spaces are stable in size and configuration and there is no midline shift or hydrocephalus seen. Paranasal sinuses: Posterior right ethmoidal opacity identified with other paranasal sinuses grossly clear throughout. Mastoid air cells: Grossly clear bilaterally. Bones: Right temporoparietal craniotomy defects are again evident. Soft tissues: Unremarkable. IMPRESSION: Focal cortical hyperdensity seen overlying focal deep and subcortical hypodensity along the anterolateral right temporal lobe is similar in appearance and no new sites of intracranial hemorrhage are detected. Dictated and Authenticated by: Andrzej Pierce MD. Orderin Lissett Barker MD
== END 2025-02-21 23:35 | disposition home or self-care (01) ==
PROVIDERS: Emergency Provider Registered Nurse Emergency; PCP Nurse Practitioner Family
DX: C79.31 Secondary malignant neoplasm of brain (principal); R20.0 Anesthesia of skin; I62.9 Nontraumatic intracranial hemorrhage, unspecified
CPT/HCPCS: 80053; 93005; 96365; 99284; 70450; 83735; 84484; 85025; 85610; 85730; 93010; J7168

== ENCOUNTER 2025-02-22 14:04 | Outpatient (CLI) | payer BC, SELFPAY ==
--- NOTE | 2025-02-22 | DI.CT_ITS ---
Exam(s) CT CHEST/ABD/PEL W EXAM: CT CHEST/ABD/PEL W CLINICAL HISTORY: COLON CA METS TO MULTIPLE SITES C18.9 STAGE IV COLON CA ON CHEMO RESTAGING TECHNIQUE: Imaging Protocol: Axial computed tomography images with coronal and sagittal reformatted images were created and reviewed. Lung Computer Aided Detection (CAD) was utilized. CONTRAST MATERIAL: Intravenous: Omnipaque 350 contrast volume:100 mL Oral: Yes COMPARISON: CT CT CHEST/ABD/PEL W from 07/26/[address] CHEST/ABD/PEL W from 12/13/2024 FINDINGS: CHEST: Tracheobronchial tree: Patent where visualized. No evidence of bronchiectasis. Pulmonary parenchyma: There is a stable left upper lobe mass. The opacity and metallic density in the left lower lobe is stable. The right perihilar opacity has shown some increase in size compared to the prior examination. There is associated bronchiectasis. The lungs are otherwise stable. Visualized thyroid gland: Unremarkable. Mediastinum and Seema: There is persistent mediastinal adenopathy. The largest lymph node measures 3.0 x 2.8 cm. The esophagus is unremarkable. Pleura: No effusion or pneumothorax. Heart: The heart is not dilated. No coronary artery calcifications are seen. No pericardial effusion. Pulmonary arteries: No pulmonary emboli are identified. Aorta: Thoracic aorta non-dilated. There is no evidence of dissection. Lymph nodes: Within normal limits. Tubes, Catheters, and Lines: There is a left port in place. Soft tissues: Unremarkable. Bones:Within normal limits for the patient's age. There are no aggressive osseous lesions in place. ABDOMEN: Liver: Normal density. The lesion in the superior anterior liver is stable in size measuring 7.2 by 5.7 cm. This compares to 7.1 x 5.5 cm on the prior examination. The mass in the lateral aspect of the right lobe of the liver is unchanged in size. Using similar measuring techniques, it measures 3.5 cm. This compares to 3.2 cm on the prior examination. There are no new hepatic masses. Portal, Superior Mesenteric, and Splenic Veins: There is continued decrease in size of the left portal vein which may be obstructed or compressed. Gallbladder and Biliary Tract: There is persistent dilatation of the intrahepatic bile ducts in the right and left lobe of the liver. The extrahepatic common bile duct is normal in size. Pancreas: Normal density, no abnormal calcifications or inflammatory process. Spleen: Normal. Adrenals: No masses seen. Kidneys: Normal size, contour and axis. No radiodense stones or obstructive uropathy. No masses seen. Abdominal Aorta: Abdominal portion non-dilated. Mild atherosclerotic calcification is present. Bowel: There is an anastomosis at the rectosigmoid junction. There is no evidence of bowel wall thickening or bowel obstruction. There is no evidence of appendicitis. Peritoneal Cavity: No ascites, collection or mesenteric inflammatory response. No free air. Lymph Nodes: Within normal limits. Bones: Within normal limits for the patient's age. There is a stable area of sclerosis in the left iliac bone. No aggressive osseous lesions are seen at this time. Soft Tissues: Unremarkable. PELVIS: Bladder: The urinary bladder is incompletely distended limiting evaluation. No gross abnormalities identified. Reproductive Organs: Unremarkable as visualized. Lymph Nodes: Within normal limits. Bones: Within normal limits. IMPRESSION: 1. Stable hepatic metastases. 2. No acute abdominal or pelvic process. 3. Slight interval increase in size of the opacity in the right lower lobe. Otherwise, stable appearance of the lungs since 12/13/2024. 4. Persistent mediastinal adenopathy. RADIATION DOSE DELIVERED: 1,608.73mGy.cm Total DLP DATA REPOSITORY: All CT scans at this facility are submitted to the National Radiology Data Registry (NRDR) Dose Index Registry (DIR) with the [employer] (ACR). RADIATION OPTIMIZATION: All CT scans at this facility use at least one of these dose optimization techniques: automated exposure control; mA and/or kV adjustment per patient size (includes targeted exams where dose is matched to clinical indication); or iterative reconstruction.
[2025-02-22] MEDS: Barium Sulfate 2% W/V-Creamy Vanilla Smoothie 450 ML BTL PO (07:47)
[2025-02-22] MEDS: Normal Saline - Diluent 50 ML VIAL IJ (09:33)
[2025-02-22] MEDS: Omnipaque 350 MG/ML 100 ML BTL IJ (09:34)
[2025-02-22] MEDS: Normal Saline Flush 10 ML SYR IVP (09:34)
== END 2025-02-22 14:24 ==
LOC: DI 14:04
PROVIDERS: PCP Nurse Practitioner Family; Visit Provider Internal Medicine Hematology & Oncology
DX: C18.9 Malignant neoplasm of colon, unspecified (principal); C78.7 Secondary malignant neoplasm of liver and intrahepatic bile duct
CPT/HCPCS: 74177; 71260; J3490

== ENCOUNTER 2025-03-15 07:00 | Outpatient (RCR) | payer BC, SELFPAY ==
[2025-03-01 08:14] LABS: Abs Immature Grans 0.01 10^3/uL (0.0-0.06); HCT 33.6 % (36.0-46.0); HGB 10.7 g/dL (11.2-15.7); Immature Grans % 0.3 %; MCH 29.6 pg (27.0-33.0); MCHC 31.8 % (32.0-36.0); MCV 93 fL (80-95); MPV 11.0 fL (8.0-11.0); Platelet Count 322 10^3/uL (130-400); RBC 3.61 10^6/uL (3.93-5.22); RDW 18.2 % (11.7-14.6); RDW-SD 62.5 fL; WBC 3.96 10^3/uL (4.4-10.8)
[2025-03-01 08:31] LABS: ALT 28 U/L (14-59); AST 27 U/L (15-37); Albumin 3.1 g/dL (3.4-5.0); Alkaline Phosphatase 359 U/L (46-116); Anion Gap 12.2 mmol/L (3-11); BUN 10 mg/dL (7-18); Bilirubin, Total 0.4 mg/dL (0.2-1.0); CO2 24.8 mmol/L (21.0-32.0); Calcium 8.9 mg/dL (8.5-10.1); Chloride 106 mmol/L (98-107); Glucose 116 mg/dL (74-106); Magnesium 1.4 mg/dL (1.8-2.4); Potassium 3.3 mmol/L (3.5-5.1); Sodium 143 mmol/L (136-145); Total Protein 7.5 g/dL (6.4-8.2)
[2025-03-01 18:15] LABS: CEA 36.6 ng/mL (See Note)
[2025-03-01 18:23] LABS: Hepatitis C Ab w Rflx HCV PCR Negative (Negative)
[2025-03-01 18:28] LABS: HIV-1/2 Ag & Ab Screen Negative (Negative)
[2025-03-02 11:21] LABS: Syphilis Serology (RPR) Negative (Negative)
[2025-03-15 07:48] LABS: Abs Immature Grans 0.03 10^3/uL (0.0-0.06); HCT 31.4 % (36.0-46.0); HGB 9.8 g/dL (11.2-15.7); Immature Grans % 0.7 %; MCH 28.7 pg (27.0-33.0); MCHC 31.2 % (32.0-36.0); MCV 92 fL (80-95); RBC 3.41 10^6/uL (3.93-5.22); RDW 18.4 % (11.7-14.6); RDW-SD 62.2 fL; WBC 4.56 10^3/uL (4.4-10.8)
[2025-03-15 08:06] LABS: ALT 52 U/L (14-59); AST 50 U/L (15-37); Albumin 3.2 g/dL (3.4-5.0); Alkaline Phosphatase 457 U/L (46-116); Anion Gap 12.2 mmol/L (3-11); BUN 7 mg/dL (7-18); Bilirubin, Total 0.5 mg/dL (0.2-1.0); CO2 22.8 mmol/L (21.0-32.0); Calcium 8.8 mg/dL (8.5-10.1); Chloride 106 mmol/L (98-107); Glucose 116 mg/dL (74-106); Magnesium 1.3 mg/dL (1.8-2.4); Potassium 4.0 mmol/L (3.5-5.1); Sodium 141 mmol/L (136-145); Total Protein 7.4 g/dL (6.4-8.2)
[2025-03-15 08:12] LABS: RBC Morphology Normal
[2025-03-15 18:22] LABS: CEA 41.8 ng/mL (See Note)
== END 2025-03-21 23:59 | disposition home or self-care (01) ==
LOC: INF 07:00
PROVIDERS: Nurse Practitioner Family; PCP Nurse Practitioner Family; Visit Provider Internal Medicine Hematology & Oncology
DX: C18.9 Malignant neoplasm of colon, unspecified (principal)
CPT/HCPCS: 36415; 80053; 86803; 87340; 87389; 82378; 83735; 85025; 86592

== ENCOUNTER 2025-04-12 09:36 | Emergency (ER) | payer BC, SELFPAY ==
[2025-04-12] VITALS (26 sets, daily range): BP systolic 102–140; BP diastolic 62–101; PULSE 63–95; RESP 14–27; TEMP 37.1; O2SAT 95–100
--- NOTE | 2025-04-12 09:30 | RT.EKG_ITS ---
APPROVED REPORT Exam: Resting ECG Reason for Exam: Abnormal Potassium and Magnesium Patient Location: E HR:79 bpm ECG Measurements Heart Rate 79 AXIS AR 147 P 12 QRSd 86 QRS -12 QT 377 T 20 QTc 434 Conclusion Sinus rhythm...normal P axis, V-rate 60- 99 Low voltage, precordial leads...precordial leads <1.0mV Physician: No STEMI
--- NOTE | 2025-04-12 09:51 | DI.CT_ITS ---
Exam(s) CT ABDOMEN PELVIS W EXAM: CT ABDOMEN PELVIS W CLINICAL HISTORY: Known cancer, and transaminitis hyperbilirubinemia TECHNIQUE: Imaging Protocol: Axial computed tomography images with coronal and sagittal reformatted images were created and reviewed. CONTRAST MATERIAL: Intravenous: Omnipaque 350 Contrast volume:100 mL Oral: No COMPARISON: CT CT CHEST/ABD/PEL W from 02/22/2025 FINDINGS: ABDOMEN: Lung Bases: The opacities in the lung bases are unchanged. There is a calcified granuloma in the right lower lobe. Liver: There again seen multiple hepatic masses consistent with metastatic disease. The largest mass is in the right lobe and measures 10.1 x 7.2 cm. This is shown interval increase in size. Previously this area measured 8 x 7 cm. There has been interval increase in size of a mass in the lateral aspect of the right lobe of the liver. It now measures 4.4 x 4.1 cm. This compares to 3.0 x 2.9 cm. Several of the other masses also show increase in size. Portal, Superior Mesenteric, and Splenic Veins: There is now filling defect seen in a branch of the right portal vein consistent with a thrombus. (Series 18, images 62-67). Gallbladder and Biliary Tract: There is no extrahepatic biliary ductal dilatation. There is mild to moderate intrahepatic biliary ductal dilatation particularly in the left lobe. Pancreas: Normal density, no abnormal calcifications or inflammatory process. Spleen: Normal. Adrenals: No masses seen. Kidneys: Normal size, contour and axis. No radiodense stones or obstructive uropathy. No masses seen. Abdominal Aorta: Abdominal portion non-dilated. Bowel: No obstruction or bowel wall thickening. There is anastomosis seen at the rectosigmoid junction. There is no evidence of appendicitis. Peritoneal Cavity: No ascites, collection or mesenteric inflammatory response. No free air. Lymph Nodes: Within normal limits. Bones: Within normal limits for the patient's age. There is a stable area of sclerosis in the left iliac bone. Soft Tissues: Unremarkable. There is a small fat containing umbilical hernia. PELVIS: Bladder: Symmetric distention, no gross wall thickening. Reproductive Organs: Unremarkable as visualized. Lymph Nodes: Within normal limits. Bones: Within normal limits for the patient's age. IMPRESSION: 1. Interval increase in size of several of the hepatic metastases since 02/22/2025. 2. Interval development of a right portal vein thrombus. 3. Stable infiltrates in the lower lobes of the lung. 4. Stable area of sclerosis in the left iliac bone. RADIATION DOSE DELIVERED: 1,042.71mGy.cm Total DLP DATA REPOSITORY: All CT scans at this facility are submitted to the National Radiology Data Registry (NRDR) Dose Index Registry (DIR) with the [employer] ([employer]). RADIATION OPTIMIZATION: All CT scans at this facility use at least one of these dose optimization techniques: automated exposure control; mA and/or kV adjustment per patient size (includes targeted exams where dose is matched to clinical indication); or iterative reconstruction.
--- NOTE | 2025-04-12 10:14 | ED.GENADUL_ITS ---
Discharge Plan Disposition Patient Disposition: Home Condition: Good Discharge Details Clinical Impression: Hypomagnesemia, Hypokalemia, Hypocalcemia, Transaminitis Primary Care Provider: Penny Browning ED Provider: Richard Rodgers Home Meds and New Rx's Prescriptions: No Action whjgdadxpt-fiobwedmgxltu-wjhp 50-325-40 mg tablet 1 tab PO Q4H PRN albuterol sulfate 90 mcg/actuation HFA aerosol inhaler 2 puff inhalation Q6H PRN (Reason: shortness of breath or wheezing) Qty: 8.5 3RF benzonatate 200 mg capsule PO Patient Comments: TAKE ONE CAPSULE BY MOUTH THREE TIMES A DAY NEEDED FOR COUGH nystatin 100,000 unit/gram powder 1 applic topical BID Qty: 30 3RF fluticasone propionate 50 mcg/actuation spray,suspension 2 spray intranasal DAILY PRN Rx Instructions: administer into each nostril prochlorperazine maleate [Compazine] 10 mg tablet 10 mg PO Q6H PRN melatonin 5 mg tablet 5 mg PO HS PRN acetaminophen 650 mg/20.3 mL solution 650 mg PO Q6H PRN propranolol 10 mg tablet 10 mg PO TID Qty: 30 1RF Rx Instructions: Trial for anticipatory anxiety: (1) in am and (1) pre-meeting [up to 3/day] diazepam [Valium] 2 mg tablet 2 mg PO BID PRN (Reason: anxiety; anticipatory anxiety (work or procedures)) Qty: 20 1RF Rx Instructions: Trial for anxiety or panic episode (do not drive or consume alcohol) magnesium oxide [MagOx] 400 mg (241.3 mg magnesium) tablet 800 mg PO BID Rx Instructions: [facility] HEM ONC note from 08/19/24.HE esomeprazole magnesium 40 mg capsule,delayed release(/EC) See Rx Instructions .ROUTE .COMPLEX Qty: 90 3RF Dose Instruction: TAKE ONE CAPSULE BY MOUTH EVERY DAY Rx Instructions: TAKE ONE CAPSULE BY MOUTH EVERY DAY cetirizine [Zyrtec] 10 mg tablet 10 mg PO DAILY Patient Comments: 11/22/[address] Iqbal's progress note budesonide-formoterol [Symbicort] 160-4.5 mcg/actuation HFA aerosol inhaler See Rx Instructions .ROUTE .COMPLEX Qty: 10.2 3RF Dose Instruction: INHALE 2 PUFFS BY MOUTH TWO TIMES A DAY Rx Instructions: INHALE 2 PUFFS BY MOUTH TWO TIMES A DAY cyanocobalamin (vitamin B-12) 1,000 mcg/mL solution 1,000 mcg IM QMONTH doxycycline hyclate 100 mg capsule 100 mg PO BID clindamycin phosphate 1 % solution 1 applic topical BID PRN levetiracetam [Keppra] 1,000 mg tablet 1,000 mg PO BID guaifenesin [Mucus Relief ER] 600 mg tablet extended release 12hr 600 mg PO Q12H PRN ondansetron 4 mg tablet,disintegrating 4 mg PO Q8H PRN sennosides-docusate sodium [Senna with Docusate Sodium] 8.6-50 mg tablet 2 tab-cap PO BID PRN Eliquis 5 mg tablet 5 mg PO BID potassium chloride 20 mEq tablet extended release 20 meq PO DAILY Qty: 7 0RF Discharge Instructions Instructions: Hypocalcemia, High Potassium Diet, Liver Function Test, Hypomagnesemia Additional Instructions: At this time your potassium level has normalized, you do not need to take any additional potassium. Just continue taking your regular scheduled potassium. For the next 48 hours please double up on your prescribed magnesium supplement. Additionally, please take 2-3 extra Tums with each meal daily for the next 2 to 3 days to help with your calcium. Please follow-up closely with your oncologist. As we discussed together please have a low threshold for prompt return if you notice any onset of new abdominal pain, change in your color becoming more yellow, or other concerning symptomatology. If you notice any worsening of your symptoms, or any new symptoms such as vomiting, diarrhea, fever, chills, shortness of breath, chest pain, numbness, weakness, or fainting , please return immediately to the emergency department for reevaluation. Please follow up with your primary care provider as soon as possible for reassessment and reevaluation. As always, it was a pleasure participating in your medical care today. Referrals: Penny Browning APRN [Primary Care Provider, Family Practice] [facility] General Date/Time Provider Initiated Documentation: 04/12/25 09:42 . HPI Narrative: This is a 54-year-old female with past medical history of colon cancer diagnosed in 2011 with subsequent metastatic lesions to the lungs in 2014, and metastases to the liver in 2019, and subsequent metastases to the brain within the past year, who has received chemotherapy and radiation and continues to receive both at this time. Patient also has history of blood clots regularly on Eliquis, but currently being held secondary to concern for swelling in the brain post chemoradiation, and potential risk for bleed. He has been held for the last week or 2. Patient presents today for evaluation of electrolyte abnormalities. She has noticed her chronic levels of fatigue and cramping, nothing out of the ordinary. However she had blood work performed today routinely and it showed hypokalemia hypomagnesemia and hypocalcemia with elevated transaminitis. Patient was sent to the ER for electrolyte management and further workup. Patient has no other new complaints otherwise. She denies any atypical vomiting or diarrhea. No significant dietary changes. No other modifying factors. Patient has indwelling port. Related Data Home Medications ?Medication ?Instructions ?Recorded ?Confirmed prochlorperazine maleate 10 mg 10 mg PO Q6H PRN 02/21/25 tablet (Compazine) potassium chloride 20 mEq 20 meq PO DAILY #7 tabs 02/2002/21/25 tablet,extended release melatonin 5 mg tablet 5 mg PO HS PRN 09/01/2308/16 albuterol sulfate 90 mcg/actuation 2 puff inhalation Q 6H PRN 02/03/24 02/21/25 aerosol inhaler shortness of breath or wheez ing #8.5 grams acetaminophen 650 mg/20.3 mL oral 650 mg PO Q6H PRN 02/21/25 solution diazepam 2 mg tablet (Valium) 2 mg PO BID PRN anxiety; 04/13/24 02/21/25 anticipatory anxiety (work or procedures) #20 tabs propranolol 10 mg tablet 10 mg PO TID anticipatory an xiety; 04/13/24 02/21/25 elevated pulse #30 tabs magnesium oxide 400 mg (241.3 mg 800 mg PO BID 5 02/21/25 magnesium) tablet (MagOx) apixaban 5 mg tablet (Eliquis) 5 mg PO BID 10/11/24 Held on 02/21/25. Instructions: Resume on 03/14/25. Until Re-started by Neuro-surgery ormsjrtdgc-etjjpyecbluik-ellsclad 1 tab PO Q4H PRN 11/1302/21/25 50 mg-325 mg-40 mg tablet esomeprazole magnesium 40 mg See Rx Instructions .Rout e 12/07/24 02/21/25 capsule,delayed release .COMPLEX #90 caps benzonatate 200 mg capsule mg PO 01/04/25 01/04/25 cetirizine 10 mg tablet (Zyrtec) 10 mg PO DAILY 02/21/25 fluticasone propionate 50 2 spray intranasal DAILY PRN 01/04/25 02/21/25 mcg/actuation nasal spray,suspension nystatin 100,000 unit/gram topical 1 applic topical BI D rash #30 grams 01/04/25 02/21/25 powder budesonide-formoterol HFA 160 See Rx Instructions .Rou te 02/02/25 02/21/25 mcg-4.5 mcg/actuation aerosol .COMPLEX #10.2 grams inhaler (Symbicort) clindamycin phosphate 1 % topical 1 applic topical BID PRN 03/06/25 solution cyanocobalamin (vitamin B-12) 1,000 mcg IM QMONTH 02/20 11/13 1,000 mcg/mL injection solution doxycycline hyclate 100 mg capsule 100 mg PO BID 03/06 guaifenesin 600 mg tablet, 600 mg PO Q12H PRN 03/06/25 extended release 12 hr (Mucus Relief ER) levetiracetam 1,000 mg tablet 1,000 mg PO BID 03/06/25 (Keppra) ondansetron 4 mg disintegrating 4 mg PO Q8H PRN tablet sennosides 8.6 mg-docusate sodium 2 tab-cap PO BID PRN 03/06/25 50 mg tablet (Senna with Docusate Sodium) Previous Rx's ?Medication ?Instructions ?Recorded potassium chloride 20 mEq 20 meq PO DAILY #7 tabs 02/20 12/11 tablet,extended release albuterol sulfate 90 mcg/actuation 2 puff inhalation Q 6H PRN 02/03/24 aerosol inhaler shortness of breath or wheez ing #8.5 grams diazepam 2 mg tablet (Valium) 2 mg PO BID PRN anxiety; 04/13/24 anticipatory anxiety (work or procedures) #20 tabs propranolol 10 mg tablet 10 mg PO TID anticipatory an xiety; 04/13/24 elevated pulse #30 tabs esomeprazole magnesium 40 mg See Rx Instructions .Rout e 12/07/24 capsule,delayed release .COMPLEX #90 caps nystatin 100,000 unit/gram topical 1 applic topical BI D rash #30 grams 01/04/25 powder budesonide-formoterol HFA 160 See Rx Instructions .Rou te 02/02/25 mcg-4.5 mcg/actuation aerosol .COMPLEX #10.2 grams inhaler (Symbicort) Allergies Allergy/AdvReac Type Severity Reaction Status Date / Time No Known Allergies Allergy Verified 02/21/25 15:48 General Stated Complaint: GenMedical PAIGE: 3 Exam Narrative Exam Narrative: 1.Const: Well-nourished, Well-developed, appearing stated age 2.Eyes: PERRL, no conjunctival injection, and symmetrical lids. 3.ENT: Atraumatic external nose and ears. Moist MM. Neck: Symmetric, trachea midline, No thyromegaly. 4.CVS: +S1/S2, Peripheral pulses 2+ and equal in all extremities. Brisk capillary refill in all extremities. 5.RESP: Unlabored respiratory effort. Clear to auscultation bilaterally. No wheezes rales or rhonchi 6.GI: Soft, Nontender/Nondistended, No hepatosplenomegaly. No guarding or rebound. 7.MSK: Normocephalic/Atraumatic, Extremities w/o deformity or ttp No cyanosis or clubbing, Normal movement of all extremities. Negative chvostic and Trousseau sign. 8.Skin: Warm, Dry. No rashes or lesions. 9.Neuro: dev manager II-XII grossly intact. Sensation grossly intact, no focal n eurologic deficits. 10.Psych: (AAO) x3. Appropriate mood and affect Course Vital Signs Vital signs: Vital Signs Temperature 37.1 C 04/12/25 09:42 Pulse 95 H 04/12/25 09:42 Respiratory Rate 20 04/12/25 09:42 Blood Pressure 140/101 H 04/12/25 09:42 Pulse Oximetry 99 04/12/25 09:42 Temperature 37.1 C 04/12/25 09:45 Temperature Source Oral 04/12/25 09:45 Pulse 95 H 04/12/25 09:45 Respiratory Rate 20 04/12/25 09:45 Blood Pressure 140/101 H 04/12/25 09:45 Blood Pressure Position Sitting 04/12/25 09:45 Pulse Oximetry 99 04/12/25 09:45 Oxygen Delivery Method Room Air 04/12/25 09:45 Oxygen Flow Rate 0 04/12/25 09:45 Pain Level 7 04/12/25 09:45 Medical Decision Making This is a 54-year-old female with past medical history of colon cancer diagnosed in 2011 with subsequent metastatic lesions to the lungs in 2014, and metastases to the liver in 2019, and subsequent metastases to the brain within the past year, who has received chemotherapy and radiation and continues to receive both at this time. Patient also has history of blood clots regularly on Eliquis, but currently being held secondary to concern for swelling in the brain post chemoradiation, and potential risk for bleed. He has been held for the last week or 2. Patient presents today for evaluation of electrolyte abnormalities. She has noticed her chronic levels of fatigue and cramping, nothing out of the ordinary. However she had blood work performed today routinely and it showed hypokalemia hypomagnesemia and hypocalcemia with elevated transaminitis. Patient was sent to the ER for electrolyte management and further workup. Patient has no other new complaints otherwise. She denies any atypical vomiting or diarrhea. No significant dietary changes. No other modifying factors. Patient has indwelling port. Exam demonstrates a well-appearing female, no hyperreflexia, hyperreflexia, weakness, spasms or tetany. For the patient's electrolyte deficits we will give 20 of IV potassium and 40 of oral potassium, will give 2 g of magnesium, and 1 amp of calcium gluconate. We will get CT scan of the abdomen to evaluate for obstructive biliary pathology, will monitor closely and reassess. 4:24 PM Laboratory workup has returned after repletion of electrolytes, patient's potassium has increased to 4.5, calcium is increased to 8.1, and magnesium has increased to 1.5. Transaminases also so slight improvement, bilirubin remains relatively stable. CT scan shows evidence of increase in size for the hepatic metastases, as well as the right portal vein thrombus, patient continues to have no significant acute pain. She states that she feels at baseline. No significant jaundice clinically, no vomiting or asterixis or other signs of fulminant hepatic failure. With her notable electrolyte improvement, and her feeling at her baseline otherwise I did reach out to oncology. We did try to connect with her oncologist locally a few times, calling both the clinic here and at [facility] but unfortunately we are not able to get in contact with them. I did contact [facility] oncology on-call and spoke with we discussed the findings, how the patient feels that she is at her baseline clinically, if she has no acute abdominal pain or hepatic pain for that matter. We discussed the potential for the symptomatology to be secondary to the chemotherapy and radiation versus secondary to the metastatic lesions causing the intrahepatic ductal dilatation with the absence of distal biliary dilatation. He did review the note from local oncology, who did request the patient come to the ER for electrolyte management and potential gastroenterology evaluation. With the patient's current stability, lack of fulminant hepatic failure, improving transaminases, and subsequent improvement/resolution of many of the electrolyte abnormalities we do not currently see an emergent indication for gastroenterology evaluation right now. Unfortunately we do not have gastroenterology here that be capable of placing a stent for potential metastatic lesion. We did discuss the potential for transfer to [facility] and at this time with the patient's current clinical scenario, medical improvement and stability, decision was made to elect for a close outpatient follow-up with [facility] gastroenterology. On-call oncology will send a note to the patient's oncologist as well, and the patient has a telehealth visit with oncology tomorrow already scheduled. Patient still was slightly low for calcium and magnesium on lab recheck, so we did give an additional 2 g of mag, and 1 amp of calcium. She tolerated this well. She does have home potassium already prescribed and she is now at a stable level with her potassium. We will recommend increased Tums and increased oral magnesium at home for the next 2 to 3 days. Additionally we discussed the low threshold for prompt return if she does notice any right-sided or left-sided abdominal pain that appears to be new or different, any significant change in her color, or any worsening symptoms in general. Patient understands this. We discussed with her the importance of prompt follow-up with [facility]. I have extensively reviewed the treatment plan and discharge instructions with the patient. I have addressed all patient concerns at this time. The patient was made aware of what symptoms to monitor for that would warrant a return to the emergency department. Discussed the plan with the patient, they demonstrate verbal understanding and agreement with our assessment and plan at this time. The documentation in this chart was dictated using [employer] dictation software. Please excuse any dictation errors. FINDINGS: ABDOMEN: Lung Bases: The opacities in the lung bases are unchanged. There is a calcified granuloma in the right lower lobe. Liver: There again seen multiple hepatic masses consistent with metastatic disease. The largest mass is in the right lobe and measures 10.1 x 7.2 cm. This is shown interval increase in size. Previously this area measured 8 x 7 cm. There has been interval increase in size of a mass in the lateral aspect of the right lobe of the liver. It now measures 4.4 x 4.1 cm. This compares to 3.0 x 2.9 cm. Several of the other masses also show increase in size. Portal, Superior Mesenteric, and Splenic Veins: There is now filling defect seen in a branch of the right portal vein consistent with a thrombus. (Series 18, images [id number]). Gallbladder and Biliary Tract: There is no extrahepatic biliary ductal dilatation. There is mild to moderate intrahepatic biliary ductal dilatation particularly in the left lobe. Pancreas: Normal density, no abnormal calcifications or inflammatory process. Spleen: Normal. Adrenals: No masses seen. Kidneys: Normal size, contour and axis. No radiodense stones or obstructive uropathy. No masses seen. Abdominal Aorta: Abdominal portion non-dilated. Bowel: No obstruction or bowel wall thickening. There is anastomosis seen at the rectosigmoid junction. There is no evidence of appendicitis. Peritoneal Cavity: No ascites, collection or mesenteric inflammatory response. No free air. Lymph Nodes: Within normal limits. Bones: Within normal limits for the patient's age. There is a stable area of sclerosis in the left iliac bone. Soft Tissues: Unremarkable. There is a small fat containing umbilical hernia. PELVIS: Bladder: Symmetric distention, no gross wall thickening. Reproductive Organs: Unremarkable as visualized. Lymph Nodes: Within normal limits. Bones: Within normal limits for the patient's age. IMPRESSION: 1. Interval increase in size of several of the hepatic metastases since 02/22/2025. 2. Interval development of a right portal vein thrombus. 3. Stable infiltrates in the lower lobes of the lung. 4. Stable area of sclerosis in the left iliac bone. Critical Care Time Critical Care Time Critical Care Time: Yes Total Critical Care Time: 45 Attestation: Upon my evaluation, this patient had a high probability of imminent or life- threatening deterioration, which required my direct attention, intervention, and personal management. I have personally provided 45 minutes of critical care time exclusive of time spent on separately billable procedures. Time includes review of laboratory data, radiology results, discussion with consultants, and monitoring for potential decompensation. Interventions were performed as documented. [facility] All Active Problems (Updated 04/12/25 @ 16:38 by Richard Rodgers DO) Transaminitis (Acute) Hypocalcemia (Acute) Hypokalemia (Acute) Hypomagnesemia (Acute) Colon cancer metastasized to multiple sites (Acute) Hemorrhoids (Acute) Vaginitis (Acute) Encounter to establish care with new provider (Acute) Environmental allergies (Acute) Screening examination for STI (Acute) Preventative health care (Acute) S/P craniotomy (Acute) At [facility] on 03/24/[address] Aaron Palacios and again R frontaltemporal craniotomy for tumor resection with Gamma tile placement on 10/20/[address] Aaron Palacios at [facility] Chronic cough (Acute) Secondary malignant neoplasm of brain (Acute ~03/15/24) [facility] 04/20/24 F/u with Neurosurgery Weight loss (Acute) Long-term current use of proton pump inhibitor therapy (Acute) Risk factor for osteopenia, DEXA [ ] Anemia (Chronic) Low RBC, low-normal HGB. High MCV Heart palpitations (Acute) GERD (gastroesophageal reflux disease) (Chronic) Shoulder pain (Acute) Neck pain (Acute) Osteoarthritis of right knee (Acute) acute on chronic pain, Hx ruptures bakers cyst Skin sensitivity (Acute) Hands/feet are sensitive and peel easily (2' cap swelling due to chemo) .. Using work-balm, udder cream. May need Rx, Derm. Malignant neoplasm of sigmoid colon (Chronic) [place], [place]), s/p Chemo x 2.5 yrs .... with Met (2014)(+Chemo) and again (2016)(+Rad/Chemo) .. Now with [facility] Onc, Dr. Iqbal. 09/2020opulmonary nodule RLL, restaged CT 03/26/22 08/29/22 [facility] Hem/Onc visit - Lonsurf/avastin therapy 10/30/23 F/u w Dr Iqbal 08/30/24 F/U [facility] Hem/Onc Cancer, metastatic to liver (Acute) s/p Rad, Chemo (2016) .. Original colon cancer, s/p resection (2011) Cancer, metastatic to lung (Chronic) Colon Cancer, s/p resection/chemo (2011) . Mets to LUNG (2014), s/p more chemo. 11/22/21 F/u Dr Iqbal - pt due for next cycle of capecitabine. Other fatigue (Acute) Bone metastasis (Acute) Hypocalcemia (Acute) Hypomagnesemia (Acute) Hypokalemia (Acute) Medical History (Updated 04/12/25 @ 16:38 by Richard Rodgers DO) Brain tumor Synovial cyst of popliteal space [Dsouza], right knee Anxiety and depression Support system deficit Good group of friends, 09/2023.. [place]ly moved from [place] (2019) Depression Pt stopped: Hx Sertraline Caregiver stress Mo in [facility]. 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 Mo in [facility], 02/28/21 Bone spur 1993 - surgery [place] Surgical History H/O brain surgery (~10/20/24) Right frontotemporal craniotomy for tumor resection with Gamma Tile placement History of colon resection (07/2011) History of surgery of liver History of breast biopsy Family History Mother Colon cancer metastatic colorectal Diabetes Heart disease Brother Heart disease Father Stroke Cancer skin Heart disease Social History Smoking/Tobacco Use Status: Never Smoking risk assessment performed?: Yes Alcohol Intake: never Substance use type: does not use Adopted: No Caregiver/Support person: No Foster care: No Household members: family Housing: apartment Number of Children: 2 number of grandchildren: 1 Communication Needs: None Education Level: college Details: Bachelor's Degree Do you need help understanding health information?: Rarely 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
[2025-04-12] MEDS: Normal Saline Flush 10 ML SYR IVP (10:25)
[2025-04-12] MEDS: Omnipaque 350 MG/ML 100 ML BTL IJ (10:25)
[2025-04-12] MEDS: Normal Saline - Diluent 50 ML VIAL IJ (10:25)
[2025-04-12 10:27] LABS: Bilirubin, Direct 3.7 mg/dL (0.0-0.2)
[2025-04-12] MEDS: MAGNESIUM SULFATE 2 GM/50 ML BAG IV_INF ×2 (11:16→16:10)
[2025-04-12] MEDS: Calcium Gluconate 4.65 MEQ/10 ML VIAL 4.65 MG IVP ×2 (11:17→16:09)
[2025-04-12] MEDS: Potassium Chloride 20 MEQ TABCR 40 MEQ PO (11:17)
[2025-04-12] MEDS: POTASSIUM CHLORIDE 20 MEQ/100 ML BAG 50 MEQ IV_INF (12:17)
[2025-04-12 14:17] LABS: ALT 433 U/L (14-59); AST 198 U/L (15-37); Albumin 2.7 g/dL (3.4-5.0); Alkaline Phosphatase 691 U/L (46-116); Anion Gap 11.8 mmol/L (3-11); BUN 12 mg/dL (7-18); Bilirubin, Total 4.5 mg/dL (0.2-1.0); CO2 24.2 mmol/L (21.0-32.0); Calcium 7.9 mg/dL (8.5-10.1); Chloride 106 mmol/L (98-107); Estimated GFR 105.28 (mL/min/1.73m2); Glucose 106 mg/dL (74-106); Magnesium 1.0 mg/dL (1.8-2.4); Potassium 3.3 mmol/L (3.5-5.1); Sodium 142 mmol/L (136-145); Total Protein 7.1 g/dL (6.4-8.2)
[2025-04-12 15:08] LABS: ALT 413 U/L (14-59); AST 163 U/L (15-37); Albumin 2.6 g/dL (3.4-5.0); Alkaline Phosphatase 691 U/L (46-116); Anion Gap 8.6 mmol/L (3-11); BUN 9 mg/dL (7-18); Bilirubin, Total 4.6 mg/dL (0.2-1.0); CO2 24.4 mmol/L (21.0-32.0); Calcium 8.1 mg/dL (8.5-10.1); Chloride 107 mmol/L (98-107); Estimated GFR 105.28 (mL/min/1.73m2); Glucose 118 mg/dL (74-106); Magnesium 1.5 mg/dL (1.8-2.4); Potassium 4.5 mmol/L (3.5-5.1); Sodium 140 mmol/L (136-145); Total Protein 6.8 g/dL (6.4-8.2)
== END 2025-04-12 17:36 | disposition home or self-care (01) ==
PROVIDERS: Emergency Provider Student in an Organized Health Care Education/Training Program; PCP Nurse Practitioner Family
DX: E83.42 Hypomagnesemia (principal); E87.6 Hypokalemia; E83.51 Hypocalcemia; Z79.01 Long term (current) use of anticoagulants; E80.6 Other disorders of bilirubin metabolism; I81 Portal vein thrombosis; C18.9 Malignant neoplasm of colon, unspecified; C78.02 Secondary malignant neoplasm of left lung; C78.01 Secondary malignant neoplasm of right lung; C78.7 Secondary malignant neoplasm of liver and intrahepatic bile duct; C79.31 Secondary malignant neoplasm of brain; Z92.21 Personal history of antineoplastic chemotherapy; Z92.3 Personal history of irradiation
CPT/HCPCS: 80053; 93005; 96365; 96366; 96367; 96368; 99285; 74177; 82248; 83735; 93010; J0612; J3475; J3480; J3490

== ENCOUNTER 2025-04-21 07:00 | Outpatient (RCR) | payer BC, SELFPAY ==
[2025-04-12 07:23] LABS: Abs Immature Grans 0.17 10^3/uL (0.0-0.06); HCT 35.5 % (36.0-46.0); HGB 11.2 g/dL (11.2-15.7); Immature Grans % 1.4 %; MCH 29.5 pg (27.0-33.0); MCHC 31.5 % (32.0-36.0); MCV 93 fL (80-95); MPV 10.7 fL (8.0-11.0); Platelet Count 186 10^3/uL (130-400); RBC 3.80 10^6/uL (3.93-5.22); RDW 19.9 % (11.7-14.6); RDW-SD 67.4 fL; WBC 12.29 10^3/uL (4.4-10.8)
[2025-04-12 07:42] LABS: ALT 452 U/L (14-59); AST 202 U/L (15-37); Albumin 2.8 g/dL (3.4-5.0); Alkaline Phosphatase 726 U/L (46-116); Anion Gap 12.9 mmol/L (3-11); BUN 13 mg/dL (7-18); Bilirubin, Total 4.4 mg/dL (0.2-1.0); CO2 23.1 mmol/L (21.0-32.0); Calcium 7.8 mg/dL (8.5-10.1); Chloride 104 mmol/L (98-107); Estimated GFR 101.44 (mL/min/1.73m2); Glucose 81 mg/dL (74-106); Magnesium 0.8 mg/dL (1.8-2.4); Sodium 140 mmol/L (136-145); Total Protein 7.4 g/dL (6.4-8.2)
[2025-04-12 08:11] LABS: Potassium 2.8 mmol/L (3.5-5.1)
[2025-04-12 18:16] LABS: CEA 56.4 ng/mL (See Note)
[2025-04-21 07:57] LABS: Abs Immature Grans 0.16 10^3/uL (0.0-0.06); HCT 30.2 % (36.0-46.0); HGB 10.3 g/dL (11.2-15.7); Immature Grans % 1.3 %; MCH 30.8 pg (27.0-33.0); MCHC 34.1 % (32.0-36.0); MCV 90 fL (80-95); MPV 12.3 fL (8.0-11.0); Platelet Count 270 10^3/uL (130-400); RBC 3.34 10^6/uL (3.93-5.22); RDW 23.4 % (11.7-14.6); RDW-SD 76.4 fL; WBC 12.37 10^3/uL (4.4-10.8)
[2025-04-21 08:20] LABS: Anisocytosis 2+; Polychromasia Present
[2025-04-21 08:23] LABS: ALT 263 U/L (14-59); AST 178 U/L (15-37); Albumin 2.4 g/dL (3.4-5.0); Anion Gap 11.8 mmol/L (3-11); BUN 10 mg/dL (7-18); CO2 26.2 mmol/L (21.0-32.0); Calcium 8.7 mg/dL (8.5-10.1); Chloride 100 mmol/L (98-107); Estimated GFR 105.28 (mL/min/1.73m2); Glucose 75 mg/dL (74-106); Potassium 3.6 mmol/L (3.5-5.1); Sodium 138 mmol/L (136-145); TSH 2.95 uIU/mL (0.36-3.74); Total Protein 7.2 g/dL (6.4-8.2)
[2025-04-21 08:28] LABS: Alkaline Phosphatase 1160 U/L (46-116); Bilirubin, Total 16.5 mg/dL (0.2-1.0)
[2025-04-21 21:15] LABS: CEA 59.5 ng/mL (See Note)
== END 2025-04-21 23:59 | disposition home or self-care (01) ==
LOC: INF 07:00
PROVIDERS: PCP Nurse Practitioner Family; Visit Provider Internal Medicine Hematology & Oncology
DX: C18.9 Malignant neoplasm of colon, unspecified (principal); Z79.899 Other long term (current) drug therapy
CPT/HCPCS: 36415; 80053; 82378; 83735; 84439; 84443; 85025

== ENCOUNTER 2025-05-03 16:33 | Emergency (ER) | payer BC, SELFPAY ==
[2025-05-03] VITALS (47 sets, daily range): BP systolic 103–129; BP diastolic 61–82; PULSE 82–105; RESP 17–28; TEMP 36.8; O2SAT 97–100
--- NOTE | 2025-05-03 16:30 | RT.EKG_ITS ---
APPROVED REPORT Exam: Resting ECG Reason for Exam: Chest Pain Patient Location: E HR:96 bpm ECG Measurements Heart Rate 96 AXIS KS 149 P 34 QRSd 86 QRS -9 QT 357 T 11 QTc 450 Conclusion Sinus rhythm...normal P axis, V-rate 60- 99 Probable left atrial enlargement...P >50mS, <-0.10mV V1 Low voltage, precordial leads...precordial leads <1.0mV
--- NOTE | 2025-05-03 17:16 | ED.GENADUL_ITS ---
Discharge Plan Disposition Patient Disposition: Home Condition: Stable Discharge Details Clinical Impression: Acute liver failure, Pneumonitis Primary Care Provider: Penny Browning ED Provider: Richard Bustos Home Meds and New Rx's Prescriptions: New ketorolac 10 mg tablet 10 mg PO QID PRN5 Days Qty: 20 0RF Rx Instructions: maximum total duration of 5 days from all oral, intranasal, or parenteral formulations cefpodoxime 200 mg tablet 200 mg PO BID 5 Days Qty: 10 0RF Rx Instructions: must administer with a meal/food Continued albuterol sulfate 90 mcg/actuation HFA aerosol inhaler 2 puff inhalation Q6H PRN (Reason: shortness of breath or wheezing) Qty: 8.5 3RF benzonatate 200 mg capsule 200 mg PO TID PRN Patient Comments: TAKE ONE CAPSULE BY MOUTH THREE TIMES A DAY NEEDED FOR COUGH nystatin 100,000 unit/gram powder 1 applic topical BID Qty: 30 3RF fluticasone propionate 50 mcg/actuation spray,suspension 2 spray intranasal DAILY PRN Rx Instructions: administer into each nostril levetiracetam 500 mg tablet 500 mg PO BID Patient Comments: TAKE ONE TABLET BY MOUTH TWO TIMES A DAY FOR INTRACRANIAL BLEED FOR 7 DAYS potassium chloride 10 mEq tablet extended release 10 meq PO BID Patient Comments: TAKE ONE TABLET BY MOUTH TWICE A DAY bile oecqz-vrmq-iypz-phenolpth Tablet 1 tab PO BID magnesium oxide 400 mg magnesium capsule 400 mg PO BID ibuprofen 200 mg capsule 400 mg PO ONCE Qty: 1 0RF oxycodone 5 mg tablet See Rx Instructions PO Q6H MDD 8 PRN (Reason: pain) Qty: 60 0RF Rx Instructions: 1-2 Q4h PRN pain orally every 6 hours PRN; This script sent in to [facility] 04[facility] by [facility]. Pt had not yet picked up . I did not send a new one in prochlorperazine maleate [Compazine] 10 mg tablet 10 mg PO Q6H PRN melatonin 5 mg tablet 5 mg PO HS PRN acetaminophen 650 mg/20.3 mL solution 650 mg PO Q6H PRN cetirizine [Zyrtec] 10 mg tablet 10 mg PO DAILY Patient Comments: 11/22/[address] Iqbal's progress note budesonide-formoterol [Symbicort] 160-4.5 mcg/actuation HFA aerosol inhaler See Rx Instructions .ROUTE .COMPLEX Qty: 10.2 3RF Dose Instruction: INHALE 2 PUFFS BY MOUTH TWO TIMES A DAY Rx Instructions: INHALE 2 PUFFS BY MOUTH TWO TIMES A DAY clindamycin phosphate 1 % solution 1 applic topical BID PRN guaifenesin [Mucus Relief ER] 600 mg tablet extended release 12hr 600 mg PO Q12H PRN ursodiol 300 mg capsule 300 mg PO BID Held esomeprazole magnesium 40 mg capsule,delayed release(DR/EC) See Rx Instructions .ROUTE .COMPLEX Qty: 90 3RF Hold Instructions: Resume on 05/04/25. Dont take at the same time of day as the Rx'd antibiotic - cefpodoxime Dose Instruction: TAKE ONE CAPSULE BY MOUTH EVERY DAY Rx Instructions: TAKE ONE CAPSULE BY MOUTH EVERY DAY No Action morphine concentrate 100 mg/5 mL (20 mg/mL) solution See Rx Instructions PO Q1H MDD 24 ml PRN (Reason: pain) Qty: 30 0RF Rx Instructions: 0.25-1.0 ml orally every 1 hour PRN; HOSPICE lorazepam 1 mg tablet 1 mg PO Q4H PRN (Reason: anxiety, nausea, dyspnea) Qty: 6 5RF Rx Instructions: hospice Discharge Instructions Instructions: Acute Liver Failure, Cefpodoxime, Pneumonitis Additional Instructions: You were seen in the emergency department for your chest pain/right upper quadrant abdominal pain, this could be due to tumor burden pushing on all the structures around it in the liver, it is likely that the stent placed in your common bile duct did not solve the issue of draining the liver as your bilirubin and conjugated bilirubin (a sign of biliary obstruction) are rising. We discussed Toradol for pain as well as a trial of an antibiotic for the possible pneumonitis/small pneumonia. Your cardiac workup was negative there is no blood clot in your lungs. Please do not hesitate to return for any emergent concerns. Stand Alone Forms: Portal Information Referrals: Penny Browning APRN [Primary Care Provider, Family Practice] Discharge Data Discharge Date/Time-TO BE ENTERED AT DEPARTURE: 05/03/25 22:28 HPI General Date/Time Provider Initiated Documentation: 05/03/25 16:38 . HPI Narrative: 54 year-old female presents to ED today by POV/ambulating with her daughter with a chief complaint of increasing jaundice, central chest pain/RUQ/epigastric pain with onset around 1200 today. Quality described as sharp stabbing pain worse with deep breaths, thought it was gas pain from lunch, no radiation to shortness of breath, has mild cough which hurts more, pain getting worse over hours, denies vomiting, denies black/bloody stools. Severity is described as severe. Palliating factors include nothing specific attempted. Provoking factors include nothing specific. Events leading up to the incident/Associated Symptoms: Patient has colon CA, mets to liver/brain, recently had a CBD stent placed at [facility]. Patient not anticoagulated. Related Data Home Medications Medication Instructions Recorded Confirmed prochlorperazine maleate 10 mg 10 mg PO Q6H PRN 05/03/25 tablet (Compazine) melatonin 5 mg tablet 5 mg PO HS PRN 09/01/2304/22 albuterol sulfate 90 mcg/actuation 2 puff inhalation Q 6H PRN 02/03/24 05/03/25 aerosol inhaler shortness of breath or wheez ing #8.5 grams acetaminophen 650 mg/20.3 mL oral 650 mg PO Q6H PRN 05/03/25 solution esomeprazole magnesium 40 mg See Rx Instructions .Rout e 12/07/24 05/03/25 capsule,delayed release .COMPLEX #90 caps Held on 05/03/25. Instructions: Resume on 05/04/25. Dont take at the same time of day as the Rx'd antibiotic - cefpodoxime benzonatate 200 mg capsule 200 mg PO TID PRN 01/04/25 05/03/25 cetirizine 10 mg tablet (Zyrtec) 10 mg PO DAILY 05/03/25 fluticasone propionate 50 2 spray intranasal DAILY PRN 01/04/25 05/03/25 mcg/actuation nasal spray,suspension nystatin 100,000 unit/gram topical 1 applic topical BI D rash #30 grams 01/04/25 05/03/25 powder budesonide-formoterol HFA 160 See Rx Instructions .Rou te 02/02/25 05/03/25 mcg-4.5 mcg/actuation aerosol .COMPLEX #10.2 grams inhaler (Symbicort) clindamycin phosphate 1 % topical 1 applic topical BID PRN 03/06/25 05/03/25 solution guaifenesin 600 mg tablet, 600 mg PO Q12H PRN 03/06/25 05/03/25 extended release 12 hr (Mucus Relief ER) ursodiol 300 mg capsule 300 mg PO BID 04/27/2505/03 bile bkxuu-ahud-nxzy-phenolpth 1 tab PO BID 05/02/25 1 07/03/24 tablet ibuprofen 200 mg capsule 400 mg (2 x 200 mg) PO ONCE #1 cap 05/02/25 05/03/25 levetiracetam 500 mg tablet 500 mg PO BID 05/02/2506/15 magnesium oxide 400 mg PO BID 05/02/2505/03 oxycodone 5 mg tablet See Rx Instructions PO Q6H P RN 05/02/25 05/03/25 pain #60 tabs potassium chloride 10 mEq 10 meq PO BID 05/02/2505/03 tablet,extended release cefpodoxime 200 mg tablet 200 mg PO BID 5 days #10 tab s 05/03/25 ketorolac 10 mg tablet 10 mg PO QID PRN 5 days #20 tabs 05/03/25 lorazepam 1 mg tablet 1 mg PO Q4H PRN anxiety, paulino sea, 05/04/25 dyspnea #6 tabs morphine concentrate 100 mg/5 mL See Rx Instructions P O Q1H PRN 05/04/25 (20 mg/mL) oral solution pain #30 mL Previous Rx's Medication Instructions Recorded albuterol sulfate 90 mcg/actuation 2 puff inhalation Q 6H PRN 02/03/24 aerosol inhaler shortness of breath or wheez ing #8.5 grams esomeprazole magnesium 40 mg See Rx Instructions .Rout e 12/07/24 capsule,delayed release .COMPLEX #90 caps Held on 05/03/25. Instructions: Resume on 05/04/25. Dont take at the same time of day as the Rx'd antibiotic - cefpodoxime nystatin 100,000 unit/gram topical 1 applic topical BI D rash #30 grams 01/04/25 powder budesonide-formoterol HFA 160 See Rx Instructions .Rou te 02/02/25 mcg-4.5 mcg/actuation aerosol .COMPLEX #10.2 grams inhaler (Symbicort) ibuprofen 200 mg capsule 400 mg (2 x 200 mg) PO ONCE #1 cap 05/02/25 oxycodone 5 mg tablet See Rx Instructions PO Q6H P RN 05/02/25 pain #60 tabs cefpodoxime 200 mg tablet 200 mg PO BID 5 days #10 tab s 05/03/25 ketorolac 10 mg tablet 10 mg PO QID PRN 5 days #20 tabs 05/03/25 lorazepam 1 mg tablet 1 mg PO Q4H PRN anxiety, paulino sea, 05/04/25 dyspnea #6 tabs morphine concentrate 100 mg/5 mL See Rx Instructions P O Q1H PRN 05/04/25 (20 mg/mL) oral solution pain #30 mL Allergies Allergy/AdvReac Type Severity Reaction Status Date / Time No Known Allergies Allergy Verified 05/03/25 16:42 General Stated Complaint: Chest Pain PAIGE: 3 Review of Systems All systems reviewed & are unremarkable except as noted in HPI and below Exam Narrative Exam Narrative: GENERAL APPEARANCE: Well-nourished, toxic, awake and alert, atraumatic, moderate acute distress. SKIN: Warm, profound jaundice HEAD: Normocephalic, atraumatic, normal hair distribution for gender/age. EYES: Normal conjunctiva, no exudates on lids/lashes. ENT: Nares patent, no circumoral cyanosis, no facial swelling NECK: Supple, trachea midline, painless cervical ROM. LUNGS/CHEST: Lungs CTA bilaterally-diminished in bilateral bases, non-labored respirations, normal A/P diameter, symmetrical expansion, no chest wall deformity HEART (CV/PV): Regular rate and rhythm without murmur, no peripheral edema, no JVD. ABDOMEN: Soft, non-distended, no guarding, right upper quadrant tenderness, Mcallister sign positive, no CVA tenderness to percussion bilaterally. MSK: Normal ROM, no swelling/deformity to bilateral UEs or LEs, moving all extremities without weakness, no cyanosis, spine midline without tenderness, normal curvature. NEURO: Mental Status AAOx4 - alert to person, place, time, events No facial droop, no forehead involvement. Motor: No focal weakness Sensory: sensation intact to light touch globally. Gait normal: patient ambulated without ataxia into ED room. PSYCH: euthymic, cooperative, pleasant, appropriate speech Course Vital Signs Vital signs: Vital Signs Temperature 36.8 C 05/03/25 16:37 Pulse 101 H 05/03/25 16:37 Respiratory Rate 20 05/03/25 16:37 Blood Pressure 129/81 05/03/25 16:37 Pulse Oximetry 98 05/03/25 16:37 Temperature 36.8 C 05/03/25 16:37 Pulse 101 H 05/03/25 16:37 Respiratory Rate 20 05/03/25 16:37 Blood Pressure 129/81 05/03/25 16:37 Blood Pressure Position Sitting 05/03/25 16:37 Pulse Oximetry 98 05/03/25 16:37 Oxygen Delivery Method Room Air 05/03/25 16:37 Oxygen Flow Rate 0 05/03/25 16:37 Lab/Test Results Lab/Test Results: Laboratory Tests Range/Units 05/03/25 17:00 VBG Lactate (<or=2.0) mmol/L 1.2 Medical Decision Making This dictation utilizes hvhqh-hz-uhqe dictation software and may contain unedited grammatical errors. 54 year-old female presents to ED today by POV/ambulating with her daughter with a chief complaint of increasing jaundice, central chest pain/RUQ/epigastric pain with onset around 1200 today. Quality described as sharp stabbing pain worse with deep breaths, thought it was gas pain from lunch, no radiation to shortness of breath, has mild cough which hurts more, pain getting worse over hours, denies vomiting, denies black/bloody stools. Severity is described as severe. Palliating factors include nothing specific attempted. Provoking factors include nothing specific. Events leading up to the incident/Associated Symptoms: Patient has colon CA, mets to liver/brain, recently had a CBD stent placed at [facility]. Patients' medical history: History of liver ablation, advance care planning, liver failure, ERCP on 04/25 at [facility], electrolyte abnormalities, status post craniotomy March 2024, GERD, colon cancer with mets to liver lung and brain. Family and social history: Lives at home with daughter, no alcohol or smoking. Pertinent exam findings / vital signs include severe jaundiced, exquisite right upper quadrant tenderness, central pleuritic chest pain, diminished lung sounds in the right base, negative Rovsing's, negative McBurney's point tenderness, no CVA tenderness to percussion bilaterally, mildly tachycardic, no respiratory distress. Differential / pathologies of concern include pleural effusion, obstructive biliary pathology, sepsis, liver failure, metastasis, electrolyte abnormality, PE. Diagnostic studies of: -CBC, CMP, PT/INR, lactate, magnesium, liver panel, ammonia, BNP, serial troponins, CT chest PE study with CT ABD/pelvis with contrast, EKG. - CBC shows WBCs 11.35 mildly elevated, stable chronic anemia 9.1 - INR 1.2 - Lactate is 1.2 - CMP shows normal potassium and no other actionable abnormality - Magnesium is 1.4 replating IV - Liver panel shows a total bilirubin of 15.5 with conjugated 11.3-obstructive pattern with severely elevated alk phos at 669 - Ammonia negative - Serial troponins negative - BNP negative - CT chest PE study shows pneumonitis versus pneumonia in the left lower lobe with similar to prior right lower lobe Interventions of: - IVF 1L NS, Toradol, Rx for cefpodoxime to cover possible pneumonitis versus pneumonia ED Course/Assessment/Plan: Spoke with Dr. Monae of [facility] at 2128-they had low likelihood of good outcome from stent placement last week and states during the procedure they were unable to even access the left and right hepatic ducts, they are unsure if her rising bilirubin is due to external compression of her tumor burden versus a colonic stent with they had no advised intervention, they declined to take the patient. I do lengthy conversation with patient and family over prognosis, the patient agrees to 5 days of Toradol and will hold her ibuprofen, going to give her cefpodoxime for the questionable pneumonitis and pyelonephritis on her CT scan. I offered her inpatient hospice versus palliative consults or placing a call to her oncology team. She wishes to remain at home and I did fill out home health paperwork for her, she can call palliative care tomorrow morning and is already established with them, she has a scheduled call with her oncologist tomorrow morning as well. Findings consistent with terminal liver failure, no ACS or PE, Disposition of Acute Liver Failure, Pneumonitis. Patient verbalized understanding of the plan and return to ED criteria and engaged in shared decision making. Medical Records Medical records reviewed: Yes I reviewed the patient's medical records. Imaging Data Radiologic Study: Attestation: I personally reviewed and interpreted this imaging study as follows: Imaging: CT Scan Radiologist's impression: Addendum created by Andreia Lopez MD on 05/03/2025 7:51:02 PM EST: Correction of an error in IMPRESSION as follows: The impression should also state Mildly heterogeneous right and minimally heterogeneous left nephrogram concerning for new pyelonephritis, without obstruction. Initial report created on 05/03/2025 7:50:15 PM EST: PROCEDURE INFORMATION: Exam: CTA Chest With Contrast CTA Abdomen With Contrast Exam date and time: 05/03/2025 19:04 Age: 54 years old Clinical indication: Chest pressure; Prior surgery; Surgery date: <1 month; Surgery type: Ercp. Colon resection (+1 year ago); Chest pain, obstructive bilirubin pattern TECHNIQUE: Imaging protocol: Computed tomographic angiography of the chest with contrast. Exam focused on the arteries. Computed tomographic angiography of the abdomen with contrast. Exam focused on the arteries. 3D rendering (Not supervised by radiologist): MIP and/or 3D reconstructed images were created by the technologist. Radiation optimization: All CT scans at this facility use at least one of these dose optimization techniques: automated exposure control; mA and/or kV adjustment per patient size (includes targeted exams where dose is matched to clinical indication); or iterative reconstruction. Contrast material: [id number]; Contrast volume: 100 ml; Contrast route: INTRAVENOUS (IV); COMPARISON: CT CHEST/ABD/PEL W 02/22/2025 09:29 FINDINGS: Tubes, catheters and devices: Left jugular port, satisfactory position. Plastic CBD stent, satisfactory position. Right and left fallopian tube metallic closure devices. VASCULATURE: Pulmonary arteries: . No pulmonary emboli. Aorta: No aortic aneurysm. No aortic dissection. Celiac and mesenteric arteries: No occlusion or significant stenosis. Renal arteries: No occlusion or significant stenosis. Portal vein is patent. CHEST: Lungs: Left upper lobe mass with extension toward the mediastinum about 4 cm AP, additional smaller pulmonary lesions again seen. Right lower lobe lesion very similar to prior. Mild surrounding subsegmental atelectasis and or scarring, overall increasing. New small left lower lobe airspace consolidation. Small metallic structures in lungs could reflect biopsy clips or radiation markers. Pleural spaces: . No pneumothorax. No pleural effusion. Heart: . No cardiomegaly. No pericardial effusion. ABDOMEN AND PELVIS: Liver: Severe multifocal hepatic presumed metastatic disease appears overall worsened. Dominant conglomerated lesion measures up to 14 cm AP involving left and right lobes. Gallbladder and biliary ducts: Cholecystectomy. Mild left and moderate right intrahepatic ductal dilation is worsening. Pancreas: No significant pancreatic ductal dilation. Spleen: . No splenomegaly. Adrenal glands: . No mass. Kidneys: Mildly heterogeneous right nephrogram, minimally heterogeneous left nephrogram new since prior click 2 No right hydronephrosis. No left hydronephrosis. Stomach and bowel: Sigmoid colon anastomosis, satisfactory appearance. No significant enteritis or colitis. No obstruction in the GI tract. Intraperitoneal space: Upper abdominal pathology is worsening. Some appears necrotic. Lymph nodes: Metastatic appearing upper paratracheal adenopathy again seen. Additional mediastinal lymph nodes decreased slightly in size. Bones/joints: No acute fracture or subluxation. Soft tissues: Prominent subcutaneous fat. Mild dependent subcutaneous edema. IMPRESSION: 1. Multiple malignant/metastatic appearing pulmonary lesions again seen. New left lower lobe pneumonia versus pneumonitis. 2. Plastic CBD stent, satisfactory position. 3. Mild left and moderate right intrahepatic ductal dilation is worsening, concerning for suboptimal performance of the stent. 4. Additional findings as described. Dictated and Authenticated by: Andreia Lopez MD. Lab Data Lab results reviewed: Yes I reviewed the patient's lab results. Labs: Laboratory Tests Range/Units 05/03/25 05/03/25 05/03/25 17:00 17:15 18:00 WBC (4.4-10.8) 10^3/uL 11.35 H RBC (3.93-5.22) 10^6/uL 2.92 L Hgb (11.2-15.7) g/dL 9.1 L Hct (36.0-46.0) % 26.9 L MCV (80-95) fL 92 MCH (27.0-33.0) pg 31.2 MCHC (32.0-36.0) % 33.8 RDW (11.7-14.6) % 25.2 H Plt Count (130-400) 10^3/uL 278 MPV (8.0-11.0) fL 11.8 H Immature Gran % % 3.8 Neutrophils % % 82.8 Lymphocytes % % 6.0 Monocytes % % 5.4 Eosinophils % % 1.5 Basophils % % 0.5 Nucleated RBC % (0.0-0.3) % 0.0 Absolute Neutrophils (1.2-6.7) 10^3/uL 9.40 H Absolute Lymphocytes (1.2-3.4) 10^3/uL 0.68 L Absolute Monocytes (0.1-0.8) 10^3/uL 0.61 Absolute Eosinophils (0.0-0.7) 10^3/uL 0.17 Absolute Basophils (0.0-0.2) 10^3/uL 0.06 RBC Morphology See Below Anisocytosis 1+ PT (9.1-11.1) sec 11.5 H INR (0.9-1.1) 1.2 H VBG Lactate (<or=2.0) mmol/L 1.2 Sodium (136-145) mmol/L 137 Potassium (3.5-5.1) mmol/L 4.5 D Chloride (98-107) mmol/L 105 Carbon Dioxide (20.0-31.0) mmol/L 20.7 Anion Gap (3-11) mmol/L 11.3 H BUN (9-23) mg/dL 14 Creatinine (0.55-1.02) mg/dL 0.8 Est GFR (CKD-EPI 2020) (mL/min/1.73m2) 76.25 Glucose (74-106) mg/dL 103 Calcium (8.3-10.6) mg/dL 8.8 Magnesium (1.6-2.6) mg/dL 1.4 L Total Bilirubin (0.2-1.2) mg/dL 15.50 H* Conjugated Bilirubin (<=0.3) mg/dL 11.3 H AST (<34) U/L 115 H ALT (10-49) U/L 85 H Alkaline Phosphatase (46-116) U/L 669 H Ammonia (11-32) umol/L < 10 L Troponin I (<35) ng/L < 3 < 3 NT-Pro-B Natriuret Pep (<300) pg/mL 130 Total Protein (5.7-8.2) g/dL 6.8 Albumin (3.4-5.0) g/dL 3.7 PFSH All Active Problems (Updated 05/04/25 @ 15:13 by Claudia Leonardo MD) Hospice care (Acute) admission 05/05/25 Pneumonitis (Acute) Acute liver failure (Acute) Fatigue (Acute) Advanced care planning/counseling discussion (Acute) Liver failure (Acute) S/P ERCP (Acute) at [facility] on 04/25/2025 with stent placement Transaminitis (Acute) Hypocalcemia (Acute) Hypokalemia (Acute) Hypomagnesemia (Acute) Colon cancer metastasized to multiple sites (Acute) Hemorrhoids (Acute) Vaginitis (Acute) Encounter to establish care with new provider (Acute) Environmental allergies (Acute) Screening examination for STI (Acute) Preventative health care (Acute) S/P craniotomy (Acute) At [facility] on 03/24/[address] Aaron Palacios and again R frontaltemporal cranio tatiana for tumor resection with Gamma tile placement on 10/20/[address] Aaron Palacios at [facility] Chronic cough (Acute) Secondary malignant neoplasm of brain (Acute ~03/15/24) [facility] 04/20/24 F/u with Neurosurgery Weight loss (Acute) Long-term current use of proton pump inhibitor therapy (Acute) Risk factor for osteopenia, DEXA [ ] Anemia (Chronic) Low RBC, low-normal HGB. High MCV Heart palpitations (Acute) GERD (gastroesophageal reflux disease) (Chronic) Shoulder pain (Acute) Neck pain (Acute) Osteoarthritis of right knee (Acute) acute on chronic pain, Hx ruptures bakers cyst Skin sensitivity (Acute) Hands/feet are sensitive and peel easily (2' cap swelling due to chemo) .. Using work-balm, udder cream. May need Rx, Derm. Malignant neoplasm of sigmoid colon (Chronic) [place], [place]), s/p Chemo x 2.5 yrs .... with Met (2014)(+Chemo) and again (2016)(+Rad/Chemo) .. Now with [facility] On[facility], Dr. Iqbal. 09/2020opulmonary nodule RLL, restaged CT 03/26/22 08/29/22 [facility] Hem/Onc visit - Lonsurf/avastin therapy 10/30/23 F/u w Dr Iqbal 08/30/24 F/U St Hem/Onc Cancer, metastatic to liver (Acute) s/p Rad, Chemo (2016) .. Original colon cancer, s/p resection (2011) Cancer, metastatic to lung (Chronic) Colon Cancer, s/p resection/chemo (2011) . Mets to LUNG (2014), s/p more chemo. 11/22/21 F/u Dr Iqbal - pt due for next cycle of capecitabine. Other fatigue (Acute) Bone metastasis (Acute) Hypocalcemia (Acute) Hypomagnesemia (Acute) Hypokalemia (Acute) Medical History (Updated 05/04/25 @ 15:13 by Claudia Leonardo MD) Brain tumor Synovial cyst of popliteal space [Dsouza], right knee Anxiety and depression Support system deficit Good group of friends, 09/2023.. Newly moved from [place] (2019) Depression Pt stopped: Hx Sertraline Caregiver stress Mo in [facility]. Caregiver for mother, moved to [place] from [place] (Spring 2020).. Mo in [facility], 02/28/21 Bone spur 1993 - surgery [place] Surgical History (Updated 04/27/25 @ 13:29 by Estefania Bright) H/O brain surgery (~10/20/24) Right frontotemporal craniotomy for tumor resection with Gamma Tile placement History of colon resection (07/2011) History of surgery of liver History of breast biopsy Family History Mother Colon cancer metastatic colorectal Diabetes Heart disease Brother Heart disease Father Stroke Cancer skin Heart disease Social History Smoking/Tobacco Use Status: Never Smoking risk assessment performed?: Yes Alcohol Intake: never Substance use type: does not use Adopted: No Caregiver/Support person: No Foster care: No Household members: family Housing: apartment Number of Children: 2 number of grandchildren: 1 Communication Needs: None Education Level: college Details: Bachelor's Degree Do you need help understanding health information?: Rarely 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
[2025-05-03 17:19] LABS: Abs Immature Grans 0.43 10^3/uL (0.0-0.06); HCT 26.9 % (36.0-46.0); HGB 9.1 g/dL (11.2-15.7); Immature Grans % 3.8 %; MCH 31.2 pg (27.0-33.0); MCHC 33.8 % (32.0-36.0); MCV 92 fL (80-95); MPV 11.8 fL (8.0-11.0); Platelet Count 278 10^3/uL (130-400); RBC 2.92 10^6/uL (3.93-5.22); RDW 25.2 % (11.7-14.6); RDW-SD 83.2 fL; WBC 11.35 10^3/uL (4.4-10.8)
[2025-05-03] MEDS: Ketorolac 15 MG/ML VIAL IVP (17:25)
[2025-05-03] MEDS: Normal Saline 500 ML IV (17:26)
[2025-05-03 17:29] LABS: INR 1.2 (0.9-1.1); Prothrombin Time 11.5 sec (9.1-11.1)
[2025-05-03 17:33] LABS: Magnesium 1.4 mg/dL (1.6-2.6)
[2025-05-03 17:36] LABS: Anisocytosis 1+; Target Cells 2+
[2025-05-03 17:50] LABS: ALT 85 U/L (10-49); AST 115 U/L (<34); Albumin 3.7 g/dL (3.4-5.0); Alkaline Phosphatase 669 U/L (46-116); Anion Gap 11.3 mmol/L (3-11); BUN 14 mg/dL (9-23); Bilirubin, Direct 11.3 mg/dL (<=0.3); CO2 20.7 mmol/L (20.0-31.0); Calcium 8.8 mg/dL (8.3-10.6); Chloride 105 mmol/L (98-107); Glucose 103 mg/dL (74-106); Sodium 137 mmol/L (136-145); Total Protein 6.8 g/dL (5.7-8.2); Troponin I < 3 ng/L (<35)
[2025-05-03 17:52] LABS: Ammonia < 10 umol/L (11-32)
[2025-05-03 18:32] LABS: Troponin I < 3 ng/L (<35)
[2025-05-03] MEDS: MAGNESIUM SULFATE 2 GM/50 ML BAG IV_INF (18:55)
[2025-05-03] MEDS: Omnipaque 350 MG/ML 100 ML BTL IJ (19:35)
[2025-05-03] MEDS: Normal Saline - Diluent 50 ML VIAL IJ (19:36)
[2025-05-03] MEDS: Normal Saline Flush 10 ML SYR IVP (19:36)
--- NOTE | 2025-05-03 19:37 | DI.CT_ITS ---
Exam(s) CT CHEST PE ABD PELVIS W EXAM: CT CHEST PE ABD PELVIS W CLINICAL HISTORY: chest pain, obstructive bilirubin pattern. TECHNIQUE: Imaging Protocol: Axial CT angiography was performed with multi- slice acquisition and multi-planar and/or 3D reconstructions. CONTRAST MATERIAL: Intravenous: Omnipaque 350 Contrast volume:100 ml Oral: None COMPARISON: CT CT CHEST/ABD/PEL W from 12/13/[address] CHEST/ABD/PEL W from 02/22/[address] ABDOMEN PELVIS W from 04/12/2025 FINDINGS: CHEST: PULMONARY ARTERIES: There are no intra-arterial filling defects to suggest the presence of acute pulmonary emboli. LUNGS: There is a new area of pleural based infiltrate in the posterior basal segment of the left lower lobe which measures approximately 4.5 x 3 cm. No associated pleural effusion.. Left upper lobe mass extending from mediastinum to the pleural surface is again noted. Left parahilar mass infiltrate has slightly increased in size. There are 2 metallic densities in this mass again noted. Infiltrate-mass subpleural location in the lateral basal segment of the left lower lobe has increased in size from 02/22/2025. No pleural effusion. On the opposite-right side there is again noted right infrahilar mass-infiltrate which is unchanged from previous. There is increasing infiltrate or mass in the anterior basal segment of the right lower lobe as well as unchanged subpleural infiltrate in the lateral basal segment of the right lower lobe. No pleural effusion. There are no new findings in the trachea and mainstem bronchi. MEDIASTINUM: Enlarged right paratracheal lymph node again noted. No increasing subcarinal adenopathy. Hilar regions appear unchanged from previous. CARDIAC: Heart size is normal. There is no pericardial effusion. There is no significant shift of the interventricular septum.Thoracic aorta appears unremarkable. OSSEOUS: No significant osseous lesions.No fractures evident.. ABDOMEN: There is no ascites. LIVER: Multiple metastatic lesions are again noted throughout the liver, further increased from the prior study of 02/22/[address] scan of 04/12/2025. GALLBLADDER/BILIARY: Gallbladder not seen probably surgically absent. There is a silastic stent in the CBD now evident which appears to be in satisfactory position. There are, however, some dilated intrahepatic ducts again noted in both hepatic lobes. The CBD around the stent is not dilated. PANCREAS: No evidence of pancreatic mass nor dilatation of the pancreatic duct. However, there is an enlarged lymph node again noted between the IVC and portal venous confluence which measures 3.3 x 2.6 cm, similar to previous. SPLEEN: Spleen is not enlarged. There are no intrasplenic lesions. Splenic and portal veins are patent. ADRENALS: There are no significant adrenal masses. KIDNEYS:No cysts evident. No calculi nor hydronephrosis. No solid renal masses. ABDOMINAL AORTA: Abdominal aorta is not enlarged. LYMPH NODES: There is no retroperitoneal or para-aortic adenopathy. ABDOMINAL WALL/GI: No evidence of significant anterior abdominal wall hernia. No bowel obstruction. PELVIS: LYMPH NODES: There is no intrapelvic nor inguinal adenopathy. GI: No evidence of appendicitis.Partial lower sigmoid resection noted. No significant findings at this level. No significant sigmoid diverticular disease. URINARY BLADDER: No calculi nor masses evident REPRODUCTIVE: Uterus size normal. Bilateral fallopian tube contraceptive implants are again noted. No abnormal adnexal masses. No free fluid. OSSEOUS: Abnormal sclerotic area in the left iliac bone is again noted. No new fractures. No lytic lesions identified. IMPRESSION: 1. There is a significant new area of infectious appearing infiltrate in the left lower lobe posterior basal segment. No associated pleural effusion. 2. Again noted are multiple malignant metastatic appearing lung lesions as described above. Enlarged right paratracheal lymph node again noted. 3. Multiple malignant/metastatic appearing liver lesions again noted, increased from 02/22/2025 but appearing unchanged from CT scan of 04/12/2025. Enlarged lymph node portacaval region again noted. 4. There is a silastic CBD stent in place in satisfactory position. There is still some dilatation of intrahepatic ducts evident. This may indicate suboptimal performance of the stent. The CBD itself does not appear dilated around the stent. Gallbladder again noted be surgically absent. 5. No evidence of pancreatic mass nor dilatation of the pancreatic duct. Other findings as above. Preliminary V rad report was reviewed. RADIATION DOSE DELIVERED: 990.24mGy.cm Total DLP DATA REPOSITORY: All CT scans at this facility are submitted to the National Radiology Data Registry (NRDR) Dose Index Registry (DIR) with the [employer] ([employer]). RADIATION OPTIMIZATION: All CT scans at this facility use at least one of these dose optimization techniques: automated exposure control; mA and/or kV adjustment per patient size (includes targeted exams where dose is matched to clinical indication); or iterative reconstruction.
--- NOTE | 2025-05-03 19:50 | DI.VRAD_ITS ---
Addendum created by Andreia Lopez MD on 05/03/2025 7:51:02 PM EST: Correction of an error in IMPRESSION as follows: The impression should also state Mildly heterogeneous right and minimally heterogeneous left nephrogram concerning for new pyelonephritis, without obstruction. Initial report created on 05/03/2025 7:50:15 PM EST: PROCEDURE INFORMATION: Exam: CTA Chest With Contrast CTA Abdomen With Contrast Exam date and time: 05/03/2025 19:04 Age: 54 years old Clinical indication: Chest pressure; Prior surgery; Surgery date: <1 month; Surgery type: Ercp. Colon resection (+1 year ago); Chest pain, obstructive bilirubin pattern TECHNIQUE: Imaging protocol: Computed tomographic angiography of the chest with contrast. Exam focused on the arteries. Computed tomographic angiography of the abdomen with contrast. Exam focused on the arteries. 3D rendering (Not supervised by radiologist): MIP and/or 3D reconstructed images were created by the technologist. Radiation optimization: All CT scans at this facility use at least one of these dose optimization techniques: automated exposure control; mA and/or kV adjustment per patient size (includes targeted exams where dose is matched to clinical indication); or iterative reconstruction. Contrast material: [id number]; Contrast volume: 100 ml; Contrast route: INTRAVENOUS (IV); COMPARISON: CT CHEST/ABD/PEL W 02/22/2025 09:29 FINDINGS: Tubes, catheters and devices: Left jugular port, satisfactory position. Plastic CBD stent, satisfactory position. Right and left fallopian tube metallic closure devices. VASCULATURE: Pulmonary arteries: . No pulmonary emboli. Aorta: No aortic aneurysm. No aortic dissection. Celiac and mesenteric arteries: No occlusion or significant stenosis. Renal arteries: No occlusion or significant stenosis. Portal vein is patent. CHEST: Lungs: Left upper lobe mass with extension toward the mediastinum about 4 cm AP, additional smaller pulmonary lesions again seen. Right lower lobe lesion very similar to prior. Mild surrounding subsegmental atelectasis and or scarring, overall increasing. New small left lower lobe airspace consolidation. Small metallic structures in lungs could reflect biopsy clips or radiation markers. Pleural spaces: . No pneumothorax. No pleural effusion. Heart: . No cardiomegaly. No pericardial effusion. ABDOMEN AND PELVIS: Liver: Severe multifocal hepatic presumed metastatic disease appears overall worsened. Dominant conglomerated lesion measures up to 14 cm AP involving left and right lobes. Gallbladder and biliary ducts: Cholecystectomy. Mild left and moderate right intrahepatic ductal dilation is worsening. Pancreas: No significant pancreatic ductal dilation. Spleen: . No splenomegaly. Adrenal glands: . No mass. Kidneys: Mildly heterogeneous right nephrogram, minimally heterogeneous left nephrogram new since prior click 2 No right hydronephrosis. No left hydronephrosis. Stomach and bowel: Sigmoid colon anastomosis, satisfactory appearance. No significant enteritis or colitis. No obstruction in the GI tract. Intraperitoneal space: Upper abdominal pathology is worsening. Some appears necrotic. Lymph nodes: Metastatic appearing upper paratracheal adenopathy again seen. Additional mediastinal lymph nodes decreased slightly in size. Bones/joints: No acute fracture or subluxation. Soft tissues: Prominent subcutaneous fat. Mild dependent subcutaneous edema. IMPRESSION: 1. Multiple malignant/metastatic appearing pulmonary lesions again seen. New left lower lobe pneumonia versus pneumonitis. 2. Plastic CBD stent, satisfactory position. 3. Mild left and moderate right intrahepatic ductal dilation is worsening, concerning for suboptimal performance of the stent. 4. Additional findings as described. Dictated and Authenticated by: Andreia Lopez MD. Orderin Akash Ramos MD
[2025-05-03 20:03] LABS: Bilirubin, Total 15.50 mg/dL (0.2-1.2)
[2025-05-03 22:55] LABS: Potassium 4.5 mmol/L (3.5-5.1)
--- NOTE | 2025-05-13 08:30 | NUR.NOTE ---
Access chart to determine Home Health Referral form found in provider dictating room. It was not completed. Will check with provider to determine what to do with the form. Nursing Note:
== END 2025-05-03 22:28 | disposition home or self-care (01) ==
PROVIDERS: Emergency Provider Physician Assistant; PCP Nurse Practitioner Family
DX: J98.4 Other disorders of lung (principal); R10.11 Right upper quadrant pain; K72.00 Acute and subacute hepatic failure without coma
CPT/HCPCS: 71275; 74177; 80048; 80076; 93005; 96361; 96374; 99285; 82140; 83605; 83735; 83880; 84484; 85025; 85610; 93010; 99284; J1885; J3475; J3490

== ENCOUNTER 2025-05-10 03:12 | Outpatient (RCR) | payer BC, SELFPAY ==
[2025-04-27 14:22] LABS: Abs Immature Grans 0.20 10^3/uL (0.0-0.06); HCT 30.8 % (36.0-46.0); HGB 10.5 g/dL (11.2-15.7); Immature Grans % 1.8 %; MCH 31.4 pg (27.0-33.0); MCHC 34.1 % (32.0-36.0); MCV 92 fL (80-95); MPV 11.3 fL (8.0-11.0); Platelet Count 286 10^3/uL (130-400); RBC 3.34 10^6/uL (3.93-5.22); RDW 26.5 % (11.7-14.6); RDW-SD 87.3 fL; WBC 11.41 10^3/uL (4.4-10.8)
[2025-04-27 14:46] LABS: ALT 171 U/L (14-59); AST 175 U/L (15-37); Albumin 2.0 g/dL (3.4-5.0); Anion Gap 10.8 mmol/L (3-11); BUN 12 mg/dL (7-18); CO2 25.2 mmol/L (21.0-32.0); Calcium 8.6 mg/dL (8.5-10.1); Chloride 102 mmol/L (98-107); Estimated GFR 86.42 (mL/min/1.73m2); Glucose 118 mg/dL (74-106); Potassium 3.9 mmol/L (3.5-5.1); Sodium 138 mmol/L (136-145); Total Protein 6.7 g/dL (6.4-8.2)
[2025-04-27 14:47] LABS: Alkaline Phosphatase 1036 U/L (46-116)
[2025-04-27 14:50] LABS: Bilirubin, Total 17.8 mg/dL (0.2-1.0)
[2025-04-27 22:41] LABS: CEA 58.6 ng/mL (See Note)
[2025-05-03 07:31] LABS: Abs Immature Grans 0.46 10^3/uL (0.0-0.06); HCT 25.9 % (36.0-46.0); HGB 8.7 g/dL (11.2-15.7); Immature Grans % 3.9 %; MCH 31.1 pg (27.0-33.0); MCHC 33.6 % (32.0-36.0); MCV 93 fL (80-95); MPV 11.1 fL (8.0-11.0); Platelet Count 250 10^3/uL (130-400); RBC 2.80 10^6/uL (3.93-5.22); RDW 24.9 % (11.7-14.6); RDW-SD 83.1 fL; WBC 11.67 10^3/uL (4.4-10.8)
[2025-05-03 07:49] LABS: Anisocytosis 1+
[2025-05-03 08:11] LABS: ALT 79 U/L (10-49); AST 87 U/L (<34); Albumin 3.4 g/dL (3.4-5.0); Alkaline Phosphatase 639 U/L (46-116); Anion Gap 11.3 mmol/L (3-11); BUN 13 mg/dL (9-23); CO2 19.7 mmol/L (20.0-31.0); Calcium 8.7 mg/dL (8.3-10.6); Chloride 106 mmol/L (98-107); Glucose 120 mg/dL (74-106); Potassium 3.5 mmol/L (3.5-5.1); Sodium 137 mmol/L (136-145); Total Protein 6.2 g/dL (5.7-8.2)
[2025-05-03 08:15] LABS: Bilirubin, Total 14.10 mg/dL (0.2-1.2)
== END 2025-05-21 23:59 | disposition home or self-care (01) ==
LOC: INF 03:12
PROVIDERS: PCP Nurse Practitioner Family; Visit Provider Internal Medicine Hematology & Oncology
DX: C18.9 Malignant neoplasm of colon, unspecified (principal)
CPT/HCPCS: 36415; 80053; 82378; 85025